=== PATIENT | female | born 1945 | race Caucasian/White ===

== ENCOUNTER 2022-09-10 09:21 | Outpatient (CLI) | payer MEDICARE, SELFPAY ==
--- NOTE | ~2022-09-10 | MM_ITS ---
MM stereotactic bx RT, MM post biopsy diagnostic RT, MM stereotactic specimen RT EXAMINATION: MM ster eotactic bx RT, MM post biopsy diagnostic RT, MM stereotactic specimen RT INDICATION: Abnormal calcifications in the right breast. Stereotactic core biopsy is requested evalu ate for malignancy.] TECHNIQUE AND FINDINGS: The risks and potential benefits of the procedure were discussed with the patient and written informe d consent was obtained. The patient was placed in the prone position clustered at the table with the right breast in craniocaudal compression, and the area of interest was localized and targeted utiliz ing digital imaging with stereotaxis. After sterile preparation of the skin, 1% lidocaine was utilized for local anesthesia at the skin pun cture site and 1% lidocaine with epinephrine was utilized for deeper local anesthesia/is about the bi opsy site. A 9G [employer] vacuum assisted biopsy needle was advanced to the level of the calcification o f interest from a superior approach utilizing stereotactic guidance and a total of 6 tissue core biop sies were obtained. A specimen radiograph demonstrates that the calcifications of interest are included within the tissue cores. A tissue marker clip was then placed at the biopsy site. The needle was removed and hemosta sis was achieved. The patient tolerated the procedure well and there is no evidence of significant i mmediate complication. The patient was given verbal as well as written postprocedural instructions p rior to discharge from the department. Tissue cores were submitted to surgical pathology for histolo gic analysis. A 2-view right unilateral digital mammogram was obtained post procedure and this demonstrates that th e tissue marker clip is in expected position.] IMPRESSION: 1. Successful stereotactic biopsy of calcifications in the upper outer quadrant of the right breast, followed by tissue marker clip placement. Please refer to pathology report for histologic analysis. Reviewed, dictated and finalized at location A. IMPRESSION: 1. Successful stereotactic biopsy of calcifications in the upper outer quadran t of the right breast, followed by tissue marker clip placement. Please refer to pathology report for histologic analysis. IMPRESSION: 1. Successful stereotactic biopsy of calcifications in the upper outer quadran t of the right breast, followed by tissue marker clip placement. Please refer to pathology report for histologic analysis.
== END 2022-09-10 09:22 | disposition home or self-care (01) ==
PROVIDERS: PCP Internal Medicine; Visit Provider Internal Medicine
DX: R92.8 Other abnormal and inconclusive findings on diagnostic imaging of breast (principal); D05.11 Intraductal carcinoma in situ of right breast
CPT/HCPCS: 19081; 77065; 88305; 88342; A4648

== ENCOUNTER 2022-10-23 12:55 | Outpatient (CLI) | payer MEDICARE, SELFPAY ==
--- NOTE | ~2022-10-23 | MM_ITS ---
EXAMINATION: MM_MAGSEEDRT_MG INDICATION: Right breast cancer TECHNIQUE: The procedure for a ultrasound -guided Magseed localization was discussed with the patient . Risks discussed included bleeding and infection. The patient verbalized understanding and agreed to proceed. The time out was performed to verify the patient's name, date of , and site of procedure. The s kin overlying the right breast was prepared in usual fashion. Utilizing mammographic guidance, the ne edle was advanced into the right breast. Confirmation of Magseed position was achieved with mediolate ral and craniocaudal mammogram. The patient tolerated procedure without immediate complication. FINDINGS: Mammographic images demonstrate deployment of the Magseed device at the site of the biopsy- proven right breast cancer. IMPRESSION: 1. Successful mammogram guided right breast Magseed localization. Reviewed, dictated and finalized at location A.
== END 2022-10-23 12:56 | disposition home or self-care (01) ==
PROVIDERS: PCP Internal Medicine; Visit Provider Physician Assistant Surgical
DX: D05.11 Intraductal carcinoma in situ of right breast (principal)
CPT/HCPCS: 19281; A4648

== ENCOUNTER 2022-10-31 09:16 | Outpatient (CLI) | payer MEDICARE, SELFPAY ==
--- NOTE | 2022-10-31 09:30 | ECG_ITS ---
Measurements Intervals [place] Rate: 67 P: 43 NM: 157 QRS: -47 QRSD: 98 T: 66 QT: 413 QTc: 437 Interpretive Statements SINUS RHYTHM LEFT ANTERIOR FASCICULAR BLOCK LEFT VENTRICULAR HYPERTROPHY AND ST-T CHANGE DELAYED PRECORDIAL R/S TRANSITION BASELINE ARTIFACT- I, II, III, AVR, AVL, AVF, V1-V6 ABNORMAL ECG NO PREVIOUS ECG AVAILABLE FOR COMPARISON Electronically Signed On 10-31-2022 9:58:27 CDT by Jose Manuel Roe D.O.
[2022-10-31 10:05] LABS: Anion Gap 11 mmol/L (8-16); Blood Urea Nitrogen 19 mg/dL (7-17); Calcium 9.5 mg/dL (8.4-10.2); Carbon Dioxide 28 mmol/L (22-30); Chloride 102 mmol/L (98-107); Estimated Glomerular Filt Rate 54; Glucose 116 mg/dL (65-110); Potassium 4.3 mmol/L (3.4-5.0); Sodium 141 mmol/L (137-145)
[2022-10-31 10:09] LABS: INR 0.9; Prothrombin Time 12.9 Seconds (11.1-14.7)
[2022-10-31 10:10] LABS: Partial Thromboplastin Time 27.7 SECONDS (22.3-36.8)
== END 2022-10-31 09:17 | disposition home or self-care (01) ==
LOC: ANHSURGERY 09:21
PROVIDERS: Anesthesiology; PCP Internal Medicine; Visit Provider Surgery
DX: I12.9 Hypertensive chronic kidney disease with stage 1 through stage 4 chronic kidney disease, or unspecified chronic kidney disease (principal); N18.2 Chronic kidney disease, stage 2 (mild); I44.4 Left anterior fascicular block
CPT/HCPCS: 36415; 80048; 85610; 85730; 93005

== ENCOUNTER 2022-11-06 01:26 | Day surgery (SDC) | payer MEDICARE, SELFPAY ==
[2022-10-24 13:41] VITALS: BMI 22.7
--- NOTE | 2022-10-24 14:06 | PC.NURSE ---
Report to the Outpatient Waiting Room, entrance under the green pavilion located off [facility], at time _6:30AM on date _11/06/22 . Planned Procedure Time: _8:30AM . Time changes happen often and if your time is changed the preop area will call you the afternoon before. - You and your visitor will be asked to self-screen and do not enter if you have any COVID symptoms. - A mask is optional within the hospital at this time. Patients may have clear liquids (water, carbonated beverages, clear teas, apple juice) until 3 hours prior to surgery with a maximum of 20 ounces. - No food from midnight until time of surgery Take the following medications with a SIP of water the morning of surgery: NONE DO NOT STOP ANY OF YOUR OTHER PRESCRIPTION MEDICATIONS PRIOR TO SURGERY ?EXCEPT THE FOLLOWING Medications to discontinue per physician ____HOLD ALL VITAMINS/SUPPLEMENTS 3 DAYS PRE-OP Date to take last dose 11/02/22 Please no make-up, nail thai, hairspray, perfume, deodorant, or body powder the day of surgery. No jewelry (including any body piercings) or valuables the day of surgery, leave them at home. Please take a shower or bath the night before, or the morning of, surgery with an antibacterial soap. Wear comfortable, loose fitting clothing. Children are encouraged to wear pajamas. - Jewelry must be removed prior to entering the operating room. Rings and piercings that are not removed may be cut off. - The hospital will not accept responsibility for valuables. - Please leave all valuables, including medications, at home the day of surgery. If you are going home after surgery, a licensed medical driver must drive you home. - NO public transportation without another adult if you receive anesthesia. - We recommend that an adult stay with you for 24 hours following discharge. - We also recommend that you do not drive, make important decision, drink alcoholic beverages, or take any drugs that were not prescribed by your health care provider for at least 24 hours after your discharge time. Follow any additional instructions given to you from your surgeon. If you or anyone in your household have experienced Covid symptoms in the past week, please notify your surgeon or the nurse liaison at the phone number below for possible testing. Telephone instructions given to __PATIENT and asked if any additional questions and then verbalized understanding. Patient advised to call surgeon office or pre surgery nurse liaison [phone] if any additional questions.
--- NOTE | 2022-11-05 10:17 | WPDANESEPPF ---
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 Patient Data Age: 76 Gender: F Height: 1.65 m Weight: 62 kg Allergies Allergy/AdvReac Type Severity Reaction Status Date / Time No Known Allergies Allergy Verified 11/06/22 06:05 Home Medications Medication Instructions Recorded Confirmed Type ascorbate calcium (vitamin C) 500 500 mg PO DAILY 10/08/22 10/24/22 History mg tablet calcium citrate 250 mg 2 tablet PO BID 10/08/22 10/24/22 History calcium-vitamin D3 5 mcg (200 unit) tablet lisinopril 5 mg tablet 5 mg PO QPM 10/08/22 10/24/22 History ivswyrmrzzhn-zexgbkva-yljyzf tablet 1 tablet PO DAILY 10/08/22 10/24/22 History turmeric root extract 500 mg tablet 500 mg PO DAILY 10/08/22 10/24/22 History vitamin B complex (B 1 tablet PO DAILY 10/08/22 10/24/22 History Complex-Vitamin B12 tablet) glucosamine sulf dipot 1 cap PO DAILY 10/24/22 10/24/22 History chlr,msm,chond 550 mg-C 30 mg-ashley 1 mg capsule (Glucosamine Chondroitin) tramadol 50 mg tablet 50 mg PO Q6H PRN pain #12 tabs 11/06/22 Rx Patient hx anesthesia problems: none Family hx anesthesia problems: none Results Review: All pre-operative results and documents have been reviewed as part of the pre-operative evaluation. ON LICENSE OF [facility] Past Medical History Medical History (Updated 11/05/22 @ 10:21 by Akira Andujar DO) Breast cancer CKD (chronic kidney disease) Hypertension Surgical History Surgical History (Updated 11/05/22 @ 10:19 by Akira Andujar DO) History of tubal ligation Family History Family History (Updated 10/08/22 @ 08:08 by Alexia Rosario CMA) Father Bladder cancer Mother Hypertension Sibling Ovarian cancer Hypertension Other Hypertension Social History Social History (Updated 10/31/22 @ 08:46 by Alexia Rosario CMA) Smoking status: Never smoker Alcohol intake: never Substance use: never Substance use type: does not use Current Housing: Decline to Answer Concerned About Future Housing: Decline to Answer Difficulty Paying Gas/Electric Bills: Decline to Answer Difficulty Paying for Meds: Decline to Answer Currently Unemployed: Decline to Answer Education: Decline to Answer Difficulty w/ Childcare or Family Care: Decline to Answer Living arrangements: with family Additional living arrangements comments: HUSB Spiritual care concerns: No Anes - Eval Final PreProcedure Day of Procedure 11/05/22 10:17 Patient weight: normal Heart: regular rate and rhythm Lungs: clear to auscultation and normal air movement Airway: Mallampati scale class II Neurological: alert and oriented Last oral intake: >/= 8 hours ASA classification: III Emergent: no Anesthetic plan: proceed Anesthesia type and monitoring: general LMA and standard monitoring Results Review: All pre-operative results and documents have been reviewed as part of the pre-operative evaluation. Informed Consent: The patient's anesthetic plan and its attendant risks and benefits were discussed with the patient/family/POA. Questions were solicited and answers provided to the satisfaction of the patient/family/POA.
[2022-11-06] VITALS (9 sets, daily range): BP systolic 149–189; BP diastolic 60–75; PULSE 64–79; RESP 16–18; TEMP 36.1–36.4; O2SAT 98–100
--- NOTE | ~2022-11-06 | MM_ITS ---
MM_FAXITRON_MG DATE: 11/06/2022 09:34 INDICATION: Right breast lumpectomy TECHNIQUE: Single noncompression mammographic images of surgical soft tissue specimen COMPARISON: 10/23/2022 right mag seed FINDINGS: Radiopaque mag seed and radiopaque biopsy marker are noted in the central aspect of the lucretia gical soft tissue specimen. IMPRESSION: Successful surgical excision of radiopaque mag seed marker Reviewed, dictated and finalized at [facility]. Reviewed, dictated and finalized at [facility].
[2022-11-06] MEDS: LACTATED RINGERS 1,000 ML 30 ML IV CONT (06:28)
[2022-11-06] MEDS: ACETAMINOPHEN 500 MG TABLET 1000 MG PO (06:47)
--- NOTE | 2022-11-06 07:36 | WPDHPUPDATE1 ---
History and Physical Update Update Date/Time: 11/06/22 07:36 History and Physical has been reviewed, including an updated exam of the patient. There are NO changes in the patient's condition. Risks, benefits, and alternatives have been discussed and questions answered. Patient agrees to proceed with procedure.
[2022-11-06] MEDS: ceFAZolin 2 GM/D5W 50 ML 2 GM/50 ML BAG IVPB (08:56)
--- NOTE | 2022-11-06 09:46 | P.OP_ITS ---
Procedure Note - Detailed Date of Procedure 11/06/22 Pre-op Diagnosis Right breast ductal carcinoma in situ Post-op Diagnosis Same Procedure Performed Right breast lumpectomy Surgeon Dacia Hawkins MD Creative Designer Laura Lin PA-C Anesthesia General Indications 76-year-old female with the history of right breast ductal carcinoma in Situ who presented for preoperative appointment.? Patient has been evaluated by Oncology and elected to proceed with lumpectomy for surgical management of her DCIS.? Risks of the surgery were discussed with the patient which included but not limited to risk of bleeding, infection, positive margins, recurrence, possible need for additional procedures in the future, asymmetry, scar, pain, wound healing problems as well as the risk of anesthesia.? All questions were answered patient agrees to proceed.? We will plan for a right breast lumpectomy with Mag seed localization next week. Description of Procedure Patient was identified in the pre-operative area and brought to the OR suite. She underwent tumor localization previously by IR with magseed placement prior to presenting for surgery day. She was laid supine in the operating table and sequential compression devices were applied. General anesthesia was induced without difficulties. The right chest and was prepped and draped in a sterile fashion. The sentimag probe was used to identify the area where the magseed was placed and an incision was made overlying this area, at a site of a previous old incision. Dissection was carried down through the subcutaneous tissue into the breast tissue. The tumor was identified with palpation using probe, and a rim of normal breast tissue was excised along with the tumor as our lumpectomy specimen. Once the specimen was completely excised, it was oriented using surgical pain according to manufuctrer instructions. The specimen was placed in the faxitron and images were sent to Radiology for radiographic confirmation of calcifications, biopsy marker and magseed within the specimen. Once the radiographic confirmation was received, the wound was irrigated with saline and hemostasis was assured. The deep dermal layer was approximated using interrupected 3-0 vicryl followed by 4-0 monocryl for the skin. Dermabond was applied followed by a surgical bra. Patient was awoken from anesthesia and taken to the recovery area in stable condition. All needles, instruments and sponge counts were correct as reported by the operating room staff. Patient tolerated the procedure well with no immediate complications. Laura Riley PA-C was required for positioning and retraction throughout the case. Estimated Blood Loss 10 Drains No Pathology Yes Complications No immediate complications Condition Stable Disposition PACU [facility] Billing Surgery - Charge Forward: Surgery Billing
== END 2022-11-06 12:30 | disposition home or self-care (01) ==
PROVIDERS: PCP Internal Medicine; Visit Provider Surgery
PROC: (CPT 19301; principal; 2022-11-06 08:30)
DX: D05.11 Intraductal carcinoma in situ of right breast (principal); Z17.0 Estrogen receptor positive status [ER+]; I12.9 Hypertensive chronic kidney disease with stage 1 through stage 4 chronic kidney disease, or unspecified chronic kidney disease; N18.9 Chronic kidney disease, unspecified
CPT/HCPCS: 19301; 76098; 88307; A9270; J0690; J1100; J2405; J2704; J3010; J7120; Q9968

== ENCOUNTER 2023-01-31 09:06 | Outpatient (CLI) | payer MEDICARE, SELFPAY ==
[2023-01-31 09:23] LABS: Basophils Percent Auto 0.5 % (0.2-1.2); Eosinophils Percent Auto 0.3 % (0-4.4); Hematocrit 41.5 % (37.0-47.0); Hemoglobin 13.3 g/dL (12.0-15.0); Immature Granulocyte Absolute 0.02 K/mm3 (0.00-0.031); Immature Granulocyte Percent A 0.3 % (0-0.5); Immature Platelet Fraction Pct 9.9 % (0.9-11.2); Lymphocytes Absolute Auto 1.93 K/mm3 (0.9-3.2); Lymphocytes Percent Auto 29.4 % (18.3-44.2); Mean Platelet Volume 11.5 fl (7.4-10.4); Monocytes Absolute Auto 0.6 K/mm3 (0.1-0.6); Monocytes Percent Auto 9.5 % (2.6-8.5); Neutrophils Absolute Auto 3.9 K/mm3 (1.3-6.7); Platelet Count Result 145 k/mm3 (150-375); Red Blood Count 4.15 M/mm3 (4.2-5.4); Red Cell Distribution Width 12.9 % (11.5-14.5); White Blood Count 6.6 K/mm3 (4.5-10.0)
[2023-01-31 09:24] LABS: Blood Urea Nitrogen 19 mg/dL (8-26); Carbon Dioxide 28 mmol/L (22-30); Chloride 102 mmol/L (98-109); Estimated Glomerular Filt Rate 48; Glucose 124 mg/dL (70-105); Ionized Calcium (POC) 1.21 mmol/L (1.11-1.31); Potassium 4.3 mmol/L (3.5-4.9); Sodium 141 mmol/L (138-146)
== END 2023-01-31 09:07 | disposition home or self-care (01) ==
LOC: ANHLAB 09:09
PROVIDERS: Visit Provider Internal Medicine Hematology & Oncology
DX: D05.11 Intraductal carcinoma in situ of right breast (principal)
CPT/HCPCS: 36415; 80047; 85025; 85055

== ENCOUNTER 2023-06-07 10:29 | Outpatient (CLI) | payer MEDICARE, SELFPAY ==
--- NOTE | ~2023-06-07 | MM_ITS ---
EXAMINATION: MM diagnostic lotus BI w keon HISTORY: Status post right lumpectomy for ductal carcinoma in situ. TECHNIQUE: Additional 3-D tomosynthesis images of the breasts were performed and synthetic 2-D images were generated. CAD analysis was submitted and interpreted. COMPARISON: Comparison to multiple prior studies sequentially, with oldest reviewed study dated 07/04. BREAST PARENCHYMAL COMPOSITION: Not dense: There are scattered areas of fibroglandular density. FINDINGS: The left breast is stable without evidence for malignancy. There are surgical changes in th e upper outer quadrant of the right breast consistent with previous left mastectomy. There is a solit kaykay calcification along the margin of the lumpectomy site, nonspecific. IMPRESSION: 1. Probable benign postsurgical changes of the right breast. 2. Recommend 6 month follow-up diagnostic right mammogram BI-RADS category 3, probably benign findings. Reviewed, dictated and finalized at location [facility].
== END 2023-06-07 10:30 | disposition home or self-care (01) ==
LOC: ANHIMG 10:31
PROVIDERS: PCP Internal Medicine; Visit Provider Physician Assistant Surgical
DX: D05.11 Intraductal carcinoma in situ of right breast (principal)
CPT/HCPCS: 77062; 77066; G0279

== ENCOUNTER 2023-06-18 07:33 | Outpatient (CLI) | payer MEDICARE, SELFPAY ==
--- NOTE | ~2023-06-18 | DEXA_ITS ---
Bone Density Report Name: MYA VERAS Age: 77 Sex: Female Ethnicity: White Date of : 1945 Indication: postmenopausal; screening for osteoporosis; height loss; cancer; Referring Provider: ERNESTO ALVAREZ Study: Bone densitometry was performed. Exam Date: June 18, 2023 Accession number: [id number] Bone Density: Region BMD T-score Z-score Classification AP Spine(L1-L4) 0.933 -1.0 1.6 Normal Femoral Neck (Left) 0.521 -3.0 -0.7 Osteoporosis Total Hip (Left) 0.786 -1.3 0.7 Osteopenia Femoral Neck (Right) 0.611 -2.1 0.1 Osteopenia Total Hip (Right) 0.736 -1.7 0.3 Osteopenia Total Hip Mean 0.761 -1.5 0.5 Osteopenia World Health Organization criteria for BMD impression classify patients as: Normal (T-score at or above -1.0), Osteopenia (T-score between -1.0 and -2.5), or Osteoporosis (T-score at or below -2.5). 10-year Fracture Risk: FRAX not reported because: Some T-score for Spine Total or Hip Total or Femoral Neck at or below -2.5 Clinical Information Provided by Patient: Has used the following medications: Vitamin D, Calcium Has the following medical conditions: Cancer Patient maximum height was 65 Menopause Age: 50 Onset of menses at age 10 Number of children 2 Impression: The patient has osteoporosis, based on the Left Femoral Neck T-score. Discussion: INCREASED RISK OF FRACTURE. BONE DENSITY IS UNDESIRABLY LOW AT ONE OR MORE SKELETAL SITES, CONSISTENT WITH POSTMENOPAUSAL OSTEOPOROSIS. This patient's lowest T-score meets the World Health Organization's (WHO) criteria for osteoporosis at one or more sites (T-score -2.5 or below). In untreated patients, the risk of osteoporotic fracture increases approximately two-fold for each 1.0 SD decrease in T-score. Low bone density is not the only risk factor for fracture; also consider factors such as patient's age, frailty or poor health, risk of falling, risk of injury, previous osteoporotic fracture, family history of osteoporosis, cigarette smoking, low body weight, etc. Not everyone with low bone mineral density has osteoporosis; osteomalacia and other metabolic bone disorders should also be considered. Patients who have osteoporosis should be evaluated for specific diseases and conditions (secondary causes) that may cause or contribute to bone loss. The [place] [employer] (AACE) and National Osteoporosis Foundation (NOF) recommend pharmacologic intervention for all postmenopausal women whose T-score is in this range. The patient should follow a healthful lifestyle (good nutrition with adequate calcium and vitamin D, and appropriate weight-bearing exercise). Follow-Up: Consider a repeat BMD and Vertebral Fracture Assessment (VFA) exam in 2 years or sooner if medically necessary, to reassess this pat
== END 2023-06-18 07:34 | disposition home or self-care (01) ==
LOC: ANHIMG 07:35
PROVIDERS: PCP Internal Medicine; Visit Provider Internal Medicine Hematology & Oncology
DX: M81.0 Age-related osteoporosis without current pathological fracture (principal); M85.852 Other specified disorders of bone density and structure, left thigh; M85.851 Other specified disorders of bone density and structure, right thigh
CPT/HCPCS: 77080

== ENCOUNTER 2023-06-28 08:14 | Outpatient (CLI) | payer MEDICARE, SELFPAY ==
[2023-06-28 08:45] LABS: Basophils Percent Auto 0.4 % (0.2-1.2); Eosinophils Percent Auto 0.4 % (0-4.4); Hematocrit 39.4 % (37.0-47.0); Hemoglobin 12.9 g/dL (12.0-15.0); Immature Granulocyte Absolute 0.01 K/mm3 (0.00-0.031); Immature Granulocyte Percent A 0.2 % (0-0.5); Immature Platelet Fraction Pct 8.3 % (0.9-11.2); Lymphocytes Absolute Auto 1.19 K/mm3 (0.9-3.2); Lymphocytes Percent Auto 26.1 % (18.3-44.2); Mean Corpuscular HGB Conc 32.7 g/dl (32-36); Mean Corpuscular Hemoglobin 32.3 pg (26-34); Mean Corpuscular Volume 98.7 fl (80-100); Mean Platelet Volume 11.3 fl (7.4-10.4); Monocytes Absolute Auto 0.5 K/mm3 (0.1-0.6); Monocytes Percent Auto 10.3 % (2.6-8.5); Neutrophils Absolute Auto 2.9 K/mm3 (1.3-6.7); Neutrophils Percent Auto 62.6 % (45.5-73.1); Platelet Count Result 125 k/mm3 (150-375); Red Blood Count 3.99 M/mm3 (4.2-5.4); Red Cell Distribution Width 12.7 % (11.5-14.5); White Blood Count 4.6 K/mm3 (4.5-10.0)
[2023-06-28 08:49] LABS: Blood Urea Nitrogen 19 mg/dL (8-26); Carbon Dioxide 26 mmol/L (22-30); Chloride 101 mmol/L (98-109); Estimated Glomerular Filt Rate 43; Glucose 116 mg/dL (70-105); Ionized Calcium (POC) 1.18 mmol/L (1.11-1.31); Sodium 141 mmol/L (138-146)
[2023-06-28 11:50] LABS: Alanine Aminotransferase 19 U/L (6-35); Albumin Level 4.6 g/dL (3.5-5.1); Alkaline Phosphatase 59 U/L (38-126); Anion Gap 6 mmol/L (4-12); Aspartate Amino Transferase 28 U/L (14-36); Bilirubin,Total 0.7 mg/dL (0.2-1.3); Blood Urea Nitrogen 19 mg/dL (7-17); Calcium 9.7 mg/dL (8.4-10.2); Carbon Dioxide 30 mmol/L (22-30); Chloride 104 mmol/L (98-107); Cholesterol 228 mg/dL (0-200); Estimated Glomerular Filt Rate 48; Glucose 113 mg/dL (65-110); HDL Direct 47 mg/dL; Sodium 140 mmol/L (137-145); Triglycerides 205 mg/dL (<150)
[2023-06-28 12:01] LABS: LDL Cholesterol Direct 127 mg/dL
[2023-06-28 12:05] LABS: Free T4 Free Thyroxine 1.35 ng/mL (0.78-2.19)
== END 2023-06-28 08:15 | disposition home or self-care (01) ==
LOC: ANHLAB 08:17
PROVIDERS: PCP Internal Medicine; Visit Provider Internal Medicine Hematology & Oncology
DX: E78.5 Hyperlipidemia, unspecified (principal); Z13.820 Encounter for screening for osteoporosis
CPT/HCPCS: 36415; 80047; 80053; 80061; 84439; 84443; 85025; 85055

== ENCOUNTER 2023-10-18 08:25 | Outpatient (CLI) | payer MEDICARE, SELFPAY ==
[2023-10-18 08:56] LABS: Basophils Percent Auto 0.6 % (0.2-1.2); Eosinophils Percent Auto 0.4 % (0-4.4); Hematocrit 39.4 % (37.0-47.0); Hemoglobin 12.6 g/dL (12.0-15.0); Immature Granulocyte Absolute 0.01 K/mm3 (0.00-0.031); Immature Granulocyte Percent A 0.2 % (0-0.5); Immature Platelet Fraction Pct 7.9 % (0.9-11.2); Lymphocytes Absolute Auto 1.24 K/mm3 (0.9-3.2); Lymphocytes Percent Auto 25.6 % (18.3-44.2); Mean Corpuscular Hemoglobin 32.3 pg (26-34); Mean Platelet Volume 11.8 fl (7.4-10.4); Monocytes Absolute Auto 0.4 K/mm3 (0.1-0.6); Monocytes Percent Auto 7.8 % (2.6-8.5); Neutrophils Absolute Auto 3.2 K/mm3 (1.3-6.7); Neutrophils Percent Auto 65.4 % (45.5-73.1); Platelet Count Result 121 k/mm3 (150-375); White Blood Count 4.9 K/mm3 (4.5-10.0)
[2023-10-18 08:57] LABS: Blood Urea Nitrogen 22 mg/dL (8-26); Carbon Dioxide 27 mmol/L (22-30); Chloride 103 mmol/L (98-109); Estimated Glomerular Filt Rate 40; Glucose 120 mg/dL (70-105); Ionized Calcium (POC) 1.18 mmol/L (1.11-1.31); Potassium 3.9 mmol/L (3.5-4.9); Sodium 141 mmol/L (138-146)
[2023-10-18 09:30] LABS: Creatinine Urine 36.2 mg/dL
[2023-10-18 09:31] LABS: Alanine Aminotransferase 14 U/L (6-35); Albumin Level 4.6 g/dL (3.5-5.1); Alkaline Phosphatase 37 U/L (38-126); Anion Gap 10 mmol/L (4-12); Aspartate Amino Transferase 29 U/L (14-36); Bilirubin,Total 0.7 mg/dL (0.2-1.3); Blood Urea Nitrogen 23 mg/dL (7-17); Calcium 9.3 mg/dL (8.4-10.2); Carbon Dioxide 29 mmol/L (22-30); Chloride 101 mmol/L (98-107); Estimated Glomerular Filt Rate 43; Glucose 119 mg/dL (65-110); Sodium 140 mmol/L (137-145)
[2023-10-18 09:39] LABS: Hemoglobin A1C 5.5 % (<5.7)
[2023-10-18 12:48] LABS: Cholesterol 182 mg/dL (0-200); HDL Direct 56 mg/dL; Triglycerides 148 mg/dL (<150)
[2023-10-18 12:59] LABS: LDL Cholesterol Direct 84 mg/dL
[2023-10-18 13:09] LABS: Free T4 Free Thyroxine 1.13 ng/mL (0.78-2.19)
[2023-10-18 15:37] LABS: MALB Creatinine Ratio > 16.6 mg/g (0-30); Microalbumin Urine Random > 6.0 mg/L (0-16.7)
== END 2023-10-18 08:26 | disposition home or self-care (01) ==
PROVIDERS: PCP Internal Medicine; Visit Provider Internal Medicine Hematology & Oncology
DX: E78.5 Hyperlipidemia, unspecified (principal); R73.03 Prediabetes; Z13.820 Encounter for screening for osteoporosis
CPT/HCPCS: 36415; 80047; 80053; 80061; 82043; 83036; 84439; 84443; 85025; 85055

== ENCOUNTER 2023-12-09 10:24 | Outpatient (CLI) | payer MEDICARE, SELFPAY ==
--- NOTE | ~2023-12-09 | MM_ITS ---
EXAMINATION: MM diagnostic lotus RT w keon HISTORY: Follow-up right breast distortion post biopsy. 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 TECHNIQUE: Additional 3-D tomosynthesis images of the right breast were performed and synthetic 2-D i mages were generated. CAD analysis was submitted and interpreted. COMPARISON: Comparison to multiple prior studies sequentially, with oldest reviewed study dated 09/10. BREAST PARENCHYMAL COMPOSITION: Not dense: There are scattered areas of fibroglandular density. FINDINGS: Stable postsurgical change with architectural distortion in the upper outer quadrant of the right breast, middle third. No new masses, calcifications or architectural distortion. IMPRESSION: 1. Stable right mammogram without evidence for malignancy. 2. Routine yearly screening mammogram and regular clinical breast examination are recommended. BI-RADS Category 2: Benign finding(s). Reviewed, dictated and finalized at location [facility]. IMPRESSION: 1. Stable right mammogram without evidence for malignancy. 2. Routine yearly screening mammogram and regular clinical breast examination a re recommended. BI-RADS Category 2: Benign finding(s).
== END 2023-12-09 10:25 | disposition home or self-care (01) ==
LOC: ANHIMG 10:25
PROVIDERS: PCP Internal Medicine; Visit Provider Physician Assistant Surgical
DX: D05.11 Intraductal carcinoma in situ of right breast (principal)
CPT/HCPCS: 77061; 77065; G0279

== ENCOUNTER 2024-06-10 09:18 | Outpatient (CLI) | payer MEDICARE, SELFPAY ==
--- NOTE | ~2024-06-10 | MM_ITS ---
EXAMINATION: MM screening [facility] BI w [facility] HISTORY: Screening TECHNIQUE: Craniocaudal and mediolateral oblique 3-D tomosynthesis images were obtained and synthetic 2-D images were generated. CAD analysis was submitted and interpreted. COMPARISON: Comparison to multiple prior studies sequentially, with oldest reviewed study dated 07/04. BREAST PARENCHYMAL COMPOSITION: Not dense: There are scattered areas of fibroglandular density. FINDINGS: There are postsurgical changes with distortion in the upper outer quadrant of the right edu ast, middle third. There are no suspicious masses, calcifications or architectural distortion in the right breast to suggest malignancy. The left breast is stable without evidence for malignancy. IMPRESSION: 1. No mammographic evidence of malignancy. 2. Recommend routine screening mammography in one year. BI-RADS Category 2: Benign finding(s). Reviewed, dictated and finalized at location B.
--- OUTSIDE RECORDS SUMMARY | 2024-06-10 10:01 | XMS_ITS | Data Portability ---
Author Organization [place] [facility], Main Office Address [address] [place] [address] Assessment Encounter Date Assessment Date Assessment LastModified by Organization Details LastModified Time 06/26/2022 06/26/2022 06/14/2022: TSH 7.100H, FT4 1.19 Gluc 108, Alb 4.6, TP WNL Chol 241, TG 212, LDL 152 MCV 101.2, GFR 54 Not available 06/26/2022 10:00:24 01/01/2023 01/01/2023 06/14/2022: TSH 7.100H, FT4 1.19 Gluc 108, Alb 4.6, TP WNL Chol 241, TG 212, LDL 152 MCV 101.2, GFR 54 10/31/2022: Dr Hawkins CMP: GFR 54, Gluc 116 Not available 12/31/2022 08:54:47 07/02/2023 07/02/2023 06/14/2022: TSH 7.100H, FT4 1.19 Gluc 108, Alb 4.6, TP WNL Chol 241, TG 212, LDL 152 MCV 101.2, GFR 54 10/31/2022: Dr Hawkins CMP: GFR 54, Gluc 116 06/28/2023: BUN 19, Cr 1.1, GFR 48 Chol 228, TG 205,LDL 127 PLT 125 Not available 07/02/2023 09:32:32 11/19/2023 11/19/2023 06/14/2022: TSH 7.100H, FT4 1.19 Gluc 108, Alb 4.6, TP WNL Chol 241, TG 212, LDL 152 MCV 101.2, GFR 54 10/31/2022: Dr Hawkins CMP: GFR 54, Gluc 116 06/28/2023: BUN 19, Cr 1.1, GFR 48 Chol 228, TG 205,LDL 127 PLT 125 10/18/2023: Dr Jordan TSH 6.760H, FT4 1.13 MCV 101.0, PLT 121 Gluc 119, GFR 43 Not available 11/19/2023 10:00:39 03/24/2024 03/24/2024 06/14/2022: TSH 7.100H, FT4 1.19 Gluc 108, Alb 4.6, TP WNL Chol 241, TG 212, LDL 152 MCV 101.2, GFR 54 10/31/2022: Dr Hawkins CMP: GFR 54, Gluc 116 06/28/2023: BUN 19, Cr 1.1, GFR 48 Chol 228, TG 205,LDL 127 PLT 125 10/18/2023: Dr Jordan TSH 6.760H, FT4 1.13 MCV 101.0, PLT 121 Gluc 119, GFR 43 03/20/2024: A1C 5.5 GFR 54 Chol 216, LDL 113 TSH 7.720H, FT4 1.16 A1C 5.8 PLT 141 Not available 03/24/2024 09:22:35 Plan of Treatment Reminders Order Date Submit Date Provider Last Modified By Organization Details Last Modified Time Details Appointments Any 15 2024 08:30A Adrien [email or web address] MD Not available Not available Not available Lab glycohemo globin, total, blood 2024 025 [email or web address] [facility] (Lab), [address] [place], [address], 03/24/2024 09:49:54 microalbu min, urine 2024 025 [email or web address] [facility] (Lab), [address] [place], [address], 03/24/2024 09:49:54 vitamin D, 25-hydrox y, total, serum 2024 025 [email or web address] [facility] (Lab), [address] [place], [address], 03/24/2024 09:49:53 lipid panel, serum [address] (Lab), [address] [place], [address], 03/24/2024 09:49:52 CBC w/ auto diff [address] (Lab), [address] [place], [address], 03/24/2024 09:49:53 T4, free, serum [address] (Lab), [address] [place], [address], 03/24/2024 09:49:53 CMP, serum or plasma [address] (Lab), [address] [place], [address], 03/24/2024 09:49:53 TSH, serum or plasma [address] (Lab), [address] [place], [address], 03/24/2024 09:49:53 glycohemo globin, total, blood [address] (Lab), [address] [place], [address], 05/20/2024 08:37:53 microalbu min, urine [address] (Lab), [address] [place], [address], 05/20/2024 08:37:53 vitamin D, 25-hydrox y, total, serum [address] (Lab), [address] [place], [address], 05/20/2024 08:37:52 lipid panel, serum [address] (Lab), [address] [place], [address], 05/20/2024 08:37:52 CBC w/ auto diff [address] (Lab), [address] [place], [address], 05/20/2024 08:37:52 T4, free, serum [address] (Lab), [address] [place], [address], 05/20/2024 08:37:52 CMP, serum or plasma [address] (Lab), [address] [place], [address], 05/20/2024 08:37:52 TSH, serum or plasma [address] (Lab), [address] [place], [address], 05/20/2024 08:37:52 glycohemo globin, total, blood [address] (Lab), [address] [place], [address], 12/31/2023 09:52:09 microalbu min, urine 2023 024 [email or web address] [facility] (Lab), [address] [place], [address], 10/18/2023 18:11:50 vitamin D, 25-hydrox y, total, serum [address] (Lab), [address] [place], [address], 12/31/2023 09:52:08 lipid panel, serum 2023 024 [facility] (Lab), [address] [place], [address], 10/18/2023 15:47:00 CBC w/ auto diff 2023 024 [facility] (Lab), [address] [place], [address], 10/18/2023 11:15:14 T4, free, serum [address] (Lab), [address] [place], [address], 12/31/2023 09:52:08 CMP, serum or plasma [address] (Lab), [address] [place], [address], 12/31/2023 09:52:08 TSH, serum or plasma [address] (Lab), [address] [place], [address], 12/31/2023 09:52:08 vitamin D, 25-hydrox y, total, serum [address] (Lab), [address] [place], [address], 07/01/2023 09:40:54 lipid panel, serum [address] (Lab), [address] [place], [address], 07/01/2023 09:40:54 CBC w/ auto diff [address] (Lab), [address] [place], [address], 07/01/2023 09:40:54 T4, free, serum [address] (Lab), [address] [place], [address], 07/01/2023 09:40:38 CMP, serum or plasma [address] (Lab), [address] [place], [address], 07/01/2023 09:40:38 TSH, serum or plasma [address] (Lab), [address] [place], [address], 07/01/2023 09:40:38 vitamin D, 25-hydrox y, total, serum [address] (Lab), [address] [place], [address], 02/12/2023 11:18:29 lipid panel, serum [address] (Lab), [address] [place], [address], 02/12/2023 11:18:28 CBC w/ auto diff [address] (Lab), [address] [place], [address], 02/12/2023 11:18:28 T4, free, serum [email or web address] (Lab), [address] [place], [address], 02/12/2023 11:18:28 CMP, serum or plasma [email or web address] (Lab), [address] [place], [address], 02/12/2023 11:18:29 TSH, serum or plasma [email or web address] (Lab), [address] [place], [address], 02/12/2023 11:18:29 Referral hematolog ist referral 2024 025 [email or web address] Charlie Jordan MD, [address], [place], [address], 04/03/2024 09:55:00 podiatris t referral - Please call patient to schedule an appointme nt. Thank you. 2024 025 [email or web address] Rick Becerra DPM, [address], [address], [place], [address], 05/13/2024 08:42:31 hematolog ist referral 2023 024 [email or web address] Charlie Jordan MD, [address], [place], [address], 11/19/2023 12:07:34 podiatris t referral - Please call patient to schedule. 2023 024 [email or web address] Rick Becerra DPM, [address], [address], [place], [address], 12/24/2023 11:24:39 podiatris t referral 2023 024 gale Becerra DPM, [address] [facility], [address], [place], [address], 01/27/2024 08:51:19 Procedures None recorded. Surgeries None recorded. Imaging MAMMO, screening , digital, bilateral 2022 023 [email or web address] [facility] ([facility]), [address] [place], [address], 08/30/2022 10:45:51 Medication Orders None recorded. Patient TargetsNo targets recorded. Patient Instructions Encounter Date Encounter Id Patient Instructions Last Modified By Organization Details Last Modified Time 11/19/2023 [id number] diabetic eye exam* [email or web address] Not available 05/18/2024 08:34:50 03/24/2024 [id number] diabetic eye exam* [email or web address] Not available 03/24/2024 09:49:54 Reason for Referral Experimental Mechanic Referral for Pred iabetes Referring Physician: Migel Michele Internal Medicine, Encounter Date: 07/02/2023 Experimental Mechanic Referral for Pred iabetes Please call patient to schedule. Referring Physician: Radha Yuan Medicine, Encounter Date: 11/19/2023 Referring Physician: Migel Michele Internal Medicine, Encounter Date: 11/19/2023 Experimental Mechanic Referral for Pred iabetes Please call patient to schedule an appointment. Thank you. Referring Physician: Migel Michele Internal Medicine, Encounter Date: 03/24/2024 Referring Physician: Migel Michele Internal Medicine, Encounter Date: 03/24/2024 Results Created Date Observation Date Name Description Value Unit Range Abnormal Flag Note LastModifiedBy Organization Detail LastModifiedTime 06/15/1906/14/2022 CBC/C OMPLE TE BLD COUNT W/DIF F white blood cells 5.3 x10'3 /uL 4.2-10 .8 Not Available [facility] (Lab) [address] [place], [address], 06/14/2022 11:29:10 06/15/19 23 06/14/2022 CBC/C OMPLE TE BLD COUNT W/DIF F red blood cells 4.09 x10'6 /uL 3.80-5 .20 Not Available [facility] (Lab) [address] [place], [address], 06/14/2022 11:29:10 06/15/19 23 06/14/2022 CBC/C OMPLE TE BLD COUNT W/DIF F hemoglobin 13.1 g/dL 12.0-1 5.6 Not Available [facility] (Lab) [address] [place], [address], 06/14/2022 11:29:10 06/15/19 23 06/14/2022 CBC/C OMPLE TE BLD COUNT W/DIF F hematocrit 41.4 % 35.7-4 5.7 Not Available [facility] (Lab) [address] [place], [address], 06/14/2022 11:29:10 06/15/19 23 06/14/2022 CBC/C OMPLE TE BLD COUNT W/DIF F mean red cell volume 101.2 fL 82.0-9 9.0 high Not Available [facility] (Lab) [address] [place], [address], 06/14/2022 11:29:10 06/15/19 23 06/14/2022 CBC/C OMPLE TE BLD COUNT W/DIF F mean red cell hemoglobin 32.0 pg 27.0-3 3.0 Not Available [facility] (Lab) [address] [place], [address], 06/14/2022 11:29:10 06/15/19 23 06/14/2022 CBC/C OMPLE TE BLD COUNT W/DIF F mean RBC HGB concentratio n 31.6 g/dL 31.0-3 6.0 Not Available [facility] (Lab) [address] [place], [address], 06/14/2022 11:29:10 06/15/19 23 06/14/2022 CBC/C OMPLE TE BLD COUNT W/DIF F red cell distribution width 13.0 % 11.8-1 5.5 Not Available [facility] (Lab) [address] [place], [address], 06/14/2022 11:29:10 06/15/19 23 06/14/2022 CBC/C OMPLE TE BLD COUNT W/DIF F platelets 153 x10'3 /uL 150-40 0 Not Available [facility] (Lab) [address] [place], [address], 06/14/2022 11:29:10 06/15/19 23 06/14/2022 CBC/C OMPLE TE BLD COUNT W/DIF F mean platelet volume 13.0 fL 9.0-12 .4 high Not Available [facility] (Lab) [address] [place], [address], 06/14/2022 11:29:10 06/15/19 23 06/14/2022 CBC/C OMPLE TE BLD COUNT W/DIF F neutrophils 49.9 % 39.0-7 2.0 Not Available [facility] (Lab) [address] [place], [address], 06/14/2022 11:29:10 06/15/19 23 06/14/2022 CBC/C OMPLE TE BLD COUNT W/DIF F lymphocytes 39.1 % 16.0-4 7.0 Not Available [facility] (Lab) [address] [place], [address], 06/14/2022 11:29:10 06/15/19 23 06/14/2022 CBC/C OMPLE TE BLD COUNT W/DIF F monocytes 8.9 % 5.0-12 .0 Not Available [facility] (Lab) [address] [place], [address], 06/14/2022 11:29:10 06/15/19 23 06/14/2022 CBC/C OMPLE TE BLD COUNT W/DIF F eosinophils 1.3 % 1.0-7. 0 Not Available [facility] (Lab) [address] [place], [address], 06/14/2022 11:29:10 06/15/19 23 06/14/2022 CBC/C OMPLE TE BLD COUNT W/DIF F basophils 0.4 % 0.0-2. 0 Not Available [facility] (Lab) [address] [place], [address], 06/14/2022 11:29:10 06/15/19 23 06/14/2022 CBC/C OMPLE TE BLD COUNT W/DIF F immature granulocytes 0.4 % 0.00-0 .50 Not Available [facility] (Lab) [address] [place], [address], 06/14/2022 11:29:10 06/15/19 23 06/14/2022 CBC/C OMPLE TE BLD COUNT W/DIF F neutrophils, absolute count 2.64 x10'3 /uL 1.5-8. 0 Not Available [facility] (Lab) [address] [place], [address], 06/14/2022 11:29:10 06/15/19 23 06/14/2022 CBC/C OMPLE TE BLD COUNT W/DIF F lymphocytes, absolute count 2.07 x10'3 /uL 1.07-3 .43 Not Available [facility] (Lab) [address] [place], [address], 06/14/2022 11:29:10 06/15/19 23 06/14/2022 CBC/C OMPLE TE BLD COUNT W/DIF F monocytes, absolute count 0.47 x10'3 /uL 0.29-0 .99 Not Available [facility] (Lab) [address] [place], [address], 06/14/2022 11:29:10 06/15/19 23 06/14/2022 CBC/C OMPLE TE BLD COUNT W/DIF F eosinophils, absolute count 0.07 x10'3 /uL 0.02-0 .53 Not Available [facility] (Lab) [address] [place], [address], 06/14/2022 11:29:10 06/15/19 23 06/14/2022 CBC/C OMPLE TE BLD COUNT W/DIF F basophils, absolute count 0.02 x10'3 /uL 0.01-0 .08 Not Available [facility] (Lab) [address] [place], [address], 06/14/2022 11:29:10 06/15/19 23 06/14/2022 CBC/C OMPLE TE BLD COUNT W/DIF F immature granulocytes ,absolute 0.02 x10'3 /uL 0.00-0 .05 Not Available [facility] (Lab) [address] [place], [address], 06/14/2022 11:29:10 06/15/19 23 06/14/2022 CBC/C OMPLE TE BLD COUNT W/DIF F nucleated red blood cells 0.0 % -0 Not Available [facility] (Lab) [address] [place], [address], 06/14/2022 11:29:10 06/15/19 23 06/14/2022 CBC/C OMPLE TE BLD COUNT W/DIF F NRBC# 0.00 x10'3 /uL Not Available [facility] (Lab) [address] [place], [address], 06/14/2022 11:29:10 04/20/06/14/2022 LIPID PANEL cholesterol 241 mg/dL 140-19 9 high NIH RONALDO NSUS RECOM MENDA TION FOR CARMEN STERO L: ADULT CHILD LOW RISK: <200 <170 BORDE RLINE : <200- 239 ----- HIGH RISK: >240 >200 Not Available [facility] (Lab) [address] [place], [address], 06/14/2022 12:05:04 06/15/19 23 06/14/2022 LIPID PANEL triglyceride s 212 mg/dL 0-150 high NIH RONALDO NSUS REPOR T RECOM MENDA TION FOR TRIGL YCERI SONIYA: ADULT CHILD LOW RISK: <150 ----- BODER LINE: 150-1 99 ----- HIGH RISK: >200 ----- Not Available [facility] (Lab) [address] [place], [address], 06/14/2022 12:05:04 06/15/19 23 06/14/2022 LIPID PANEL HDL cholesterol 47 mg/dL 40- Not Available [facility] (Lab) [address] [place], [address], 06/14/2022 12:05:04 06/15/19 23 06/14/2022 LIPID PANEL LDL cholesterol, calculated 152 mg/dL 0-130 high NIH RONALDO NSUS REPOR T RECOM MENDA TIONS FOR LDL: ADULT CHILD LOW RISK <130 <110 (OPTI MAL LDL) <100 ----- BORDE RLINE : 130-1 59 ----- HIGH RISK: >160 >130 A TRIGL YCERI DE RESUL T >400 INVAL IDATE S THE CALCU LATIO N FOR LDL FRACT IONAT ION - THE LDL RESUL T WILL NOT BE REPOR GILDARDO. Not Available [facility] (Lab) [address] [place], [address], 06/14/2022 12:05:04 06/15/19 23 06/14/2022 COMPR EHENS JALEN METAB OLIC PANEL sodium 139 mmol/ L 137-14 5 Not Available [facility] (Lab) [address] [place], [address], 06/14/2022 12:05:14 06/15/19 23 06/14/2022 COMPR EHENS JALEN METAB OLIC PANEL potassium 4.1 mmol/ L 3.5-5. 1 Not Available [facility] (Lab) [address] [place], [address], 06/14/2022 12:05:14 06/15/19 23 06/14/2022 COMPR EHENS JALEN METAB OLIC PANEL chloride 103 mmol/ L 98-107 Not Available [facility] (Lab) [address] [place], [address], 06/14/2022 12:05:14 06/15/19 23 06/14/2022 COMPR EHENS JALEN METAB OLIC PANEL carbon dioxide 29 mmol/ L 22-30 Not Available [facility] (Lab) [address] [place], [address], 06/14/2022 12:05:14 06/15/19 23 06/14/2022 COMPR EHENS JALEN METAB OLIC PANEL anion gap 11.1 mmol/ L 14-22 low Not Available [facility] (Lab) [address] [place], [address], 06/14/2022 12:05:14 06/15/19 23 06/14/2022 COMPR EHENS JALEN METAB OLIC PANEL glucose 108 mg/dL 70-99 high Not Available [facility] (Lab) [address] [place], [address], 06/14/2022 12:05:14 06/15/19 23 06/14/2022 COMPR EHENS JALEN METAB OLIC PANEL BUN 14 mg/dL 8-19 Not Available [facility] (Lab) [address] [place], [address], 06/14/2022 12:05:14 06/15/19 23 06/14/2022 COMPR EHENS JALEN METAB OLIC PANEL creatinine 1.00 mg/dL 0.66-1 .25 Not Available [facility] (Lab) [address] [place], [address], 06/14/2022 12:05:14 06/15/19 23 06/14/2022 COMPR EHENS JALEN METAB OLIC PANEL GFR 54 Refer ence Range : Gardner ge GFR Healt hy Adult : >60 mL/mi n/1.7 3 m2 Chron ic Kidne y Disea se: 15-60 mL/mi n/1.7 3 m2 Kidne y Failu re: <15/m L/min /1.73 m2 www.n iddk. nih.g ov The MDRD study equat ion has not been valid ated in child meme <18 years of age; pregn ant women ; the elder ly >85 years of age; or in some racia l or ethni c subgr oups, such as Hispa nics. Outsi de the valid ated be eters , estim ated GFR is less accur ate, requi ring clini cj judgm ent on a case- by-ca se basis . Clini cj inter preta tion for other races and ages must be made by the clini mahi. The MDRD study equat ion has not been valid ated for the evalu ation of serum creat inine relat ed to nutri kevon l statu s or medic ation usage . For perso ns <18 years of age, a pedia tric GFR calcu lator is avail able on the F websi te: https ://ww w.kid davonte.o rg/pr ofess ional s/kdo qi/gf r_cal culat or Not Available [facility] (Lab) [address] [place], [address], 06/14/2022 12:05:14 06/15/1906/14/2022 COMPR EHENS JALEN METAB OLIC PANEL alkaline phosphatase 53 U/L 38-126 Not Available [facility] (Lab) [address] [place], [address], 06/14/2022 12:05:14 06/15/19 23 06/14/2022 COMPR EHENS JALEN METAB OLIC PANEL alanine aminotransfe rase 27 U/L 0-35 Not Available [facility] (Lab) [address] [place], [address], 06/14/2022 12:05:14 06/15/19 23 06/14/2022 COMPR EHENS JALEN METAB OLIC PANEL aspartate aminotransfe rase 34 U/L 15-37 Not Available [facility] (Lab) [address] [place], [address], 06/14/2022 12:05:14 06/15/19 23 06/14/2022 COMPR EHENS JALEN METAB OLIC PANEL bilirubin, total 0.80 mg/dL 0.20-1 .30 Not Available [facility] (Lab) [address] [place], [address], 06/14/2022 12:05:14 06/15/19 23 06/14/2022 COMPR EHENS JALEN METAB OLIC PANEL calcium 9.5 mg/dL 8.4-10 .2 Not Available [facility] (Lab) [address] [place], [address], 06/14/2022 12:05:14 06/15/19 23 06/14/2022 COMPR EHENS JALEN METAB OLIC PANEL total protein 7.1 g/dL 6.3-8. 2 Not Available [facility] (Lab) [address] [place], [address], 06/14/2022 12:05:14 06/15/19 23 06/14/2022 COMPR EHENS JALEN METAB OLIC PANEL albumin 4.6 g/dL 3.0-4. 4 high Not Available [facility] (Lab) [address] [place], [address], 06/14/2022 12:05:14 06/15/19 06/14/2022 COMPR EHENS JALEN METAB OLIC PANEL globulin 2.5 g/dL 2.6-4. 2 low Not Available [facility] (Lab) [address] [place], [address], 06/14/2022 12:05:14 06/15/19 23 06/14/2022 COMPR EHENS JALEN METAB OLIC PANEL A/G ratio 1.8 ratio 1.0-2. 0 Not Available [facility] (Lab) [address] [place], [address], 06/14/2022 12:05:14 06/15/19 23 06/14/2022 TSH W/REF BOLA FT4 TSH with reflex free T4 7.100 uIU/m L 0.465- 4.680 high Not Available [facility] (Lab) [address] [place], [address], 06/14/2022 12:35:05 06/15/19 23 06/14/2022 T4 FREE free T4 1.19 NG/dL 0.78-2 .19 Not Available [facility] (Lab) [address] [place], [address], 06/14/2022 16:32:18 07/05/19 23 07/04/2022 scree loretta breas t christopher, bilat [facility] [address] [place] [address] [phone] Patien t Name: AMADA TRISTAN Access ion #: [id number] Sex: F : 1945 6 Locati on: RAD Attend ing Physic rai: JANIS LEE Orderi ng Physic rai: JANIS LEE Exam Date: 023 8:31 AM Exam Name: MG SCRN BREAST CHRISTOPHER BILAT Admitt ing Diagno sis(es ): MAMMOG ENIO REPORT - FINAL EXAM: MG WEEKS BREAST CHRISTOPHER BILAT HISTOR Y: SCREEN ING MAMMOG ENIO 76-yea r-old female with no curren t breast compla ints. The patien t has a histor y of bilate ral breast benign biopsi es. COMPAR JULES: Bilate ral mammog enio dated 2014 and 2008. TECHNI QUE: Bilate ral CC and MLO views of the breast s were perfor med. Digita l Mammog enio images were obtain ed. CAD (compu ter assist ed detect ion) was utiliz ed. 3D Digita l breast tomosy nthesi s was perfor med and used in the interp retati on of images . FINDIN GS: There are scatte red areas of fibrog landul ar densit y. Page 1 of 3 [facility] Virgilio mathew Name: AMADA TRISTAN Access ion #: [id number] Sex: F : 1945 6 Exam Date: 023 8:31 AM Exam Name: MG WEEKS BREAST CHRISTOPHER BILAT Admitt ing Diagno sis(es ): There is a new cluste r of calcif icatio ns in the right upper outer breast , most of which are puncta te. No masses , asymme tries, or hannah ectura l distor tion are seen. IMPRES KASHMIR: BIRADS 0: Assess ment incomp lete. Need additi onal imagin g evalua tion. Recomm end spot magnif icatio n views of the right upper outer breast . Additi onal mammog raphic and/or sonogr aphic imagin g may be magi tony. Accord ing to the [employer], yearly mammog flaca are recomm ended starti ng at age 40 and contin uing as long as the woman is in good health . Clinic al Breast Exam should be part of the period ic health exam-a bout every 3 years for women in their 20s and 30s and every year for women 40 and over. Breast self-e xam is an option for women in their 20s. Any breast change noted on the breast self-e xam she would be report ed prompt ly [facility]. A negati ve mammog enio report should not discou rage follow -up or biopsy of a clinic ally signif icant findin g and/or abnorm ality. Dense breast tissue may obscur e small neopla sms. This virgilio mathew has been entere d into a mammog enio remind er system with a target date for her next mammog jordyn. Create d and electr onical ly signed by: Can whalen MD Signed Date: 023 1:28 PM (CT) Dictat ed by: Can whalen MD DD: 1:28 PM (CT) Page 2 of 3 [facility] Virgilio mathew Name: AMADA TRISTAN Damon Access ion #: [id number] Sex: F : 1945 6 Exam Date: 8:31 AM Exam Name: MG SCRN BREAST CHRISTOPHER BILAT Admitt ing Diagno sis(es ): DT: 023 1:28 PM (CT) Page 3 of 3 [email or web address] [facility] (Imaging) [address] [place], [address], 07/05/2022 09:19:54 08/09/19 23 08/08/2022 MAMMO , diagn ostic , digit al, unila teral , w/ CAD [facility] [address] [place], [place] [id number] [phone] Virgilio mathew Name: AMADA TRISTAN Damon Access ion #: [id number] Sex: F : 1945 4 Locati on: RAD Attend ing Physic rai: JANIS LEE Orderi ng Physic rai: JANIS LEE Exam Date: 7:36 AM Exam Name: MG MAMMO DIGITA L UNILAT RT Admitt ing Diagno sis(es ): MAMMOG ENIO REPORT - FINAL EXAM: MG MAMMO DIGITA L UNILAT RT HISTOR Y: ABNORM AL MAMMOG JORDYN COMPAR JULES: 2022 TECHNI QUE: Right breast spot compre ssion views were perfor med. Digita l Mammog enio images were obtain ed. FINDIN GS: Magnif icatio n views of the supero latera l right breast calcif icatio ns remain indete rminat e. IMPRES KASHMIR: BIRADS 4: Assess ment comple te. Suspic ious abnorm ality. Recomm end Page 1 of 2 [facility] Patien t Name: AMADA TRISTAN Access ion #: [id number] Sex: F : 1945 4 Exam Date: 7:36 AM Exam Name: MG MAMMO DIGITA L UNILAT RT Admitt ing Diagno sis(es ): stereo tactic right breast biopsy . Create d and electr onical ly signed by: Kev crum MD Signed Date: 8:24 AM (CT) Dictat ed by: Kev crum MD DD: 8:24 AM (CT) DT: 8:24 AM (CT) Page 2 of [address] (Imaging) [address] [place], [address], 08/09/2022 11:39:51 08/09/19 23 08/08/2022 MAMMO , diagn ostic , digit al, unila teral No observ ation record ed. [address] [place], [address], 08/09/2022 11:39:52 09/11/19 23 09/10/2022 stere otact ic breas t biops y (PROC ) No observ ation record ed. [address], [address], 09/21/2022 11:57:08 09/19/19 23 09/10/2022 stere otact ic breas t biops y (PROC ) No observ ation record ed. [facility] [facility], [place], [address], 09/21/2022 11:57:09 10/24/19 23 10/23/2022 stere otact ic breas t biops y (PROC ) No observ ation record ed. [address] (Imaging) [address] [place] [address] [address] [facility], [place], [address], 11/30/2022 09:46:41 11/07/19 23 11/06/2022 stere otact ic breas t biops y (PROC ) No observ ation record ed. [address] (Imaging) [address] [place] [address], [phone], 11/30/2022 09:46:42 06/07/19 24 06/07/2023 MAMMO , scree loretta, digit al, bilat eral No observ ation record ed. [address] [address], [place], [address], 12/05/2023 16:00:06 06/19/19 24 06/18/2023 DEXA, axial skele ton No observ ation record ed. [address] [address], [place], [address], 12/05/2023 16:00:51 12/09/19 24 12/09/2023 imagi ng/di agnos tic resul t No observ ation record ed. [address], [address], 12/09/2023 11:58:57 Result Notes None recorded. Problems Name Problem SNOMED Code Status Onset Date Resolution Date Notes Provider Name and Address Organization Details Recorded Time Acute sinusitis 24293722 Active 2021 Not Available On license of [facility] 01:37:29 Anemia 432601355 Active 2021 Not Available [facility] 01:37:29 Microcalcific ations of the breast 92376252 Active Not Available [facility] 01:37:30 Herpes zoster 0418740 Active Not Available [facility] 01:37:30 Postcoital bleeding 47173597 Active Not Available [facility] 3 01:37:30 Hyperlipidemi a 59034119 Active 2021 Not Available [facility] 01:37:30 Essential hypertension 30044391 Active 2017 Not Available [facility] 3 01:37:30 Hyperglycemia 29594433 Active 2022 Thalia wolf, [facility] [employer] [facility] 3 15:37:26 Hypothyroidis m 21531719 Active 2022 Migel aaron MD [address], [place], [address] , [facility] [employer] [facility] 3 14:28:07 Thrombocytope holly disorder 526361908 Active 2022 Migel aaron MD [address], [place], [address] , [facility] [employer] [facility] 3 14:28:12 Hyperproteine abby 14175630 Active 2022 Migel aaron MD [address], [place], [address] , [facility] [employer] [facility] 3 14:28:18 Prediabetes 539054881 Active 2022 Migel aaron MD [address], [place], [address] , [facility] [employer] [facility] 3 14:28:23 Macrocytosis 384998827 Active 2022 Migel aaron MD [address], [place], [address] , [facility] [employer] [facility] 3 14:28:28 Chronic kidney disease 639872606 Active 2022 Migel aaron MD [address] [facility], [facility] [address], [place], [address] , [facility] [employer] [facility] 3 14:53:48 Mammography abnormal 860973200 Active 2022 Thalia wolf, [facility] 3 09:15:12 Infiltrating duct carcinoma of breast 896342884 Active 2022 Thalia wolf, [facility] [employer] [facility] 3 09:57:59 Malignant tumor of breast 187535927 Active 2022 Migel aaron MD [address] [facility], [facility] [address], [place], [address] , [facility] [employer] [facility] 3 09:54:12 Serum thyroid stimulating hormone level outside reference range 163775167 Active 2024 Migel aaron MD [address] [facility], [facility] [address], [place], [address] , [facility] [employer] [facility] 5 09:59:32 Problem Notes None recorded. Procedures Surgical History Date Name Laterality Status Provider Name and Address Organization Details Recorded Time 3 lumpectomy of right breast completed JOSE Mora [facility] [employer] [facility] 01/01/2023 09:47:58 3 [employer] Procedure completed Not Available On license of [facility] 2022 01:22:56 Cataract Surgery completed Not Available On license of [facility] 04/25/2022 01:22:56 Breast Biopsy completed Not Available [facility] 04/25/2022 01:22:56 Anesth tubal ligation completed Not Available On license of [facility] 04/25/2022 01:22:56 Imaging Results Imaging Date Name Status LastModified by Organization Details LastModified Time 07/04/2022 screening breast christopher, bilat completed [email or web address] [facility] (Imaging) [address] [facility] [place], [address], 07/05/2022 09:19:54 08/08/2022 MAMMO, diagnostic, digital, unilateral, w/ CAD completed [address] (Imaging) [address] [place], [address], 08/09/2022 11:39:51 08/08/2022 MAMMO, diagnostic, digital, unilateral completed [address] [place], [address], 08/09/2022 11:39:52 09/10/2022 stereotactic breast biopsy (PROC) completed [address], [address], 09/21/2022 11:57:08 09/10/2022 stereotactic breast biopsy (PROC) completed [address], [address], 09/21/2022 11:57:09 10/23/2022 stereotactic breast biopsy (PROC) completed [address] (Imaging) [address] [place] [address], [address], 11/30/2022 09:46:41 11/06/2022 stereotactic breast biopsy (PROC) completed [address] (Imaging) [address] [place] [address], [address], 11/30/2022 09:46:42 06/07/2023 MAMMO, screening, digital, bilateral completed [address], [address], 12/05/2023 16:00:06 06/18/2023 DEXA, axial skeleton completed [address], [address], 12/05/2023 16:00:51 12/09/2023 imaging/diagnost ic result active [facility] [address], [place], [address], 12/09/2023 11:58:57 Procedure Notes None recorded. Medical Equipment None Reported. Allergies No known drug allergies Medications Name Sig Start Date Stop Date Status Note LastModified by Organization Details LastModified Time anastrozo le 1 mg tablet TAKE 1 TABLET BY MOUTH EVERY DAY 07/01 completed Not Available Not Available Not Available alendrona te 70 mg tablet PLEASE SEE ATTACHED FOR DETAILED DIRECTIO NS active Not Available Not Available No t Available acyclovir 800 mg tablet active Not Available Not Available Not Available potassium chloride ER 20 mEq tablet,ex tended release(p art/cryst ) 05/[address] Jain 05/20/18 Not Available Not Available Not Available bumetanid e 0.5 mg tablet 08/05 completed Not Available Not Available Not Available bumetanid e 1 mg tablet 05/[address] Jain Not Available Not Available Not Available lisinopri l 5 mg tablet TAKE 1 TABLET BY MOUTH EVERY DAY active Not Available Not Available No t Available tamoxifen 20 mg tablet TAKE 1 TABLET BY MOUTH EVERY DAY active Not Available Not Available No t Available amoxicill in 875 mg-potass ium clavulana te 125 mg tablet Take 1 tablet every 12 hours by oral route for 7 days. active Not Available Not Available No t Available nitrofura ntoin monohydra te/macroc rystals 100 mg capsule Take 1 capsule twice a day by oral route for 7 days. 03/03 completed Not Available Not Available Not Available calcium with vit D TK 2T PO QD 2020 active Not Available Not Available Not Avai lable sodium chloride 05/[address] JAIN STOPPED Not Available Not Available Not Available Glucosami ne TK 1T PO QD 2020 active Not Available Not Available Not Avai lable multivita min 1T PO QD 2020 active Not Available Not Available Not Avai lable B12 TK 1T PO QD 2020 active Not Available Not Available Not Avai lable potassium chloride ER 20 mEq tablet,ex tended release 08/05 completed Not Available Not Available Not Available Vitals Date Recorded Body height Body mass index (BMI) Body weight Body temperature Heart rate Systolic blood pressure Diastolic blood pressure Provider Name and Address Organization Details Last Updated DateTime 3 165.1 cm 24 kg/m2 40396.3 g 97.7 [degF] 72 /min 122 mm[Hg] 60 mm[Hg] Kayla Dodge [employer]iel [employer] [facility] [employer] [facility] 3 09:45:45 Date Recorded Body height Body mass index (BMI) Body weight Body temperature Heart rate Systolic blood pressure Diastolic blood pressure Provider Name and Address Organization Details Last Updated DateTime 3 165.1 cm 22.6 kg/m2 55488.5 6 g 97.2 [degF] 84 /min 100 mm[Hg] 60 mm[Hg] Kayla Dodge [employer] [facility] [employer] [facility] 3 09:49:38 Date Recorded Body height Body mass index (BMI) Body weight Body temperature Heart rate Systolic blood pressure Diastolic blood pressure Provider Name and Address Organization Details Last Updated DateTime 4 165.1 cm 22.5 kg/m2 83834.9 7 g 97.5 [degF] 78 /min 122 mm[Hg] 76 mm[Hg] Kayla Dodge [facility] [employer] 4 09:30:46 Date Recorded Body height Body mass index (BMI) Body weight Body temperature Heart rate Respiratory rate Oxygen saturation Oxygen saturation in Arterial blood by Pulse oximetry Pain severity - 0-10 verbal numeric rating [Score] - Reported Systolic blood pressure Diastolic blood pressure Provider Name and Address Organization Details Last Updated DateTime 4 165.1 cm 22.5 kg/m2 51950.9 7 g 97.3 [degF] 54 /min 16 /min 97 % 97 % 0 132 mm[Hg] 76 mm[Hg] Jordan Scherer LPN [employer] [facility] [employer] [facility] 4 09:54:25 Date Recorded Body height Body mass index (BMI) Body weight Body temperature Heart rate Oxygen saturation Oxygen saturation in Arterial blood by Pulse oximetry Pain severity - 0-10 verbal numeric rating [Score] - Reported Systolic blood pressure Diastolic blood pressure Provider Name and Address Organization Details Last Updated DateTime 5 165.1 cm 23 kg/m2 61275.5 4 g 97.7 [degF] 70 /min 90 % 90 % 0 154 mm[Hg] 84 mm[Hg] Akua Payne MA [place] - [facility] 09:19:35 Social History Question Answer Notes LastModified by Organizat ion Details LastModified Time Tobacco Smoking Status Never Smoker Not Available [employer] 04/25/2022 01:19:53 Do You Have An Advance Directive? No [id number] Information not available 04/25/2022 What Is Your Level Of Alcohol Consumption? None [id number] 026 Information not available 04/25/2022 Are You Blind Or Do You Have Difficulty Seeing? No [id number] Information not available 04/25/2022 What Is Your Level Of Caffeine Consumption? None [id number] 026 Information not available 04/25/2022 How Much Tobacco Do You Chew? None [id number] Information not available 04/25/2022 In The 14 Days Before Symptom Onset, Have You Had Close Contact With A Laboratory-confirm ed COVID-19 While That Case Was Ill? No [id number] 026 Information not available 04/25/2022 In The 14 Days Before Symptom Onset, Have You Had Close Contact With A Person Who Is Under Investigation For COVID-19 While That Person Was Ill? No [id number] Information not available 04/25/2022 Are You Deaf Or Do You Have Serious Difficulty Hearing? No MIGRATION.[id number] 026 Information not available 04/25/2022 What Type Of Diet Are You Following? REGULAR [id number].[id number] 026 Information not available 04/25/2022 What Is Your Occupation? Retired MIGRATION.[id number] 026 Information not available 04/25/2022 Do You Have A Medical Power Of [place] Department Supervisor? No [id number] Information not available 04/25/2022 What Was The Date Of Your Most Recent Tobacco Screening? 03/24/2024 kyler Information not available 03/24/2024 How Much Tobacco Do You Smoke? No [id number] 026 Information not available 04/25/2022 Do You Use Any Illicit Or Recreational Drugs? No MIGRATION.[id number] 026 Information not available 04/25/2022 Has Tobacco Cessation Counseling Been Provided? No N/a [id number].[id number] 026 Information not available 04/25/2022 Have You Recently Traveled Abroad? No [id number].[id number] 026 Information not available 04/25/2022 Do You Have Any Dietary Restrictions? No MIGRATION.[id number] 026 Information not available 04/25/2022 Do You Or Have You Ever Used Any Other Forms Of Tobacco Or Nicotine? No [id number].[id number] 026 Information not available 04/25/2022 Sex: Female Functional Status Question Answer Note LastModified by Organizat ion Details LastModified Time Do you have difficulty walking or climbing stairs? No [id number] 026 Information not available 04/25/2022 Do you have transportation difficulties? No MIGRATION.[id number] 026 Information not available 04/25/2022 Are you able to walk? YESWOREST MIGRATION.[id number] 026 Information not available 04/25/2022 Do you have difficulty doing errands alone? No MIGRATION.[id number] 026 Information not available 04/25/2022 Are you able to care for yourself? Yes [id number].[id number] 026 Information not available 04/25/2022 Do you have difficulty dressing or bathing? No MIGRATION.[id number] 026 Information not available 04/25/2022 What is your exercise level? Moderate [id number].[id number] 026 Information not available 04/25/2022 Mental Status Question Answer Note LastModified by Organizat ion Details LastModified Time Do you have difficulty concentrating, remembering or making decisions? No [id number] 6 Information not available 04/25/2022 Family History Relationship Description Onset Age of this Age Resolved Age Notes LastModified by Organization Details LastModified Time Maternal Grandfather Diabetes mellitus [id number] Not available 04/25/2022 01:23:05 Mother Hypertensive disorder 100 [id number] Not available 04/25/2022 01:23:05 Sister Hypertensive disorder [id number] Not available 04/25/2022 01:23:05 Father Neoplasm of lower leg leg? [id number] Not available 04/25/2022 01:23:05 Medical History Condition Response NERVE DISEASE N BLINDNESS N RHEUMATIC FEVER N KIDNEY STONES N BLADDER PROBLEMS N MRSA N OTHER # 1 N POLIO N LUNG DISEASE/DISORDER N HISTORY OF DRUG ABUSE N COPD N RADIATION / CHEMOTHERAPY N Other # 2 N BLOOD DISEASES N EAR OR HEARING PROBLEMS N MUMPS N SHINGLES Y BOWEL PROBLEMS N DEPRESSION (INCLUDING POST ) N STROKE/TIA N ULCERS N BENIGN PROSTATIC HYPERPLASIA N MEASLES N HYPOTENSION N MYOCARDIAL INFARCTION N OBESITY N GERD/NAUSEA N ANEURYSM N URINARY/BLADDER/KIDNEY PROBLEMS N CORONARY ARTERY DISEASE (CAD) N ADDICTION CONCERNS N ENDOMETRIOSIS N Impotence N USE OF BLOOD THINNERS N SKIN PROBLEMS N GASTROINTESTINAL DISORDER N PERIPHERAL VASCULAR DISEASE N MUSCLE,JOINT OR BONE PROBLEMS N GASTROINTESTINAL BLEEDING N BLOOD CLOTS N ASTHMA N CATARACTS N ERECTILE DYSFUNCTION N VARICOSITIES N GI PROBLEMS N Low Testosterone N INFERTILITY N AIDS/HIV N CHEMOTHERAPY / RADIATION N LIVER DISEASE N MALE HYPOGONADISM N HYPERTENSION Y Deficiency N TOURETTE'S N ANXIETY DISORDER N BLOOD TRANSFUSION N ANEMIA/BLOOD DISORDER Y CHRONIC EAR INFECTIONS N BRONCHITIS N TUBERCULOSIS N GLAUCOMA N FOOT PROBLEM N DIVERTICULITIS N CHICKENPOX N SLEEP APNEA N INFECTIOUS DISEASE N HEART ARRHYTHMIA N PROSTATE N INSOMNIA N HIGH CHOLESTEROL / HYPERLIPIDEMIA Y HYPERTHYROIDISM N EYE PROBLEMS N EDEMA N CHRONIC PAIN SYNDROME N HYPOTHYROIDISM Y CAROTID BLOCKAGE N CONSTIPATION N BACK / NECK PROBLEMS N ATHEROSCLEROSIS N BREAST PROBLEMS N DIALYSIS N ECZEMA N OSTEOPOROSIS N ARTHRITIS N APPENDICITIS N DIABETES, TYPE N BAD TEETH N ENT N HEARTBURN / REFLUX N AUTISM SPECTRUM DISORDER (ASD) N HEPATITIS / LIVER DISEASE N GOUT N SLEEP DISORDER N ALZHEIMER'S DISEASE N Brain Problems N HERPES N DEMENTIA N HEADACHES/MIGRAINES N SEIZURES/EPILEPSY N VASCULAR DISEASE N PACEMAKER N Blood Disorder N DIZZINESS N HEART DISEASE/HEART PROBLEMS N KIDNEY DISEASE N MULTIPLE SCLEROSIS N CARDIAC ARRHYTHMIA N CANCER: SPECIFY N ATRIAL FIBRILLATION N Gall Stones N PULMONARY EMBOLISM N AUTOIMMUNE DISEASE N Gynecological History Statement/Question Response How many live births 2 Abnormal Pap N Date of Last Mammogram 01/11/2009 Date of Last Colonoscopy Most Recent Bone Density Date of LMP Date of Last Pap 03/23/2014 Current Control Method Menopause Obstetrics History GPAL:G 2 P 2 0 0 2 Type Value Multiple Births 0 Full Term 2 Induced 0 Spontaneous 0 Premature 0 Living 2 Ectopics 0 Total 2 Immunizations Vaccine Type Date Status Note Provider Adonis e and Address Organization Details Recorded Time COVID-19, mRNA, LNP-S, PF, 100 mcg/0.5mL dose or 50 mcg/0.25mL dose 05/26/2020 completed Not Available [facility] 3 01:54:52 COVID-19, mRNA, LNP-S, PF, 100 mcg/0.5mL dose or 50 mcg/0.25mL dose 04/25/2020 completed Not Available [employer] 3 01:54:52 Past Encounters Encounter ID Performer Location Encounter Start Date Encounter Closed Date Diagnosis/Indication Diagnosis SNOMED-CT Code Diagnosis ICD10 Code Diagnosis Note [id number] [facility] [address] 1 05/03/2020 00:00:00 05/03/2020 14:12:47 [id number] [facility] [address] [place] [address] 01/03/2021 00:00:00 01/03/2021 10:10:33 [id number] [facility] [address] [place] [address] 07/04/2021 00:00:00 07/04/2021 09:42:09 [id number] [facility] [address] [place] [address] 12/26/2021 00:00:00 12/26/2021 09:44:56 [id number] Migel aaron MD [facility] [address] [place] [address] 06/26/2022 09:33:23 06/26/2022 10:10:42 Screening - NAD 925996659 Z13.9 Colonoscop y: Get this arranged, declines, understand s the risks, declines cologuard also! 01/03/2021 Mammogram: Gets this thru Dr Levon sterling 06/26/2022 PAP: Sees Dr Isbell she will call with the apt, she has been encouraged to do thisDEXA: declines 06/26/2022 Get yearly flu shot,, declinesGe t Tdap, declinesGe t PCV #13 and then #23, declinesCa n do shingles vaccine also, declinesUT D on COVID 19 vaccine RTC in 6 months as per her wishesGet labsER if worseShe did verbalize their understand ing of the above Essential hypertension 69227538 I10 On lisinopril 5mg dailyShe did see Dr Jain Hyperlipidemia 34540235 E78.5 Still declines any meds, states that she is very active watches her diet and walks at least 30 minutes every day, she understand s the risks for elevated lipidsGet labs Hypothyroidism 54191064 E03.9 No on any medsGet labsDoes not want any more testing such as US thyroid Thrombocyt openic disorder 068864590 D69.6 Declines any further testing or referrals at this timePLT WNL 06/14/2022 Hyperproteinemia 5036597 9 E88.09 UPEP/SPEP: 09/21/[address] Jain 04/11/2021 , f/u in one yearUS kidney 02/15/2021 Prediabetes 040191339 R7 3.03 Declines any meds at this timeDiet and exercise and repeat the A1C Macrocytosis 651271130 D 75.89 B12/Folate is WNLTSH is elevated, not interested in further testing or referral to hematology Chronic ki dney disease 010856611 N18.[address] Jain told her she has CKD and it is 'age related' and she does not need to see him at this time Screening mammography 24 677835 Z12.31 Screening for osteoporosis 628844953 Z13.820 Declines a DEXA, states that she is on ca and vit d [id number] Migel aaron MD [facility] [address] [facility], [address] [place] [address] 01/01/2023 09:16:41 01/01/2023 10:11:00 Screening - NAD 651720249 Z13.9 Colonoscop y: Get this arranged, declines, understand s the risks, declines cologuard also! 01/03/2021 Mammogram: Gets this thru Dr Levon sterling 06/26/2022 Pathology: 11/06/2022 : Dr Hawkins: R breast: Ductal carcinoma in situ PAP: Sees Dr Isbell she will call with the apt, she has been encouraged to do thisDEXA: declines 06/26/2022 Get yearly flu shot, declinesGe t Tdap, declinesGe t PCV #13 and then #23, declinesCa n do shingles vaccine also, declinesUT D on COVID 19 vaccineCan do RSV vaccineHas declined 01/01/2023 all the vaccines RTC in 6 months as per her wishesGet Martín if worseShe did verbalize their understand ing of the above Essential hypertension 27037154 I10 On lisinopril 5mg dailyShe did see Dr Jain Hyperlipidemia 09447110 E78.5 Still declines any meds, states that she is very active watches her diet and walks at least 30 minutes every day, she understand s the risks for elevated lipidsGet labs Hypothyroidism 68426655 E03.9 No on any medsGet labsDoes not want any more testing such as US thyroid, discussed today 01/01/2023 , states that she does not want to do the tests and will agree to do labs only every 6 months and since she has had so many labs with the breast cancer, she will wait till 06/2023 to do any more labs Thrombocyt openic disorder 786560950 D69.6 Declines any further testing or referrals at this timePLT WNL 06/14/2022 Hyperproteinemia 3027142 9 E88.09 UPEP/SPEP: 09/21/[address] Jain 04/11/2021 , f/u in one year US kidney 02/15/2021 Prediabetes 729962986 R7 3.03 Declines any meds at this timeDiet and exercise and repeat the A1C Macrocytosis 278838909 D 75.89 B12/Folate is WNL Chronic ki dney disease 984287820 N18.[address] Jain told her she has CKD and it is 'age related' and she does not need to see him at this time Screening for osteoporosis 138778796 Z13.820 Get a DEXA, she states today 01/01/[address] Jordan is to order this, states that she is on ca and vit d Malignant tumor of breast 432124655 C50.911 S/p lumpectomy See path bx 11/06/2022 See breast surgeon and Dr Jordan [id number] Migel aaron MD [facility] [address] [facility], [facility] [address] [place] [address] 07/02/2023 09:14:26 07/02/2023 10:00:14 Screening - NAD 797397860 Z13.9 Colonoscop y: Get this arranged, declines, understand s the risks, declines cologuard also! 01/03/2021 Mammogram: Gets this thru Dr Levon tserling 06/26/2022 Pathology: 11/06/2022 : Dr Hawkins: R breast: Ductal carcinoma in situMammog jordyn: 06/07/2023 : Diagnostic mammogram in 6 monthsOn tamoxifen 20mg daily, given by Dr Jordan 06/28/2023 PAP: Sees Dr Isbell she will call with the apt, she has been encouraged to do thisDEXA: declines 06/26/2022 DEXA: 06/18/2023 ; OP, on fosamax, more ca and vit d Get yearly flu shot, declinesGe t Tdap, declinesGe t PCV #13 and then #23, declinesCa n do shingles vaccine also, declinesUT D on COVID 19 vaccineCan do RSV vaccineHas declined 01/01/2023 all the vaccines RTC in 6 months as per her wishesRuiz Resendiz if worseShe did verbalize their understand ing of the above Essential hypertension 78670229 I10 On lisinopril 5mg dailyShe did see Dr Jain Hyperlipidemia 97604972 E78.5 Still declines any meds, states that she is very active watches her diet and walks at least 30 minutes every day, she understand s the risks for elevated lipids 07/02/2023 Get labs Hypothyroidism 23306895 E03.9 No on any medsGet labsDeclin ed more testing such as US thyroid, 01/01/2023 , states that she does not want to do the tests and will agree to do labs only every 6 months Thrombocyt openic disorder 317249374 D69.[address] Jordan Hyperproteinemia 7538570 9 E88.09 UPEP/SPEP: 09/21/[address] Jain 04/11/2021 , f/u in one year US kidney 02/15/2021 Prediabetes 964066559 R7 3.03 Declines any meds at this timeDiet and exercise and repeat the A1C Macrocytosis 916060830 D 75.89 B12/Folate is WNL Chronic ki dney disease 283279480 N18.[address] Jain told her she has CKD and it is 'age related' and she does not need to see him at this time Screening for osteoporosis 233739223 Z13.820 Dr Jordan wanted prolia, she is on fosamax Malignant tumor of breast 879243029 C50.911 S/p lumpectomy See path bx 11/06/[address] Jordan [id number] Migel aaron MD [facility] [address] [facility], [facility] [address] [place] [address] 11/19/2023 09:44:44 11/19/2023 10:33:52 Screening - NAD 728336336 Z13.9 Colonoscop y: Get this arranged, declines, understand s the risks, declines cologuard also! 01/03/2021 Mammogram: Gets this thru Dr Levon sterling 06/26/2022 Pathology: 11/06/2022 : Dr Hawkins: R breast: Ductal carcinoma in situMammog jordyn: 06/07/2023 : Diagnostic mammogram in 6 months On tamoxifen 20mg daily, given by Dr Jordan 06/28/2023 11/19/2023 , states that she has an apt with Dr Hawkins PAP: Sees Dr Isbell she will call with the apt, she has been encouraged to do thisDEXA: declines 06/26/2022 DEXA: 06/18/2023 ; OP, on fosamax, more ca and vit d Get yearly flu shot, declinesGe t Tdap, declinesGe t PCV #13 and then #23, declinesCa n do shingles vaccine also, declinesUT D on COVID 19 vaccineCan do RSV vaccineHas declined 01/01/2023 all the vaccines RTC in 6 months as per her wishesGet Martín if worseShe did verbalize their understand ing of the above Essential hypertension 89262152 I10 On lisinopril 5mg dailyShe did see Dr Jain Hyperlipidemia 15122128 E78.5 Still declines any meds, states that she is very active watches her diet and walks at least 30 minutes every day, she understand s the risks for elevated lipids 07/02/2023 Get labs Hypothyroidism 46346179 E03.9 No on any medsGet labsDeclin ed more testing such as US thyroid, 01/01/2023 , states that she does not want to do the tests and will agree to do labs only every 6 months Thrombocyt openic disorder 237473822 D69.[address] Jordan Hyperproteinemia 1867857 9 E88.09 UPEP/SPEP: 09/21/[address] Jain 04/11/2021 , f/u in one year US kidney 02/15/2021 Prediabetes 233063982 R7 3.03 Declines any meds at this timeDiet and exercise and repeat the A1C Macrocytosis 595098157 D 75.89 B12/Folate is WNL Chronic ki dney disease 804825845 N18.[address] Jain told her she has CKD and it is 'age related' and she does not need to see him at this time discussed 11/19/2023 Screening for osteoporosis 671717218 Z13.820 Dr Jordan wanted prolia, she is on fosamax Malignant tumor of breast 233735120 C50.911 S/p lumpectomy See path bx 11/06/[address] Jordan [id number] Migel aaron MD [facility] [facility] [place] Internal Med [facility] [address] [address] 03/24/2024 09:11:10 03/24/2024 09:52:56 Screening - NAD [id number] Z13.9 Colonoscop y: Get this arranged, declines, understand s the risks, declines cologuard also! 01/03/2021 Mammogram: Gets this thru Dr Levon sterling 06/26/2022 Pathology: 11/06/2022 : Dr Hawkins: Talib breast: Ductal carcinoma in situMammog jordyn: 06/07/2023 : Diagnostic mammogram in 6 months On tamoxifen 20mg daily, given by Dr Jordan 06/28/2023 11/19/2023 , states that she has an apt with Dr Oneill mogram: 12/09/2023 : Laura Bassett PAMarkC: Neg PAP: Sees Dr Isbell she will call with the apt, she has been encouraged to do thisDEXA: declines 06/26/2022 DEXA: 06/18/2023 ; OP, on fosamax, more ca and vit d Get yearly flu shot, declinesGe t Tdap, declinesGe t PCV #13 and then #23, declinesCa n do shingles vaccine also, declinesUT D on COVID 19 vaccineCan do RSV vaccineHas declined 01/01/2023 all the vaccines RTC in 6 months as per her wishesGet Martín if worseShe did verbalize their understand ing of the above Essential hypertension 80136662 I10 On lisinopril 5mg dailyShe did see Dr Jain Hyperlipidemia 40503142 E78.5 Still declines any meds, states that she is very active watches her diet and walks at least 30 minutes every day, she understand s the risks for elevated lipids 03/24/2024 Get labs Hypothyroidism 18006371 E03.9 No on any medsGet labsDeclin ed more testing such as US thyroid, 03/24/2024 , states that she does not want to do the tests and will agree to do labs only every 6 months Thrombocyt openic disorder 308568371 D69.[address] Jordan Hyperproteinemia 7420298 9 E88.09 UPEP/SPEP: 09/21/[address] Jain 04/11/2021 , f/u in one year US kidney 02/15/2021 Prediabetes [id number] R7 3.03 Declines any meds at this timeDiet and exercise and repeat the R5WYqsaeoh ands the risks for elevated A1C Macrocytosis [id number] D 75.89 B12/Folate is WNL Chronic ki dney disease 446128422 N18.[address] Jain told her she has CKD and it is 'age related' and she does not need to see him at this time discussed 11/19/2023 , 03/24/2024 Screening for osteoporosis 281151648 Z13.820 Dr Jordan wanted prolia, she is on fosamax Malignant tumor of breast 502524958 C50.911 S/p lumpectomy See path bx 11/06/[address] Jordan Serum thyr oid stimulating hormone level outside reference range 420645451 R89.1 Does not want any meds or testing 03/24/2024 , wants to repeat the test only every 6 months Health Concerns Section Related Observation LastModified by Organization Detai ls LastModified Time None Recorded Concern Status LastModified by Organization Details LastModified Time None Recorded Advance Directives Directive N: Payers Encounter Date Sequence Insurance Name Policy Number Policy Eaton Covered Member ID Eaton Member ID Guarantor Name 06/26/2022 1 [place] Shelley Cole [id number] Shelley Zavalaborough 06/26/2022 2 [place] [id number] Shelley Cole [id number] Shelley Zavalaborough 01/01/2023 1 [place] Shelley Cole [id number] Shelley Zavalaborough 01/01/2023 2 [place] [id number] Shelley Cole [id number] Shelley Zavalaborough 07/02/2023 1 [place] Shelley Cole [id number] Shelley Zavalaborough 07/02/2023 2 [place] [id number] Shelley Cole [id number] Shelley Zavalaborough 11/19/2023 1 [place] Shelley Cole [id number] Shelley Zavalaborough 11/19/2023 2 [place] [id number] Shelley Cole [id number] Shelley Zavalaborough 03/24/2024 1 [place] Shelley Cole [id number] Shelley Zavalaborough 03/24/2024 2 [place] [id number] Shelley Cole [id number] Shelley Cole Notes Date Note Type Note Provider Name and Address Organization Details Recorded Time 06/26/2022 text/html Here to ilsa WestonP: Dr Shin with her husbandPast Hx:HTNReviewed social family and surgical historyShe feels that she is doing well at this timeShe did do the labs on 01/19/18, these [facility] did have some nausea and vomiting and was noted to have low NaShe states that she is doing very well now,In fact she is walking 2 miles everydayShe is to see Dr Jain also in nephrologyOV 08/05/18:Here with her husbandShe feels 'great' and did see Dr Jain who took her 'off all the medications except the lisinopril'She is due for her chol labsShe declined her MWV todayHer ROS is negativeOV 03/03/2019:Here for her routine aptFeels wellDid do the labsOV 09/01/2019:Here for her routine aptShe feels very wellShe did do the labsShe states that she would now like to come in only every 8 monthsOV 05/03/2020:Here for her routine aptShe feels wellShe did do the labsOV 01/03/2021:Here for her routine aptShe is doing wellShe did do the labs on 09/21/2020OV 07/04/2021:Here for her routine aptShe states that she is doing wellShe has not done her routine labs OV 12/26/2021:Here for her f/u apt, she feels well, she did do the labs on 12/12/2021 OV 06/26/2022:Here for her f/u apt, she is doing very well, she did do the labs, did not want to do the MWV today Migel Michele MD [address] [place] [address], [facility] [address], [place], [address], [facility] [employer] [facility] [place] 06/26/2022 10:13:04 01/01/2023 text/html Here to ilsa WestonP: Dr Shin with her husbandPast Hx:HTNReviewed social family and surgical historyShe feels that she is doing well at this timeShe did do the labs on 01/19/18, these [facility] did have some nausea and vomiting and was noted to have low NaShe states that she is doing very well now,In fact she is walking 2 miles everydayShe is to see Dr Jain also in nephrologyOV 08/05/18:Here with her husbandShe feels 'great' and did see Dr Jain who took her 'off all the medications except the lisinopril'She is due for her chol labsShe declined her MWV todayHer ROS is negativeOV 03/03/2019:Here for her routine aptFeels wellDid do the labsOV 09/01/2019:Here for her routine aptShe feels very wellShe did do the labsShe states that she would now like to come in only every 8 monthsOV 05/03/2020:Here for her routine aptShe feels wellShe did do the labsOV 01/03/2021:Here for her routine aptShe is doing wellShe did do the labs on 09/21/2020OV 07/04/2021:Here for her routine aptShe states that she is doing wellShe has not done her routine labs OV 12/26/2021:Here for her f/u apt, she feels well, she did do the labs on 12/12/2021 OV 06/26/2022:Here for her f/u apt, she is doing very well, she did do the labs, did not want to do the MWV today OV 01/01/2023: Here for her f/u apt, she feels well, no new labs, s/p R lumpectomy Migel Michele MD [address] [facility], [facility] [address], [place], [address], [place] [facility] [employer] [facility] [place] 01/01/2023 10:10:29 07/02/2023 text/html Here to ilsa carlosPCP: Dr Shin with her husbandPast Hx:HTNReviewed social family and surgical historyShe feels that she is doing well at this timeShe did do the labs on 01/19/18, these [facility] and [facility] did have some nausea and vomiting and was noted to have low NaShe states that she is doing very well now,In fact she is walking 2 miles everydayShe is to see Dr Jain also in nephrologyOV 08/05/18:Here with her husbandShe feels 'great' and did see Dr Jain who took her 'off all the medications except the lisinopril'She is due for her chol labsShe declined her MWV todayHer ROS is negativeOV 03/03/2019:Here for her routine aptFeels wellDid do the labsOV 09/01/2019:Here for her routine aptShe feels very wellShe did do the labsShe states that she would now like to come in only every 8 monthsOV 05/03/2020:Here for her routine aptShe feels wellShe did do the labsOV 01/03/2021:Here for her routine aptShe is doing wellShe did do the labs on 09/21/2020OV 07/04/2021:Here for her routine aptShe states that she is doing wellShe has not done her routine labs OV 12/26/2021:Here for her f/u apt, she feels well, she did do the labs on 12/12/2021 OV 06/26/2022:Here for her f/u apt, she is doing very well, she did do the labs, did not want to do the MWV today OV 01/01/2023: Here for her f/u apt, she feels well, no new labs, s/p R lumpectomy OV 07/02/2023: Here for her routine apt and MWV, she is doing well today Migel Michele MD [address] [facility], [address], [place], [address], [place] [employer] [facility] [place] 07/02/2023 17:54:17 11/19/2023 text/html Here to ilsa WestonP: Dr Shin with her husbandPast Hx:HTNReviewed social family and surgical historyShe feels that she is doing well at this timeShe did do the labs on 01/19/18, these [facility] did have some nausea and vomiting and was noted to have low NaShe states that she is doing very well now,In fact she is walking 2 miles everydayShe is to see Dr Jain also in nephrologyOV 08/05/18:Here with her husbandShe feels 'great' and did see Dr Jain who took her 'off all the medications except the lisinopril'She is due for her chol labsShe declined her MWV todayHer ROS is negativeOV 03/03/2019:Here for her routine aptFeels wellDid do the labsOV 09/01/2019:Here for her routine aptShe feels very wellShe did do the labsShe states that she would now like to come in only every 8 monthsOV 05/03/2020:Here for her routine aptShe feels wellShe did do the labsOV 01/03/2021:Here for her routine aptShe is doing wellShe did do the labs on 09/21/2020OV 07/04/2021:Here for her routine aptShe states that she is doing wellShe has not done her routine labs OV 12/26/2021:Here for her f/u apt, she feels well, she did do the labs on 12/12/2021 OV 06/26/2022:Here for her f/u apt, she is doing very well, she did do the labs, did not want to do the MWV today OV 01/01/2023: Here for her f/u apt, she feels well, no new labs, s/p R lumpectomy OV 07/02/2023: Here for her routine apt and MWV, she is doing well todayOV 11/19/2023: Here for her f/u apt, she feels well today Migel Michele MD [address] [facility], [address], [place], [address], [place] [facility] 11/21/2023 15:04:10 03/24/2024 text/html Here to ilsa WestonP: Dr Shin with her husbandPast Hx:HTNReviewed social family and surgical historyShe feels that she is doing well at this timeShe did do the labs on 01/19/18, [facility] did have some nausea and vomiting and was noted to have low NaShe states that she is doing very well now,In fact she is walking 2 miles everydayShe is to see Dr Jain also in nephrologyOV 08/05/18:Here with her husbandShe feels 'great' and did see Dr Jain who took her 'off all the medications except the lisinopril'She is due for her chol labsShe declined her MWV todayHer ROS is negativeOV 03/03/2019:Here for her routine aptFeels wellDid do the labsOV 09/01/2019:Here for her routine aptShe feels very wellShe did do the labsShe states that she would now like to come in only every 8 monthsOV 05/03/2020:Here for her routine aptShe feels wellShe did do the labsOV 01/03/2021:Here for her routine aptShe is doing wellShe did do the labs on 09/21/2020OV 07/04/2021:Here for her routine aptShe states that she is doing wellShe has not done her routine labs OV 12/26/2021:Here for her f/u apt, she feels well, she did do the labs on 12/12/2021 OV 06/26/2022:Here for her f/u apt, she is doing very well, she did do the labs, did not want to do the MWV today OV 01/01/2023: Here for her f/u apt, she feels well, no new labs, s/p R lumpectomy OV 07/02/2023: Here for her routine apt and MWV, she is doing well today OV 11/19/2023: Here for her f/u apt, she feels well today OV 03/24/2024: Here for her f/u, she does well today, she did do the labs Migel Michele MD [address] [facility], [facility] [address], [place], [address], [facility] 03/24/2024 10:00:54 OBGyn Episode No OBEpisode recorded.
--- OUTSIDE RECORDS SUMMARY | 2024-06-10 10:01 | XMS_ITS | Continuity of Care Document ---
Author Organization [facility] Address [address] [place] [address] [place] [address] Phone Care Team Providers Care Venetian Blind Assembler Name Role Phone Kolby Garcia Unavailable Unavailable [...] Diagnoses Date Provider Providers Copied on Encounter [facility], [address] [place] [address] [address], [place], [place], [id number], [place] tel:[phone] [facility] No Information 8201 0 Radha Jarrett. [facility]ayna [facility] [address], [place], [address], [place]. tel:[phone] Referring Provider: Shayna Gutierres [facility] [address], [place], [address]. tel:[phone] [facility], [address] [place] [address] [address], [place], [place], [id number], [place] tel:[phone] SEC [facility] No Information 2 2-201 0 Radha Jarrett. [address] [facility] , [address], [place], [facility], . tel:[phone] Referring Provider: Kolby Beebe, [address] [facility] [address], [place], [facility]. tel:[phone] Office/outpat ient Visit, [facility], [address] [place] [address] [address], [place], [place], [id number], [place] tel:[phone] [facility] [place] No Information 1-201 0 Radha Jarrett. [address] [place], [place] [address]ate Center , [address], [place], [facility], . tel:[phone] Office/outpat ient Visit, [facility], [address] [place] [address] [address], [place], [place], [id number], [place] tel:[phone] [facility] No Information Sep-3 0-200 9 Radha Jarrett. [address] [place], [place] [address], [place], [facility], [place]. tel:[phone] Office/outpat ient Visit, [facility], [address] [place] [address] [address], [place], [place], [id number], [place] tel:[phone] [facility] No Information 1 7-200 8 Radha Jarrett. [facility] [address], [place], [facility], [place]. tel:[phone] Office/outpat ient Visit, [facility], [address] [place] [address] [address], [place], [place], [address], [place] tel:[phone] [facility] No Information 2 1-200 8 Radha Jarrett. [address] [facility] , [address], [place], [facility], . tel:[phone] Office/outpat ient Visit, [facility], [address] [place] [address] [address], [place], [place], [id number], tel:[phone] [facility] No Information Apr-3 0-200 8 Radha Jarrett. [address] [place], [place] [address]ate Center , [address], [place], [facility], . tel:[phone] [facility], [address] [place] [address] [address], [place], [place], [id number], tel:[phone] [facility] [place] No Information Apr-1 4-200 8 Radha Jarrett. [address] [place], [place] [address], [place], [facility], . tel:[phone] Office/outpat ient Visit, [facility], [address] [place] [address] [address], [place], [place], [address], tel:[phone] [facility] No Information Aug-2 0-200 7 Radha Jarrett. [facility] [address], [place], [facility], [place]. tel:[phone] Referring Provider: Kolby Beebe [facility] [address], [place], [facility]. tel:[phone] [facility], [address] [place] [address] [address], [place], [place], [id number], [place] tel:[phone] [facility] No Information Apr-2 5-200 7 Radha Jarrett. [facility] [address], [place], [facility], [place]. tel:[phone] Referring Provider: Shayna Gutierres [facility] [address], [place], [facility]. tel:[phone] Family History Family Member Type Diagnosis Age At Onset No Information Payers Payer name Insurance type Covered alliance party ID Authoriza tion(s) Medicare [facility] [id number] [place] Commercial 09 [id number] Social History Type Description Quantity Date Captured [...]
--- OUTSIDE RECORDS SUMMARY | 2024-06-10 10:02 | XMS_ITS | Clinical Summary ---
Author Organization [facility] Address [address] [place] [address] Care Team Providers Care Court Reporter Name Role Phone Migel Michele MD Primary Care Provider Allergies No known active allergies Medications lisinopriL (PRINIVIL) 5 mg tablet Take 5 mg by mouth daily. Active multivitamin (DAILY-SHERI) tablet Take 1 Tablet by mouth daily. Active turmeric/turmer ic ext/pepr ext (turmeric-turme edison ext-pepper) 500-3 mg Capsule Take 1 Tablet by mouth daily. Active cyanocobalamin (VITAMIN B-12) 500 mcg tablet Take 500 mcg by mouth daily. Active glucosamine barbour 2KCl-chondroit 500-400 mg Tablet Take 1 Tablet by mouth daily. Active alendronate (FOSAMAX) 70 mg tablet TAKE 1 TABLET BY MOUTH EVERY 7 DAYS. TAKE ON EMPTY STOMACH BEFORE OTHER MEDS,WITH 8OZ OF WATER, SIT UPRIGHT X30 MIN 12 Tablet 1 03/16/2024 Active tamoxifen (NOLVADEX) 20 mg tablet TAKE 1 TABLET BY MOUTH EVERY DAY 90 Tablet 3 03/20/2024 Active Active Problems No known active problems Encounters Date Type Department Care Team Description 04/15/2024 External Device Data STL ABSTRACTION Provider, Abstract 03/30/2024 Orders Only [facility] - Miguel [address] [place] [address] Scanning, Provider 03/24/2024 External Device Data STL ABSTRACTION Provider, Abstract 03/20/2024 8:30 AM GYMNASTICS COACH Office Visit [facility] - Miguel [address] [place] [address] Charlie Jordan MD Ductal carcinoma in situ (DCIS) of right breast (Primary Dx) 03/20/2024 Orders Only [facility] [address] [place] [address] Charlie Jordan MD 03/20/2024 Refill [facility] [address] [place] [address] Charlie Jordan MD 03/18/2024 External Device Data STL ABSTRACTION Provider, Abstract 03/18/2024 External Device Data STL ABSTRACTION Provider, Abstract 03/14/2024 Refill [facility] [address] [place] [address] Charlie Jordan MD from Last 3 Months Family History Medical History Relation Name Comments No Known Problems Daughter 1 No Known Problems Daughter 2 Cancer Father bladder Ovarian Cancer Half-Sister No Known Problems Mother No Known Problems Sister Relation Name Status Comments Daughter 1 Alive Daughter 2 Alive Father Half-Sister Mother Sister Social History Tobacco Use Types Packs/Day Years Used Date Smoking Tobacco: Never Smokeless Tobacco: Never Alcohol Use Standard Drinks/Week Comments Never 0 (1 standard drink = 0.6 oz pur e alcohol) Comments Unknown Sex and Gender Information Value Date Recorded Sex Assigned at Not on file Legal Sex Female 8:36 AM GYMNASTICS COACH Gender Identity Not on file Sexual Orientation Not on file Last Filed Vital Signs Vital Sign Reading Time Taken Comments Blood Pressure 156/84 03/20/2024 9:07 AM GYMNASTICS COACH Pulse 69 03/20/2024 9:05 AM GYMNASTICS COACH Temperature 36.2 C (97.2 F) 03/20/2024 9:05 AM GYMNASTICS COACH Respiratory Rate 15 03/20/2024 9:05 AM GYMNASTICS COACH Oxygen Saturation 95% 03/20/2024 9:05 AM GYMNASTICS COACH Inhaled Oxygen Concentration - - Weight 64.9 kg (143 lb) 03/20/2024 9:05 AM GYMNASTICS COACH Height 165.1 cm (5' 5 ) 10/01/2022 1:42 PM CDT Body Mass Index 23.8 10/01/2022 1:42 PM CDT Plan of Treatment Upcoming Encounters Date Type Department Care Team (Late st Contact Info) Description 09/18/2024 9:15 AM CDT Office Visit [facility] - Miguel [address] [facility] [address] [place] [address] Charlie Jordan MD [address] [facility] [address] [place] [address] Health Maintenance Due Date Last Done Comments DTAP/TDAP/TD VACCINES (1 - Tdap) 12/24/1962 Traditional Medicare (ACO) A nnual Wellness Visit 12/24/1962 PNEUMOCOCCAL VACCINE 50+ YEA RS (1 of 1 - PCV) 12/24/1993 ZOSTER VACCINE (1 of 2) 12/24/1993 RSV VACCINE (60+ or ) (1 - 1-dose 75+ series) 12/24/2018 INFLUENZA VACCINE (#1) 2023 OSTEOPOROSIS SCREENING Completed 06/19/2023, 2023 Procedures Procedure Name Priority Date/Time Associated Diagnosis Comments BASIC METABOLIC PANEL Routine 03/20/2024 1:15 PM GYMNASTICS COACH HEMOGLOBIN A1C Routine 03/20/2024 12:58 PM GYMNASTICS COACH from Last 3 Months Results * BASIC METABOLIC PANEL (03/20/2024 1:15 PM GYMNASTICS COACH) Blood us Charlie Jordan MD CHEMISTRY ORDERABLES Final Resu lt * HEMOGLOBIN A1C (03/20/2024 12:58 PM GYMNASTICS COACH) Blood Provider Scanning CHEMISTRY ORDERABLES Final Res ult from Last 3 Months Insurance BCBS SUPP MEDICARE PART A AND B Care Teams Court Reporter Relationship Specialty Start Date End Date Migel Michele MD PCP - General Internal Medicine 03/04/19
--- OUTSIDE RECORDS SUMMARY | 2024-06-10 10:02 | XMS_ITS | CONTINUITY OF CARE DOCUMENT ---
Author Name matt gutierrez Address Unknown Organization [facility] Address [address] [facility] [address] [place] [address] Phone [phone] Care Team Providers Care Crime Scene Technician Name Role Phone Franko HUITRON, Servando Unavailable INSURANCE PROVIDERS Payer name Policy type / Coverage type Baldwin red democrat ID [facility] [id number] [place] Medicare [id number]
--- OUTSIDE RECORDS SUMMARY | 2024-06-10 10:02 | XMS_ITS | Clinical Summary ---
Author Organization [facility] Facility Address [address] [address] Care Team Providers Care Grinding Machine Operator Portable Name Role Phone Migel Michele MD Primary Care Provider [phone] Allergies No known active allergies Medications lisinopril 5 MG tablet 5 mg Active Multiple Vitamin (multivitamin) tablet Take 1 tablet by mouth 1 (one) time each day Active glucosamine-mickey droitin 500-400 MG tablet Take 1 tablet by mouth 1 (one) time each day Active cyancobalamine (VITAMIN B-12) 500 MCG tablet Take 500 mcg by mouth 1 (one) time each day Active Turmeric 500 MG capsule Take by mouth 1 (one) time each day Active Social History Tobacco Use Types Packs/Day Years Used Date Smoking Tobacco: Never Alcohol Use Standard Drinks/Week Comments No 0 (1 standard drink = 0.6 oz pur e alcohol) Comments Unknown Sex and Gender Information Value Date Recorded Sex Assigned at Not on file Legal Sex Female 2:50 PM EDT Gender Identity Not on file Sexual Orientation Not on file Last Filed Vital Signs Vital Sign Reading Time Taken Comments Blood Pressure 130/60 04/11/2021 2:55 PM [employer] Pulse 68 04/11/2021 2:55 PM [employer] Temperature 35.8 C (96.4 F) 04/11/2021 2:55 PM [employer] Respiratory Rate 18 04/11/2021 2:55 PM [employer] Oxygen Saturation 98% 04/11/2021 2:55 PM [employer] Inhaled Oxygen Concentration - - Weight 64.9 kg (143 lb) 04/11/2021 2:55 PM [employer] Height 165.1 cm (5' 5 ) 04/11/2021 2:55 PM [employer] Body Mass Index 23.8 04/11/2021 2:55 PM [employer] Plan of Treatment Health Maintenance Due Date Last Done Comments Pneumococcal Vaccine: 50+ Ye ars (1 of 1 - PCV) 12/24/1993 Influenza Vaccine (Season Ended) 2024 Hepatitis B Vaccine Aged Out No longe r eligible based on patient's age to complete this topic Insurance Medicare [facility] Care Teams Grinding Machine Operator Portable Relationship Specialty Start Date End Date Migel Michele MD [address], [address] [place] [address] PCP - General Internal Medicine 01/03/21
== END 2024-06-10 09:19 | disposition home or self-care (01) ==
LOC: ANHIMG 09:20
PROVIDERS: PCP Internal Medicine; Visit Provider Surgery
DX: Z12.31 Encounter for screening mammogram for malignant neoplasm of breast (principal); D05.11 Intraductal carcinoma in situ of right breast; Z98.890 Other specified postprocedural states
CPT/HCPCS: 77063; 77067

== ENCOUNTER 2024-09-18 08:06 | Outpatient (CLI) | payer MEDICARE, SELFPAY ==
--- OUTSIDE RECORDS SUMMARY | 2024-09-18 08:09 | XMS_ITS | Data Portability ---
Author Organization [place] [facility] [employer], Main Office Address [address] [place] [address] Assessment Encounter Date Assessment Date Assessment LastModified [...] Lab glycohemo globin, total, blood 2024 025 [email or web address] [facility] (Lab), [address] [place], [address], 03/24/2024 09:49:54 microalbu min, urine [email or web address] [place] [address] (Lab), [address] [place], [address], 03/24/2024 09:49:54 vitamin D, 25-hydrox y, total, serum [email or web address] (Lab), [address] [place], [address], 03/24/2024 09:49:53 lipid panel, serum [address] (Lab), [address] [place], [address], 03/24/2024 09:49:52 CBC w/ auto diff [address] (Lab), [address] [place], [address], 03/24/2024 09:49:53 T4, free, serum [address] (Lab), [address] [place], [address], 03/24/2024 09:49:53 CMP, serum or plasma [address] (Lab), [address] [place], [address], 03/24/2024 09:49:53 TSH, serum or plasma [address] (Lab), [address] [place], [address], 03/24/2024 09:49:53 glycohemo globin, total, blood [address] (Lab), [address] [place], [address], 05/20/2024 08:37:53 microalbu min, urine [address] (Lab), [address] [place], [address], 05/20/2024 08:37:53 vitamin D, 25-hydrox y, total, serum [address] (Lab), [address] [place], [address], 05/20/2024 08:37:52 lipid panel, serum [address] (Lab), [address] [place], [address], 05/20/2024 08:37:52 CBC w/ auto diff [address] (Lab), [address] [place], [address], 05/20/2024 08:37:52 T4, free, serum [address] (Lab), [address] [place], [address], 05/20/2024 08:37:52 CMP, serum or plasma [address] (Lab), [address] [place], [address], 05/20/2024 08:37:52 TSH, serum or plasma [address] (Lab), [address] [place], [address], 05/20/2024 08:37:52 glycohemo globin, total, blood [address] (Lab), [address] [place], [address], 12/31/2023 09:52:09 microalbu min, urine 2023 024 [email or web address] [facility] (Lab), [address] [place], [address], 10/18/2023 18:11:50 vitamin D, 25-hydrox y, total, serum [address] (Lab), [address] [place], [address], 12/31/2023 09:52:08 lipid panel, serum 2023 024 [facility] (Lab), [address] [place], [address], 10/18/2023 15:47:00 CBC w/ auto diff 2023 024 [facility] (Lab), [address] [place], [address], 10/18/2023 11:15:14 T4, free, serum [address] (Lab), [address] [place], [address], 12/31/2023 09:52:08 CMP, serum or plasma [address] (Lab), [address] [place], [address], 12/31/2023 09:52:08 TSH, serum or plasma [address] (Lab), [address] [place], [address], 12/31/2023 09:52:08 vitamin D, 25-hydrox y, total, serum [address] (Lab), [address] [place], [address], 07/01/2023 09:40:54 lipid panel, serum [address] (Lab), [address] [place], [address], 07/01/2023 09:40:54 CBC w/ auto diff [address] (Lab), [address] [place], [address], 07/01/2023 09:40:54 T4, free, serum [address] (Lab), [address] [place], [address], 07/01/2023 09:40:38 CMP, serum or plasma [address] (Lab), [address] [place], [address], 07/01/2023 09:40:38 TSH, serum or plasma [address] (Lab), [address] [place], [address], 07/01/2023 09:40:38 vitamin D, 25-hydrox y, total, serum [address] (Lab), [address] [place], [address], 02/12/2023 11:18:29 lipid panel, serum [address] (Lab), [address] [place], [address], 02/12/2023 11:18:28 CBC w/ auto diff [address] (Lab), [address] [place], [address], 02/12/2023 11:18:28 T4, free, serum [email or web address] (Lab), [address] [place], [address], 02/12/2023 11:18:28 CMP, serum or plasma [email or web address] (Lab), [address] [place], [address], 02/12/2023 11:18:29 TSH, serum or plasma [address] (Lab), [address] [place], [address], 02/12/2023 11:18:29 Referral hematolog ist referral 2024 025 [email or web address] Charlie Jordan MD, [address], [place], [address], 04/03/2024 09:55:00 podiatris t referral - Please call patient to schedule an appointme nt. Thank you. 2024 025 [email or web address] Rick Becerra DPM, [address] [facility], [facility] [address], [place], [address], 05/13/2024 08:42:31 hematolog ist referral 2023 024 [email or web address] Charlie Jordan MD, [address], [place], [address], 11/19/2023 12:07:34 podiatris t referral - Please call patient to schedule. 2023 024 gale Becerra DPM, [address] [facility], [facility] [address], [place], [address], 12/24/2023 11:24:39 podiatris t referral 2023 024 gale Becerra DPM, [address] [facility] [address], [place], [address], 01/27/2024 08:51:19 Procedures None recorded. Surgeries None recorded. Imaging MAMMO, screening , digital, bilateral 2022 023 [email or web address] [facility] ([facility]), [address] [place], [address], 08/30/2022 10:45:51 Medication Orders None recorded. Patient TargetsNo targets recorded. 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 Thank you. Referring Physician: Migel Michele Internal Medicine, Encounter Date: 03/24/2024 Referring Physician: Migel Michele Internal Medicine, Encounter Date: 03/24/2024 Results Created Date Observation Date Name Description Value Unit Range Abnormal Flag Note LastModifiedBy Organization Detail LastModifiedTime 06/15/19 23 06/14/2022 CBC/C OMPLE TE BLD COUNT W/DIF F white blood cells 5.3 x10'3 /uL 4.2-10 .8 Not Available [facility] (Lab) [address] [place], [address], 06/14/2022 11:29:10 06/15/19 23 06/14/2022 CBC/C OMPLE TE BLD COUNT W/DIF F red blood cells 4.09 x10'6 /uL 3.80-5 .20 Not Available [facility] (Lab) [address] [place], [address], 06/14/2022 11:29:10 06/15/19 23 06/14/2022 CBC/C OMPLE TE BLD COUNT W/DIF F hemoglobin 13.1 g/dL 12.0-1 5.6 Not Available [facility] (Lab) [address] [place], [address], 06/14/2022 11:29:10 06/15/19 23 06/14/2022 CBC/C OMPLE TE BLD COUNT W/DIF F hematocrit 41.4 % 35.7-4 5.7 Not Available [facility] (Lab) [address] [place], [address], 06/14/2022 11:29:10 06/15/19 23 06/14/2022 CBC/C OMPLE TE BLD COUNT W/DIF F mean red cell volume 101.2 fL 82.0-9 9.0 high Not Available [facility] (Lab) [address] [place], [address], 06/14/2022 11:29:10 06/15/19 23 06/14/2022 CBC/C OMPLE TE BLD COUNT W/DIF F mean red cell hemoglobin 32.0 pg 27.0-3 3.0 Not Available [facility] (Lab) [address] [place], [address], 06/14/2022 11:29:10 06/15/19 23 06/14/2022 CBC/C OMPLE TE BLD COUNT W/DIF F mean RBC HGB concentratio n 31.6 g/dL 31.0-3 6.0 Not Available [facility] (Lab) [address] [place], [address], 06/14/2022 11:29:10 06/15/19 23 06/14/2022 CBC/C OMPLE TE BLD COUNT W/DIF F red cell distribution width 13.0 % 11.8-1 5.5 Not Available [facility] (Lab) [address] [place], [address], 06/14/2022 11:29:10 06/15/19 23 06/14/2022 CBC/C OMPLE TE BLD COUNT W/DIF F platelets 153 x10'3 /uL 150-40 0 Not Available [facility] (Lab) [address] [place], [address], 06/14/2022 11:29:10 06/15/19 23 06/14/2022 CBC/C OMPLE TE BLD COUNT W/DIF F mean platelet volume 13.0 fL 9.0-12 .4 high Not Available [facility] (Lab) [address] [place], [address], 06/14/2022 11:29:10 06/15/19 23 06/14/2022 CBC/C OMPLE TE BLD COUNT W/DIF F neutrophils 49.9 % 39.0-7 2.0 Not Available [facility] (Lab) [address] [place], [address], 06/14/2022 11:29:10 06/15/19 23 06/14/2022 CBC/C OMPLE TE BLD COUNT W/DIF F lymphocytes 39.1 % 16.0-4 7.0 Not Available [facility] (Lab) [address] [place], [address], 06/14/2022 11:29:10 06/15/19 23 06/14/2022 CBC/C OMPLE TE BLD COUNT W/DIF F monocytes 8.9 % 5.0-12 .0 Not Available [facility] (Lab) [address] [place], [address], 06/14/2022 11:29:10 06/15/19 23 06/14/2022 CBC/C OMPLE TE BLD COUNT W/DIF F eosinophils 1.3 % 1.0-7. 0 Not Available [facility] (Lab) [address] [place], [address], 06/14/2022 11:29:10 06/15/19 23 06/14/2022 CBC/C OMPLE TE BLD COUNT W/DIF F basophils 0.4 % 0.0-2. 0 Not Available [facility] (Lab) [address] [place], [address], 06/14/2022 11:29:10 06/15/19 23 06/14/2022 CBC/C OMPLE TE BLD COUNT W/DIF F immature granulocytes 0.4 % 0.00-0 .50 Not Available [facility] (Lab) [address] [place], [address], 06/14/2022 11:29:10 06/15/19 23 06/14/2022 CBC/C OMPLE TE BLD COUNT W/DIF F neutrophils, absolute count 2.64 x10'3 /uL 1.5-8. 0 Not Available [facility] (Lab) [address] [place], [address], 06/14/2022 11:29:10 06/15/19 23 06/14/2022 CBC/C OMPLE TE BLD COUNT W/DIF F lymphocytes, absolute count 2.07 x10'3 /uL 1.07-3 .43 Not Available [facility] (Lab) [address] [place], [address], 06/14/2022 11:29:10 06/15/19 23 06/14/2022 CBC/C OMPLE TE BLD COUNT W/DIF F monocytes, absolute count 0.47 x10'3 /uL 0.29-0 .99 Not Available [facility] (Lab) [address] [place], [address], 06/14/2022 11:29:10 06/15/19 23 06/14/2022 CBC/C OMPLE TE BLD COUNT W/DIF F eosinophils, absolute count 0.07 x10'3 /uL 0.02-0 .53 Not Available [facility] (Lab) [address] [place], [address], 06/14/2022 11:29:10 06/15/19 23 06/14/2022 CBC/C OMPLE TE BLD COUNT W/DIF F basophils, absolute count 0.02 x10'3 /uL 0.01-0 .08 Not Available [facility] (Lab) [address] [place], [address], 06/14/2022 11:29:10 06/15/19 23 06/14/2022 CBC/C OMPLE TE BLD COUNT W/DIF F immature granulocytes ,absolute 0.02 x10'3 /uL 0.00-0 .05 Not Available [facility] (Lab) [address] [place], [address], 06/14/2022 11:29:10 06/15/19 23 06/14/2022 CBC/C OMPLE TE BLD COUNT W/DIF F nucleated red blood cells 0.0 % -0 Not Available [facility] (Lab) [address] [place], [address], 06/14/2022 11:29:10 06/15/19 23 06/14/2022 CBC/C OMPLE TE BLD COUNT W/DIF F NRBC# 0.00 x10'3 /uL Not Available [facility] (Lab) [address] [place], [address], 06/14/2022 11:29:10 06/15/19 23 06/14/2022 LIPID PANEL cholesterol 241 mg/dL 140-19 9 high NIH RNOALDO NSUS RECOM MENDA TION FOR CARMEN STERO L: ADULT CHILD LOW RISK: <200 <170 BORDE RLINE : <200- 239 ----- HIGH RISK: >240 >200 Not Available [facility] (Lab) [address] [place], [address], 06/14/2022 12:05:04 06/15/19 23 06/14/2022 LIPID PANEL triglyceride s 212 mg/dL 0-150 high NIH RONALDO NSUS REPOR T RECOM MENDA TION FOR TRIGL YCERI SONIYA: ADULT CHILD LOW RISK: <150 ----- BODER LINE: 150-1 99 ----- HIGH RISK: >200 ----- Not Available [facility] (Lab) [address] [place], [address], 06/14/2022 12:05:04 06/15/19 23 06/14/2022 LIPID PANEL HDL cholesterol 47 mg/dL 40- Not Available [facility] (Lab) [address] [place], [address], 06/14/2022 12:05:04 06/15/19 23 06/14/2022 LIPID PANEL [...] WILL NOT BE REPOR GILDARDO. Not Available [facility] (Lab) [address] [place], [address], 06/14/2022 12:05:04 06/15/19 23 06/14/2022 COMPR EHENS JALEN METAB OLIC PANEL sodium 139 mmol/ L 137-14 5 Not Available [facility] (Lab) [address] [place], [address], 06/14/2022 12:05:14 06/15/19 23 06/14/2022 COMPR EHENS JALEN METAB OLIC PANEL potassium 4.1 mmol/ L 3.5-5. 1 Not Available [facility] (Lab) [address] [facility] [place], [address], 06/14/2022 12:05:14 06/15/19 23 06/14/2022 COMPR EHENS JALEN METAB OLIC PANEL chloride 103 mmol/ L 98-107 Not Available [facility] (Lab) [address] [place], [address], 06/14/2022 12:05:14 06/15/19 23 06/14/2022 COMPR EHENS JALEN METAB OLIC PANEL carbon dioxide 29 mmol/ L 22-30 Not Available [facility] (Lab) [address] [place], [address], 06/14/2022 12:05:14 06/15/19 23 06/14/2022 COMPR EHENS JALEN METAB OLIC PANEL anion gap 11.1 mmol/ L 14-22 low Not Available [facility] (Lab) [address] [place], [address], 06/14/2022 12:05:14 06/15/19 23 06/14/2022 COMPR EHENS JALEN METAB OLIC PANEL glucose 108 mg/dL 70-99 high Not Available [facility] (Lab) [address] [place], [address], 06/14/2022 12:05:14 06/15/19 23 06/14/2022 COMPR EHENS JALEN METAB OLIC PANEL BUN 14 mg/dL 8-19 Not Available [facility] (Lab) [address] [place], [address], 06/14/2022 12:05:14 06/15/1906/14/2022 COMPR EHENS JALEN METAB OLIC PANEL creatinine 1.00 mg/dL 0.66-1 .25 Not Available [facility] (Lab) [address] [place], [address], 06/14/2022 12:05:14 06/15/19 23 06/14/2022 COMPR EHENS JALEN METAB OLIC PANEL GFR 54 Refer ence Range : [place] ge GFR Healt hy Adult : >60 [...] or ethni c subgr oups, such as Hisnm nics. Outsi de the valid ated be [...] s/kdo qi/gf r_cal culat or Not Available [facility] (Lab) [address] [place], [address], 06/14/2022 12:05:14 06/15/19 23 06/14/2022 COMPR EHENS JALEN METAB OLIC PANEL alkaline phosphatase 53 U/L 38-126 Not Available [facility] (Lab) [address] [place], [address], 06/14/2022 12:05:14 06/15/19 23 06/14/2022 COMPR EHENS JALEN METAB OLIC PANEL alanine aminotransfe rase 27 U/L 0-35 Not Available [facility] (Lab) [address] [place], [address], 06/14/2022 12:05:14 06/15/19 23 06/14/2022 COMPR EHENS JALEN METAB OLIC PANEL aspartate aminotransfe rase 34 U/L 15-37 Not Available [facility] (Lab) [address] [place], [address], 06/14/2022 12:05:14 06/15/19 23 06/14/2022 COMPR EHENS JALEN METAB OLIC PANEL bilirubin, total 0.80 mg/dL 0.20-1 .30 Not Available [facility] (Lab) [address] [place], [address], 06/14/2022 12:05:14 06/15/19 23 06/14/2022 COMPR EHENS JALEN METAB OLIC PANEL calcium 9.5 mg/dL 8.4-10 .2 Not Available [facility] (Lab) [address] [place], [address], 06/14/2022 12:05:14 06/15/19 23 06/14/2022 COMPR EHENS JALEN METAB OLIC PANEL total protein 7.1 g/dL 6.3-8. 2 Not Available [facility] (Lab) [address] [place], [address], 06/14/2022 12:05:14 06/15/19 23 06/14/2022 COMPR EHENS JALEN METAB OLIC PANEL albumin 4.6 g/dL 3.0-4. 4 high Not Available [facility] (Lab) [address] [place], [address], 06/14/2022 12:05:14 06/15/19 23 06/14/2022 COMPR EHENS JALEN METAB OLIC PANEL globulin 2.5 g/dL 2.6-4. 2 low Not Available [facility] (Lab) [address] [place], [address], 06/14/2022 12:05:14 06/15/19 23 06/14/2022 COMPR EHENS JALEN METAB OLIC PANEL A/G ratio 1.8 ratio 1.0-2. 0 Not Available [facility] (Lab) [address] [place], [address], 06/14/2022 12:05:14 06/15/19 23 06/14/2022 TSH W/REF BOLA FT4 TSH with reflex free T4 7.100 uIU/m L 0.465- 4.680 high Not Available [facility] (Lab) [address] [place], [address], 06/14/2022 12:35:05 06/15/19 23 06/14/2022 T4 FREE free T4 1.19 NG/dL 0.78-2 .19 Not Available [facility] (Lab) [address] [place], [address], 06/14/2022 16:32:18 07/05/19 23 07/04/2022 scree loretta breas t christopher, bilat [facility] [address] [place] [address] Patien t Name: AMADA TRISTAN Access ion #: [id number] Sex: F : 1945 6 Locati [...] ar densit y. Page 1 of 3 [facility] Virgilio mathew Name: AMADA TRISTAN Access ion #: [id number] Sex: F : 1945 6 Exam [...] [facility] ed [facility] A negati ve mammog enio report [...] 1:28 PM (CT) Page 2 of 3 [facility] Virgilio mathew Name: AMADA TRISTAN Access ion #: [id number] Sex: F : 1945 6 Exam Date: 8:31 AM Exam Name: MG SCRN BREAST CHRISTOPHER BILAT Admitt ing Diagno sis(es ): DT: 023 1:28 PM (CT) Page 3 of 3 [email or web address] [facility] (Imaging) [address] [place], [address], 07/05/2022 09:19:54 08/09/19 23 08/08/2022 MAMMO , diagn ostic , digit al, unila teral , w/ CAD [facility] [address] [address] Virgilio mathew Name: AMADA TRISTAN Access ion #: [id number] Sex: F : 1945 4 Locati [...] ality. Recomm end Page 1 of 2 [facility] Patien t Name: AMADA TRISTAN Access ion #: [id number] Sex: F : 1945 4 Exam Date: 7:36 AM Exam Name: MG MAMMO DIGITA L UNILAT RT Admitt ing Diagno sis(es ): stereo tactic right breast biopsy . Create d and electr onical ly signed by: Kev crum MD Signed Date: 8:24 AM (CT) Dictat ed by: Kev crum MD DD: 8:24 AM (CT) DT: 8:24 AM (CT) Page 2 of [address] (Imaging) [address] [place], [address], 08/09/2022 11:39:51 08/09/19 23 08/08/2022 MAMMO , diagn ostic , digit al, unila teral No observ ation record ed. [address] [place], [address], 08/09/2022 11:39:52 09/11/19 23 09/10/2022 stere otact ic breas t biops y (PROC ) No observ ation record ed. [address], [place], [address], 09/21/2022 11:57:08 09/19/19 23 09/10/2022 stere otact ic breas t biops y (PROC ) No observ ation record ed. [address] [address], [place], [address], 09/21/2022 11:57:09 10/24/19 23 10/23/2022 stere otact ic breas t biops y (PROC ) No observ ation record ed. [address] (Imaging) [address] [place] [address], [place], [address], 11/30/2022 09:46:41 11/07/19 23 11/06/2022 stere otact ic breas t biops y (PROC ) No observ ation record ed. [address] (Imaging) [address] [place] [address], [address], 11/30/2022 09:46:42 06/07/19 24 06/07/2023 MAMMO , scree loretta, digit al, bilat eral No observ ation record ed. [address] [address], [place], [address], 12/05/2023 16:00:06 06/19/19 24 06/18/2023 DEXA, axial skele ton No observ ation record ed. [address] [address], [place], [address], 12/05/2023 16:00:51 12/09/19 24 12/09/2023 imagi ng/di agnos tic resul t No observ ation record ed. [address], [address], 12/09/2023 11:58:57 06/11/1906/10/2024 imagi ng/di agnos tic resul t No observ ation record ed. [address], [address], 06/10/2024 11:42:11 Result Notes Documentation Provider Name and Address Organization Details Recorded Time Mammo, Diagnostic, Digital, Unilateral, W/ Cad : [facility] [address] [facility] [place] [address] Patient Name: MYA VERAS Sex: F : 1945 Location: [facility] Attending Physician: MIGEL MICHELE Ordering Physician: MIGEL MICHELE Exam Date: 08/08/2022 7:36 AM Exam Name: MG MAMMO DIGITAL UNILAT RT Admitting Diagnosis(es): MAMMOGRAPHY REPORT - FINAL EXAM: MG MAMMO DIGITAL UNILAT RT HISTORY: ABNORMAL MAMMOGRAM COMPARISON: 07/04/2022 TECHNIQUE: Right breast spot compression views were performed. Digital Mammography images were obtained. FINDINGS: Magnification views of the superolateral right breast calcifications remain indeterminate. IMPRESSION: BIRADS 4: Assessment complete. Suspicious abnormality. Recommend Page 1 of 2 [facility] Patient Name: MYA VERAS Sex: F : 1945 Exam Date: 08/08/2022 7:36 AM Exam Name: MAMMO DIGITAL UNILAT RT Admitting Diagnosis(es): stereotactic right breast biopsy. Created and electronically signed by: Kev Hampton MD Signed Date: 08/08/2022 8:24 AM (CT) Dictated by: Kev Hampton MD (CT) (CT) Page 2 of 2 RADHA Asencio Nuno [place] [employer] [facility] 08/09/2022 11:39:51 Problems Name Problem SNOMED Code Status Onset Date Resolution Date Notes Provider Name and Address Organization Details Recorded Time Microcalcific ations of the breast 46017192 Active Not Available [facility] 3 01:37:30 Herpes zoster 0438458 Active Not Available [facility] 3 01:37:30 Postcoital bleeding 54930625 Active Not Available [facility] 3 01:37:30 Essential hypertension 35708924 Active 2017 Not Available [facility] 3 01:37:30 Acute sinusitis 47133721 Active 2021 Not Available [facility] 3 01:37:29 Anemia 734962520 Active 2021 Not Available [facility] 3 01:37:29 Hyperlipidemi a 75707842 Active 2021 Not Available [facility] 3 01:37:30 Hyperglycemia 25915751 Active 2022 Thalia Pena [facility] [place] [facility] [facility] 3 15:37:26 Hypothyroidis m 74708309 Active 2022 Migel aaron MD [address], [place], [address] , [place] [facility] 3 14:28:07 Thrombocytope holly disorder 008367253 Active 2022 Migel aaron MD [address], [address], [place], [address] , [place] [facility] 3 14:28:12 Hyperproteine abby 55219745 Active 2022 Migel aaron MD [address], [address], [place], [address] , [place] [facility] 3 14:28:18 Prediabetes 762541879 Active 2022 Migel aaron MD [address], [place], [address] , [place] [facility] 3 14:28:23 Macrocytosis 417174360 Active 2022 Migel aaron MD [address], [place], [address] , [place] [facility] 3 14:28:28 Chronic kidney disease 966475070 Active 2022 Migel aaron MD [address], [place], [address] , [facility] 3 14:53:48 Mammography abnormal 102412593 Active 2022 Thalia wolf, [facility] 3 09:15:12 Infiltrating duct carcinoma of breast 821292581 Active 2022 Thalia wolf, [facility] 3 09:57:59 Malignant tumor of breast 454506252 Active 2022 Migel aaron MD [address], [address], [place], [address] , [facility] 3 09:54:12 Serum thyroid stimulating hormone level outside reference range [id number] Active 2024 Migel aaron MD [address], [address], [place], [address] , [facility] 5 09:59:32 Problem Notes None recorded. Procedures Surgical History Date Name Laterality Status Provider Name and Address Organization Details Recorded Time 3 lumpectomy of right breast completed JOSE Mora [facility] 01/01/2023 09:47:58 3 [employer] Procedure completed Not Available [facility] 2022 01:22:56 Cataract Surgery completed Not Available [facility] 04/25/2022 01:22:56 Breast Biopsy completed Not Available [facility] 04/25/2022 01:22:56 Anesth tubal ligation completed Not Available [facility] 04/25/2022 01:22:56 Imaging Results None recorded. Procedure Notes None recorded. Medical Equipment None [...] TAKE 1 TABLET BY MOUTH EVERY DAY 2024 active Not Available Not Available Not Avai lable tamoxifen 20 mg tablet TAKE 1 TABLET [...] verbal numeric rating [Score] - Reported Systolic And Diastolic Provider Name and Address Organization Details Last Updated DateTime 5 165.1 cm 23 kg/m2 65567.5 4 g 97.7 [degF] 70 /min 90 % 90 % 0 154/84 mm[Hg] Akua Payne MA [place] - [facility] [employer] 5 09:19:35 Date Recorded Body height Body mass index (BMI) Body weight Body temperature Heart rate Systolic And Diastolic Provider Name and Address Organization Details Last Updated DateTime 3 165.1 cm 24 kg/m2 29997.3 g 97.7 [degF] 72 /min 122/60 mm[Hg] Kayla Dodge [facility] 3 09:45:45 Date Recorded Body height Body mass index (BMI) Body weight Body temperature Heart rate Systolic And Diastolic Provider Name and Address Organization Details Last Updated DateTime 4 165.1 cm 22.5 kg/m2 45616.9 7 g 97.5 [degF] 78 /min 122/76 mm[Hg] Kayla Dodge [facility] 4 09:30:46 Date Recorded Body height Body mass index (BMI) Body weight Body temperature Heart rate Respiratory rate Oxygen saturation Oxygen saturation in Arterial blood by Pulse oximetry Pain severity - 0-10 verbal numeric rating [Score] - Reported Systolic And Diastolic Provider Name and Address Organization Details Last Updated DateTime 4 165.1 cm 22.5 kg/m2 51709.9 7 g 97.3 [degF] 54 /min 16 /min 97 % 97 % 0 132/76 mm[Hg] Jordan Scherer LPN [facility] 4 09:54:25 Date Recorded Body height Body mass index (BMI) Body weight Body temperature Heart rate Systolic And Diastolic Provider Name and Address Organization Details Last Updated DateTime 3 165.1 cm 22.6 kg/m2 75311.5 6 g 97.2 [degF] 84 /min 100/60 mm[Hg] Kayla Dodge [facility] 3 09:49:38 Social History Question Answer Notes LastModified by Organizat ion Details LastModified Time Tobacco Smoking Status Never Smoker Not Available [employer] 04/25/2022 01:19:53 Do You Have An Advance Directive? No [id number] Information not available 04/25/2022 Are You Blind Or Do You Have Difficulty Seeing? No MIGRATION.[id number] 026 Information not available 04/25/2022 What Is Your Level Of Caffeine Consumption? None [id number].[id number] 026 Information not available 04/25/2022 How Much Tobacco Do You Chew? None [id number].[id number] 026 Information not available 04/25/2022 In The 14 Days Before Symptom Onset, Have You Had Close Contact With A Laboratory-confirm ed COVID-19 While That Case Was Ill? No [id number].[id number] 026 Information not available 04/25/2022 In The 14 Days Before Symptom Onset, Have You Had Close Contact With A Person Who Is Under Investigation For COVID-19 While That Person Was Ill? No [id number].[id number] 026 Information not available 04/25/2022 Are You Deaf Or Do You Have Serious Difficulty Hearing? No MIGRATION.[id number] 026 Information not available 04/25/2022 What Type Of Diet Are You Following? REGULAR MIGRATION.[id number] 026 Information not available 04/25/2022 Do You Have A Medical Power Of Payroll Technician? No MIGRATION.[id number] 026 Information not available 04/25/2022 What Was The Date Of Your Most Recent Tobacco Screening? 03/24/2024 [email or web address] Information not available 03/24/2024 How Much Tobacco Do You Smoke? No MIGRATION.[id number] 026 Information not available 04/25/2022 Has Tobacco Cessation Counseling Been Provided? No N/a MIGRATION.[id number] 026 Information not available 04/25/2022 Have You Recently Traveled Abroad? No MIGRATION.[id number] 026 Information not available 04/25/2022 Do You Have Difficulty Walking Or Climbing Stairs? No MIGRATION.[id number] 026 Information not available 04/25/2022 Do You Have Any Dietary Restrictions? No MIGRATION.[id number] 026 Information not available 04/25/2022 Sex: Female Functional Status Question Answer Note LastModified by Organizat ion Details LastModified Time Do you use any illicit or recreational drugs? No MIGRATION.[id number] 026 Information not available 04/25/2022 Do you or have you ever used any other forms of tobacco or nicotine? No MIGRATION.[id number] 026 Information not available 04/25/2022 What is your level of alcohol consumption? None MIGRATION.[id number] 026 Information not available 04/25/2022 Do you have transportation difficulties? No MIGRATION.[id number] 026 Information not available 04/25/2022 Are you able to walk? YESWOREST MIGRATION.[id number] 026 Information not available 04/25/2022 Do you have difficulty doing errands alone? No MIGRATION.4200699 026 Information not available 04/25/2022 Are you able to care for yourself independently? Yes MIGRATION.[id number] 026 Information not available 04/25/2022 What is your occupation? retired MIGRATION.9759721 026 Information not available 04/25/2022 Do you have difficulty dressing, bathing, grooming, or toileting? No MIGRATION.[id number] 026 Information not available 04/25/2022 What is your exercise level? Moderate MIGRATION.[id number] 026 Information not available 04/25/2022 Mental Status Question Answer Note LastModified by Organizat ion Details LastModified Time Do you feel stressed (tense, restless, nervous, or anxious, or unable to sleep at night)? declined to answer MIGRATION.7835501 026 Information not available 04/25/2022 Do you have difficulty concentrating, remembering or making decisions? No MIGRATION.4470832 026 Information not available 04/25/2022 Family History Relationship Description Onset Age of this Age Resolved Age Notes LastModified by Organization Details LastModified Time Maternal Grandfather Diabetes mellitus [id number] Not available 04/25/2022 01:23:05 Mother Hypertensive disorder 100 [id number] Not available 04/25/2022 01:23:05 Sister Hypertensive disorder MIGRATION.[id number] Not available 04/25/2022 01:23:05 Father Neoplasm of lower leg leg? MIGRATION.[id number] Not available 04/25/2022 01:23:05 Medical History Condition Response NERVE DISEASE N BLINDNESS N RHEUMATIC FEVER N KIDNEY STONES N BLADDER PROBLEMS N MRSA N OTHER # 1 N POLIO N LUNG DISEASE/DISORDER N HISTORY OF DRUG ABUSE N RADIATION / CHEMOTHERAPY N COPD N Other # 2 N BLOOD DISEASES N EAR OR HEARING PROBLEMS N MUMPS N SHINGLES Y DEPRESSION (INCLUDING POST ) N BOWEL PROBLEMS N STROKE/TIA N ULCERS N BENIGN PROSTATIC HYPERPLASIA N MEASLES N HYPOTENSION N MYOCARDIAL INFARCTION N OBESITY N GERD/NAUSEA N ANEURYSM N URINARY/BLADDER/KIDNEY PROBLEMS N CORONARY ARTERY DISEASE (CAD) N ADDICTION CONCERNS N Impotence N ENDOMETRIOSIS N USE OF BLOOD THINNERS N SKIN [...] GLAUCOMA N FOOT PROBLEM N DIVERTICULITIS N SLEEP APNEA N CHICKENPOX N INFECTIOUS DISEASE N PROSTATE N HEART ARRHYTHMIA N INSOMNIA N HIGH CHOLESTEROL / HYPERLIPIDEMIA Y HYPERTHYROIDISM N EYE PROBLEMS N EDEMA N CHRONIC PAIN SYNDROME N HYPOTHYROIDISM Y CONSTIPATION N CAROTID BLOCKAGE N BACK / NECK PROBLEMS N ATHEROSCLEROSIS N BREAST PROBLEMS N DIALYSIS N ECZEMA N OSTEOPOROSIS N ARTHRITIS N APPENDICITIS N DIABETES, TYPE N BAD TEETH N ENT N HEARTBURN / REFLUX N AUTISM SPECTRUM DISORDER (ASD) N HEPATITIS / LIVER DISEASE N GOUT N SLEEP DISORDER N ALZHEIMER'S DISEASE N Brain Problems N HERPES N DEMENTIA N SEIZURES/EPILEPSY N HEADACHES/MIGRAINES N VASCULAR DISEASE N PACEMAKER N Blood Disorder N DIZZINESS N KIDNEY DISEASE N HEART DISEASE/HEART PROBLEMS N MULTIPLE SCLEROSIS N CARDIAC ARRHYTHMIA N CANCER: SPECIFY N Gall Stones N ATRIAL FIBRILLATION N PULMONARY EMBOLISM N AUTOIMMUNE DISEASE N [...] Immunizations Vaccine Type Date Status Note Provider Nam e and Address Organization Details Recorded Time COVID-19, mRNA, LNP-S, PF, 100 mcg/0.5mL dose or 50 mcg/0.25mL dose 05/26/2020 completed Not Available [facility] 3 01:54:52 COVID-19, mRNA, LNP-S, PF, 100 mcg/0.5mL dose or 50 mcg/0.25mL dose 04/25/2020 completed Not Available [facility] 3 01:54:52 Past Encounters Encounter ID Performer Location Encounter Start Date Encounter Closed Date Diagnosis/Indication Diagnosis SNOMED-CT Code Diagnosis ICD10 Code Diagnosis Note [id number] Migel aaron MD [facility] [address] [facility], [address] [place] [address] 05/03/2020 00:00:00 05/03/2020 14:12:47 [id number] Migel aaron MD [facility] Internal Med [address] [address] 01/03/2021 00:00:00 01/03/2021 10:10:33 [id number] Migel aaron MD [facility] Internal Med [address] [address] 07/04/2021 00:00:00 07/04/2021 09:42:09 [id number] Migel aaron MD [facility] Internal Med [address] [address] 12/26/2021 00:00:00 12/26/2021 09:44:56 [id number] Migel aaron MD [facility] Internal Med [address] [address] 06/26/2022 09:33:23 06/26/2022 10:10:42 Screening - NAD 321949562 Z13.9 Colonoscop y: Get this arranged, declines, [...] understand ing of the above Essential hypertension 40427041 I10 On lisinopril 5mg dailyShe did see Dr Jain Hyperlipidemia 79931655 E78.5 Still declines any meds, states that she is very active watches her diet and walks at least 30 minutes every day, she understand s the risks for elevated lipidsGet labs Hypothyroidism 07822845 E03.9 No on any medsGet labsDoes not want any more testing such as thyroid Thrombocyt openic disorder 585947562 D69.6 Declines any further testing or referrals at this timePLT WNL 06/14/2022 Hyperproteinemia 7136570 9 E88.09 UPEP/SPEP: 09/21/[address] Jain 04/11/2021 , f/u in one yearUS kidney 02/15/2021 Prediabetes 229516223 R7 3.03 Declines any meds at this timeDiet and exercise and repeat the A1C Macrocytosis 672405604 D 75.89 B12/Folate is WNLTSH is elevated, not interested in further testing or referral to hematology Chronic ki dney disease 106919656 N18.[address] Jain told her she has CKD and it is 'age related' and she does not need to see him at this time Screening mammography 24 919842 Z12.31 Screening for osteoporosis 826471399 Z13.820 Declines a DEXA, states that she is on ca and vit d [id number] Migel aaron MD [facility] Internal [facility] [address] [facility], [address] [address] 01/01/2023 09:16:41 01/01/2023 10:11:00 Screening - NAD 181031303 Z13.9 Colonoscop y: Get this arranged, declines, [...] understand ing of the above Essential hypertension 84079003 I10 On lisinopril 5mg dailyShe did see Dr Jain Hyperlipidemia 22409874 E78.5 Still declines any meds, states that she is very active watches her diet and walks at least 30 minutes every day, she understand s the risks for elevated lipidsGet labs Hypothyroidism 65653132 E03.9 No on any medsGet labsDoes not [...] do any more labs Thrombocyt openic disorder 015634546 D69.6 Declines any further testing or referrals at this timePLT WNL 06/14/2022 Hyperproteinemia 7186497 9 E88.09 UPEP/SPEP: 09/21/[address] Jain 04/11/2021 , f/u in one year US kidney 02/15/2021 Prediabetes 346698477 R7 3.03 Declines any meds at this timeDiet and exercise and repeat the A1C Macrocytosis 974740750 D 75.89 B12/Folate is WNL Chronic ki dney disease 357985972 N18.[address] Jain told her she has CKD and it is 'age related' and she does not need to see him at this time Screening for osteoporosis 817179813 Z13.820 Get a DEXA, she states today 01/01/[address] Jordan is to order this, states that she is on ca and vit d Malignant tumor of breast 664926888 C50.911 S/p lumpectomy See path bx 11/06/2022 See breast surgeon and Dr Jordan [id number] Migel aaron MD [facility] Internal Med [facility] [address] [facility] [address] [place] [address] 07/02/2023 09:14:26 07/02/2023 10:00:14 Screening - NAD 987812980 Z13.9 Colonoscop y: Get this arranged, declines, [...] understand ing of the above Essential hypertension 69260490 I10 On lisinopril 5mg dailyShe did see Dr Jain Hyperlipidemia 25444775 E78.5 Still declines any meds, states that she is very active watches her diet and walks at least 30 minutes every day, she understand s the risks for elevated lipids 07/02/2023 Get labs Hypothyroidism 19864375 E03.9 No on any medsGet labsDeclin ed more testing such as US thyroid, 01/01/2023 , states that she does not want to do the tests and will agree to do labs only every 6 months Thrombocyt openic disorder 044432370 D69.[address] Jordan Hyperproteinemia 8039921 9 E88.09 UPEP/SPEP: 09/21/[address] Jain 04/11/2021 , f/u in one year US kidney 02/15/2021 Prediabetes 279701343 R7 3.03 Declines any meds at this timeDiet and exercise and repeat the A1C Macrocytosis 050865045 D 75.89 B12/Folate is WNL Chronic ki dney disease 885225859 N18.[address] Jain told her she has CKD and it is 'age related' and she does not need to see him at this time Screening for osteoporosis 378609449 Z13.820 Dr Jordan wanted prolia, she is on fosamax Malignant tumor of breast 989216621 C50.911 S/p lumpectomy See path bx 11/06/[address] Jordan [id number] Migel aaron MD [facility] Internal Med [facility] [address] [facility], [address] [place] [address] 11/19/2023 09:44:44 11/19/2023 10:33:52 Screening - NAD 715238604 Z13.9 Colonoscop y: Get this arranged, declines, [...] understand ing of the above Essential hypertension 73263355 I10 On lisinopril 5mg dailyShe did see Dr Jain Hyperlipidemia 24982200 E78.5 Still declines any meds, states that she is very active watches her diet and walks at least 30 minutes every day, she understand s the risks for elevated lipids 07/02/2023 Get labs Hypothyroidism 29522427 E03.9 No on any medsGet labsDeclin ed more testing such as US thyroid, 01/01/2023 , states that she does not want to do the tests and will agree to do labs only every 6 months Thrombocyt openic disorder 684036827 D69.[address] Jordan Hyperproteinemia 9894213 9 E88.09 UPEP/SPEP: 09/21/[address] Jain 04/11/2021 , f/u in one year US kidney 02/15/2021 Prediabetes 697318238 R7 3.03 Declines any meds at this timeDiet and exercise and repeat the A1C Macrocytosis 733370615 D 75.89 B12/Folate is WNL Chronic ki dney disease 243323538 N18.[address] Jain told her she has CKD and it is 'age related' and she does not need to see him at this time discussed 11/19/2023 Screening for osteoporosis 015666471 Z13.820 Dr Jordan wanted prolia, she is on fosamax Malignant tumor of breast 666550277 C50.911 S/p lumpectomy See path bx 11/06/[address] Jordan [id number] Migel aaron MD [facility] Internal Med [facility] [address] [facility], [facility] [address] [place] [address] 03/24/2024 09:11:10 03/24/2024 09:52:56 Screening - NAD 680144935 Z13.9 Colonoscop y: Get this arranged, declines, [...] Dr Oneill mogram: 12/09/2023 : Laura Bassett PA-C: Neg PAP: Sees Dr Isbell she will [...] understand ing of the above Essential hypertension 67447683 I10 On lisinopril 5mg dailyShe did see Dr Jain Hyperlipidemia 92589071 E78.5 Still declines any meds, states that she is very active watches her diet and walks at least 30 minutes every day, she understand s the risks for elevated lipids 03/24/2024 Get labs Hypothyroidism 44700140 E03.9 No on any medsGet labsDeclin ed more testing such as US thyroid, 03/24/2024 , states that she does not want to do the tests and will agree to do labs only every 6 months Thrombocyt openic disorder 696388350 D69.[address] Jordan Hyperproteinemia 0621233 9 E88.09 UPEP/SPEP: 09/21/[address] Jain 04/11/2021 , f/u in one year US kidney 02/15/2021 Prediabetes 312109204 R7 3.03 Declines any meds at this timeDiet and exercise and repeat the G5AXxvikjt ands the risks for elevated A1C Macrocytosis 854292274 D 75.89 B12/Folate is WNL Chronic ki dney disease 496830854 N18.[address] Jain told her she has CKD and it is 'age related' and she does not need to see him at this time discussed 11/19/2023 , 03/24/2024 Screening for osteoporosis 691066170 Z13.820 Dr Jordan wanted prolia, she is on fosamax Malignant tumor of breast 544364785 C50.911 S/p lumpectomy See path bx 11/06/[address] Jordan Serum thyr oid stimulating hormone level outside reference range 940890303 R89.1 Does not want any meds or testing 03/24/2024 , wants to repeat the test only every 6 months Health Concerns Section Related Observation LastModified by Organization Detai ls LastModified Time None Recorded Concern Status LastModified by Organization Details LastModified Time None Recorded Advance Directives Directive N: Payers Insurance Date Sequence Insurance Name Policy Number Policy Eaton Covered Member ID Eaton Member ID Guarantor Name 03/24/2024 1 [place] Mya Veras [id number] Mya Veras 03/24/2024 2 [place]) [id number] Mya Veras [id number] Mya Veras Notes Date Note Type Note Provider Name and Address Organization Details Recorded Time 06/26/2022 text/html Here to establish carePCP: Dr Shin with her husbandPast Hx:HTNReviewed social [...] do the MWV today Migel Michele MD [address], [address], [place], [address], [facility] [employer] [facility] 06/26/2022 10:13:04 01/01/2023 text/html Here to establish carePCP: Dr Shin with her husbandPast Hx:HTNReviewed social [...] s/p R lumpectomy Migel Michele MD [address], [address], [place], [address], [facility] [employer] 01/01/2023 10:10:29 07/02/2023 text/html Here to establish carePCP: Dr Shin with her husbandPast Hx:HTNReviewed social [...] doing well today Migel Michele MD [address], [address], [place], [address], [employer] 07/02/2023 17:54:17 11/19/2023 text/html Here to establish carePCP: Dr Shin with her husbandPast Hx:HTNReviewed social [...] she feels well today Migel Michele MD [address] [place] [address], [address], [place], [address], [place] [facility] 11/21/2023 15:04:10 03/24/2024 text/html Here to establish carePCP: Dr Shin with her husbandPast Hx:HTNReviewed social family and surgical historyShkoby feels that she is doing well at [...] monthsOV 05/03/2020:Here for her routine aptShe feels Alba did do the labsOV 01/03/2021:Here for her [...] do the labs Migel Michele MD [address], [facility] [address], [place], [address], [facility] 03/24/2024 10:00:54 OBGyn Episode No OBEpisode recorded.
--- OUTSIDE RECORDS SUMMARY | 2024-09-18 08:10 | XMS_ITS | Clinical Summary ---
Author Organization [facility] Julian lopez Danya Address [address] [place] [address] Care Team Providers Care Sound Effects Manager Name Role Phone Migel Michele MD Primary Care Provider Allergies No known active allergies Medications lisinopriL (PRINIVIL) 5 mg tablet Take 5 mg by mouth daily. Active multivitamin (DAILY-SHERI) tablet Take 1 Tablet by mouth daily. Active turmeric/turme edison ext/pepr ext (turmeric-turm terrance ext-pepper) 500-3 mg Capsule Take 1 Tablet by mouth daily. Active cyanocobalamin (VITAMIN B-12) 500 mcg tablet Take 500 mcg by mouth daily. Active glucosamine barbour 2KCl-chondroit 500-400 mg Tablet Take 1 Tablet by mouth daily. Active tamoxifen (NOLVADEX) 20 mg tablet TAKE 1 TABLET BY MOUTH EVERY DAY 90 Tablet 3 5 Active alendronate (FOSAMAX) 70 mg tablet TAKE 1 TABLET BY MOUTH EVERY 7 DAYS. TAKE ON EMPTY STOMACH BEFORE OTHER MEDS,WITH 8OZ OF WATER, SIT UPRIGHT X30 MIN 12 Tablet 1 5 Active alendronate (FOSAMAX) 70 mg tablet TAKE 1 TABLET BY MOUTH EVERY 7 DAYS. TAKE ON EMPTY STOMACH BEFORE OTHER MEDS,WITH 8OZ OF WATER, SIT UPRIGHT X30 MIN 12 Tablet 1 5 09/16/19 25 Discontinued Active Problems No known active problems Encounters Date Type Department Care Team Description 09/15/2024 Refill [facility] - Miguel [address] [place] [address] Charlie Jordan MD 09/09/2024 External Device Data STL ABSTRACTION Provider, Abstract 09/09/2024 External Device Data STL ABSTRACTION Provider, Abstract 09/08/2024 External Device Data ST[place] ABSTRACTION Provider, Abstract 08/12/2024 External Device Data ST[place] ABSTRACTION Provider, Abstract 08/11/2024 External Device Data STL ABSTRACTION Provider, Abstract 07/21/2024 External Device Data STL ABSTRACTION Provider, Abstract 07/15/2024 External Device Data STL ABSTRACTION Provider, Abstract 07/14/2024 External Device Data STL ABSTRACTION Provider, Abstract 06/22/2024 Abstract [facility] [address] [place] [address] Charlie Jordan MD from Last 3 Months [...] on file Legal 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 Gender Identity Not on file Sexual Orientation Not on file Last Filed Vital Signs Vital Sign Reading Time Taken Comments Blood Pressure 156/84 03/20/2024 9:07 AM ICER MACHINE OPERATOR Pulse 69 03/20/2024 9:05 AM ICER MACHINE OPERATOR Temperature 36.2 C (97.2 F) 03/20/2024 9:05 AM ICER MACHINE OPERATOR Respiratory Rate 15 03/20/2024 9:05 AM ICER MACHINE OPERATOR Oxygen Saturation 95% 03/20/2024 9:05 AM ICER MACHINE OPERATOR Inhaled Oxygen Concentration - - Weight 64.9 kg (143 lb) 03/20/2024 9:05 AM ICER MACHINE OPERATOR Height 165.1 cm (5' 5) 10/01/2022 1:42 PM CDT Body Mass Index 23.8 10/01/2022 1:42 PM CDT Plan of Treatment Upcoming Encounters Date Type Department Care Team (Late st Contact Info) Description 09/18/2024 9:15 AM CDT Office Visit [facility] [address] [place] [address] Charlie Jordan MD [address] [facility] [address] [place] [address] Health Maintenance Due Date Last Done Comments DTAP/TDAP/TD VACCINES (1 - Tdap) 12/24/1964 Traditional Medicare (ACO) A nnual Wellness Visit 12/24/1962 PNEUMOCOCCAL VACCINE 50+ YEA RS (1 of 1 - PCV) 12/24/1993 ZOSTER VACCINE (1 of 2) 12/24/1993 RSV VACCINE (60+ or ) (1 - 1-dose 75+ series) 12/24/2018 INFLUENZA VACCINE (#1) 2024 OSTEOPOROSIS SCREENING 06/18/2028 06/19/2023, 2023 Insurance BCBS SUPP MEDICARE PART A AND B Care Teams Sound Effects Manager Relationship Specialty Start Date End Date Migel Michele MD PCP - General Internal Medicine 03/04/19
--- OUTSIDE RECORDS SUMMARY | 2024-09-18 08:10 | XMS_ITS | Clinical Summary ---
Author Organization [facility] Facility Address [address] [address] Care Team Providers Care Safety Lead Name Role Phone Migel Michele MD Primary Care Provider [phone] Allergies No known active allergies Medications lisinopril [...] Comments Blood Pressure 130/60 04/11/2021 2:55 PM YARN WEIGHER Pulse 68 04/11/2021 2:55 PM YARN WEIGHER Temperature 35.8 C (96.4 F) 04/11/2021 2:55 PM YARN WEIGHER Respiratory Rate 18 04/11/2021 2:55 PM YARN WEIGHER Oxygen Saturation 98% 04/11/2021 2:55 PM YARN WEIGHER Inhaled Oxygen Concentration - - Weight 64.9 kg (143 lb) 04/11/2021 2:55 PM YARN WEIGHER Height 165.1 cm (5' 5) 04/11/2021 2:55 PM YARN WEIGHER Body Mass Index 23.8 04/11/2021 2:55 PM YARN WEIGHER Plan of Treatment Health Maintenance Due Date Last Done Comments Pneumococcal Vaccine: 50+ Ye ars (1 of 1 - PCV) 12/24/1993 Influenza Vaccine (#1) 2024 Hepatitis B Vaccine Aged Out No longe r eligible based on patient's age to complete this topic Insurance Medicare [facility] Care Teams Safety Lead Relationship Specialty Start Date End Date Migel Michele MD [address] [facility], [address] [place] [address] PCP - General Internal Medicine 01/03/21
[2024-09-18 08:43] LABS: Hematocrit 38.7 % (37.0-47.0); Hemoglobin 12.4 g/dL (12.0-15.0); Immature Granulocyte Percent A 0.4 % (0-0.5); Lymphocytes Absolute Auto 1.40 K/mm3 (0.9-3.2); Mean Corpuscular HGB Conc 32.0 g/dl (32-36); Mean Corpuscular Hemoglobin 32.3 pg (26-34); Mean Corpuscular Volume 100.8 fl (80-100); Nucleated Red Blood Cells Absolute Auto 0.000 K/mm3 (0.0-0.012); Nucleated Red Blood Cells Perc 0.0 % (0.0-0.2); Platelet Count Result 116 k/mm3 (150-375); Red Blood Count 3.84 M/mm3 (4.2-5.4); White Blood Count 5.4 K/mm3 (4.5-10.0)
[2024-09-18 08:45] LABS: Blood Urea Nitrogen 14 mg/dL (8-26); Carbon Dioxide 25 mmol/L (22-30); Chloride 105 mmol/L (98-109); Estimated Glomerular Filt Rate 43; Glucose 111 mg/dL (70-105); Ionized Calcium (POC) 1.14 mmol/L (1.11-1.31); Potassium 4.2 mmol/L (3.5-4.9); Sodium 140 mmol/L (138-146)
[2024-09-18 10:40] LABS: Alanine Aminotransferase 14 U/L (6-35); Albumin Level 4.5 g/dL (3.5-5.1); Alkaline Phosphatase 39 U/L (38-126); Anion Gap 7 mmol/L (4-12); Aspartate Amino Transferase 33 U/L (14-36); Bilirubin,Total 0.6 mg/dL (0.2-1.3); Blood Urea Nitrogen 14 mg/dL (7-17); Calcium 9.6 mg/dL (8.4-10.2); Carbon Dioxide 26 mmol/L (22-30); Chloride 106 mmol/L (98-107); Cholesterol 183 mg/dL (0-200); Estimated Glomerular Filt Rate 49; Glucose 113 mg/dL (65-110); HDL Direct 52 mg/dL; Potassium 4.2 mmol/L (3.4-5.0); Sodium 139 mmol/L (137-145); Total Protein 7.3 g/dL (6.3-8.2); Triglycerides 170 mg/dL (<150)
[2024-09-18 10:41] LABS: Hemoglobin A1C 5.8 % (<5.7)
[2024-09-18 10:54] LABS: Free T4 Free Thyroxine 1.23 ng/dL (0.78-2.19)
[2024-09-18 11:08] LABS: Thyroid Stimulating Hormone Reflex 7.430 uIU/mL (0.465-4.68)
[2024-09-18 11:46] LABS: Free T4 Free Thyroxine Reflex 1.23 ng/dL (0.78-2.19)
[2024-09-18 16:32] LABS: Total Triiodothyronine (T3) 0.90 NG/ML (0.82-1.58)
[2024-09-18 17:19] LABS: MALB Creatinine Ratio < 15.6 mg/g (0-30)
== END 2024-09-18 08:07 | disposition home or self-care (01) ==
PROVIDERS: PCP Internal Medicine; Visit Provider Internal Medicine Hematology & Oncology
DX: D05.11 Intraductal carcinoma in situ of right breast (principal); E78.5 Hyperlipidemia, unspecified; R73.03 Prediabetes; Z13.820 Encounter for screening for osteoporosis
CPT/HCPCS: 36415; 80047; 80053; 80061; 82043; 83036; 84439; 84443; 84480; 85025

== ENCOUNTER 2025-01-06 08:02 | Inpatient (IN) | payer MEDICARE, SELFPAY ==
--- OUTSIDE RECORDS SUMMARY | 2010-01-01 18:00 | XMS_ITS | Continuity of Care Document ---
Author Organization [facility] Address [address] [place] [address] [place] [address] Phone Care Team Providers Care Material Scheduler Name Role Phone Kolby Garcia Unavailable Unavailable Procedures Procedure Date Optic Nerve Topography-Professional Optic Nerve Topography-Professional Optic Nerve Topography Nov- Optic Nerve Topography Nov- Office/outpatient Visit, Est Office/outpatient Visit, Est Office/outpatient Visit, Est Office/outpatient Visit, Est Office/outpatient Visit, Est Eye Exam Established Pt Office/outpatient Visit, Est Corneal Pachymetry Fundus Photography W/ Report Visual Field Examination(s) Advance Directives Directive Yes / No Effective Date File Name No Information Encounters Encounter Description Practice Location Reason(s) For Visit Diagnoses Date Provider Providers Copied on Encounter [facility], [address] [place] [address] [address], [place], [place], [id number], [place] tel:[phone] [facility] No Information 8201 0 Radha Jarrett. [facility] [address], [place], [address], [place]. tel:[phone] Referring Provider: Sh[facility]na [facility]ierres [facility] [address], [place], [address]. tel:[phone] [facility], [address] [place] [address] [address], [place], [place], [id number], [place] tel:[phone] [facility] No Information 2 2-201 0 Radha Jarrett. [address] [facility] , [address], [place], [place], [facility], . tel:[phone] Referring Provider: Kolby Beebe, [address] [facility] [address], [place], [facility]. tel:[phone] Office/outpat ient Visit, [facility], [address] [place] [address] [address], [place], [place], [id number], [place] tel:[phone] [facility] [place] No Information 1-201 0 Radha Jarrett. [address] [place], [place] [address]ate Center , [address], [place], [place], [facility], . tel:[phone] Office/outpat ient Visit, [facility], [address] [place] [address] [address], [place], [place], [id number], [place] tel:[phone] [facility] No Information Sep-3 0-200 9 Radha Jarrett. [address] [place], [place] [address], [place], [facility], [place]. tel:[phone] Office/outpat ient Visit, [facility], [address] [place] [address] [address], [place], [place], [address], [place] tel:[phone] [facility] No Information 1 7-200 8 Radha Jarrett. [facility] [address], [place], [facility], [place]. tel:[phone] Office/outpat ient Visit, [facility], [address] [place] [address] [address], [place], [place], [id number], [place] tel:[phone] [facility] No Information 2 1-200 8 Radha Jarrett. [address] [facility] , [address], [place], [facility], . tel:[phone] Office/outpat ient Visit, [facility], [address] [place] [address] [address], [place], [place], [id number], tel:[phone] [facility] No Information Apr-3 0-200 8 Radha Jarrett. [address] [place], [place] [address]ate Center , [address], [place], [facility], . tel:[phone] [facility], [address] [place] [address] [address], [place], [place], [id number], tel:[phone] [facility] [place] No Information Apr-1 4-200 8 Radha Jarrett. [address] [place], [place] [address], [place], [facility], . tel:[phone] Office/outpat ient Visit, [facility], [address] [place] [address] [address], [place], [place], [id number], tel:[phone] [facility] No Information Aug-2 0-200 7 Radha Jarrett. [facility] [address], [place], [facility], [place]. tel:[phone] Referring Provider: Kolby Beebe [facility] [address], [place], [facility]. tel:[phone] [facility], [address] [place] [address] [address], [place], [place], [address], [place] tel:[phone] [facility] No Information Apr-2 5-200 7 Radha Jarrett. [facility] [address], [place], [facility], [place]. tel:[phone] Referring Provider: Shayna Gutierres [facility] [address], [place], [facility]. tel:[phone] Family History Family Member Type Diagnosis Age At Onset No Information Payers Payer name Insurance type Covered green party ID Authoriza tion(s) Medicare [facility] [id number] BCBS [place] Commercial 09 [id number] Social History Type Description Quantity Date Captured Comments Sex Female Smoking Status No Information Chief Complaint And Reason For Visit No Information Reason For Referral Reason For Referral No Information History Of Present Illness Encounter Date Complaint History Of Prese nt Illness No Information Functional Status Date Functional Assessmen t No Information Instructions Date Instruction Additional Infor mation No Information Assessments Type Assessment Date No Information Patient Care Teams Name Effective Dates (start - stop) Status Members No Information
--- OUTSIDE RECORDS SUMMARY | 2010-01-01 18:00 | XMS_ITS | Continuity of Care Document ---
Author Organization [facility] Address [address] [place] [address] [place] [address] Phone Care Team Providers Care Security Orderly Name Role Phone Kolby Garcia Unavailable Unavailable [...] Diagnoses Date Provider Providers Copied on Encounter [facility], [address] [place] [address] [address], [place], [place], [address], [place] tel:[phone] [facility] No Information 8201 0 Radha Jarrett. [facility] [address], [place], [address], [place]. tel:[phone] Referring Provider: Shayna [facility]ierres [facility] [address], [place], [address]. tel:[phone] [facility], [address] [place] [address] [address], [place], [place], [address], [place] tel:[phone] [facility] No Information 2 2-201 0 Radha Jarrett. [address] [facility] , [address], [place], [place], [facility], . tel:[phone] Referring Provider: Kolby Beebe, [address] [facility] [address], [place], [facility]. tel:[phone] Office/outpat ient Visit, [facility], [address] [place] [address] [address], [place], [place], [address], [place] tel:[phone] [facility] [place] No Information 1-201 0 Radha Jarrett. [address] [place], [place] [address]ate Center , [address], [place], [place], [facility], . tel:[phone] Office/outpat ient Visit, [facility], [address] [place] [address] [address], [place], [place], [address], [place] tel:[phone] [facility] No Information Sep-3 0-200 9 Radha Jarrett. [address] [place], [place] [address], [place], [place], [facility], [place]. tel:[phone] Office/outpat ient Visit, [facility], [address] [place] [address] [address], [place], [place], [address], [place] tel:[phone] [facility] No Information 1 7-200 8 Radha Jarrett. [facility], [place], [facility], [place]. tel:[phone] Office/outpat ient Visit, [facility], [address] [place] [address] [address], [place], [place], [address], [place] tel:[phone] [facility] No Information 2 1-200 8 Radha Jarrett. [address] [facility] , [address], [place], [facility], . tel:[phone] Office/outpat ient Visit, [facility], [address] [place] [address] [address], [place], [place], [id number], tel:[phone] [facility] No Information Apr-3 0-200 8 Radha Jarrett. [address] [place], [place] [address]ate Center , [address], [place], [place], [facility], . tel:[phone] [facility], [address] [place] [address] [address], [place], [place], [address], tel:[phone] [facility] [place] No Information Apr-1 4-200 8 Radha Jarrett. [address] [place], [place] [address], [place], [facility], . tel:[phone] Office/outpat ient Visit, [facility], [address] [place] [address] [address], [place], [place], [address], tel:[phone] [facility] No Information Aug-2 0-200 7 Radha Jarrett. [facility] [address], [place], [facility], [place]. tel:[phone] Referring Provider: Kolby Beebe [facility] [address], [place], [facility]. tel:[phone] [facility], [address] [place] [address] [address], [place], [place], [address], [place] tel:[phone] [facility] No Information Apr-2 5-200 7 Radha Jarrett. [facility] [address], [place], [facility], [place]. tel:[phone] Referring Provider: Shayna Gutierres [facility] [address], [place], [facility]. tel:[phone] Family History Family Member Type Diagnosis Age At Onset No Information Payers Payer name Insurance type Covered alliance party ID Authoriza tion(s) Medicare [facility] [id number] [place] 09 [id number] Social History Type Description Quantity Date Captured [...]
[2025-01-06] VITALS (17 sets, daily range): BP systolic 112–137; BP diastolic 52–98; PULSE 81–101; RESP 15–28; TEMP 36.4–37.1; O2SAT 92–97; BMI 22.6
--- NOTE | ~2025-01-06 | US_ITS ---
RIGHT LOWER EXTREMITY VENOUS DUPLEX Clinical History: swelling COMPARISON: None TECHNIQUE: Grayscale, color, duplex/spectral Doppler sonography right leg FINDINGS/IMPRESSION: 1. DVT common femoral vein through calf veins. Reviewed, dictated and finalized at location R. H REPAIR PERSON
--- NOTE | ~2025-01-06 | NM_ITS ---
EXAM/PROCEDURE: NM lung vent and perfusion HISTORY: DVT, tachypnea COMPARISON: Chest x-ray same date TECHNIQUE: VQ scan performed. RADIOTRACER: 19.8 mCi xenon aerosolized for ventilatory portion of exam. 5.2 mCi technetium 99m MAA used for perfusion portion of exam. FINDINGS: Heterogeneous perfusion noted in both lung barron with small subsegmental size areas of apparent mismatch in both lung barron but no large or clearly segmental size areas of mismatched ventilation/perfusion. IMPRESSION: Intermediate probability scan for presence of pulmonary emboli. Reviewed, dictated and finalized at location A. ANALYST
--- NOTE | ~2025-01-06 | CT_ITS ---
EXAMINATION: CTA chest PE protocol DATE: 01/07/2025 10:42 INDICATION: Rule out PE TECHNIQUE: Computed tomography angiography (CTA) of the chest was performed with 100 mL Omnipaque-350 intravenous contrast timed to evaluate the pulmonary arteries. Coronal maximum intensity projection 3D-reconstructions were created by the technologist. The dose-length product was 161.44 mGy-cm. COMPARISON: None. FINDINGS: Occlusive embolus is present in the right lower lobe pulmonary arteries with small amount of nonocclusive embolus in the lower most portion of the interlobar artery as seen on image 123 of series 3. The remainder of the pulmonary arteries appear patent. Minimal bibasilar fibrotic and atelectatic changes. The lungs otherwise are clear. Heart size is borderline enlarged. No thoracic aortic aneurysm or dissection. No bulky lymphadenopathy or masses. Central and large airways are patent. Diffuse degenerative changes in the bones which otherwise appear intact. No acute process seen in the visualized portions of the upper abdomen. IMPRESSION: Positive pulmonary embolus in the right lower lobe as well as the lower most portion of the right interlobar artery. Reviewed, dictated and finalized at location A. PER AUTOMATIC IMPRESSION: Positive pulmonary embolus in the right lower lobe as well as the l ower most portion of the right interlobar artery.
--- NOTE | ~2025-01-06 | US_ITS ---
EXAMINATION: US venous doppler [facility] DATE: 01/06/2025 14:52 INDICATION: Left lower limb swelling TECHNIQUE: Grayscale ultrasound images without and with compression and Doppler ultrasound images of the left lower extremity veins were obtained. COMPARISON: None. FINDINGS: The visualized portions of left common femoral vein, profunda (deep) femoral vein, femoral vein, popliteal vein, peroneal veins, posterior tibial veins, gastrocnemius vein and greater saphenous vein outflow are patent. IMPRESSION: 1. No deep venous thrombosis in the left lower limb. Reviewed, dictated and finalized at location A. FEEDER
--- NOTE | ~2025-01-06 | XR_ITS ---
Examination: XR chest 2V Clinical History: WEAKNESS Comparison: None Technique: PA and Lateral Findings: Cardiomediastinal silhouette normal size and configuration. Lungs clear. No acute bony abnormality. IMPRESSION: 1. No acute cardiopulmonary findings. Reviewed, dictated and finalized at location R. ICE WORKER
--- NOTE | ~2025-01-06 | CT_ITS ---
EXAMINATION: CT abdomen pelvis w con DATE: 01/08/2025 15:48 INDICATION: Lactic acidosis TECHNIQUE: Computed tomography (CT) of the abdomen and pelvis was performed with 100 mL Omnipaque-350 intravenous contrast. Automated exposure control and iterative reconstruction technique were employed. The dose-length product was 359.18 mGy-cm. COMPARISON: None FINDINGS: Postoperative changes with multiple surgical clips in the right breast. Mild bilateral dependent and basilar atelectasis. Heart size is normal. No pericardial or pleural effusion. Pulmonary arterial filling defect in the right lower lobar pulmonary artery extending into both the anterobasilar and lateral basilar segmental pulmonary arteries consistent with pulmonary embolism.. Hepatic and splenic calcific lesions consistent with old granulomatous disease. Gallbladder, pancreas, bilateral adrenal glands and left kidney are normal. 1.2 cm soft tissue density lesion in the mid right kidney which could represent complex proteinaceous/hemorrhagic cyst or enhancing renal cell carcinoma. Additional more subtle small wedge-shaped region at the mid right kidney which is of lower attenuation/enhancement in the surrounding kidney for which the differential would also include pyelonephritis in the appropriate clinical setting.. There is stranding along the periphery of an ill-defined 6.7 x 4.1 x 4.0 cm retroperitoneal mass situated between the aorta and inferior vena cava. Extends inferiorly and laterally along the left and right anterior pararenal spaces. Within the retroperitoneal stranding are several additional mildly enlarged retroperitoneal lymph nodes including and infrarenal 1.5 x 1.4 cm left para- aortic lymph node. 2.2 cm enhancing uterine fibroid. There is some residual excreted contrast in the bladder likely related to the earlier contrast-enhanced CT of the chest from one day prior. The retroperitoneal stranding extends caudally into the pelvis along side the bilateral adnexa with additional low density fluid/stranding in the presacral space. Minimal free fluid in the cul-de-sac. There is additional venous filling defects in the right common femoral vein, the right external and common iliac veins and in the left common and internal iliac veins. 25 degree lumbar dextroscoliosis with moderate to severe spondylosis. IMPRESSION: 1. There is both pelvic and right lower limb venous thrombosis with redemonstration of pulmonary emboli in the right lower lobar pulmonary arteries. Dr. Peguero discussed these findings with Dr. Anne Lozano at 4:20 PM. 2. 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 3. Couple subtle soft tissue density right renal lesions which differential would include proteinaceous/hemorrhagic cyst, renal cell carcinoma or pyelonephritis. 4. Fibroid uterus. Reviewed, dictated and finalized at location A. ING AND TRIM INSTALLER IMPRESSION: 1. There is both pelvic and right lower limb venous thrombosis with redemonstra tion of pulmonary emboli in the right lower lobar pulmonary arteries. Dr. Franks ert discussed these findings with Dr. Anne Lozano at 4:20 PM. 2. 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 3. Couple subtle soft tissue density right renal lesions which differential wou ld include proteinaceous/hemorrhagic cyst, renal cell carcinoma or pyelonephrit is. 4. Fibroid uterus.
--- OUTSIDE RECORDS SUMMARY | 2025-01-06 08:08 | XMS_ITS | Clinical Summary ---
Author Organization [facility] Julian lopez Danielajeffreygregor Address [address] [place] [address] Care Team Providers Care Food Sanitarian Name Role Phone Migel Michele MD Primary [...] EVERY DAY 90 Tablet 3 03/20/2024 Active alendronate (FOSAMAX) 70 mg tablet TAKE 1 TABLET BY MOUTH EVERY 7 DAYS. TAKE ON EMPTY STOMACH BEFORE OTHER MEDS,WITH 8OZ OF WATER, SIT UPRIGHT X30 MIN 12 Tablet 1 09/15/2024 Active Active Problems No known active problems Encounters Date Type Department Care Team Description 12/23/2024 External Device Data [facility] ABSTRACTION Provider, Abstract 12/23/2024 External Device Data [facility]CTION Provider, Abstract 12/15/2024 External Device Data [facility] Provider, Abstract 10/27/2024 External Device Data [facility] Provider, Abstract 10/14/2024 External Device Data [facility]STRACTION Provider, Abstract from Last 3 Months Family History Medical [...] Date Smoking Tobacco: Never Smokeless Tobacco: Never Tobacco Cessation:Counseling Given: Not Answered Alcohol Use Standard Drinks/Week Comments Never 0 (1 standard drink = 0.6 oz pur e alcohol) Comments Unknown Sex and Gender Information Value Date Recorded Sex Assigned at Not on file Legal Sex Female 8:36 AM MEDIA ANALYST Gender Identity Not on file Sexual Orientation Not on file Last Filed Vital Signs Vital Sign Reading Time Taken Comments Blood Pressure 140/74 09/18/2024 9:06 AM CDT Pulse 69 09/18/2024 9:04 AM CDT Temperature 37.1 C (98.8 F) 09/18/2024 9:04 AM CDT Respiratory Rate 16 09/18/2024 9:04 AM CDT Oxygen Saturation 92% 09/18/2024 9:04 AM CDT Inhaled Oxygen Concentration - - Weight 66.4 kg (146 lb 6.4 oz) 09/18/2024 9:04 A M CDT Height 165.1 cm (5' 5) 10/01/2022 1:42 PM CDT Body Mass Index 24.36 10/01/2022 1:42 PM CDT Plan of Treatment Upcoming Encounters Date Type Department Care Team (Late st Contact Info) Description 03/26/2025 9:15 AM MEDIA ANALYST Office Visit [facility] Oncology [facility] Hematology - [place] [address] [place] [address] [facility] [address] [place] [address] [place] [address] [place] [address] [address] [place] [address] Health Maintenance Due Date Last Done Comments DTAP/TDAP/TD VACCINES (1 - Tdap) 12/24/1962 PNEUMOCOCCAL VACCINE 50+ YEA RS (1 of 1 - PCV) 12/24/1993 ZOSTER VACCINE (1 of 2) 12/24/1993 RSV VACCINE (60+ or ) (1 - 1-dose 75+ series) 12/24/2018 INFLUENZA VACCINE (#1) 2024 OSTEOPOROSIS SCREENING 06/18/2028 06/19/2023, [address] [place] [place] [address] SUPP MEDICARE PART A AND B Care Teams Food Sanitarian Relationship Specialty Start Date End Date Migel Michele MD PCP - General Internal Medicine 03/04/19
--- NOTE | 2025-01-06 08:12 | ECG_ITS ---
Test Date: 2025-01-06 08:16:52 Measurements Intervals [place] Rate: 94 P: 19 WV: 156 QRS: -52 QRSD: 90 T: 83 QT: 335 QTc: 419 Interpretive Statements SINUS RHYTHM PATTERN CONSISTENT WITH PULMONARY DISEASE LEFT ANTERIOR FASCICULAR BLOCK [QRS AXIS <= -45, QR IN I, RS IN II] MODERATE VOLTAGE CRITERIA FOR LVH, CONSIDER NORMAL VARIANT [MEETS CRITERIA IN ONE OF: R(aVL), S(V1), R(V5), R(V5/V6)+S(V1)] NONSPECIFIC T-WAVE ABNORMALITY No previous ECG available for comparison Electronically Signed On 01-06-2025 13:19:16 [employer]ICAL PLANT OPER[employer] by Cirilo Garnett M.D.
[2025-01-06 08:40] LABS: Hematocrit 35.4 % (37.0-47.0); Hemoglobin 11.1 g/dL (12.0-15.0); Immature Granulocyte Percent A 13.0 % (0-0.5); Lymphocytes Absolute Auto 2.08 K/mm3 (0.9-3.2); Mean Corpuscular HGB Conc 31.4 g/dl (32-36); Mean Corpuscular Hemoglobin 31.4 pg (26-34); Mean Corpuscular Volume 100.0 fl (80-100); Nucleated Red Blood Cells Absolute Auto 0.090 K/mm3 (0.0-0.012); Nucleated Red Blood Cells Perc 0.8 % (0.0-0.2); Platelet Count Result 208 k/mm3 (150-375); Red Blood Count 3.54 M/mm3 (4.2-5.4); White Blood Count 10.8 K/mm3 (4.5-10.0)
[2025-01-06 08:51] LABS: INR 1.0; Prothrombin Time 13.2 Seconds (11.1-14.7)
[2025-01-06 08:52] LABS: Partial Thromboplastin Time 30.0 Seconds (22.3-36.8)
--- OUTSIDE RECORDS SUMMARY | 2025-01-06 08:55 | XMS_ITS | Clinical Summary ---
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 Gender Identity Not on file Sexual Orientation [...] st Contact Info) Description 03/26/2025 9:15 AM NURSES ASSISTANT Office Visit [facility] Oncology and Hematology - [place] [address] [place] [address] [facility] [address] [place] [address] [place] [address] [place] [address] [address] [place] [address] Health Maintenance Due Date Last Done Comments DTAP/TDAP/TD VACCINES (1 - Tdap) 12/24/1962 PNEUMOCOCCAL VACCINE 50+ YEA RS (1 of 1 - PCV) 12/24/1993 ZOSTER VACCINE (1 of 2) 12/24/1993 RSV VACCINE (60+ or ) (1 - 1-dose 75+ series) 12/24/2018 INFLUENZA VACCINE (#1) 2024 OSTEOPOROSIS SCREENING 06/18/2028 06/19/2023, [address] [place] [address] SUPP MEDICARE PART A AND B Care Teams Rink Rat Relationship Specialty Start Date End Date Migel Michele MD PCP - General Internal Medicine 03/04/19
--- OUTSIDE RECORDS SUMMARY | 2025-01-06 08:55 | XMS_ITS | Data Portability ---
Author Organization [place] - [facility] [place], Main Office Address [address] [place] [address] Assessment Encounter Date Assessment Date Assessment LastModified by Organization Details LastModified Time 01/01/2023 01/01/2023 06/14/2022: TSH 7.100H, FT4 1.19 [...] 5.8 PLT 141 Not available 03/24/2024 09:22:35 09/22/2024 09/22/2024 06/14/2022: TSH 7.100H, FT4 1.19 Gluc 108, [...] 7.720H, FT4 1.16 A1C 5.8 PLT 141 09/18/2024: A1C 5.8 PLT 116 TSH 7.430H, FT4 1.23 Gluc 113, GFR 49 TG 170 Not available 09/22/2024 09:38:46 Plan of Treatment Reminders Order Date Submit Date Provider Last Modified By Organization Details Last Modified Time Details Appointments Medicare Wellness 15 2025 08:30A Adrien mcdaniel MD Not available Not available Not available Lab glycohemo globin, total, blood 2024 025 [facility] (Lab), [address] [place], [address], 09/22/2024 13:09:32 microalbu min, urine 2024 025 [facility] (Lab), [address] [place], [address], 09/22/2024 13:09:32 vitamin D, 25-hydrox y, total, serum 2024 025 [facility] (Lab), [address] [place], [address], 09/22/2024 13:09:32 lipid panel, serum 2024 025 [facility] (Lab), [address] [place], [address], 09/22/2024 13:09:32 CBC w/ auto diff 2024 025 [facility] (Lab), [address] [place], [address], 09/22/2024 13:09:33 T4, free, serum 2024 025 [facility] (Lab), [address] [place], [address], 09/22/2024 13:09:32 CMP, serum or plasma 2024 025 [facility] (Lab), [address] [place], [address], 09/22/2024 13:09:32 TSH, serum or plasma 2024 025 [facility] (Lab), [address] [place], [address], 09/22/2024 13:09:33 glycohemo globin, total, blood [address] (Lab), [address] [place], [address], 09/21/2024 14:18:25 microalbu min, urine [address] (Lab), [address] [place], [address], 09/21/2024 14:18:25 vitamin D, 25-hydrox y, total, serum [address] (Lab), [address] [place], [address], 09/21/2024 14:18:25 lipid panel, serum [address] (Lab), [address] [place], [address], 09/21/2024 14:18:24 CBC w/ auto diff [address] (Lab), [address] [place], [address], 09/21/2024 14:18:24 T4, free, serum [address] (Lab), [address] [place], [address], 09/21/2024 14:18:25 CMP, serum or plasma [address] (Lab), [address] [place], [address], 09/21/2024 14:18:25 TSH, serum or plasma [address] (Lab), [address] [place], [address], 09/21/2024 14:18:25 glycohemo globin, total, blood [address] (Lab), [address] [place], [address], 05/20/2024 08:37:53 microalbu min, urine [address] (Lab), [address] [place], [address], 05/20/2024 08:37:53 vitamin D, 25-hydrox y, total, serum [address] (Lab), [address] [place], [address], 05/20/2024 08:37:52 lipid panel, serum [address] (Lab), [address] [place], [address], 05/20/2024 08:37:52 CBC w/ auto diff [address] (Lab), [address] [place], [address], 05/20/2024 08:37:52 T4, free, serum [address] (Lab), [address] [place], [address], 05/20/2024 08:37:52 CMP, serum or plasma [address] (Lab), [address] [place], [address], 05/20/2024 08:37:52 TSH, serum or plasma [address] (Lab), [address] [place], [address], 05/20/2024 08:37:52 glycohemo globin, total, blood [address] (Lab), [address] [place], [address], 12/31/2023 09:52:09 microalbu min, urine 2023 024 [facility] (Lab), [address] [place], [address], 10/18/2023 18:11:50 vitamin D, 25-hydrox y, total, serum [address] (Lab), [address] [place], [address], 12/31/2023 09:52:08 lipid panel, serum 2023 024 [facility] (Lab), [address] [place], [address], 10/18/2023 15:47:00 CBC w/ auto diff 2023 024 [facility] (Lab), [address] [place], [address], 10/18/2023 11:15:14 T4, free, serum [address] (Lab), [address] [place], [address], 12/31/2023 09:52:08 CMP, serum or plasma [address] (Lab), [address] [place], [address], 12/31/2023 09:52:08 TSH, serum or plasma [address] (Lab), [address] [place], [address], 12/31/2023 09:52:08 vitamin D, 25-hydrox y, total, serum [address] (Lab), [address] [place], [address], 07/01/2023 09:40:54 lipid panel, serum [address] (Lab), [address] [place], [address], 07/01/2023 09:40:54 CBC w/ auto diff [address] (Lab), [address] [place], [address], 07/01/2023 09:40:54 T4, free, serum [address] (Lab), [address] [place], [address], 07/01/2023 09:40:38 CMP, serum or plasma [address] (Lab), [address] [place], [address], 07/01/2023 09:40:38 TSH, serum or plasma [address] (Lab), [address] [place], [address], 07/01/2023 09:40:38 Referral hematolog ist referral - Please call patient to schedule an appointme nt. Thank you. 2024 025 [email or web address] Charlie Jordan MD, [address], [place], [address], 12/28/2024 04:17:19 podiatris t referral - Please call patient to schedule an appointme nt. Thank you. 2024 025 [email or web address] Rick Becerra DPM, [address], [address], [place], [address], 12/21/2024 12:48:44 hematolog ist referral 2024 025 [email or web address] Charlie Jordan MD, [address], [place], [address], 04/03/2024 09:55:00 podiatris t referral - Please call patient to schedule an appointme nt. Thank you. 2024 025 [email or web address] Becerra DPM, [address], [address], [place], [address], 11/09/2024 10:08:58 hematolog ist referral 2023 024 [email or web address] Charlie Jordan MD, [address], [place], [address], 11/19/2023 12:07:34 podiatris t referral - Please call patient to schedule. 2023 024 [email or web address] Becerra DPM, [address], [address], [place], [address], 12/24/2023 11:24:39 podiatris t referral 2023 024 gale Becerra DPM, [address], [address], [place], [address], 01/27/2024 08:51:19 Procedures None recorded. Surgeries None recorded. Imaging None recorded. Medication Orders None recorded. Patient TargetsNo targets recorded. Patient Instructions Encounter Date Encounter Id Patient Instructions Last Modified By Organization Details Last Modified Time 11/19/2023 [id number] diabetic eye exam* [email or web address] Not available 05/18/2024 08:34:50 03/24/2024 [id number] diabetic eye exam* [email or web address] Not available 09/21/2024 08:38:40 Reason for Referral Receiving Specialist Referral for Pred iabetes Referring Physician: [facility]el [facility], Encounter Date: 07/02/2023 Receiving Specialist Referral for Pred iabetes Please call patient to schedule. Referring Physician: Migel Michele [facility], Encounter Date: 11/19/2023 Referring Physician: Migel Michele [facility], Encounter Date: 11/19/2023 Receiving Specialist Referral for Pred iabetes Please call patient to schedule an appointment. Thank you. Referring Physician: Migel Michele [facility], Encounter Date: 03/24/2024 Referring Physician: Migel Michele [facility], Encounter Date: 03/24/2024 Receiving Specialist Referral for Pred iabetes Please call patient to schedule an appointment. Thank you. Referring Physician: Migel Michele [facility], Encounter Date: 09/22/2024 Please call patient to sched ule an appointment. Thank you. Referring Physician: Migel Michele [facility], Encounter Date: 09/22/2024 Results Created Date Observation Date Name Description Value Unit Range Abnormal Flag Note LastModifiedBy Organization Detail LastModifiedTime 06/07/1906/07/2023 MAMMO baudilio, christin al, bilat erachristi No observ ation record ed. [email or web address] [place] [address] [address] [facility] [address], [place], [address], 12/05/2023 16:00:06 06/19/19 24 06/18/2023 DEXA, axial skele ton No observ ation record ed. [address] [facility] [address], [place], [address], 12/05/2023 16:00:51 12/09/19 24 12/09/2023 imagi ng/di agnos tic resul t No observ ation record ed. [facility] [address] [facility] [address], [place], [address], 12/09/2023 11:58:57 06/11/19 25 06/10/2024 imagi ng/di agnos tic resul t No observ ation record ed. [place] [id number] [facility] [address], [place], [address], 06/10/2024 11:42:11 Result Notes None recorded. Problems Name Problem SNOMED Code Status Onset Date Resolution Date Notes Provider Name and Address Organization Details Recorded Time Microcalcific ations of the breast 50444792 Active Not Available [facility] 3 01:37:30 Herpes zoster 6349204 Active Not Available [facility] 3 01:37:30 Postcoital bleeding 98958657 Active Not Available [facility] 3 01:37:30 Essential hypertension 95896666 Active 2017 Not Available [facility] 3 01:37:30 Acute sinusitis 49785351 Active 2021 Not Available [facility] 3 01:37:29 Anemia 868166371 Active 2021 Not Available [facility] 3 01:37:29 Hyperlipidemi a 78429829 Active 2021 Not Available [facility] 3 01:37:30 Hyperglycemia 36236661 Active 2022 Thalia wolf, [employer] 3 15:37:26 Hypothyroidis m 32679809 Active 2022 Migel aaron MD [address] [place] [address], [place], [address] , [employer] 3 14:28:07 Thrombocytope holly disorder 872369925 Active 2022 Migel aaron MD [address], [place], [address] , [facility] 3 14:28:12 Hyperproteine abby 44614668 Active 2022 Migel aaron MD [address], [address], [place], [address] , [facility] 3 14:28:18 Prediabetes 222462140 Active 2022 Migel aaron MD [address], [place], [address] , [facility] 3 14:28:23 Macrocytosis 297357422 Active 2022 Migel aaron MD [address], [place], [address] , [facility] 3 14:28:28 Chronic kidney disease 699973317 Active 2022 Migel aaron MD [address], [place], [address] , [facility] 3 14:53:48 Mammography abnormal 030902124 Active 2022 Thalia wolf [facility] 3 09:15:12 Infiltrating duct carcinoma of breast 952017045 Active 2022 Thalia wolf, [facility] 3 09:57:59 Malignant neoplasm of breast 968006423 Active 2022 Migel aaron MD [address], [place], [address] , [facility] 3 09:54:12 Serum thyroid stimulating hormone level outside reference range 930631853 Active 2024 Migel aaron MD [address] [facility], [facility] [address], [place], [address] , [employer] 5 09:59:32 Pain of ear 245490843 Active 2024 JOSE Mora, [employer] 5 16:55:03 Problem Notes None recorded. Procedures Surgical History Date Name Laterality Status Provider Name and Address Organization Details Recorded Time 3 lumpectomy of right breast completed JOSE Mora [employer] 01/01/2023 09:47:58 3 [employer] DIRECT[employer] Procedure completed Not Available [facility] 2022 01:22:56 Cataract Surgery completed Not Available [facility] 04/25/2022 01:22:56 Breast Biopsy completed Not Available [facility] 04/25/2022 01:22:56 Anesth tubal ligation completed Not Available [facility] 04/25/2022 01:22:56 Imaging Results None recorded. Procedure [...] art/cryst ) 05/[address] Soares 05/20/18 Not Available Not Available Not Available bumetanid e 0.5 mg tablet 08/05 completed Not Available Not Available Not Available bumetanid e 1 mg tablet 05/[address] Soares Not Available Not Available Not Available lisinopri l 5 mg tablet TAKE 1 TABLET BY MOUTH EVERY DAY active Not Available Not Available No t Available tamoxifen 20 mg tablet TAKE 1 TABLET BY MOUTH EVERY DAY active Not Available Not Available No t Available amoxicill in 875 mg-potass ium clavulana te 125 mg tablet Take 1 tablet twice a day by oral route with meal(s) for 7 days. 01/055 completed Not Available Not Available Not Available nitrofura ntoin monohydra te/macroc rystals 100 mg capsule Take 1 capsule twice a day by oral route for 7 days. 03/03 completed Not Available Not Available Not Available calcium with vit D TK 2T PO QD 2020 active Not Available Not Available Not Avai lable sodium chloride 05/[address] SUSY BARAJAS Not Available Not Available Not Available Glucosami [...] Updated DateTime 5 165.1 cm 23 kg/m2 59863.5 4 g 97.7 [degF] 70 /min 90 % 90 % 0 154/84 mm[Hg] Akua aPyne MA [employer] 5 09:19:35 Date Recorded Body height Body mass index (BMI) Body weight Body temperature Heart rate Systolic And Diastolic Provider Name and Address Organization Details Last Updated DateTime 4 165.1 cm 22.5 kg/m2 05534.9 7 g 97.5 [degF] 78 /min 122/76 mm[Hg] JOSE Mora [employer] 4 09:30:46 Date Recorded Body height Body mass index (BMI) Body weight Body temperature Heart rate Oxygen saturation Oxygen saturation in Arterial blood by Pulse oximetry Pain severity - 0-10 verbal numeric rating [Score] - Reported Systolic And Diastolic Provider Name and Address Organization Details Last Updated DateTime 5 165.1 cm 24.6 kg/m2 50326.6 7 g 97.7 [degF] 65 /min 98 % 98 % 0 140/76 mm[Hg] Akua Payne MA [employer] [facility] 5 09:31:24 Date Recorded Body height Body mass index (BMI) Body weight Body temperature Heart rate Respiratory rate Oxygen saturation Oxygen saturation in Arterial blood by Pulse oximetry Pain severity - 0-10 verbal numeric rating [Score] - Reported Systolic And Diastolic Provider Name and Address Organization Details Last Updated DateTime 4 165.1 cm 22.5 kg/m2 56755.9 7 g 97.3 [degF] 54 /min 16 /min 97 % 97 % 0 132/76 mm[Hg] Jordan Scherer LPN [place] [employer] [facility] 4 09:54:25 Date Recorded Body height Body mass index (BMI) Body weight Body temperature Heart rate Systolic And Diastolic Provider Name and Address Organization Details Last Updated DateTime 3 165.1 cm 22.6 kg/m2 48077.5 6 g 97.2 [degF] 84 /min 100/60 mm[Hg] JOSE Mora [place] [employer] [facility] 3 09:49:38 Social History Question Answer Notes LastModified by Organizat ion Details LastModified Time Tobacco Smoking Status Never Smoker Not Available [facility] 04/25/2022 01:19:53 Do You Have An Advance Directive? No [id number] Information not available 04/25/2022 Are You Blind Or Do You Have Difficulty Seeing? No MIGRATION.[id number] 026 Information not available 04/25/2022 What Is Your Level Of Caffeine Consumption? None MIGRATION.6106104 026 Information not available 04/25/2022 How Much Tobacco Do You Chew? None MIGRATION.[id number] 026 Information not available 04/25/2022 In The 14 Days Before Symptom Onset, Have You Had Close Contact With A Laboratory-confirm ed COVID-19 While That Case Was Ill? No MIGRATION.[id number] 026 Information not available 04/25/2022 In The 14 Days Before Symptom Onset, Have You Had Close Contact With A Person Who Is Under Investigation For COVID-19 While That Person Was Ill? No MIGRATION.[id number] 026 Information not available 04/25/2022 Are You Deaf Or Do You Have Serious Difficulty Hearing? No MIGRATION.[id number] 026 Information not available 04/25/2022 What Type Of Diet Are You Following? REGULAR MIGRATION.1271608 026 Information not available 04/25/2022 Do You Have A Medical Power Of Machine Lacer? No MIGRATION.0774555 026 Information not available 04/25/2022 What Was The Date Of Your Most Recent Tobacco Screening? 03/24/2024 [email or web address] Information not available 03/24/2024 How Much Tobacco Do You Smoke? No MIGRATION.[id number] 026 Information not available 04/25/2022 Has Tobacco Cessation Counseling Been Provided? No N/a MIGRATION.3069795 026 Information not available 04/25/2022 Have You Recently Traveled Abroad? No MIGRATION.4295294 026 Information not available 04/25/2022 Do You Have Difficulty Walking Or Climbing Stairs? No MIGRATION.8587169 026 Information not available 04/25/2022 Do You Have Any Dietary Restrictions? No MIGRATION.2914068 026 Information not available 04/25/2022 Sex: Female Functional Status Question Answer Note LastModified by [employer] ion Details LastModified Time Do you use any illicit or recreational drugs? No MIGRATION.8259855 026 Information not available 04/25/2022 Do you or have you ever used any other forms of tobacco or nicotine? No MIGRATION.[id number] 026 Information not available 04/25/2022 What is your level of alcohol consumption? None MIGRATION.5145383 026 Information not available 04/25/2022 Do you have transportation difficulties? No MIGRATION.2500006 026 Information not available 04/25/2022 Are you able to walk independently without assistance or assistive devices? YESWOREST MIGRATION.2523138 026 Information not available 04/25/2022 Do you have difficulty doing errands alone? No MIGRATION.0397614 026 Information not available 04/25/2022 Are you able to care for yourself independently? Yes MIGRATION.7488650 026 Information not available 04/25/2022 What is your occupation? retired MIGRATION.1119885 026 Information not available 04/25/2022 Do you have difficulty dressing, bathing, grooming, or toileting? No MIGRATION.3885495 026 Information not available 04/25/2022 What is your exercise level? Moderate MIGRATION.1510329 026 Information not available 04/25/2022 Mental Status Question Answer Note LastModified by Organizat ion Details LastModified Time Do you feel stressed (tense, restless, nervous, or anxious, or unable to sleep at night)? declined to answer MIGRATION.9573870 026 Information not available 04/25/2022 Do you have difficulty concentrating, remembering or making decisions? No MIGRATION.7380522 026 Information not available 04/25/2022 Family History Relationship Description Onset Age of this Age Resolved Age Notes LastModified by Organization Details LastModified Time Maternal Grandfather Diabetes mellitus MIGRATION.687 [id number] Not available 04/25/2022 01:23:05 Mother Hypertensive disorder 100 MIGRATION.361 [id number] Not available 04/25/2022 01:23:05 Sister Hypertensive disorder MIGRATION.802 [id number] Not available 04/25/2022 01:23:05 Father Neoplasm of lower leg leg? MIGRATION.635 [id number] Not available 04/25/2022 01:23:05 Medical History Condition [...] 100 mcg/0.5mL dose or 50 mcg/0.25mL dose 05/10/2020 completed Not Available [facility] 5 09:14:05 COVID-19, mRNA, LNP-S, PF, 100 mcg/0.5mL dose or 50 mcg/0.25mL dose 05/26/2020 completed Not Available [facility] 3 01:54:52 COVID-19, mRNA, LNP-S, PF, 100 mcg/0.5mL dose or 50 mcg/0.25mL dose 04/25/2020 completed Not Available [facility] 3 01:54:52 Past Encounters Encounter ID Performer Location Encounter Start Date Encounter Closed Date Diagnosis/Indication Diagnosis SNOMED-CT Code Diagnosis ICD10 Code Diagnosis IMO Codes Diagnosis Note [id number] Migel aaron MD [facility] [address] [place] , [facility] [address] [place] [address] 05/03/2020 00:00:00 05/03/2020 14:12:47 [id number] MD NAHED Kwan[facility] [address] [place] , [facility] [address] [place] [address] 01/03/2021 00:00:00 01/03/2021 10:10:[id number] [facility] [facility] [address] [facility] [address] [address] 07/04/2021 00:00:00 07/04/2021 09:42:[id number] [facility] [place] [facility] [address] [facility] [address] [address] 12/26/2021 00:00:00 12/26/2021 09:44:[id number] [facility] [place] [facility] [address] [facility] [address] [address] 06/26/2022 09:33:23 06/26/2022 10:10:42 Screening - NAD 393498748 Z13.9 Colonoscop y: Get this arranged, declines, [...] in 6 months as per her wishesGet josemanuelER if worseShe did verbalize their understand ing of the above Essential hypertension 10410568 I10 On lisinopril 5mg dailyShe did see Dr Soares Hyperlipidemia 85384055 E78.5 Still declines any meds, states that she is very active watches her diet and walks at least 30 minutes every day, she understand s the risks for elevated lipidsGet labs Hypothyroidism 65477229 E03.9 No on any medsGet labsDoes not want any more testing such as US thyroid Thrombocyt openic disorder 069078545 D69.6 Declines any further testing or referrals at this timePLT WNL 06/14/2022 Hyperproteinemia 7181920 9 E88.09 UPEP/SPEP: 09/21/[address] Soares 04/11/2021 , f/u in one yearUS kidney 02/15/2021 Prediabetes 320986407 R7 3.03 Declines any meds at this timeDiet and exercise and repeat the A1C Macrocytosis 587786582 D 75.89 B12/Folate is WNLTSH is elevated, not interested in further testing or referral to hematology Chronic ki dney disease 147541710 N18.[address] Soares told her she has CKD and it is 'age related' and she does not need to see him at this time Screening mammography 24 492245 Z12.31 Screening for osteoporosis 193976202 Z13.820 Declines a DEXA, states that she is on ca and vit d [id number] Migel aaron MD [facility] Internal Med [facility] [address] [facility], [facility] [address] [place] [address] 01/01/2023 09:16:41 01/01/2023 10:11:00 Screening - NAD 225843409 Z13.9 Colonoscop y: Get this arranged, declines, understand s the risks, declines cologuard also! 01/03/2021 Mammogram: Gets this thru Dr Lveon sterlnig 06/26/2022 Pathology: 11/06/2022 : Dr Hawkins: R [...] in 6 months as per her wishesGet josemanuelER if worseShe did verbalize their understand ing of the above Essential hypertension 28588439 I10 On lisinopril 5mg dailyShe did see Dr Soares Hyperlipidemia 00687903 E78.5 Still declines any meds, states that she is very active watches her diet and walks at least 30 minutes every day, she understand s the risks for elevated lipidsGet labs Hypothyroidism 99890312 E03.9 No on any medsGet labsDoes not [...] do any more labs Thrombocyt openic disorder 220592408 D69.6 Declines any further testing or referrals at this timePLT WNL 06/14/2022 Hyperproteinemia 9361830 9 E88.09 UPEP/SPEP: 09/21/[address] Soares 04/11/2021 , f/u in one year US kidney 02/15/2021 Prediabetes 997462377 R7 3.03 Declines any meds at this timeDiet and exercise and repeat the A1C Macrocytosis 117270722 D 75.89 B12/Folate is WNL Chronic ki dney disease 891500805 N18.[address] Soares told her she has CKD and it is 'age related' and she does not need to see him at this time Screening for osteoporosis 123703851 Z13.820 Get a DEXA, she states today 01/01/[address] Jordan is to order this, states that she is on ca and vit d Malignant neoplasm of breast 437439729 C50.911 S/p lumpectomy See path bx 11/06/2022 See breast surgeon and Dr Jordan [id number] Migel aaron MD [facility] Internal [facility] [address] [facility], [facility] [address] [place] [address] 07/02/2023 09:14:26 07/02/2023 10:00:14 Screening - NAD 042969811 Z13.9 Colonoscop y: Get this arranged, declines, understand s the risks, declines cologuard also! 01/03/2021 Mammogram: Gets this thru Dr Levon sterling 06/26/2022 Pathology: 11/06/2022 : Dr Hawkins: R breast: Ductal carcinoma in situMammog praveena: 06/07/2023 : Diagnostic mammogram in 6 monthsOn [...] understand ing of the above Essential hypertension [id number] I10 On lisinopril 5mg dailyShe did see Dr Soares Hyperlipidemia 16072451 E78.5 Still declines any meds, states that she is very active watches her diet and walks at least 30 minutes every day, she understand s the risks for elevated lipids 07/02/2023 Get labs Hypothyroidism 10462132 E03.9 No on any medsGet labsDeclin ed more testing such as US thyroid, 01/01/2023 , states that she does not want to do the tests and will agree to do labs only every 6 months Thrombocyt openic disorder 825104395 D69.[address] Jordan Hyperproteinemia 0233368 9 E88.09 UPEP/SPEP: 09/21/[address] Soares 04/11/2021 , f/u in one year US kidney 02/15/2021 Prediabetes 889779902 R7 3.03 Declines any meds at this timeDiet and exercise and repeat the A1C Macrocytosis 937350492 D 75.89 B12/Folate is WNL Chronic ki dney disease 695342495 N18.[address] Soares told her she has CKD and it is 'age related' and she does not need to see him at this time Screening for osteoporosis 749896202 Z13.820 Dr Jordan wanted prolia, she is on fosamax Malignant neoplasm of breast 269725722 C50.911 S/p lumpectomy See path bx 11/06/[address] Jordan [id number] Migel aaron MD [facility] [address] [facility] [place] [address] 11/19/2023 09:44:44 11/19/2023 10:33:52 Screening - NAD 806687404 Z13.9 Colonoscop y: Get this arranged, declines, understand s the risks, declines cologuard also! 01/03/2021 Mammogram: Gets this thru Dr Levon sterling 06/26/2022 Pathology: 11/06/2022 : Dr Hawkins: R breast: Ductal carcinoma in situMammog praveena: 06/07/2023 : Diagnostic mammogram in 6 months [...] understand ing of the above Essential hypertension 50120323 I10 On lisinopril 5mg dailyShe did see Dr Soares Hyperlipidemia 39825716 E78.5 Still declines any meds, states that she is very active watches her diet and walks at least 30 minutes every day, she understand s the risks for elevated lipids 07/02/2023 Get labs Hypothyroidism 98111000 E03.9 No on any medsGet labsDeclin ed more testing such as US thyroid, 01/01/2023 , states that she does not want to do the tests and will agree to do labs only every 6 months Thrombocyt openic disorder 677456366 D69.[address] Jordan Hyperproteinemia 8025658 9 E88.09 UPEP/SPEP: 09/21/[address] Soares 04/11/2021 , f/u in one year US kidney 02/15/2021 Prediabetes 401048249 R7 3.03 Declines any meds at this timeDiet and exercise and repeat the A1C Macrocytosis 313691057 D 75.89 B12/Folate is WNL Chronic ki dney disease 708867057 N18.[address] Soares told her she has CKD and it is 'age related' and she does not need to see him at this time discussed 11/19/2023 Screening for osteoporosis 050187099 Z13.820 Dr Jordan wanted prolia, she is on fosamax Malignant neoplasm of breast 532098730 C50.911 S/p lumpectomy See path bx 11/06/[address] Jordan [id number] Migel aaron MD [facility] [address] [facility] [address] [place] [address] 03/24/2024 09:11:10 03/24/2024 09:52:56 Screening - NAD 898115293 Z13.9 Colonoscop y: Get this arranged, declines, understand s the risks, declines cologuard also! 01/03/2021 Mammogram: Gets this thru Dr Levon sterling 06/26/2022 Pathology: 11/06/2022 : Dr Hawkins: Talib breast: Ductal carcinoma in situMammog praveena: 06/07/2023 : Diagnostic mammogram in 6 months [...] understand ing of the above Essential hypertension 12864003 I10 On lisinopril 5mg dailyShe did see Dr Soares Hyperlipidemia 36379047 E78.5 Still declines any meds, states that she is very active watches her diet and walks at least 30 minutes every day, she understand s the risks for elevated lipids 03/24/2024 Get labs Hypothyroidism 94333618 E03.9 No on any medsGet labsDeclin ed more testing such as US thyroid, 03/24/2024 , states that she does not want to do the tests and will agree to do labs only every 6 months Thrombocyt openic disorder 624662749 D69.[address] Jordan Hyperproteinemia 8293752 9 E88.09 UPEP/SPEP: 09/21/[address] Soares 04/11/2021 , f/u in one year US kidney 02/15/2021 Prediabetes 492465942 R7 3.03 Declines any meds at this timeDiet and exercise and repeat the [id number] ands the risks for elevated A1C Macrocytosis 734560041 D 75.89 B12/Folate is WNL Chronic ki dney disease 829275830 N18.[address] Soares told her she has CKD and it is 'age related' and she does not need to see him at this time discussed 11/19/2023 , 03/24/2024 Screening for osteoporosis 059348436 Z13.820 Dr Jordan wanted prolia, she is on fosamax Malignant neoplasm of breast 176741380 C50.911 S/p lumpectomy See path bx 11/06/[address] Jordan Serum thyr oid stimulating hormone level outside reference range 562556651 R89.1 Does not want any meds or testing 03/24/2024 , wants to repeat the test only every 6 months [id number] Migel aaron MD [facility] [address] [facility] [address] [place] [address] 09/22/2024 09:11:40 09/22/2024 10:00:01 Screening - NAD 740019985 Z13.9 Colonoscop y: Get this arranged, declines, understand s the risks, declines cologuard also! 01/03/2021 Mammogram: Gets this thru Dr Levon sterling 06/26/2022 Pathology: 11/06/2022 : Dr Hawkins: R breast: Ductal carcinoma in situMammog praveena: 06/07/2023 : Diagnostic mammogram in 6 months [...] understand ing of the above Essential hypertension 61662634 I10 On lisinopril 5mg dailyShe did see Dr Soares Hyperlipidemia 43678187 E78.5 Still declines any meds, states that she is very active watches her diet and walks at least 30 minutes every day, she understand s the risks for elevated lipids 03/24/2024 , 09/22/2024 Get labs Hypothyroidism 21888737 E03.9 No on any medsGet labsDeclin ed more testing such as US thyroid, 03/24/2024 , states that she does not want to do the tests and will agree to do labs only every 6 months Thrombocyt openic disorder 459616467 D69.[address] Jordan Hyperproteinemia 8548214 9 E88.09 UPEP/SPEP: 09/21/[address] Soares 04/11/2021 , f/u in one year US kidney 02/15/2021 Prediabetes 041634931 R7 3.03 Declines any meds at this timeDiet and exercise and repeat the [id number] ands the risks for elevated A1C Macrocytosis 693818349 D 75.89 B12/Folate is WNL Chronic ki dney disease 156909608 N18.[address] Soares told her she has CKD and it is 'age related' and she does not need to see him at this time discussed 11/19/2023 , 03/24/2024 Screening for osteoporosis 025556100 Z13.820 Dr Jordan wanted prolia, she is on fosamax Malignant neoplasm of breast 826544422 C50.911 S/p lumpectomy See path bx 11/06/[address] Jordan Health Concerns Section Related Observation LastModified by Organization Detai ls LastModified Time None Recorded Concern Status LastModified by Organization Details LastModified Time None Recorded Advance Directives Directive N: Payers Insurance Date Sequence Insurance Name Policy Number Policy Eaton Covered Member ID Eaton Member ID Guarantor Name 09/19/2024 1 [place] Shelleyesther Wayough [id number] Shelley Cole 09/28/2024 2 [place]LE[place]) [id number] Shelleyesther Wayough [id number] Shelley Damon Douglas Notes Date Note Type Note Provider Name and Address Organization Details Recorded Time 01/01/2023 text/html Here to establish carePCP: Dr [...] 2 miles everydayShe is to see Dr Soares also in nephrologyOV 08/05/18:Here with her husbandShe feels 'great' and did see Dr Soares who took her 'off all the medications [...] s/p R lumpectomy Migel Michele MD [address] [facility], [address], [place], [address], [place] [facility] [employer] 01/01/2023 10:10:29 07/02/2023 text/html Here to establish [...] 2 miles everydayShe is to see Dr Soares also in nephrologyOV 08/05/18:Here with her husbandShe feels 'great' and did see Dr Soares who took her 'off all the medications [...] is doing well today Migel Michele MD [address] [place] [address], [facility] [address], [place], [address], [place] [facility] [employer] 07/02/2023 17:54:17 11/19/2023 text/html Here to establish [...] 2 miles everydayShe is to see Dr Soares also in nephrologyOV 08/05/18:Here with her husbandShe feels 'great' and did see Dr Soares who took her 'off all the medications [...] feels well today Migel Michele MD [address] [facility], [address], [place], [address], [facility] [employer] 11/21/2023 15:04:10 03/24/2024 text/html Here to establish [...] 2 miles everydayShe is to see Dr Soares also in nephrologyOV 08/05/18:Here with her husbandShe feels 'great' and did see Dr Soares who took her 'off all the medications [...] did do the labs Migel Michele MD [address] [place] [address], [facility] [address], [place], [address], [facility] [employer] 03/24/2024 10:00:54 09/22/2024 text/html Here to establish carePCP: Dr Shin [...] 2 miles everydayShe is to see Dr Soares also in nephrologyOV 08/05/18:Here with her husbandShe feels 'great' and did see Dr Soares who took her 'off all the medications [...] well today, she did do the labs OV 09/22/2024: Here for her f/u apt, she did the labs for Dr Jordan, states that she is doing very well, states that she has stayed indoors and not ventured out of home d/t the [facility] Migel Michele MD [address] [place] [address], [facility] [address], [place], [address], [place] [facility] 09/22/2024 09:59:01 OBGyn Episode No OBEpisode recorded.
--- OUTSIDE RECORDS SUMMARY | 2025-01-06 08:55 | XMS_ITS | Clinical Summary ---
Author Organization [facility] Facility Address [address] [address] Care Team Providers Care Tool Maintenance Worker Name Role Phone Migel Michele MD Primary Care Provider [phone] Allergies No known active allergies Medications lisinopril [...] Comments Blood Pressure 130/60 04/11/2021 2:55 PM [employer] Pulse 68 04/11/2021 2:55 PM [employer] Temperature 35.8 C (96.4 F) 04/11/2021 2:55 PM [employer] Respiratory Rate 18 04/11/2021 2:55 PM [employer] Oxygen Saturation 98% 04/11/2021 2:55 PM [employer] Inhaled Oxygen Concentration - - Weight 64.9 kg (143 lb) 04/11/2021 2:55 PM [employer] Height 165.1 cm (5' 5) 04/11/2021 2:55 PM [employer] Body Mass Index 23.8 04/11/2021 2:55 PM [employer] Plan of Treatment Health Maintenance Due Date Last Done Comments Pneumococcal Vaccine: 50+ Ye ars (1 of 1 - PCV) 12/24/1993 Influenza Vaccine (#1) 2024 Hepatitis B Vaccine Aged Out No longe r eligible based on patient's age to complete this topic Insurance Medicare [facility] Care Teams Tool Maintenance Worker Relationship Specialty Start Date End Date Migel Michele MD [address] [facility], [address] [place] [address] PCP - General Internal Medicine 01/03/21
[2025-01-06 08:57] LABS: Alanine Aminotransferase 30 U/L (6-35); Albumin Level 3.7 g/dL (3.5-5.1); Alkaline Phosphatase 103 U/L (38-126); Anion Gap 16 mmol/L (4-12); Aspartate Amino Transferase 72 U/L (14-36); Bilirubin,Total 0.6 mg/dL (0.2-1.3); Blood Urea Nitrogen 24 mg/dL (7-17); Calcium 10.0 mg/dL (8.4-10.2); Carbon Dioxide 22 mmol/L (22-30); Chloride 98 mmol/L (98-107); Estimated CRCL calculation 27 ml/min; Estimated Glomerular Filt Rate 45; Glucose 134 mg/dL (65-110); Potassium 4.4 mmol/L (3.4-5.0); Sodium 136 mmol/L (137-145); Total Protein 6.3 g/dL (6.3-8.2)
[2025-01-06 09:07] LABS: NT Pro B Type Natriuretic Pept 1000 pg/mL (19.9-100); Troponin I 0.072 ng/mL (0.000-0.034)
[2025-01-06 09:17] LABS: Influenza A QL RT-PCR Negative (Negative); Influenza B QL RT-PCR Negative (Negative); RSV RNA, RT-PCR Negative (Negative); SARS-CoV-2 RNA PCR Negative (Negative)
--- NOTE | 2025-01-06 10:33 | ED.EXTPRO ---
HPI - Extremity Problem General Chief complaint: Extremity Problem,Nontraumatic Stated complaint: BLE edema Time Seen by Provider: 01/06/25 08:11 History of Present Illness HPI Narrative: Pt presents with swelling to feet for some time right more than left. Pt says she was unable to put shoe on this morning so came to ER. Pt denies pain. Pt has no CP or SOB. Pt has hx of anemia and hyponatremia. Pt also complains of some tingling to her lower lip today. Related Data Home Medications ?Medication ?Instructions ?Recorded ?Confirmed ?Last Taken ?Type ascorbate calcium (vitamin C) 500 500 mg PO DAILY 10/08/22 01/06/25 01/05/25 History mg tablet calcium 250 mg (as 2 tablet PO BID 10/08/22 01/06/25 01/05/25 History citrate)-vitamin D3 5 mcg (200 unit) tablet lisinopril 5 mg tablet 5 mg PO QPM 10/08/22 01/06/25 01/05/25 History zpkdffevyhoz-agonwwii-xzfpkq tablet 1 tablet PO DAILY 10/08/22 01/06/25 01/05/25 History vitamin B complex (B 1 tablet PO DAILY 10/08/22 01/06/25 01/05/25 History Complex-Vitamin B12 tablet) glucosamine sulf dipot 1 cap PO DAILY 10/24/22 01/06/25 01/05/25 History chlr,msm,chond 550 mg-C 30 mg-ashley 1 mg capsule (Glucosamine Chondroitin) alendronate 70 mg tablet 70 mg PO WEEKLY 12/16/23 01/06/25 12/25/24 History tamoxifen 20 mg tablet 20 mg PO DAILY 12/16/23 01/06/25 01/05/25 History Allergies Allergy/AdvReac Type Severity Reaction Status Date / Time lisinopril Allergy Severe angioedema Verified 01/06/25 13:38 Review of Systems Review of Systems: All systems reviewed & are unremarkable except as noted in HPI and below PMFSH Past Medical History Medical History Hyponatremia Anemia 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), 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 CKD (chronic kidney disease) Hypertension Surgical History Surgical History Status post right breast lumpectomy History of cataract extraction with lens replacement History of tubal ligation Family History Family History Father Bladder cancer Mother Hypertension Sibling Ovarian cancer Hypertension Other Hypertension Social History Social History Smoking status: Never smoker Alcohol intake: never Substance use: never Substance use type: does not use Lack of Transportation: No Lack of Food: Never True Current Housing: I Have Housing Concerned About Future Housing: No Difficulty Paying Gas/Electric Bills: No Difficulty Paying for Meds: No Currently Unemployed: No Education: Don't Know Difficulty w/ Childcare or Family Care: No Living arrangements: with family Additional living arrangements comments: [place] Gender identity (if verbalized by the patient): Female Sexual Orientation (if Verbalized by the Patient): Straight or Heterosexual Spiritual care concerns: No Exam Const: General: healthy appearing and no acute distress Nutritional Appearance: well nourished Orientation/consciousness: patient oriented x3 Limitations: no limitations HENMT: Other: mild angioedema to lower lip but no angioedema to mouth Neck: Neck: normal visual inspection, no lymphadenopathy and no meningeal signs Resp: Effort & Inspection: normal respiratory effort Auscultation: clear to auscultation bilaterally Cardio: Rate: regular rate Rhythm: regular rhythm GI: GI Palp: Yes Soft to palpation and No Tenderness to palpation present (GI) Auscultation: normal bowel sounds Back/Spine/Pelvis: Back: no CVA tenderness Skin: General skin exam: normal color Rashes: no rashes Wounds: no wounds Neuro: General: patient oriented x3, moves all extremities, no meningeal signs and no focal motor deficits Cranial nerves: Yes Nystagmus not present Speech: normal speech Extrem: Other: right leg and foot swollen but not tender Psych: Mental Status: mental status grossly normal Affect: normal affect Attitude: cooperative Course Vital Signs Vital signs: Vital Signs Temperature 98.6 F 01/06/25 08:12 Pulse Rate 101 H 01/06/25 08:12 Respiratory Rate 16 01/06/25 08:12 Blood Pressure 123/98 H 01/06/25 08:12 Pulse Oximetry 97 01/06/25 08:12 Oxygen Delivery Room Air 01/06/25 08:12 Temperature 97.6 F 01/06/25 16:12 Pulse Rate 84 01/06/25 16:12 Respiratory Rate 16 01/06/25 16:12 Blood Pressure 131/54 L 01/06/25 16:12 Pulse Oximetry 94 01/06/25 16:12 Oxygen Delivery Room Air 01/06/25 16:00 MDM - Extremity (Nontraumatic) MDM Narrative Medical decision making narrative: Pt has dvt and elevated lactate but not sure of source. Discussed with Dr Jackson said to start on eliquis and repeat lactate before any antibiotics, agrees to admit. Differential Diagnosis Differential diagnosis: Likely cellulitis, superficial thrombophlebitis, deep venous thrombosis of upper extremity, lower extremity edema, deep vein thrombosis of lower extremity and other (angioedema) Lab Data 01/06/25 08:28 01/06/25 08:28 Labs: Lab Results 01/06/25 Range/Units 08:28 WBC 10.8 H (4.5-10.0) K/mm3 RBC 3.54 L (4.2-5.4) M/mm3 Hgb 11.1 L (12.0-15.0) g/dL Hct 35.4 L (37.0-47.0) % MCV 100.0 (80-100) fl MCH 31.4 (26-34) pg MCHC 31.4 L (32-36) g/dl RDW 14.0 (11.5-14.5) % Plt Count 208 D (150-375) k/mm3 MPV 10.6 H (7.4-10.4) fl Immature Gran % (Auto) 13.0 H (0-0.5) % Neut % (Auto) 58.6 (45.5-73.1) % Lymph % (Auto) 19.3 (18.3-44.2) % Hall % (Auto) 8.2 (2.6-8.5) % Eos % (Auto) 0.3 (0-4.4) % Baso % (Auto) 0.6 (0.2-1.2) % Lymph # (Auto) 2.08 (0.9-3.2) K/mm3 Hall # (Auto) 0.9 H (0.1-0.6) K/mm3 Eos # (Auto) 0.0 (0-0.3) K/mm3 Baso # (Auto) 0.1 (0.0-0.1) K/mm3 Abs Immat Gran (auto) 1.40 H (0.00-0.031) K/mm3 Absolute Neuts (auto) 6.3 (1.3-6.7) K/mm3 Absolute Nucleated RBC 0.090 H (0.0-0.012) K/mm3 Nucleated RBC % 0.8 H (0.0-0.2) % PT 13.2 (11.1-14.7) Seconds INR 1.0 APTT 30.0 (22.3-36.8) Seconds Sodium 136 L (137-145) mmol/L Potassium 4.4 (3.4-5.0) mmol/L Chloride 98 (98-107) mmol/L Carbon Dioxide 22 (22-30) mmol/L Anion Gap 16 H (4-12) mmol/L BUN 24 H D (7-17) mg/dL Creatinine 1.15 H (0.7-1.0) mg/dL Estim Creat Clear Calc 27 ml/min Estimated GFR 45 L (59 - ) Glucose 134 H (65-110) mg/dL Lactic Acid 8.2 H* (0.7-2.0) mmol/L Calcium 10.0 (8.4-10.2) mg/dL Total Bilirubin 0.6 (0.2-1.3) mg/dL AST 72 H (14-36) U/L ALT 30 (6-35) U/L Alkaline Phosphatase 103 (38-126) U/L Troponin I 0.072 H* (0.000-0.034) ng/mL NT-Pro-B Natriuret Pep 1000 H (19.9-100) pg/mL Total Protein 6.3 (6.3-8.2) g/dL Albumin 3.7 (3.5-5.1) g/dL Influenza A (RT-PCR) Negative (Negative) Influenza B (RT-PCR) Negative (Negative) RSV (RT-PCR) Negative (Negative) SARS-CoV-2 RNA (RT-PCR) Negative (Negative) Discharge Plan Discharge Clinical Impression: Elevated lactic acid level DVT (deep venous thrombosis) Qualifiers: DVT location: lower extremity Affected thrombotic vein of extremity: femoral Chronicity: acute Laterality: right Qualified Code(s): I82.411 - Acute embolism and thrombosis of right femoral vein Patient Disposition: Still a Patient Condition: Stable
[2025-01-06] MEDS: APIXABAN 5 MG TABLET 10 MG PO ×2 (11:06→20:12)
[2025-01-06 11:29] LABS: Add Urine Microscopic? NO; Appearance Urine Clear (Clear); Glucose Urine UA Negative (Negative); Leukocyte Esterase Ur Negative LEU/UL (Negative); Nitrate Urine Negative (Negative); Specific Grav Ur 1.012 (1.001-1.035)
--- NOTE | 2025-01-06 12:10 | WPCEDHO ---
ED Hand Off Checklist All vitals saved:Y IV Site documented:Y All med administrations documented:Y Triage Note Triage Note PT FROM HOME, C/O BILATERAL LEG 01/06/25 08:12 SWELLING AND WEAKNESS. DURATION OF TWO WEEKS. PT NOTES THAT SHE HAS HISTORY OF HYPONATREMIA Allergies No Known Allergies Allergy (Verified 12/14/24 09:29) Family History (Last Reviewed 12/11/22 @ 14:33 by John Velasquez MD) Father Bladder cancer Mother Hypertension Sibling Ovarian cancer Hypertension Other Hypertension Active Medications including assessments/comments Apixaban (Apixaban 5 Mg Tablet) 10 mg PO Q12HR MIGUEL Last Admin: 01/06/25 11:06 Dose: 10 mg Documented By: TLB Interventions/Assessments IV / Saline Lock, Insert Start: 01/06/25 08:12 Freq: STAT Status: Active Protocol: Document 01/06/25 08:30 CFG (Rec: 01/06/25 08:44 CFG [id number]) IV Assessment Peripheral Access Left Antecubital IV Catheter Access Initiated IV Insertion Date 01/06/25 IV Insertion Time 08:30 Catheter Gauge 20 IV Insertion 1 Attempts Ultrasound Used for No Placement IV Site Assessment WNL IV Care and WNL Maintenance Last Vital Signs Temperature 98.0 F 01/06/25 12:07 Pulse Rate 87 01/06/25 12:07 Respiratory Rate 28 H 01/06/25 12:07 Pulse Oximetry 94 01/06/25 12:07 Blood Pressure 126/62 01/06/25 12:07 Blood Pressure Mean 83 01/06/25 12:07 Oxygen Delivery Room Air 01/06/25 08:12 Weight 62.3 kg 01/06/25 08:12 Last Result - Abnormals Only WBC 10.8 K/mm3 (4.5-10.0) H 01/06/25 08:28 RBC 3.54 M/mm3 (4.2-5.4) L 01/06/25 08:28 Hgb 11.1 g/dL (12.0-15.0) L 01/06/25 08:28 Hct 35.4 % (37.0-47.0) L 01/06/25 08:28 MCHC 31.4 g/dl (32-36) L 01/06/25 08:28 MPV 10.6 fl (7.4-10.4) H 01/06/25 08:28 Immature Gran % (Auto) 13.0 % (0-0.5) H 01/06/25 08:28 Cowley # (Auto) 0.9 K/mm3 (0.1-0.6) H 01/06/25 08:28 Abs Immat Gran (auto) 1.40 K/mm3 (0.00-0.031) H 01/06/25 08:28 Absolute Nucleated RBC 0.090 K/mm3 (0.0-0.012) H 01/06/25 08:28 Nucleated RBC % 0.8 % (0.0-0.2) H 01/06/25 08:28 Sodium 136 mmol/L (137-145) L 01/06/25 08:28 Anion Gap 16 mmol/L (4-12) H 01/06/25 08:28 BUN 24 mg/dL (7-17) H D 01/06/25 08:28 Creatinine 1.15 mg/dL (0.7-1.0) H 01/06/25 08:28 Estimated GFR 45 (59-) L 01/06/25 08:28 Glucose 134 mg/dL (65-110) H 01/06/25 08:28 Lactic Acid 5.1 mmol/L (0.7-2.0) H* 01/06/25 11:23 AST 72 U/L (14-36) H 01/06/25 08:28 Troponin I 0.072 ng/mL (0.000-0.034) H* 01/06/25 08:28 NT-Pro-B Natriuret Pep 1000 pg/mL (19.9-100) H 01/06/25 08:28 Urine Ketones 1+ mg/dL (Negative) H 01/06/25 11:14 Most Recent Suicide Severity Rating Suicide Severity Rating NO RISK INDICATED 01/06/25 08:12
[2025-01-06 12:31] LABS: Troponin I 0.074 ng/mL (0.000-0.034)
--- NOTE | 2025-01-06 12:45 | PM.IMHP ---
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 The patient presents here from home on 01/06 for further evaluation of bilateral lower extremity swelling and generalized weakness. CT of right lower extremity swelling approximately 3 days ago. Initially also had left ankle/foot swelling but she reports this has somewhat decreased/resolved. Precipitated by generalized weakness and fatigue for the past 2 weeks. She denies associated chest pain, shortness a breath, exertional shortness of breath, hemoptysis, nausea, vomiting diarrhea, fever, chills, body aches, or cough. She denies any recent surgeries, history of blood clots, recent long car/plan travel. She reports she has had a poor appetite/the generalized fatigue/weakness for the past 2 weeks and her family reports she has been more sedentary. Additionally, the patient reports she has had lower lip swelling bilaterally for the past 3 days, reports some associated numbness without any other focal neurological deficits. She is currently on lisinopril. She denies tongue swelling, throat swelling, or respiratory symptoms. Initial VS at presentation: 98.6? F, HR 101 RR 16, 123/98, and 97% on RA. ED workup showed: WBC 10.8, hemoglobin 11.1, INR 1.0, sodium 136, creatinine 1.15, glucose 134, initial lactic 8.2 (repeat 5.1), initial troponin 0.072, BNP 1000. CXR showed no acute cardiopulmonary findings. Venous Doppler of the RLE showed a DVT of the common femoral vein through calf veins. 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 CKD (chronic kidney disease) Hypertension Surgical History Surgical History Status post right breast lumpectomy History of cataract extraction with lens replacement History of tubal ligation Family History Family History Father Bladder cancer Mother Hypertension Sibling Ovarian cancer Hypertension Other Hypertension Social History Social History Alcohol intake: never Substance use: never Substance use type: does not use Current Housing: Decline to Answer Concerned About Future Housing: Decline to Answer Difficulty Paying Gas/Electric Bills: Decline to Answer Difficulty Paying for Meds: Decline to Answer Currently Unemployed: Decline to Answer Education: Decline to Answer Difficulty w/ Childcare or Family Care: Decline to Answer Living arrangements: with family Additional living arrangements comments: HUSB Gender identity (if verbalized by the patient): Female Sexual Orientation (if Verbalized by the Patient): Straight or Heterosexual Spiritual care concerns: No Meds Home Medications and Allergies Home Medications ?Medication ?Instructions ?Recorded ?Confirmed ?Type ascorbate calcium (vitamin C) 500 500 mg PO DAILY 10/08/22 01/06/25 History mg tablet calcium 250 mg (as 2 tablet PO BID 10/08/22 01/06/25 History citrate)-vitamin D3 5 mcg (200 unit) tablet lisinopril 5 mg tablet 5 mg PO QPM 10/08/22 01/06/25 History gcxqzxtmngzz-gctdcfwd-wvuuaz tablet 1 tablet PO DAILY 10/08/22 01/06/25 History vitamin B complex (B 1 tablet PO DAILY 10/08/22 01/06/25 History Complex-Vitamin B12 tablet) glucosamine sulf dipot 1 cap PO DAILY 10/24/22 01/06/25 History chlr,msm,chond 550 mg-C 30 mg-ashley 1 mg capsule (Glucosamine Chondroitin) alendronate 70 mg tablet 70 mg PO WEEKLY 12/16/23 01/06/25 History tamoxifen 20 mg tablet 20 mg PO DAILY 12/16/23 01/06/25 History Allergies Allergy/AdvReac Type Severity Reaction Status Date / Time lisinopril Allergy Severe angioedema Verified 01/06/25 13:38 Vital Signs Vital Signs - 24 hr 01/06/25 08:12 01/06/25 08:15 01/06/25 08:31 Temperature 98.6 F Pulse Rate 101 H 93 90 Respiratory Rate 16 22 H 22 H Blood Pressure 123/98 H 123/58 L 119/61 Pulse Oximetry 97 96 92 Oxygen Delivery Room Air 01/06/25 08:46 01/06/25 09:01 01/06/25 09:31 Temperature Pulse Rate 91 89 86 Respiratory Rate 24 H 22 H 20 Blood Pressure 122/64 122/61 125/61 Pulse Oximetry 94 94 96 Oxygen Delivery 01/06/25 10:31 01/06/25 10:46 01/06/25 11:01 Temperature Pulse Rate 83 90 81 Respiratory Rate 25 H 22 H 24 H Blood Pressure 119/63 137/70 114/63 Pulse Oximetry 93 96 94 Oxygen Delivery 01/06/25 12:07 Temperature 98.0 F Pulse Rate 87 Respiratory Rate 28 H Blood Pressure 126/62 Pulse Oximetry 94 Oxygen Delivery Exam Const: General: comfortable and no acute distress Other: , female, elderly nontoxic appearance HENMT: Face/Nose/Sinus: Normal nares present Mouth: Yes moist mucous membranes Other: Bilateral lower lip swelling. No associated tongue swelling or throat swelling. No uvular deviation. Eyes: General: appearance normal, both eyes and all related structures Sclera: sclerae normal Pupils: Equal, round and reactive pupils present EOM: EOMs intact bilaterally Resp: Effort & Inspection: normal respiratory effort Auscultation: clear to auscultation bilaterally Cardio: Rate: regular rate Rhythm: regular rhythm Other: S1-S2 present without murmur, rub, ectopy GI: Other: Abdomen soft, nondistended, nontender. Normoactive bowel sounds in all quadrants. Skin: General skin exam: normal color and no rashes or lesions noted Wounds: no wounds Neuro: Speech: normal speech Motor exam (neuro): 5/5 motor strength present throughout Sensory Exam: normal sensation Other: A&O x4 Extrem: Other: +1 pitting edema to the right lower extremity. Trace edema to the left ankle and left foot. DP pulses 2+ bilaterally. Lower extremities warm and dry. Psych: Mental Status: mental status grossly normal Affect: normal affect Other: Good insight and judgment, pleasant H&P: Results Labs Labs: Short CBC 01/06/25 Range/Units 08:28 WBC 10.8 H (4.5-10.0) K/mm3 Hgb 11.1 L (12.0-15.0) g/dL Hct 35.4 L (37.0-47.0) % Plt Count 208 D (150-375) k/mm3 BMP 01/06/25 08:28 Sodium 136 L Potassium 4.4 Chloride 98 Carbon Dioxide 22 BUN 24 H D Creatinine 1.15 H Glucose 134 H Calcium 10.0 Cardiac Enzymes 01/06/25 01/06/25 Range/Units 08:28 11:54 Troponin I 0.072 H* 0.074 H* (0.000-0.034) ng/mL Liver Function 01/06/25 Range/Units 08:28 Total Bilirubin 0.6 (0.2-1.3) mg/dL AST 72 H (14-36) U/L ALT 30 (6-35) U/L Alkaline Phosphatase 103 (38-126) U/L Albumin 3.7 (3.5-5.1) g/dL Urine 01/06/25 Range/Units 11:14 Urine Color Yellow (Yellow) Urine Appearance Clear (Clear) Urine pH 5.5 (5.0-9.0) Ur Specific [place] 1.012 (1.001-1.035) Urine Protein Negative (Negative) mg/dL Urine Glucose (UA) Negative (Negative) mg/dL Assessment and Plan Assessment and plan (1) DVT (deep venous thrombosis): Qualifiers: Chronicity: acute DVT location: lower extremity Affected thrombotic vein of extremity: femoral Laterality: right Qualified Code(s): I82.411 - Acute embolism and thrombosis of right femoral vein Code(s): I82.409 - Acute embolism and thrombosis of unspecified deep veins of unspecified lower extremity Status: Acute Assessment and Plan: Here with 3 days of swelling to BLE, R worse than L. US of the RLE showed a DVT of the common femoral vein through calf veins. Started on Eliquis 10 mg b.i.d. in the ED on 01/06. Patient's lactic and troponin are elevated, will check V/Q scan to rule out PE and ultrasound of the left lower extremity given there is some mild swelling to her left foot and ankle on exam. Troponin thus far flat, denies chest pain, hemoptysis, or shortness of breath. Does have mild tachycardia and mild tachypnea. No respiratory distress on exam. DVT likely related to tamoxifen use and new change in activity level, has been more sedentary for the past 2 weeks. Denies any recent surgery, long travel, or active malignancy. No previous history of DVT. (2) Angioedema: Qualifiers: Encounter type: initial encounter Qualified Code(s): T78.3XXA - Angioneurotic edema, initial encounter Code(s): T78.3XXA - Angioneurotic edema, initial encounter Status: Acute Assessment and Plan: Patient is on lisinopril 5 mg daily for years. Recently developed bilateral lower lip swelling x3 days. She denies any associated shortness of breath, tongue swelling, or throat swelling. No respiratory distress on exam. Lisinopril discontinued and listed as allergy. Will give famotidine and Benadryl now. Benadryl p.r.n. and place. Monitor airway. (3) Elevated lactic acid level: Code(s): R79.89 - Other specified abnormal findings of blood chemistry Status: Acute Assessment and Plan: Initial lactic 8.2, repeat 5.1. No other complaints beyond lower extremity swelling, lower lip swelling, and generalized weakness. CXR showed no acute cardiopulmonary pathology. Very mild leukocytosis, WBC 10.8. Reviewed vital signs from the ED, initial heart rate mildly elevated at 101 and patient has been intermittently to give next since arrival (20-28). Checking V/Q scan to rule out PE. DVT could be etiology for patient's elevated lactic, will rule out other sites. Start gentle IV fluids. Low suspicion for infection. Will additionally check procalcitonin with repeat lactic this evening. Monitor WBC. (4) CKD (chronic kidney disease): Qualifiers: Chronic kidney disease stage: stage 3 (moderate) Chronic kidney disease stage 3 subtype: stage 3a (GFR 45-59) Qualified Code(s): N18.31 - Chronic kidney disease, stage 3a Code(s): N18.9 - Chronic kidney disease, unspecified Status: Chronic Assessment and Plan: Patient has history of mild CKD stage III. Creatinine 1.15, BUN 24, GFR 45 upon admission. At baseline. - monitor renal function - monitor electrolytes, correct as needed (5) Hypertension: Qualifiers: Hypertension type: primary hypertension Qualified Code(s): I10 - Essential (primary) hypertension Code(s): I10 - Essential (primary) hypertension Status: Chronic Assessment and Plan: - chronic, currently 126/62. Stable. - lisinopril discontinued due to concern for angioedema, reporting lower lip swelling x3 days. Obtaining V/Q scan and will additional lower extremity venous study. May need echo if patient has PE. Will await further workup for starting alternative blood pressure medication. Will monitor blood pressure off of lisinopril while inpatient. Plan Diet: Heart healthy GI Prophylaxis: N/a DVT Prophylaxis: Eliquis IV fluids: LR 100 mL/hour x1 L Lines/Tubes: Peripheral IV Code Status: Full code Quality VTE Prophylaxis VTE prophylaxis: pharmacologic ordered Hospitalist MIPS Advance Care Plan I have confirmed that the patient's Advanced Care Plan is present, code status is documented, or surrogate decision maker is listed in patient medical record.: Yes Medication Reconciliation I have utilized all available resources to obtain, update and review the patients current medications (includes all prescriptions, OTC, herbals, cannabis, and nutritional supplements).: Yes
--- NOTE | 2025-01-06 12:58 | ADMGEN ---
This patient, Shelley Cole, was admitted to IMU Room 203-01. Patient/family oriented to hospital policies and general routines including ID bracelet, bed and alarms, visiting hours, pain management, procedures, bathroom and other care routines, personal items, smoking policy, room service/diet, and visiting hours. Information on how to activate the Rapid Response Team has been discussed. Patient/Family are encouraged to report perceived risks to care and to ask questions if they do not understand what they are told or what they should do.
[2025-01-06] MEDS: FAMOTIDINE 20 MG TABLET PO (14:58)
[2025-01-06] MEDS: LACTATED RINGERS 1,000 ML 100 ML IV CONT (14:58)
[2025-01-06] MEDS: TAMOXIFEN CITRATE (*CHEMO) 10 MG TABLET 20 MG PO (14:59)
[2025-01-06 15:31] LABS: Troponin I 0.065 ng/mL (0.000-0.034)
[2025-01-06] MEDS: CALCIUM CITRATE 315 MG/VITAMIN D 6.25 MCG (250 UNITS) TAB 2 TABLET PO (17:38)
[2025-01-06 17:39] LABS: Procalcitonin 0.3 ng/mL
[2025-01-07] VITALS (16 sets, daily range): BP systolic 108–139; BP diastolic 48–62; PULSE 73–99; RESP 14–18; TEMP 36.6–37.1; O2SAT 93–96
--- NOTE | 2025-01-07 | ECHO_ITS ---
Patient Info Name: Shelley Cole Age: 79 years : 1945 Gender: Female Ht: 65 in Wt: 136 lbs BSA: 1.69 m2 BP: 127 / 60 mmHg Exam Date: 01/07/2025 12:52 PM Patient Status: O Admit Date: 01/06/2025 Exam Type: CA echo doppler color flow Staff Referring Physician: Evonne Brower Attending Provider: Denilson Jackson Summary 1. There is normal biventricular size and systolic function. 2. There are no significant valvular abnormalities. 3. There is mild pulmonary hypertension. Left Ventricle The left ventricle is normal in size and systolic function. The left ventricular ejection fraction is visually estimated to be 60-65%. Right Ventricle The right ventricle is normal in size and systolic function. Left Atria The left atrium is normal size. Right Atria The right atrium is normal size. Atrial Septum The atrial septum is visually intact. Aortic Valve The aortic valve is trileaflet and sclerotic. There is no aortic stenosis. There is no aortic regurgitation. Pulmonic Valve The pulmonic valve is not well visualized. Mitral Valve The mitral valve is normal. There is no mitral regurgitation. Tricuspid Valve The tricuspid valve is normal. There is mild tricuspid regurgitation. Pulmonary Arteries There is mild pulmonary hypertension. Pericardium/Pleural Pericardium is normal in appearance with no evidence for significant pericardial effusion. Inferior Vena Cava Inferior vena cava is not well visualized. Aorta The aortic root at the level of the sinus of Valsalva measures 3.0 cm in diameter. Left Ventricular Outflow Tract Name Value Normal LVOT 2D LVOT Diameter 2.1 cm LVOT Doppler LVOT Peak Velocity 140 cm/s LVOT Peak Gradient 8 mmHg LVOT Mean Gradient 3 mmHg LVOT VTI 26 cm LVOT VTI/AV VTI Ratio 1.0 LVOT Stroke Volume 92 ml LVOT CO 7.5 l/min LVOT CI 4.4 l/min/m2 Pulmonic Valve Name Value Normal PV Doppler PV Peak Velocity 117 cm/s PV Peak Gradient 6 mmHg PV Mean Gradient 3 mmHg Mitral Valve Name Value Normal MV Doppler MV Peak Gradient 7 mmHg MV Mean Gradient 3 mmHg MV Area (Cont Eq VTI) 3.8 cm2 MV Diastolic Function MV E Peak Velocity 66 cm/s MV A Peak Velocity 121 cm/s MV E/A 0.5 MV Decel Time (PW) 265 ms MV Annular TDI MV E/e' (Septal) 7.4 MV E/e' (Lateral) 8.0 MV E/e' (Average) 7.7 Tricuspid Valve Name Value Normal TV Regurgitation Doppler TR Peak Velocity 312 cm/s TR Peak Gradient 39 mmHg Estimated PAP/RSVP RA Pressure 10 mmHg <=5 PA Systolic Pressure 49 mmHg <36 RV Systolic Pressure 49 mmHg <36 TV Annular TDI TV Lateral Lindy s' Velocity 16.9 cm/s >=9.5 Aortic Valve Name Value Normal AV Doppler AV Peak Velocity 175 cm/s AV Peak Gradient 12 mmHg AV Mean Gradient 6 mmHg AV VTI 27 cm AV Area (Cont Eq VTI) 3.4 cm2 >=3.0 AV Area (Cont Eq Yovani) 2.8 cm2 AV DI (Yovani) 0.80 AV Regurgitation 2D LVOT Area 3.5 cm2 Ventricles Name Value Normal LV Dimensions 2D/MM IVS Diastolic Thickness (2D) 1.0 cm 0.6-1.0 LVID Diastole (2D) 4.2 cm 3.8-5.2 LVIW Diastolic Thickness (2D) 1.1 cm 0.6-0.9 LVID Systole (2D) 3.0 cm 2.2-3.5 LVOT Diameter 2.1 cm LV Mass (2D Cubed) 148.55 g 67.00-162.00 LV Mass Index (2D Cubed) 88 g/m2 43-95 Relative Wall Thickness (2D) 0.52 <=0.42 LV Fractional Shortening/Ejection Fraction 2D/MM LV Fractional Shortening (2D) 29 % 27-45 LV EF (2D Teichholz) 57 % LV Diastolic Volume (4C MOD) 50 ml LV EF (4C MOD) 69 % LV Diastolic Volume (2C MOD) 39 ml LV EF (2C MOD) 63 % LV Diastolic Volume (BP MOD) 44 ml 46-106 LV Diastolic Volume Index (BP MOD) 26 ml/m2 29-61 LV Systolic Volume (BP MOD) 15 ml 14-42 LV Systolic Volume Index (BP MOD) 9 ml/m2 8-24 LV EF (BP MOD) 66 % 54-74 LV Diastolic Length (4C) 6.6 cm LV Systolic Length (4C) 4.9 cm LV Stroke Volume (4C MOD) 35 ml Atria Name Value Normal LA Dimensions LA Volume (4C A-L) 26 ml LA Volume (BP A-L) 33 ml RA Dimensions RA Systolic Major [place] Length (4C) 5.2 cm 2.2-2.8 RA Area (4C) 14.9 cm2 <=18.0 Report Signatures
[2025-01-07 03:53] LABS: Hematocrit 27.5 % (37.0-47.0); Hemoglobin 8.6 g/dL (12.0-15.0); Immature Granulocyte Percent A 9.9 % (0-0.5); Lymphocytes Absolute Auto 1.48 K/mm3 (0.9-3.2); Mean Corpuscular HGB Conc 31.3 g/dl (32-36); Mean Corpuscular Hemoglobin 31.4 pg (26-34); Mean Corpuscular Volume 100.4 fl (80-100); Nucleated Red Blood Cells Absolute Auto 0.080 K/mm3 (0.0-0.012); Nucleated Red Blood Cells Perc 1.2 % (0.0-0.2); Platelet Count Result 154 k/mm3 (150-375); Red Blood Count 2.74 M/mm3 (4.2-5.4); White Blood Count 6.6 K/mm3 (4.5-10.0)
[2025-01-07 04:06] LABS: Anion Gap 7 mmol/L (4-12); Blood Urea Nitrogen 20 mg/dL (7-17); Calcium 9.4 mg/dL (8.4-10.2); Carbon Dioxide 25 mmol/L (22-30); Chloride 103 mmol/L (98-107); Estimated CRCL calculation 37 ml/min; Estimated Glomerular Filt Rate 56; Glucose 78 mg/dL (65-110); Potassium 4.1 mmol/L (3.4-5.0); Sodium 135 mmol/L (137-145)
[2025-01-07] MEDS: LACTATED RINGERS 1,000 ML 100 ML IV CONT ×2 (05:42→15:04)
--- NOTE | 2025-01-07 07:59 | P.PNIM_ITS ---
Progress Note: A&P Assessment and Plan (1) Pulmonary emboli: Code(s): I26.99 - Other pulmonary embolism without acute cor pulmonale Status: Acute Assessment and Plan: - CTA chest with +pulmonary emboli in the RLL and lower most portion of the right interlobar artery - continue Eliquis - given elevated trop, BNP and LA, consulted cardio - echo pending - patient follows with oncology given history of breast cancer on Tamoxifen - oncology consulted (2) DVT (deep venous thrombosis): Qualifiers: Affected thrombotic vein of extremity: femoral Chronicity: acute DVT location: lower extremity Laterality: right Qualified Code(s): I82.411 - Acute embolism and thrombosis of right femoral vein Code(s): I82.409 - Acute embolism and thrombosis of unspecified deep veins of unspecified lower extremity Status: Acute Assessment and Plan: Here with 3 days of swelling to BLE, R worse than L. US of the RLE showed a DVT of the common femoral vein through calf veins. DVT likely related to tamoxifen use and new change in activity level, has been more sedentary for the past 2 weeks. Denies any recent surgery, long travel, or active malignancy. No previous history of DVT. Started on Eliquis 10 mg b.i.d. in the ED on 01/06. - Continue Eliquis 10 mg BID (3) Angioedema: Qualifiers: Encounter type: initial encounter Qualified Code(s): T78.3XXA - Angioneurotic edema, initial encounter Code(s): T78.3XXA - Angioneurotic edema, initial encounter Status: Acute Assessment and Plan: -Patient has been on lisinopril 5 mg daily for years. Recently developed bilateral lower lip swelling x3 days. She denies any associated shortness of breath, tongue swelling, or throat swelling. No respiratory distress on exam. - received famotidine and Benadryl with improvement, continued today - Lisinopril discontinued and listed as allergy. (4) Elevated lactic acid level: Code(s): R79.89 - Other specified abnormal findings of blood chemistry Status: Acute Assessment and Plan: - Very mild leukocytosis, WBC 10.8. Reviewed vital signs from the ED, initial heart rate mildly elevated at 101 and patient has been intermittently to give next since arrival (20-28). Start gentle IV fluids. Low suspicion for infection. -Initial lactic 8.2, repeat 5.9. Continue to trend -No other complaints beyond lower extremity swelling, lower lip swelling, and generalized weakness. - CXR showed no acute cardiopulmonary pathology. - UA negative for infection - blood cultures ordered 01/07 - Lactic acidosis likely due to PE (5) CKD (chronic kidney disease): Qualifiers: Chronic kidney disease stage: stage 3 (moderate) Chronic kidney disease stage 3 subtype: stage 3a (GFR 45-59) Qualified Code(s): N18.31 - Chronic kidney disease, stage 3a Code(s): N18.9 - Chronic kidney disease, unspecified Status: Chronic Assessment and Plan: Patient has history of mild CKD stage III. Creatinine 1.15, BUN 24, GFR 45 upon admission. At baseline. - monitor renal function - monitor electrolytes, correct as needed (6) Hypertension: Qualifiers: Hypertension type: primary hypertension Qualified Code(s): I10 - Essential (primary) hypertension Code(s): I10 - Essential (primary) hypertension Status: Chronic Assessment and Plan: - chronic, currently 126/62. Stable. - lisinopril discontinued due to concern for angioedema, reporting lower lip swelling x3 days. - Will monitor blood pressure off of lisinopril while inpatient. (7) Elevated troponin: Code(s): R79.89 - Other specified abnormal findings of blood chemistry Status: Acute Assessment and Plan: - trop I 0.072, 0.074, 0.065 - EKG with NSR, no acute ST changes - CTA chest with PE as above - no plans for further ischemic work-up per cardiology Subjective Date/time seen: 01/07/25 07:59 Interval history: Patient seen and examined at bedside. States lip swelling improved. Also feels RLE swelling has improved. Denies chest pain, SOB, nausea, vomiting, fevers, chills. Discussed plan of care with patient and family at bedside. Review of Systems Review of Systems: All systems reviewed & are unremarkable except as noted in HPI and below Exam Narrative: General: NAD Eyes: EOMI ENT: neck supple, mild edema of lower lip. No tongue swelling. Maintaining secretions Cardiovascular: Regular rate and rhythm Respiratory: Clear to auscultation, respirations even and unlabored on RA Gastrointestinal: Soft, non tender Genitourinary: no suprapubic tenderness Musculoskeletal: 1-2+ pitting edema RLE Skin: warm, dry Neuro: Alert. Psych: Mood appropriate Objective Data Vital Signs Vital Signs: Vital Signs - 24 hr 01/06/25 08:12 01/06/25 08:15 01/06/25 08:31 Temperature 98.6 F Pulse Rate 101 H 93 90 Respiratory Rate 16 22 H 22 H Blood Pressure 123/98 H 123/58 L 119/61 Pulse Oximetry 97 96 92 Oxygen Delivery Room Air 01/06/25 08:46 01/06/25 09:01 01/06/25 09:31 Temperature Pulse Rate 91 89 86 Respiratory Rate 24 H 22 H 20 Blood Pressure 122/64 122/61 125/61 Pulse Oximetry 94 94 96 Oxygen Delivery 01/06/25 10:31 01/06/25 10:46 01/06/25 11:01 Temperature Pulse Rate 83 90 81 Respiratory Rate 25 H 22 H 24 H Blood Pressure 119/63 137/70 114/63 Pulse Oximetry 93 96 94 Oxygen Delivery 01/06/25 12:07 01/06/25 13:09 01/06/25 14:00 Temperature 98.0 F 97.6 F Pulse Rate 87 91 Respiratory Rate 28 H 18 Blood Pressure 126/62 119/81 Pulse Oximetry 94 95 Oxygen Delivery Room Air 01/06/25 16:00 01/06/25 16:00 01/06/25 16:12 Temperature 97.6 F Pulse Rate 85 84 Respiratory Rate 16 Blood Pressure 131/54 L Pulse Oximetry 94 Oxygen Delivery Room Air 01/06/25 19:40 01/06/25 20:00 01/06/25 20:00 Temperature Pulse Rate 88 86 Respiratory Rate 15 Blood Pressure 115/65 Pulse Oximetry 95 Oxygen Delivery Room Air 01/06/25 22:00 01/06/25 23:36 01/07/25 00:00 Temperature 98.8 F Pulse Rate 87 85 Respiratory Rate 16 Blood Pressure 112/52 L Pulse Oximetry 94 Oxygen Delivery Room Air 01/07/25 00:00 01/07/25 02:00 01/07/25 04:00 Temperature 98.6 F Pulse Rate 78 73 77 Respiratory Rate 16 Blood Pressure 108/48 L Pulse Oximetry 93 Oxygen Delivery 01/07/25 04:00 01/07/25 04:00 01/07/25 06:00 Temperature Pulse Rate 77 81 Respiratory Rate Blood Pressure Pulse Oximetry Oxygen Delivery Room Air 01/07/25 07:49 Temperature 97.9 F Pulse Rate 84 Respiratory Rate 18 Blood Pressure 127/60 Pulse Oximetry 94 Oxygen Delivery Intake/Output Intake/Output: Intake & Output 01/04/25 01/05/25 01/06/25 01/07/25 23:59 23:59 23:59 23:59 Intake Total 730 1000 Output Total 500 850 Balance 230 150 Meds/Results Medications: Active Medications Generic Name Dose Route Start Last Admin Trade Name Freq PRN Reason Stop Dose Admin Acetaminophen 650 mg 01/06/25 12:59 Acetaminophen 325 Mg Tablet PO Q4H PRN Mild Pain (1-3) or Fever Hydrocodone Bitart/Acetaminophen 1 tab 01/06/25 12:59 Hydrocodone/Acetaminophen (*Crx) 5-325 Mg Tablet PO Q4H PRN Moderate Pain (4-6) Alendronate Sodium 70 mg 01/15/25 09:00 Alendronate Sodium 70 Mg Tablet PO WEEKLY MIGUEL Apixaban 10 mg 01/06/25 10:55 01/06/25 20:12 Apixaban 5 Mg Tablet PO 10 mg Q12HR MIGUEL Administration Ascorbic Acid 500 mg 01/07/25 09:00 Ascorbic Acid 500 Mg Tablet PO DAILY MIGUEL Bisacodyl 5 mg 01/06/25 12:59 Bisacodyl 5 Mg Tablet Ec PO DAILY PRN Constipation Calcium Citrate 2 tablet 01/06/25 17:00 01/06/25 17:38 Calcium Citrate 315 Mg/Vitamin D 6.25 Mcg (250 Units) Tab PO 2 tablet BID MIGUEL Administration Diphenhydramine HCl 25 mg 01/06/25 13:46 Diphenhydramine Hcl Inj 50 Mg/Ml Vial IV PUSH Q4H PRN Allergic Reaction, Angioedema Lactated Ringer's 1,000 mls @ 100 mls/hr 01/07/25 04:55 01/07/25 05:42 Lr - Lactated Ringers Iv IV CONT 100 mls/hr .Q10H MIGUEL Administration Multivitamins/Minerals 1 tablet 01/07/25 09:00 Opti-Gen Tab PO DAILY MIGUEL Naloxone HCl 0.1 mg 01/06/25 12:59 Naloxone Hcl 0.4 Mg/Ml Vial IV PUSH Q2M PRN Opiate Reversal Non-Formulary Medication 1 each 01/07/25 09:00 Nonformulary Nutritional Supplement XX 01/08/25 08:59 DAILY [facility] Ondansetron HCl 4 mg 01/06/25 12:59 Ondansetron Inj 4 Mg/2 Ml Vial IV PUSH Q6H PRN Nausea And Vomiting Tamoxifen Citrate 20 mg 01/07/25 15:00 Tamoxifen Citrate (*Chemo) 10 Mg Tablet PO Q24H [facility] Vitamin B Complex 1 cap 01/07/25 09:00 Vitamin B Complex Capsule PO DAILY [facility] Radiology Results: ITS Impressions Chest X-Ray 01/06/25 09:31 IMPRESSION: 1. No acute cardiopulmonary findings. Pulmonary Perfusion Imaging 01/06/25 14:34 IMPRESSION: Intermediate probability scan for presence of pulmonary emboli. Venous Doppler Study 01/06/25 15:03 IMPRESSION: 1. No deep venous thrombosis in the left lower limb. Labs Labs: Laboratory Results - last 24 hr 01/06/25 01/06/25 01/06/25 08:28 11:14 11:23 WBC 10.8 H RBC 3.54 L Hgb 11.1 L Hct 35.4 L MCV 100.0 MCH 31.4 MCHC 31.4 L RDW 14.0 Plt Count 208 D MPV 10.6 H Immature Gran % (Auto) 13.0 H Neut % (Auto) 58.6 Lymph % (Auto) 19.3 [place] % (Auto) 8.2 Eos % (Auto) 0.3 Baso % (Auto) 0.6 Lymph # (Auto) 2.08 [place] # (Auto) 0.9 H Eos # (Auto) 0.0 Baso # (Auto) 0.1 Abs Immat Gran (auto) 1.40 H Absolute Neuts (auto) 6.3 Absolute Nucleated RBC 0.090 H Nucleated RBC % 0.8 H PT 13.2 INR 1.0 APTT 30.0 Sodium 136 L Potassium 4.4 Chloride 98 Carbon Dioxide 22 Anion Gap 16 H BUN 24 H D Creatinine 1.15 H Estim Creat Clear Calc 27 Estimated GFR 45 L Glucose 134 H Lactic Acid 8.2 H* 5.1 H* Calcium 10.0 Total Bilirubin 0.6 AST 72 H ALT 30 Alkaline Phosphatase 103 Troponin I 0.072 H* NT-Pro-B Natriuret Pep 1000 H Total Protein 6.3 Albumin 3.7 Procalcitonin Urine Color Yellow Urine Appearance Clear Urine pH 5.5 Ur Specific [place] 1.012 Urine Protein Negative Urine Glucose (UA) Negative Urine Ketones 1+ H Ur Blood (Man) Negative Urine Nitrate Negative Urine Bilirubin Negative Urine Urobilinogen 0.2 Leukocyte Esterase Rfl Negative Influenza A (RT-PCR) Negative Influenza B (RT-PCR) Negative RSV (RT-PCR) Negative SARS-CoV-2 RNA (RT-PCR) Negative 01/06/25 01/06/25 01/06/25 11:54 14:59 16:59 WBC RBC Hgb Hct MCV MCH MCHC RDW Plt Count MPV Immature Gran % (Auto) Neut % (Auto) Lymph % (Auto) [place] % (Auto) Eos % (Auto) Baso % (Auto) Lymph # (Auto) [place] # (Auto) Eos # (Auto) Baso # (Auto) Abs Immat Gran (auto) Absolute Neuts (auto) Absolute Nucleated RBC Nucleated RBC % PT INR APTT Sodium Potassium Chloride Carbon Dioxide Anion Gap BUN Creatinine Estim Creat Clear Calc Estimated GFR Glucose Lactic Acid 5.8 H* Calcium Total Bilirubin AST ALT Alkaline Phosphatase Troponin I 0.074 H* 0.065 H* NT-Pro-B Natriuret Pep Total Protein Albumin Procalcitonin 0.3 Urine Color Urine Appearance Urine pH Ur Specific [place] Urine Protein Urine Glucose (UA) Urine Ketones Ur Blood (Man) Urine Nitrate Urine Bilirubin Urine Urobilinogen Leukocyte Esterase Rfl Influenza A (RT-PCR) Influenza B (RT-PCR) RSV (RT-PCR) SARS-CoV-2 RNA (RT-PCR) 01/07/25 01/07/25 03:43 07:29 WBC 6.6 RBC 2.74 L Hgb 8.6 L Hct 27.5 L MCV 100.4 H MCH 31.4 MCHC 31.3 L RDW 14.3 Plt Count 154 MPV 9.9 Immature Gran % (Auto) 9.9 H Neut % (Auto) 57.7 Lymph % (Auto) 22.6 [place] % (Auto) 8.7 H Eos % (Auto) 0.3 Baso % (Auto) 0.8 Lymph # (Auto) 1.48 [place] # (Auto) 0.6 Eos # (Auto) 0.0 Baso # (Auto) 0.1 Abs Immat Gran (auto) 0.65 H Absolute Neuts (auto) 3.8 Absolute Nucleated RBC 0.080 H Nucleated RBC % 1.2 H PT INR APTT Sodium 135 L Potassium 4.1 Chloride 103 Carbon Dioxide 25 Anion Gap 7 BUN 20 H Creatinine 0.95 Estim Creat Clear Calc 37 Estimated GFR 56 L Glucose 78 Lactic Acid 7.1 H* 5.9 H* Calcium 9.4 Total Bilirubin AST ALT Alkaline Phosphatase Troponin I NT-Pro-B Natriuret Pep Total Protein Albumin Procalcitonin Urine Color Urine Appearance Urine pH Ur Specific [place] Urine Protein Urine Glucose (UA) Urine Ketones Ur Blood (Man) Urine Nitrate Urine Bilirubin Urine Urobilinogen Leukocyte Esterase Rfl Influenza A (RT-PCR) Influenza B (RT-PCR) RSV (RT-PCR) SARS-CoV-2 RNA (RT-PCR) Quality VTE Prophylaxis VTE prophylaxis: pharmacologic ordered
[2025-01-07] MEDS: OPTI-GEN TAB 1 TABLET PO (08:29)
[2025-01-07] MEDS: CALCIUM CITRATE 315 MG/VITAMIN D 6.25 MCG (250 UNITS) TAB 2 TABLET PO ×2 (08:29→16:02)
[2025-01-07] MEDS: VITAMIN B COMPLEX CAPSULE 1 CAP PO (08:29)
[2025-01-07] MEDS: APIXABAN 5 MG TABLET 10 MG PO ×2 (08:29→21:29)
[2025-01-07] MEDS: ASCORBIC ACID 500 MG TABLET PO (08:29)
[2025-01-07 08:30] LABS: NT Pro B Type Natriuretic Pept 1300 pg/mL (19.9-100)
[2025-01-07 09:52] LABS: Hematocrit 28.2 % (37.0-47.0); Hemoglobin 8.7 g/dL (12.0-15.0)
--- NOTE | 2025-01-07 10:39 | PCPTNOTE ---
attempted PT eval, pt away from room getting imaging done, will follow
[2025-01-07] MEDS: FAMOTIDINE 20 MG TABLET PO ×2 (10:43→21:29)
[2025-01-07] MEDS: diphenhydrAMINE HCl CAP 25 MG CAPSULE PO (10:43)
--- NOTE | 2025-01-07 12:19 | PM.CNCAR ---
Assessment and Plan Assessment and plan (1) Elevated troponin: Code(s): R79.89 - Other specified abnormal findings of blood chemistry Status: Acute Assessment and Plan: Troponin levels are 0.072, 0.074, 0.065. This trend is not consistent with acute coronary syndrome. Furthermore, she is not experiencing any anginal symptoms. EKG does not show any ischemic ST-T wave changes. Elevated troponin levels are related to pulmonary emboli and lactic acidosis. (2) Pulmonary emboli: Code(s): I26.99 - Other pulmonary embolism without acute cor pulmonale Status: Acute Assessment and Plan: Continue heparin. Can be switched to DOAC. Will check an echocardiogram to evaluate for any right heart strain. If echocardiogram unremarkable, Cardiology will sign off. (3) Hypertension: Qualifiers: Hypertension type: primary hypertension Qualified Code(s): I10 - Essential (primary) hypertension Code(s): I10 - Essential (primary) hypertension Status: Chronic Assessment and Plan: At goal. (4) DVT (deep venous thrombosis): Qualifiers: Affected thrombotic vein of extremity: femoral Chronicity: acute DVT location: lower extremity Laterality: right Qualified Code(s): I82.411 - Acute embolism and thrombosis of right femoral vein Code(s): I82.409 - Acute embolism and thrombosis of unspecified deep veins of unspecified lower extremity Status: Acute Assessment and Plan: Continue heparin. History of Present Illness History of Present Illness Consult date/time: 01/07/25 12:19 Requesting physician: Leila Flynn PA Consult reason: Other (elevated troponin) Reason For Visit: DVT Narrative: Shelley Cole is an 79 year old female with history of breast cancer (status post lung lobectomy of the right breast, on tamoxifen), hypertension, chronic kidney disease. This is a patient who presents to the hospital with a chief complaint of bilateral leg swelling. She has been found to have right femoral DVT as well as pulmonary emboli. Cardiology is consulted because of elevated troponin levels and elevated BNP. Patient denies any chest pain currently or prior to admission. She denies shortness of breath, palpitations, syncope. As mentioned above she did have bilateral leg swelling which has resolved. No active complaints at the time of my visit Review of Systems Constitutional: Constitutional: Denies chills, Denies fever(s), Denies headache(s) and Denies malaise Eyes: Eyes: Denies change in vision ENT: Reports Normal hearing present, Denies dizziness, Denies headache(s) and Denies hearing loss Cardiovascular: Cardiovascular: Denies chest pain, Denies chest pain at rest, Denies chest pain with activity, Denies syncope, Denies leg edema, Denies palpitations, Denies dyspnea and Denies dyspnea on exertion Respiratory: Respiratory: Denies cough, Denies dyspnea, Denies dyspnea on exertion and Denies wheezing Gastrointestinal: Gastrointestinal: Denies abdominal pain, Denies constipation and Denies diarrhea Genitourinary: Genitourinary: Denies hematuria and Denies dysuria Musculoskeletal: Musculoskeletal: Denies myalgias, Denies arthralgias and Denies muscle cramps Integumentary/Breasts: Skin/Breast: Denies wounds Neurologic: Reports Normal hearing present, Denies confusion, Denies dizziness, Denies syncope and Denies headache(s) Psychiatric: Psychiatric: Denies anxiety, Denies confusion and Denies depression Endocrine: Endocrine: Denies cold intolerance, Denies flushing, Denies heat intolerance and Denies palpitations Hematologic/Lymphatic: Hematologic/Lymphatic: Denies easy bleeding and Denies easy bruising Allergic/Immunologic: Allergic/Immunologic: Denies wheezing PMFSH Past Medical History Medical History Hyponatremia Anemia 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), 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 CKD (chronic kidney disease) Hypertension Surgical History Surgical History Status post right breast lumpectomy History of cataract extraction with lens replacement History of tubal ligation Family History Family History Father Bladder cancer Mother Hypertension Sibling Ovarian cancer Hypertension Other Hypertension Social History Social History Smoking status: Never smoker Alcohol intake: never Substance use: never Substance use type: does not use Lack of Transportation: No Lack of Food: Never True Current Housing: I Have Housing Concerned About Future Housing: No Difficulty Paying Gas/Electric Bills: No Difficulty Paying for Meds: No Currently Unemployed: No Education: Don't Know Difficulty w/ Childcare or Family Care: No Living arrangements: with family Additional living arrangements comments: [facility] Gender identity (if verbalized by the patient): Female Sexual Orientation (if Verbalized by the Patient): Straight or Heterosexual Spiritual care concerns: No Meds Home Medications and Allergies Home Medications ?Medication ?Instructions ?Recorded ?Confirmed ?Type ascorbate calcium (vitamin C) 500 500 mg PO DAILY 10/08/22 01/06/25 History mg tablet calcium 250 mg (as 2 tablet PO BID 10/08/22 01/06/25 History citrate)-vitamin D3 5 mcg (200 unit) tablet lisinopril 5 mg tablet 5 mg PO QPM 10/08/22 01/06/25 History ifzsxznoatsd-iitslslw-dnlecr tablet 1 tablet PO DAILY 10/08/22 01/06/25 History vitamin B complex (B 1 tablet PO DAILY 10/08/22 01/06/25 History Complex-Vitamin B12 tablet) glucosamine sulf dipot 1 cap PO DAILY 10/24/22 01/06/25 History chlr,msm,chond 550 mg-C 30 mg-ashley 1 mg capsule (Glucosamine Chondroitin) alendronate 70 mg tablet 70 mg PO WEEKLY 12/16/23 01/06/25 History tamoxifen 20 mg tablet 20 mg PO DAILY 12/16/23 01/06/25 History Allergies Allergy/AdvReac Type Severity Reaction Status Date / Time lisinopril Allergy Severe angioedema Verified 01/06/25 13:38 Vital Signs Vital Signs - 24 hr 01/06/25 13:09 01/06/25 14:00 01/06/25 16:00 Temperature 36.4 C Pulse Rate 91 Respiratory Rate 18 Blood Pressure 119/81 Pulse Oximetry 95 Oxygen Delivery Room Air Room Air 01/06/25 16:00 01/06/25 16:12 01/06/25 19:40 Temperature 36.4 C Pulse Rate 85 84 88 Respiratory Rate 16 15 Blood Pressure 131/54 L 115/65 Pulse Oximetry 94 95 Oxygen Delivery 01/06/25 20:00 01/06/25 20:00 01/06/25 22:00 Temperature Pulse Rate 86 87 Respiratory Rate Blood Pressure Pulse Oximetry Oxygen Delivery Room Air 01/06/25 23:36 01/07/25 00:00 01/07/25 00:00 Temperature 37.1 C Pulse Rate 85 78 Respiratory Rate 16 Blood Pressure 112/52 L Pulse Oximetry 94 Oxygen Delivery Room Air 01/07/25 02:00 01/07/25 04:00 01/07/25 04:00 Temperature 37.0 C Pulse Rate 73 77 Respiratory Rate 16 Blood Pressure 108/48 L Pulse Oximetry 93 Oxygen Delivery Room Air 01/07/25 04:00 01/07/25 06:00 01/07/25 07:49 Temperature 36.6 C Pulse Rate 77 81 84 Respiratory Rate 18 Blood Pressure 127/60 Pulse Oximetry 94 Oxygen Delivery 01/07/25 08:00 01/07/25 10:00 01/07/25 11:08 Temperature Pulse Rate 85 85 Respiratory Rate Blood Pressure Pulse Oximetry Oxygen Delivery Room Air 01/07/25 11:43 Temperature 36.8 C Pulse Rate 95 Respiratory Rate 18 Blood Pressure 129/55 L Pulse Oximetry 96 Oxygen Delivery Exam Const: General: comfortable, no acute distress, alert and awake Orientation/consciousness: patient oriented x3 HENMT: Head: normal to inspection Eyes: General: appearance normal, both eyes and all related structures Pupils: Equal, round and reactive pupils present Neck: Neck: normal visual inspection, supple and no JVD Carotids: normal carotid upstroke Resp: Effort & Inspection: normal respiratory effort Auscultation: clear to auscultation bilaterally Cardio: Rate: regular rate Rhythm: regular rhythm Heart sounds: S1 normal heart sound present, S2 normal heart sound present and no murmurs GI: Auscultation: normal bowel sounds Skin: General skin exam: normal color Neuro: General: patient oriented x3 Cranial nerves: Yes Equal, round and reactive pupils present Extrem: General: normal to inspection Psych: Appearance: grossly normal Mental Status: mental status grossly normal Results Labs and Meds 01/07/25 08:56 01/07/25 03:43 Lab results: Cardiac Enzymes 01/06/25 01/06/25 Range/Units 11:54 14:59 Troponin I 0.074 H* 0.065 H* (0.000-0.034) ng/mL CBC 01/07/25 01/07/25 Range/Units 03:43 08:56 WBC 6.6 (4.5-10.0) K/mm3 RBC 2.74 L (4.2-5.4) M/mm3 Hgb 8.6 L 8.7 L (12.0-15.0) g/dL Hct 27.5 L 28.2 L (37.0-47.0) % Plt Count 154 (150-375) k/mm3 Lymph # (Auto) 1.48 (0.9-3.2) K/mm3 [place] # (Auto) 0.6 (0.1-0.6) K/mm3 Eos # (Auto) 0.0 (0-0.3) K/mm3 Baso # (Auto) 0.1 (0.0-0.1) K/mm3 Comprehensive Metabolic Panel 01/07/25 Range/Units 03:43 Sodium 135 L (137-145) mmol/L Potassium 4.1 (3.4-5.0) mmol/L Chloride 103 (98-107) mmol/L Carbon Dioxide 25 (22-30) mmol/L BUN 20 H (7-17) mg/dL Creatinine 0.95 (0.7-1.0) mg/dL Glucose 78 (65-110) mg/dL Calcium 9.4 (8.4-10.2) mg/dL Intake and Output 01/06/25 01/07/25 01/07/25 23:59 07:59 15:59 Intake Total 490 1000 120 Output Total 500 850 600 Balance -10 150 -480 Intake: IV 1000 Lactated Ringers 1,000 ml @ 100 1000 mls/hr IV CONT .Q10H [facility] Rx#: [id number] Oral 490 120 Output: Urine 500 850 600 Patient Weight 01/07/25 23:59 Weight 61.7 kg
[2025-01-07] MEDS: TAMOXIFEN CITRATE (*CHEMO) 10 MG TABLET 20 MG PO (15:04)
--- NOTE | 2025-01-07 16:36 | WPDONCCN ---
Assessment and Plan Assessment and plan (1) Pulmonary emboli: Code(s): I26.99 - Other pulmonary embolism without acute cor pulmonale Status: Acute (2) DVT (deep venous thrombosis): Qualifiers: Affected thrombotic vein of extremity: femoral Chronicity: acute DVT location: lower extremity Laterality: right Qualified Code(s): I82.411 - Acute embolism and thrombosis of right femoral vein Code(s): I82.409 - Acute embolism and thrombosis of unspecified deep veins of unspecified lower extremity Status: Acute (3) DCIS (ductal carcinoma in situ) of breast: Code(s): D05.10 - Intraductal carcinoma in situ of unspecified breast Status: Acute Plan DVT/PE secondary to Tamoxifen and more sedentary lifestyle - Continue Eliquis 5 mg bid for 3-6 months or entire time she is on Tamoxifen. DCIS of breast - D/C Tamoxifen - Recommend Anastrazole but patient does not wish to start this drug due to her osteoporosis. She wishes to wait and speak with Dr. Jordan about it. - Therefore, recommend she remain off Tamoxifen and not begin Anastrazole until she can f/u with Dr. Jordan the week of 11/17/24. Tamoxifen may be okay as long as she is also on full dose anticoagulation but it is not ideal. Thank you. HPI Data of Consult Date/Time: 01/07/25 16:36 Requesting Physician: Sunil Jackson DO Primary Care Provider: Migel Michele, Consult Narrative Narrative: Shelley Cole is a 79 year old female with history of DCIS, s/p lumpectomy in 10/2022 and who is under the care of Dr. Jordan and currently taking Tamoxifen. She has a history of osteoporosis for which she takes Fosamax. She is admitted to the hospital with 3 days of swelling of the RLE>LLE. Venous doppler RLE (01/06/25): DVT common femoral vein through calf veins. CTA chest (01/07/25): Positive pulmonary embolus in the right lower lobe as well as the lower most portion of the right interlobar artery. Patient reports being more sedentary for the past 3 months. She reports having repeated episodes of ear infections as well as UTIs causing hernot to feel well. She was begun on Eliquis 10 mg bid on 01/06/25. Hematology/Oncology consulted for further evaluation and treatment recommendations. Review of Systems Constitutional: Comments: Feeling fairly well. 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 CKD (chronic kidney disease) Hypertension Surgical History Surgical History Status post right breast lumpectomy History of cataract extraction with lens replacement History of tubal ligation Family History Family History Father Bladder cancer Mother Hypertension Sibling Ovarian cancer Hypertension Other Hypertension Social History Social History Smoking status: Never smoker Alcohol intake: never Substance use: never Substance use type: does not use Lack of Transportation: No Lack of Food: Never True Current Housing: I Have Housing Concerned About Future Housing: No Difficulty Paying Gas/Electric Bills: No Difficulty Paying for Meds: No Currently Unemployed: No Education: Don't Know Difficulty w/ Childcare or Family Care: No Living arrangements: with family Additional living arrangements comments: HUSB Gender identity (if verbalized by the patient): Female Sexual Orientation (if Verbalized by the Patient): Straight or Heterosexual Spiritual care concerns: No Meds Home Medications and Allergies Home Medications ?Medication ?Instructions ?Recorded ?Confirmed ?Type ascorbate calcium (vitamin C) 500 500 mg PO DAILY 10/08/22 01/06/25 History mg tablet calcium 250 mg (as 2 tablet PO BID 10/08/22 01/06/25 History citrate)-vitamin D3 5 mcg (200 unit) tablet lisinopril 5 mg tablet 5 mg PO QPM 10/08/22 01/06/25 History gmcxnayzrepo-jlpqnozc-kgcqxv tablet 1 tablet PO DAILY 10/08/22 01/06/25 History vitamin B complex (B 1 tablet PO DAILY 10/08/22 01/06/25 History Complex-Vitamin B12 tablet) glucosamine sulf dipot 1 cap PO DAILY 10/24/22 01/06/25 History chlr,msm,chond 550 mg-C 30 mg-ashley 1 mg capsule (Glucosamine Chondroitin) alendronate 70 mg tablet 70 mg PO WEEKLY 12/16/23 01/06/25 History tamoxifen 20 mg tablet 20 mg PO DAILY 12/16/23 01/06/25 History Allergies Allergy/AdvReac Type Severity Reaction Status Date / Time lisinopril Allergy Severe angioedema Verified 01/06/25 13:38 Vital Signs Vital Signs - 24 hr 01/06/25 19:40 01/06/25 20:00 01/06/25 20:00 Temperature Pulse Rate 88 86 Respiratory Rate 15 Blood Pressure 115/65 Pulse Oximetry 95 Oxygen Delivery Room Air 01/06/25 22:00 01/06/25 23:36 01/07/25 00:00 Temperature 37.1 C Pulse Rate 87 85 Respiratory Rate 16 Blood Pressure 112/52 L Pulse Oximetry 94 Oxygen Delivery Room Air 01/07/25 00:00 01/07/25 02:00 01/07/25 04:00 Temperature 37.0 C Pulse Rate 78 73 77 Respiratory Rate 16 Blood Pressure 108/48 L Pulse Oximetry 93 Oxygen Delivery 01/07/25 04:00 01/07/25 04:00 01/07/25 06:00 Temperature Pulse Rate 77 81 Respiratory Rate Blood Pressure Pulse Oximetry Oxygen Delivery Room Air 01/07/25 07:49 01/07/25 08:00 01/07/25 10:00 Temperature 36.6 C Pulse Rate 84 85 85 Respiratory Rate 18 Blood Pressure 127/60 Pulse Oximetry 94 Oxygen Delivery 01/07/25 11:08 01/07/25 11:43 01/07/25 12:00 Temperature 36.8 C Pulse Rate 95 88 Respiratory Rate 18 Blood Pressure 129/55 L Pulse Oximetry 96 Oxygen Delivery Room Air 01/07/25 14:00 01/07/25 16:00 01/07/25 16:27 Temperature 37.1 C Pulse Rate 90 96 99 Respiratory Rate 18 Blood Pressure 139/62 Pulse Oximetry 95 Oxygen Delivery Exam Const: Other: Somewhat frail appearing female eating dinner. Eyes: Other: Anicteric sclerae Resp: Other: Bilateral air entry. No wheezing Cardio: Other: RRR Neuro: Other: Alert and oriented. Grossly nonfocal Extrem: Other: Bilateral LE edema Psych: Other: Normal affect Results Labs 01/07/25 08:56 01/07/25 03:43 Labs: Short CBC 01/07/25 01/07/25 Range/Units 03:43 08:56 WBC 6.6 (4.5-10.0) K/mm3 Hgb 8.6 L 8.7 L (12.0-15.0) g/dL Hct 27.5 L 28.2 L (37.0-47.0) % Plt Count 154 (150-375) k/mm3 [facility] 01/07/25 03:43 Sodium 135 L Potassium 4.1 Chloride 103 Carbon Dioxide 25 BUN 20 H Creatinine 0.95 Glucose 78 Calcium 9.4
[2025-01-07 21:22] LABS: Alveolar/Arterial O2 Gradient 52.9 mmHg; Carboxyhemoglobin 0.1 % THb (0-2.0); Fractional Inspired Oxygen 21 %; HCO3 ABG 18.0 mEq/l (22.0-26.0); Methemoglobin ABG 0.3 %THb (0-1.5); Oxygen Content ABG 12.4 %vol (16.0-22.0); Oxygen Saturation ABG 94.1 % (95.0-100.0); PCO2 ABG 26.4 mmHg (35.0-45.0); PO2 ABG 65.2 mmHg (80.0-100.0); PO2 FiO2 Ratio Arterial Blood 3.10 %; Reduced Hemoglobin 7.3 %THb (0-5.0)
[2025-01-07 21:31] LABS: Modified Allen's Test Pass; Site Drawn RIGHT RADIAL
--- NOTE | 2025-01-07 21:53 | PM.EVENT ---
Event Note Event Note Event Note: Lactic continuing to up trend. Will exchange p.o. Eliquis for heparin gtt. ABG reviewed, mild alkalosis. Chemistry panel pending.
[2025-01-07 22:13] LABS: Alanine Aminotransferase 26 U/L (6-35); Albumin Level 2.6 g/dL (3.5-5.1); Alkaline Phosphatase 77 U/L (38-126); Anion Gap 14 mmol/L (4-12); Aspartate Amino Transferase 62 U/L (14-36); Bilirubin,Total 0.3 mg/dL (0.2-1.3); Blood Urea Nitrogen 20 mg/dL (7-17); Calcium 9.1 mg/dL (8.4-10.2); Carbon Dioxide 19 mmol/L (22-30); Chloride 100 mmol/L (98-107); Estimated CRCL calculation 33 ml/min; Estimated Glomerular Filt Rate 49; Glucose 100 mg/dL (65-110); Potassium 4.1 mmol/L (3.4-5.0); Sodium 133 mmol/L (137-145); Total Protein 4.6 g/dL (6.3-8.2)
[2025-01-07 23:00] LABS: Hematocrit 27.5 % (37.0-47.0); Hemoglobin 8.4 g/dL (12.0-15.0); Immature Granulocyte Percent A 10.4 % (0-0.5); Lymphocytes Absolute Auto 2.06 K/mm3 (0.9-3.2); Mean Corpuscular HGB Conc 30.5 g/dl (32-36); Mean Corpuscular Hemoglobin 30.7 pg (26-34); Mean Corpuscular Volume 100.4 fl (80-100); Nucleated Red Blood Cells Absolute Auto 0.130 K/mm3 (0.0-0.012); Nucleated Red Blood Cells Perc 1.5 % (0.0-0.2); Platelet Count Result 160 k/mm3 (150-375); Red Blood Count 2.74 M/mm3 (4.2-5.4); White Blood Count 8.6 K/mm3 (4.5-10.0)
[2025-01-07 23:11] LABS: INR 1.8; Prothrombin Time 20.6 Seconds (11.1-14.7)
[2025-01-07 23:12] LABS: Partial Thromboplastin Time 44.5 Seconds (22.3-36.8)
[2025-01-07] MEDS: HEPARIN SOD/D5W 100 UNITS/ML 25,000 UNITS/250 ML BAG 11 UNITS IV CONT (23:47)
[2025-01-08] VITALS (16 sets, daily range): BP systolic 118–126; BP diastolic 49–64; PULSE 69–96; RESP 16–36; TEMP 36.3–37.1; O2SAT 92–95
--- NOTE | 2025-01-08 03:14 | PC.NURSE ---
Pain in right leg returned and patient requesting pain medication. Dr Aleman called and order received to resume hydrocodone.
[2025-01-08] MEDS: HYDROcodone/acetaminophen (*CRX) 5-325 MG TABLET 1 TAB PO (03:21)
[2025-01-08 04:15] LABS: Hematocrit 27.7 % (37.0-47.0); Hemoglobin 8.5 g/dL (12.0-15.0); Mean Corpuscular HGB Conc 30.7 g/dl (32-36); Mean Corpuscular Hemoglobin 30.8 pg (26-34); Mean Corpuscular Volume 100.4 fl (80-100); Platelet Count Result 167 k/mm3 (150-375); Red Blood Count 2.76 M/mm3 (4.2-5.4); White Blood Count 7.4 K/mm3 (4.5-10.0)
[2025-01-08 04:30] LABS: Anion Gap 12 mmol/L (4-12); Blood Urea Nitrogen 18 mg/dL (7-17); Calcium 9.4 mg/dL (8.4-10.2); Carbon Dioxide 23 mmol/L (22-30); Chloride 100 mmol/L (98-107); Estimated CRCL calculation 35 ml/min; Estimated Glomerular Filt Rate 53; Glucose 87 mg/dL (65-110); Potassium 3.8 mmol/L (3.4-5.0); Sodium 135 mmol/L (137-145)
[2025-01-08 04:43] LABS: Band Neutrophils Percent 5 % (0-6); Basophils Absolute Manual 0.22 K/mm3 (0.0-0.1); Basophils Percent Manual 3 % (0-1); Eosinophils Absolute Manual 0.07 K/mm3 (0.02-0.50); Eosinophils Percent Manual 1 % (0-4); Lymphocytes Absolute Manual 0.88 K/mm3 (1.1-4.5); Lymphocytes Percent Manual 12.0 % (18-44); Metamyelocytes Percent 2 %; Monocytes Absolute Manual 0.14 K/mm3 (0.1-0.90); Monocytes Percent Manual 2 % (3-9); Neutrophils Absolute Manual 5.92 K/mm3 (1.3-6.7); Neutrophils Percent Manual 75 % (46-73); Total Cells Counted 100
[2025-01-08 04:44] LABS: Schistocytes None Seen; Smudge Cells PRESENT
[2025-01-08 07:25] LABS: Partial Thromboplastin Time > 200.0 Seconds (22.3-36.8)
[2025-01-08] MEDS: OPTI-GEN TAB 1 TABLET PO (08:29)
[2025-01-08] MEDS: VITAMIN B COMPLEX CAPSULE 1 CAP PO (08:30)
[2025-01-08] MEDS: CALCIUM CITRATE 315 MG/VITAMIN D 6.25 MCG (250 UNITS) TAB 2 TABLET PO ×2 (08:30→16:43)
[2025-01-08] MEDS: ASCORBIC ACID 500 MG TABLET PO (08:30)
[2025-01-08] MEDS: FAMOTIDINE 20 MG TABLET PO ×2 (08:30→20:40)
--- NOTE | 2025-01-08 08:59 | PM.PNCARD ---
Progress Note: A&P Assessment and Plan (1) Elevated troponin: Code(s): R79.89 - Other specified abnormal findings of blood chemistry Status: Acute Assessment and Plan: Troponin levels are 0.072, 0.074, 0.065. This trend is not consistent with acute coronary syndrome. Furthermore, she is not experiencing any anginal symptoms. EKG does not show any ischemic ST-T wave changes. Elevated troponin levels are related to pulmonary emboli and lactic acidosis. (2) Pulmonary emboli: Code(s): I26.99 - Other pulmonary embolism without acute cor pulmonale Status: Acute Assessment and Plan: Continue heparin. Can be switched to DOAC. Echocardiogram showed normal biventricular size and function. No valvular abnormalities. (3) Hypertension: Qualifiers: Hypertension type: primary hypertension Qualified Code(s): I10 - Essential (primary) hypertension Code(s): I10 - Essential (primary) hypertension Status: Chronic Assessment and Plan: At goal. (4) DVT (deep venous thrombosis): Qualifiers: Affected thrombotic vein of extremity: femoral Chronicity: acute DVT location: lower extremity Laterality: right Qualified Code(s): I82.411 - Acute embolism and thrombosis of right femoral vein Code(s): I82.409 - Acute embolism and thrombosis of unspecified deep veins of unspecified lower extremity Status: Acute Assessment and Plan: Continue heparin. Plan Cardiology will sign off. Please call with any questions. Subjective Date/time seen: 01/08/25 08:59 Interval history: Cardiology follow up for elevated troponin Date of service 01/08/2025: Feeling better today. Denies shortness of breath, chest pain. Her appetite is improving. Does not have any active complaints at the time of my visit. Review of Systems Constitutional: Constitutional: Denies chills, Denies fever(s), Denies headache(s) and Denies malaise Eyes: Eyes: Denies change in vision ENT: Reports Normal hearing present, Denies dizziness, Denies headache(s) and Denies hearing loss Cardiovascular: Cardiovascular: Denies chest pain, Denies chest pain at rest, Denies chest pain with activity, Denies syncope, Denies leg edema, Denies palpitations, Denies dyspnea and Denies dyspnea on exertion Respiratory: Respiratory: Denies cough, Denies dyspnea, Denies dyspnea on exertion and Denies wheezing Gastrointestinal: Gastrointestinal: Denies abdominal pain, Denies constipation and Denies diarrhea Genitourinary: Genitourinary: Denies hematuria and Denies dysuria Musculoskeletal: Musculoskeletal: Denies myalgias, Denies arthralgias and Denies muscle cramps Integumentary/Breasts: Skin/Breast: Denies wounds Neurologic: Reports Normal hearing present, Denies confusion, Denies dizziness, Denies syncope and Denies headache(s) Psychiatric: Psychiatric: Denies anxiety, Denies confusion and Denies depression Endocrine: Endocrine: Denies cold intolerance, Denies flushing, Denies heat intolerance and Denies palpitations Hematologic/Lymphatic: Hematologic/Lymphatic: Denies easy bleeding and Denies easy bruising Allergic/Immunologic: Allergic/Immunologic: Denies wheezing Exam Const: General: comfortable, no acute distress, alert and awake; No confusion Orientation/consciousness: patient oriented x3 and No confusion HENMT: Head: normal to inspection Eyes: General: appearance normal, both eyes and all related structures Pupils: Equal, round and reactive pupils present Neck: Neck: normal visual inspection, supple and no JVD Carotids: normal carotid upstroke Resp: Effort & Inspection: normal respiratory effort Auscultation: clear to auscultation bilaterally Cardio: Rate: regular rate Rhythm: regular rhythm Heart sounds: S1 normal heart sound present, S2 normal heart sound present and no murmurs GI: Auscultation: normal bowel sounds Skin: General skin exam: normal color Neuro: General: patient oriented x3 and No confusion Cranial nerves: Yes Equal, round and reactive pupils present and Yes Normal hearing present Extrem: General: normal to inspection Psych: Appearance: grossly normal Mental Status: mental status grossly normal Objective Data Vital Signs Vital Signs: Vital Signs - 24 hr 01/07/25 10:00 01/07/25 11:08 01/07/25 11:43 Temperature 36.8 C Pulse Rate 85 95 Respiratory Rate 18 Blood Pressure 129/55 L Pulse Oximetry 96 Oxygen Delivery Room Air 01/07/25 12:00 01/07/25 14:00 01/07/25 16:00 Temperature Pulse Rate 88 90 96 Respiratory Rate Blood Pressure Pulse Oximetry Oxygen Delivery 01/07/25 16:27 01/07/25 18:00 01/07/25 20:00 Temperature 37.1 C 36.9 C Pulse Rate 99 92 87 Respiratory Rate 18 14 Blood Pressure 139/62 114/51 L Pulse Oximetry 95 94 Oxygen Delivery 01/07/25 20:00 01/07/25 21:00 01/07/25 22:00 Temperature Pulse Rate 84 85 Respiratory Rate Blood Pressure Pulse Oximetry Oxygen Delivery Room Air 01/07/25 23:59 01/08/25 00:00 01/08/25 00:00 Temperature 36.6 C Pulse Rate 86 83 Respiratory Rate 16 Blood Pressure 122/54 L Pulse Oximetry 93 Oxygen Delivery Room Air 01/08/25 02:00 01/08/25 04:00 01/08/25 04:00 Temperature Pulse Rate 77 81 Respiratory Rate Blood Pressure Pulse Oximetry Oxygen Delivery Room Air 01/08/25 04:00 01/08/25 06:00 01/08/25 08:00 Temperature 36.6 C 36.7 C Pulse Rate 81 69 80 Respiratory Rate 16 20 Blood Pressure 124/49 L 124/60 Pulse Oximetry 92 93 Oxygen Delivery 01/08/25 08:00 Temperature Pulse Rate 84 Respiratory Rate Blood Pressure Pulse Oximetry Oxygen Delivery Intake/Output Intake/Output: Intake & Output 01/05/25 01/06/25 01/07/25 01/08/25 23:59 23:59 23:59 23:59 Intake Total 730 3430.0 571 Output Total 500 1950 600 Balance 230 1480.0 -29 Meds/Results Medications: Active Medications Generic Name Dose Route Start Last Admin Trade Name Freq PRN Reason Stop Dose Admin Acetaminophen 650 mg 01/06/25 12:59 Acetaminophen 325 Mg Tablet PO On Hold: 01/07/25 19:33 Q4H PRN Mild Pain (1-3) or Fever Hydrocodone Bitart/Acetaminophen 1 tab 01/06/25 12:59 01/08/25 03:21 Hydrocodone/Acetaminophen (*Crx) 5-325 Mg Tablet PO 1 tab Q4H PRN Administration Moderate Pain (4-6) Alendronate Sodium 70 mg 01/15/25 09:00 Alendronate Sodium 70 Mg Tablet PO WEEKLY MIGUEL Ascorbic Acid 500 mg 01/07/25 09:00 01/08/25 08:30 Ascorbic Acid 500 Mg Tablet PO 500 mg DAILY MIGUEL Administration Bisacodyl 5 mg 01/06/25 12:59 Bisacodyl 5 Mg Tablet Ec PO DAILY PRN Constipation Calcium Citrate 2 tablet 01/06/25 17:00 01/08/25 08:30 Calcium Citrate 315 Mg/Vitamin D 6.25 Mcg (250 Units) Tab PO 2 tablet BID MIGUEL Administration Diphenhydramine HCl 25 mg 01/06/25 13:46 Diphenhydramine Hcl Inj 50 Mg/Ml Vial IV PUSH On Hold: 01/07/25 19:33 Q4H PRN Allergic Reaction, Angioedema Diphenhydramine HCl 25 mg 01/07/25 09:40 01/07/25 10:43 Diphenhydramine Hcl Cap 25 Mg Capsule PO 25 mg On Hold: 01/07/25 19:33 Q12HR MIGUEL Administration Famotidine 20 mg 01/07/25 09:45 01/08/25 08:30 Famotidine 20 Mg Tablet PO 20 mg Q12HR MIGUEL Administration Heparin Sodium (Porcine) 5,000 units 01/07/25 21:51 Heparin Sodium 5,000 Units/Ml Vial IV PUSH PRN PRN aPTT less than 55 seconds Heparin Sodium (Porcine) 2,500 units 01/07/25 21:51 Heparin Sodium 5,000 Units/Ml Vial IV PUSH PRN PRN aPTT 55 - 70 seconds Heparin Sodium/Dextrose 25,000 units in 250 mls @ 9 mls/hr 01/07/25 21:55 01/08/25 08:30 Heparin Sodium/D5w 100 Units/Ml IV CONT 900 units/hr .Q24H MIGUEL 9 mls/hr Protocol Titration 900 UNITS/HR Multivitamins/Minerals 1 tablet 01/07/25 09:00 01/08/25 08:29 Opti-Gen Tab PO 1 tablet DAILY MIGUEL Administration Naloxone HCl 0.1 mg 01/06/25 12:59 Naloxone Hcl 0.4 Mg/Ml Vial IV PUSH Q2M PRN Opiate Reversal Ondansetron HCl 4 mg 01/06/25 12:59 Ondansetron Inj 4 Mg/2 Ml Vial IV PUSH Q6H PRN Nausea And Vomiting Perflutren Lipid Microsphere 0 ml 01/07/25 08:12 Perflutren Lipid Microspheres 1.5 Ml Vial Diluted To 10 Ml Total Volume IV PUSH 01/10/25 08:12 ONCE PRN adequate visualization Protocol Vitamin B Complex 1 cap 01/07/25 09:00 01/08/25 08:30 Vitamin B Complex Capsule PO 1 cap DAILY MIGUEL Administration Radiology Results: ITS Impressions Chest X-Ray 01/06/25 09:31 IMPRESSION: 1. No acute cardiopulmonary findings. Pulmonary Perfusion Imaging 01/06/25 14:34 IMPRESSION: Intermediate probability scan for presence of pulmonary emboli. Venous Doppler Study 01/06/25 15:03 IMPRESSION: 1. No deep venous thrombosis in the left lower limb. Chest CTA 01/07/25 10:45 IMPRESSION: Positive pulmonary embolus in the right lower lobe as well as the lower most portion of the right interlobar artery. Labs Labs: Laboratory Results - last 24 hr 01/07/25 01/07/25 01/07/25 08:56 13:56 20:58 WBC RBC Hgb 8.7 L Hct 28.2 L MCV MCH MCHC RDW Plt Count MPV Immature Gran % (Auto) Neut % (Auto) Lymph % (Auto) Catron % (Auto) Eos % (Auto) Baso % (Auto) Lymph # (Auto) Catron # (Auto) Eos # (Auto) Baso # (Auto) Abs Immat Gran (auto) Absolute Neuts (auto) Absolute Nucleated RBC Total Counted Neutrophils % (Manual) Band Neutrophils % Lymphocytes % (Manual) Monocytes % (Manual) Eosinophils % (Manual) Basophils % (Manual) Metamyelocytes % Nucleated RBC % Abs Neuts (Manual) Abs Lymphs (Manual) Abs Monocytes (Manual) Absolute Eos (Manual) Abs Basophils (Manual) Smudge Cells Platelet Estimate Schistocytes PT INR APTT Puncture Site ABG pH ABG pCO2 ABG pO2 ABG PO2/FiO2 Ratio ABG HCO3 ABG O2 Saturation ABG O2 Content ABG Base Excess A-a Gradient Oxyhemoglobin Carboxyhemoglobin Methemoglobin Reduced Hemoglobin Total Hemoglobin O2 Delivery Device O2 Liters/Min FiO2 Sodium 133 L Potassium 4.1 Chloride 100 Carbon Dioxide 19 L Anion Gap 14 H BUN 20 H Creatinine 1.08 H Estim Creat Clear Calc 33 Estimated GFR 49 L Glucose 100 Lactic Acid 10.4 H* Calcium 9.1 Total Bilirubin 0.3 AST 62 H ALT 26 Alkaline Phosphatase 77 Total Protein 4.6 L Albumin 2.6 L 01/07/25 01/07/25 01/07/25 20:59 21:12 22:54 WBC 8.6 RBC 2.74 L Hgb 8.4 L Hct 27.5 L MCV 100.4 H MCH 30.7 MCHC 30.5 L RDW 14.4 Plt Count 160 MPV 10.2 Immature Gran % (Auto) 10.4 H Neut % (Auto) 55.8 Lymph % (Auto) 24.0 Catron % (Auto) 8.5 Eos % (Auto) 0.5 Baso % (Auto) 0.8 Lymph # (Auto) 2.06 Catron # (Auto) 0.7 H Eos # (Auto) 0.0 Baso # (Auto) 0.1 Abs Immat Gran (auto) 0.89 H Absolute Neuts (auto) 4.8 Absolute Nucleated RBC 0.130 H Total Counted Neutrophils % (Manual) Band Neutrophils % Lymphocytes % (Manual) Monocytes % (Manual) Eosinophils % (Manual) Basophils % (Manual) Metamyelocytes % Nucleated RBC % 1.5 H Abs Neuts (Manual) Abs Lymphs (Manual) Abs Monocytes (Manual) Absolute Eos (Manual) Abs Basophils (Manual) Smudge Cells Platelet Estimate Schistocytes PT 20.6 H D INR 1.8 APTT 44.5 H Puncture Site Right radial ABG pH 7.452 H ABG pCO2 26.4 L ABG pO2 65.2 L ABG PO2/FiO2 Ratio 3.10 ABG HCO3 18.0 L ABG O2 Saturation 94.1 L ABG O2 Content 12.4 L ABG Base Excess -4.9 A-a Gradient 52.9 Oxyhemoglobin 92.3 Carboxyhemoglobin 0.1 Methemoglobin 0.3 Reduced Hemoglobin 7.3 H Total Hemoglobin 9.5 L O2 Delivery Device Room air O2 Liters/Min Not Reportable FiO2 21 Sodium Potassium Chloride Carbon Dioxide Anion Gap BUN Creatinine Estim Creat Clear Calc Estimated GFR Glucose Lactic Acid 11.6 H* Calcium Total Bilirubin AST ALT Alkaline Phosphatase Total Protein Albumin 01/08/25 01/08/25 03:53 06:44 WBC 7.4 RBC 2.76 L Hgb 8.5 L Hct 27.7 L MCV 100.4 H MCH 30.8 MCHC 30.7 L RDW 14.5 Plt Count 167 MPV 10.8 H Immature Gran % (Auto) Not Reportable Neut % (Auto) Not Reportable Lymph % (Auto) Not Reportable Catron % (Auto) Not Reportable Eos % (Auto) Not Reportable Baso % (Auto) Not Reportable Lymph # (Auto) Not Reportable Catron # (Auto) Not Reportable Eos # (Auto) Not Reportable Baso # (Auto) Not Reportable Abs Immat Gran (auto) Not Reportable Absolute Neuts (auto) Not Reportable Absolute Nucleated RBC Not Reportable Total Counted 100 Neutrophils % (Manual) 75 H Band Neutrophils % 5 Lymphocytes % (Manual) 12.0 L Monocytes % (Manual) 2 L Eosinophils % (Manual) 1 Basophils % (Manual) 3 H Metamyelocytes % 2 Nucleated RBC % Not Reportable Abs Neuts (Manual) 5.92 Abs Lymphs (Manual) 0.88 L Abs Monocytes (Manual) 0.14 Absolute Eos (Manual) 0.07 Abs Basophils (Manual) 0.22 H Smudge Cells Present Platelet Estimate Adequate Schistocytes None seen PT INR APTT > 200.0 H* Puncture Site ABG pH ABG pCO2 ABG pO2 ABG PO2/FiO2 Ratio ABG HCO3 ABG O2 Saturation ABG O2 Content ABG Base Excess A-a Gradient Oxyhemoglobin Carboxyhemoglobin Methemoglobin Reduced Hemoglobin Total Hemoglobin O2 Delivery Device O2 Liters/Min FiO2 Sodium 135 L Potassium 3.8 Chloride 100 Carbon Dioxide 23 Anion Gap 12 BUN 18 H Creatinine 1.01 H Estim Creat Clear Calc 35 Estimated GFR 53 L Glucose 87 Lactic Acid 8.6 H* Calcium 9.4 Total Bilirubin AST ALT Alkaline Phosphatase Total Protein Albumin Quality VTE Prophylaxis VTE prophylaxis: pharmacologic ordered
--- NOTE | 2025-01-08 09:35 | P.PNIM_ITS ---
Progress Note: A&P Assessment and Plan (1) Pulmonary emboli: Code(s): I26.99 - Other pulmonary embolism without acute cor pulmonale Status: Acute Assessment and Plan: - CTA chest with +pulmonary emboli in the RLL and lower most portion of the right interlobar artery - continue Eliquis dose has been switched to heparin drip - given elevated trop, BNP and LA, consulted cardio - echo reviewed - patient follows with oncology given history of breast cancer on Tamoxifen - oncology consulted (2) DVT (deep venous thrombosis): Qualifiers: Affected thrombotic vein of extremity: femoral Chronicity: acute DVT location: lower extremity Laterality: right Qualified Code(s): I82.411 - Acute embolism and thrombosis of right femoral vein Code(s): I82.409 - Acute embolism and thrombosis of unspecified deep veins of unspecified lower extremity Status: Acute Assessment and Plan: Here with 3 days of swelling to BLE, R worse than L. US of the RLE showed a DVT of the common femoral vein through calf veins. DVT likely related to tamoxifen use and new change in activity level, has been more sedentary for the past 2 weeks. Denies any recent surgery, long travel, or active malignancy. No previous history of DVT. Started on Eliquis 10 mg b.i.d. in the ED on 01/06. - Continue Eliquis 10 mg BID (3) Angioedema: Qualifiers: Encounter type: initial encounter Qualified Code(s): T78.3XXA - Angioneurotic edema, initial encounter Code(s): T78.3XXA - Angioneurotic edema, initial encounter Status: Acute Assessment and Plan: -Patient has been on lisinopril 5 mg daily for years. Recently developed bila teral lower lip swelling x3 days. She denies any associated shortness of breath, tongue swelling, or throat swelling. No respiratory distress on exam. - received famotidine and Benadryl with improvement - Lisinopril discontinued and listed as allergy. (4) Elevated lactic acid level: Code(s): R79.89 - Other specified abnormal findings of blood chemistry Status: Acute Assessment and Plan: - Very mild leukocytosis, WBC 10.8. Reviewed vital signs from the ED, initial heart rate mildly elevated at 101 and patient has been intermittently to give next since arrival (20-). Start gentle IV fluids. Low suspicion for infection. -Initial lactic 8.2, repeat 5.9. Continue to trend and remains elevated -No other complaints beyond lower extremity swelling, lower lip swelling, and generalized weakness. - CXR showed no acute cardiopulmonary pathology. - UA negative for infection - blood cultures ordered 01/07 - Lactic acidosis likely due to PE Will get CT abdomen pelvis with contrast to further evaluate. (5) CKD (chronic kidney disease): Qualifiers: Chronic kidney disease stage: stage 3 (moderate) Chronic kidney disease stage 3 subtype: stage 3a (GFR 45-59) Qualified Code(s): N18.31 - Chronic kidney disease, stage 3a Code(s): N18.9 - Chronic kidney disease, unspecified Status: Chronic Assessment and Plan: Patient has history of mild CKD stage III. Creatinine 1.15, BUN 24, GFR 45 upon admission. At baseline. - monitor renal function - monitor electrolytes, correct as needed (6) Hypertension: Qualifiers: Hypertension type: primary hypertension Qualified Code(s): I10 - Essential (primary) hypertension Code(s): I10 - Essential (primary) hypertension Status: Chronic Assessment and Plan: - Stable. - lisinopril discontinued due to concern for angioedema, reporting lower lip swelling x3 days. - Will monitor blood pressure off of lisinopril while inpatient. (7) Elevated troponin: Code(s): R79.89 - Other specified abnormal findings of blood chemistry Status: Acute Assessment and Plan: - trop I 0.072, 0.074, 0.065 - EKG with NSR, no acute ST changes - CTA chest with PE as above - no plans for further ischemic work-up per cardiology Plan anemia: hb down to 8 from 11 since admission. no signs of bleeding. will continue to [facility] . Will do further workup Subjective Date/time seen: 01/08/25 09:35 Interval history: Complained of having pain in right leg yesterday which has now resolved. Denies any abdominal pain nausea vomiting no chest pain on our shortness of breath. Review of Systems Review of Systems: All systems reviewed & are unremarkable except as noted in HPI and below Exam Narrative: General: NAD Eyes: EOMI ENT: neck supple, mild edema of lower lip. No tongue swelling. Maintaining secretions Cardiovascular: Regular rate and rhythm Respiratory: Clear to auscultation, respirations even and unlabored on RA Gastrointestinal: Soft, non tender Genitourinary: no suprapubic tenderness Musculoskeletal: 1-2+ pitting edema RLE Skin: warm, dry Neuro: Alert. Psych: Mood appropriate Objective Data Vital Signs Vital Signs: Vital Signs - 24 hr 01/07/25 10:00 01/07/25 11:08 01/07/25 11:43 Temperature 98.2 F Pulse Rate 85 95 Respiratory Rate 18 Blood Pressure 129/55 L Pulse Oximetry 96 Oxygen Delivery Room Air 01/07/25 12:00 01/07/25 14:00 01/07/25 16:00 Temperature Pulse Rate 88 90 96 Respiratory Rate Blood Pressure Pulse Oximetry Oxygen Delivery 01/07/25 16:27 01/07/25 18:00 01/07/25 20:00 Temperature 98.7 F 98.4 F Pulse Rate 99 92 87 Respiratory Rate 18 14 Blood Pressure 139/62 114/51 L Pulse Oximetry 95 94 Oxygen Delivery 01/07/25 20:00 01/07/25 21:00 01/07/25 22:00 Temperature Pulse Rate 84 85 Respiratory Rate Blood Pressure Pulse Oximetry Oxygen Delivery Room Air 01/07/25 23:59 01/08/25 00:00 01/08/25 00:00 Temperature 97.9 F Pulse Rate 86 83 Respiratory Rate 16 Blood Pressure 122/54 L Pulse Oximetry 93 Oxygen Delivery Room Air 01/08/25 02:00 01/08/25 04:00 01/08/25 04:00 Temperature Pulse Rate 77 81 Respiratory Rate Blood Pressure Pulse Oximetry Oxygen Delivery Room Air 01/08/25 04:00 01/08/25 06:00 01/08/25 08:00 Temperature 97.9 F 98.1 F Pulse Rate 81 69 80 Respiratory Rate 16 20 Blood Pressure 124/49 L 124/60 Pulse Oximetry 92 93 Oxygen Delivery 01/08/25 08:00 Temperature Pulse Rate 84 Respiratory Rate Blood Pressure Pulse Oximetry Oxygen Delivery Intake/Output Intake/Output: Intake & Output 01/05/25 01/06/25 01/07/25 01/08/25 23:59 23:59 23:59 23:59 Intake Total 730 3430.0 571 Output Total 500 1950 600 Balance 230 1480.0 -29 Meds/Results Medications: Active Medications Generic Name Dose Route Start Last Admin Trade Name Freq PRN Reason Stop Dose Admin Acetaminophen 650 mg 01/06/25 12:59 Acetaminophen 325 Mg Tablet PO On Hold: 01/07/25 19:33 Q4H PRN Mild Pain (1-3) or Fever Hydrocodone Bitart/Acetaminophen 1 tab 01/06/25 12:59 01/08/25 03:21 Hydrocodone/Acetaminophen (*Crx) 5-325 Mg Tablet PO 1 tab Q4H PRN Administration Moderate Pain (4-6) Alendronate Sodium 70 mg 01/15/25 09:00 Alendronate Sodium 70 Mg Tablet PO WEEKLY MIGUEL Ascorbic Acid 500 mg 01/07/25 09:00 01/08/25 08:30 Ascorbic Acid 500 Mg Tablet PO 500 mg DAILY MIGUEL Administration Bisacodyl 5 mg 01/06/25 12:59 Bisacodyl 5 Mg Tablet Ec PO DAILY PRN Constipation Calcium Citrate 2 tablet 01/06/25 17:00 01/08/25 08:30 Calcium Citrate 315 Mg/Vitamin D 6.25 Mcg (250 Units) Tab PO 2 tablet BID MIGUEL Administration Diphenhydramine HCl 25 mg 01/06/25 13:46 Diphenhydramine Hcl Inj 50 Mg/Ml Vial IV PUSH On Hold: 01/07/25 19:33 Q4H PRN Allergic Reaction, Angioedema Diphenhydramine HCl 25 mg 01/07/25 09:40 01/07/25 10:43 Diphenhydramine Hcl Cap 25 Mg Capsule PO 25 mg On Hold: 01/07/25 19:33 Q12HR MIGUEL Administration Famotidine 20 mg 01/07/25 09:45 01/08/25 08:30 Famotidine 20 Mg Tablet PO 20 mg Q12HR MIGUEL Administration Heparin Sodium (Porcine) 5,000 units 01/07/25 21:51 Heparin Sodium 5,000 Units/Ml Vial IV PUSH PRN PRN aPTT less than 55 seconds Heparin Sodium (Porcine) 2,500 units 01/07/25 21:51 Heparin Sodium 5,000 Units/Ml Vial IV PUSH PRN PRN aPTT 55 - 70 seconds Heparin Sodium/Dextrose 25,000 units in 250 mls @ 9 mls/hr 01/07/25 21:55 01/08/25 08:30 Heparin Sodium/D5w 100 Units/Ml IV CONT 900 units/hr .Q24H MIGUEL 9 mls/hr Protocol Titration 900 UNITS/HR Multivitamins/Minerals 1 tablet 01/07/25 09:00 01/08/25 08:29 Opti-Gen Tab PO 1 tablet DAILY MIGUEL Administration Naloxone HCl 0.1 mg 01/06/25 12:59 Naloxone Hcl 0.4 Mg/Ml Vial IV PUSH Q2M PRN Opiate Reversal Ondansetron HCl 4 mg 01/06/25 12:59 Ondansetron Inj 4 Mg/2 Ml Vial IV PUSH Q6H PRN Nausea And Vomiting Perflutren Lipid Microsphere 0 ml 01/07/25 08:12 Perflutren Lipid Microspheres 1.5 Ml Vial Diluted To 10 Ml Total Volume IV PUSH 01/10/25 08:12 ONCE PRN adequate visualization Protocol Vitamin B Complex 1 cap 01/07/25 09:00 01/08/25 08:30 Vitamin B Complex Capsule PO 1 cap DAILY MIGUEL Administration Radiology Results: ITS Impressions Chest X-Ray 01/06/25 09:31 IMPRESSION: 1. No acute cardiopulmonary findings. Pulmonary Perfusion Imaging 01/06/25 14:34 IMPRESSION: Intermediate probability scan for presence of pulmonary emboli. Venous Doppler Study 01/06/25 15:03 IMPRESSION: 1. No deep venous thrombosis in the left lower limb. Chest CTA 01/07/25 10:45 IMPRESSION: Positive pulmonary embolus in the right lower lobe as well as the lower most portion of the right interlobar artery. Labs Labs: Laboratory Results - last 24 hr 01/07/25 01/07/25 01/07/25 08:56 13:56 20:58 WBC RBC Hgb 8.7 L Hct 28.2 L MCV MCH MCHC RDW Plt Count MPV Immature Gran % (Auto) Neut % (Auto) Lymph % (Auto) Mcleod % (Auto) Eos % (Auto) Baso % (Auto) Lymph # (Auto) Mcleod # (Auto) Eos # (Auto) Baso # (Auto) Abs Immat Gran (auto) Absolute Neuts (auto) Absolute Nucleated RBC Total Counted Neutrophils % (Manual) Band Neutrophils % Lymphocytes % (Manual) Monocytes % (Manual) Eosinophils % (Manual) Basophils % (Manual) Metamyelocytes % Nucleated RBC % Abs Neuts (Manual) Abs Lymphs (Manual) Abs Monocytes (Manual) Absolute Eos (Manual) Abs Basophils (Manual) Smudge Cells Platelet Estimate Schistocytes PT INR APTT Puncture Site ABG pH ABG pCO2 ABG pO2 ABG PO2/FiO2 Ratio ABG HCO3 ABG O2 Saturation ABG O2 Content ABG Base Excess A-a Gradient Oxyhemoglobin Carboxyhemoglobin Methemoglobin Reduced Hemoglobin Total Hemoglobin O2 Delivery Device O2 Liters/Min FiO2 Sodium 133 L Potassium 4.1 Chloride 100 Carbon Dioxide 19 L Anion Gap 14 H BUN 20 H Creatinine 1.08 H Estim Creat Clear Calc 33 Estimated GFR 49 L Glucose 100 Lactic Acid 10.4 H* Calcium 9.1 Total Bilirubin 0.3 AST 62 H ALT 26 Alkaline Phosphatase 77 Total Protein 4.6 L Albumin 2.6 L 01/07/25 01/07/25 01/07/25 20:59 21:12 22:54 WBC 8.6 RBC 2.74 L Hgb 8.4 L Hct 27.5 L MCV 100.4 H MCH 30.7 MCHC 30.5 L RDW 14.4 Plt Count 160 MPV 10.2 Immature Gran % (Auto) 10.4 H Neut % (Auto) 55.8 Lymph % (Auto) 24.0 Mcleod % (Auto) 8.5 Eos % (Auto) 0.5 Baso % (Auto) 0.8 Lymph # (Auto) 2.06 Mcleod # (Auto) 0.7 H Eos # (Auto) 0.0 Baso # (Auto) 0.1 Abs Immat Gran (auto) 0.89 H Absolute Neuts (auto) 4.8 Absolute Nucleated RBC 0.130 H Total Counted Neutrophils % (Manual) Band Neutrophils % Lymphocytes % (Manual) Monocytes % (Manual) Eosinophils % (Manual) Basophils % (Manual) Metamyelocytes % Nucleated RBC % 1.5 H Abs Neuts (Manual) Abs Lymphs (Manual) Abs Monocytes (Manual) Absolute Eos (Manual) Abs Basophils (Manual) Smudge Cells Platelet Estimate Schistocytes PT 20.6 H D INR 1.8 APTT 44.5 H Puncture Site Right radial ABG pH 7.452 H ABG pCO2 26.4 L ABG pO2 65.2 L ABG PO2/FiO2 Ratio 3.10 ABG HCO3 18.0 L ABG O2 Saturation 94.1 L ABG O2 Content 12.4 L ABG Base Excess -4.9 A-a Gradient 52.9 Oxyhemoglobin 92.3 Carboxyhemoglobin 0.1 Methemoglobin 0.3 Reduced Hemoglobin 7.3 H Total Hemoglobin 9.5 L O2 Delivery Device Room air O2 Liters/Min Not Reportable FiO2 21 Sodium Potassium Chloride Carbon Dioxide Anion Gap BUN Creatinine Estim Creat Clear Calc Estimated GFR Glucose Lactic Acid 11.6 H* Calcium Total Bilirubin AST ALT Alkaline Phosphatase Total Protein Albumin 01/08/25 01/08/25 03:53 06:44 WBC 7.4 RBC 2.76 L Hgb 8.5 L Hct 27.7 L MCV 100.4 H MCH 30.8 MCHC 30.7 L RDW 14.5 Plt Count 167 MPV 10.8 H Immature Gran % (Auto) Not Reportable Neut % (Auto) Not Reportable Lymph % (Auto) Not Reportable Mcleod % (Auto) Not Reportable Eos % (Auto) Not Reportable Baso % (Auto) Not Reportable Lymph # (Auto) Not Reportable Mcleod # (Auto) Not Reportable Eos # (Auto) Not Reportable Baso # (Auto) Not Reportable Abs Immat Gran (auto) Not Reportable Absolute Neuts (auto) Not Reportable Absolute Nucleated RBC Not Reportable Total Counted 100 Neutrophils % (Manual) 75 H Band Neutrophils % 5 Lymphocytes % (Manual) 12.0 L Monocytes % (Manual) 2 L Eosinophils % (Manual) 1 Basophils % (Manual) 3 H Metamyelocytes % 2 Nucleated RBC % Not Reportable Abs Neuts (Manual) 5.92 Abs Lymphs (Manual) 0.88 L Abs Monocytes (Manual) 0.14 Absolute Eos (Manual) 0.07 Abs Basophils (Manual) 0.22 H Smudge Cells Present Platelet Estimate Adequate Schistocytes None seen PT INR APTT > 200.0 H* Puncture Site ABG pH ABG pCO2 ABG pO2 ABG PO2/FiO2 Ratio ABG HCO3 ABG O2 Saturation ABG O2 Content ABG Base Excess A-a Gradient Oxyhemoglobin Carboxyhemoglobin Methemoglobin Reduced Hemoglobin Total Hemoglobin O2 Delivery Device O2 Liters/Min FiO2 Sodium 135 L Potassium 3.8 Chloride 100 Carbon Dioxide 23 Anion Gap 12 BUN 18 H Creatinine 1.01 H Estim Creat Clear Calc 35 Estimated GFR 53 L Glucose 87 Lactic Acid 8.6 H* Calcium 9.4 Total Bilirubin AST ALT Alkaline Phosphatase Total Protein Albumin
[2025-01-08 11:39] LABS: Immature Reticulocyte Fraction 36.5 % (3.0-15.9); Reticulocyte Hemoglobin Conten 34.0 pg (28.2-36.6); Reticulocytes Absolute 0.08 10^6/uL (0.02-0.10)
[2025-01-08 11:47] LABS: Iron 70 ug/dL (37-170)
[2025-01-08 11:57] LABS: Percent Iron Saturation 34 % (20-50)
[2025-01-08 13:19] LABS: Vitamin B12 897.0 pg/mL (239-931)
[2025-01-08 14:51] LABS: Ferritin > 2000.00 ng/mL (11.1-264)
[2025-01-08 15:35] LABS: Partial Thromboplastin Time > 200.0 Seconds (22.3-36.8)
--- NOTE | 2025-01-08 23:48 | PC.NURSE ---
Patient has ambulate with assist activity order. Spoke with Dr Aleman about bilateral DVT and PE. Activity order changed to bedrest.
[2025-01-08 23:55] LABS: Partial Thromboplastin Time 199.8 Seconds (22.3-36.8)
[2025-01-09] VITALS (14 sets, daily range): BP systolic 124–127; BP diastolic 51–59; PULSE 80–94; RESP 18–24; TEMP 36.4–37.4; O2SAT 92–95
[2025-01-09 07:08] LABS: Hematocrit 27.4 % (37.0-47.0); Hemoglobin 8.6 g/dL (12.0-15.0); Immature Granulocyte Percent A 9.9 % (0-0.5); Lymphocytes Absolute Auto 1.62 K/mm3 (0.9-3.2); Mean Corpuscular HGB Conc 31.4 g/dl (32-36); Mean Corpuscular Hemoglobin 30.9 pg (26-34); Mean Corpuscular Volume 98.6 fl (80-100); Nucleated Red Blood Cells Absolute Auto 0.090 K/mm3 (0.0-0.012); Nucleated Red Blood Cells Perc 1.4 % (0.0-0.2); Platelet Count Result 164 k/mm3 (150-375); Red Blood Count 2.78 M/mm3 (4.2-5.4); White Blood Count 6.6 K/mm3 (4.5-10.0)
[2025-01-09 07:20] LABS: Partial Thromboplastin Time 95.2 Seconds (22.3-36.8)
[2025-01-09 07:21] LABS: Anion Gap 5 mmol/L (4-12); Blood Urea Nitrogen 19 mg/dL (7-17); Calcium 9.4 mg/dL (8.4-10.2); Carbon Dioxide 29 mmol/L (22-30); Chloride 99 mmol/L (98-107); Estimated CRCL calculation 38 ml/min; Estimated Glomerular Filt Rate 59; Glucose 80 mg/dL (65-110); Potassium 4.0 mmol/L (3.4-5.0); Sodium 133 mmol/L (137-145)
[2025-01-09 07:29] LABS: Anisocytosis 1+; Polychromasia Occasional; Schistocytes None Seen
[2025-01-09] MEDS: ASCORBIC ACID 500 MG TABLET PO (09:09)
[2025-01-09] MEDS: OPTI-GEN TAB 1 TABLET PO (09:09)
[2025-01-09] MEDS: FAMOTIDINE 20 MG TABLET PO ×2 (09:09→21:00)
[2025-01-09] MEDS: VITAMIN B COMPLEX CAPSULE 1 CAP PO (09:09)
[2025-01-09] MEDS: CALCIUM CITRATE 315 MG/VITAMIN D 6.25 MCG (250 UNITS) TAB 2 TABLET PO ×2 (09:10→18:23)
[2025-01-09] MEDS: HEPARIN SOD/D5W 100 UNITS/ML 25,000 UNITS/250 ML BAG IV CONT (09:12)
[2025-01-09 13:48] LABS: Partial Thromboplastin Time 71.4 Seconds (22.3-36.8)
--- NOTE | 2025-01-09 14:05 | P.PNIM_ITS ---
Progress Note: A&P Assessment and Plan (1) Pulmonary emboli: Code(s): I26.99 - Other pulmonary embolism without acute cor pulmonale Status: Acute Assessment and Plan: - CTA chest with +pulmonary emboli in the RLL and lower most portion of the right interlobar artery - continue Eliquis dose has been switched to heparin drip - given elevated trop, BNP and LA, consulted cardio - echo reviewed - patient follows with oncology given history of breast cancer on Tamoxifen - oncology consulted We will continue on heparin drip in case we plan to do biopsy coming Saturday (2) DVT (deep venous thrombosis): Qualifiers: Affected thrombotic vein of extremity: femoral Chronicity: acute DVT location: lower extremity Laterality: right Qualified Code(s): I82.411 - Acute embolism and thrombosis of right femoral vein Code(s): I82.409 - Acute embolism and thrombosis of unspecified deep veins of unspecified lower extremity Status: Acute Assessment and Plan: Here with 3 days of swelling to BLE, R worse than L. US of the RLE showed a DVT of the common femoral vein through calf veins. DVT likely related to tamoxifen use and new change in activity level, has been more sedentary for the past 2 weeks. Denies any recent surgery, long travel, or active malignancy. No previo us history of DVT. Started on Eliquis 10 mg b.i.d. in the ED on 01/06. - Continue Eliquis 10 mg BID which has been switched to IV heparin (3) Angioedema: Qualifiers: Encounter type: initial encounter Qualified Code(s): T78.3XXA - Angioneurotic edema, initial encounter Code(s): T78.3XXA - Angioneurotic edema, initial encounter Status: Acute Assessment and Plan: -Patient has been on lisinopril 5 mg daily for years. Recently developed bilateral lower lip swelling x3 days. She denies any associated shortness of breath, tongue swelling, or throat swelling. No respiratory distress on exam. - received famotidine and Benadryl with improvement - Lisinopril discontinued and listed as allergy. (4) Elevated lactic acid level: Code(s): R79.89 - Other specified abnormal findings of blood chemistry Status: Acute Assessment and Plan: - Very mild leukocytosis, WBC 10.8. Reviewed vital signs from the ED, initial heart rate mildly elevated at 101 and patient has been intermittently to give next since arrival (-). Start gentle IV fluids. Low suspicion for infection. -Initial lactic 8.2, repeat 5.9. Continue to trend and remains elevated -No other complaints beyond lower extremity swelling, lower lip swelling, and generalized weakness. - CXR showed no acute cardiopulmonary pathology. - UA negative for infection - blood cultures ordered 01/07 - Lactic acidosis likely due to PE CT abdomen pelvis with contrast was performed which showed 1. There is both pelvic and right lower limb venous thrombosis with redemonstration of pulmonary emboli in the right lower lobar pulmonary arteries. Dr. Peguero discussed these findings with Dr. Anne Lozano at 4:20 PM. 2. 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 3. Couple subtle soft tissue density right renal lesions which differential would include proteinaceous/hemorrhagic cyst, renal cell carcinoma or pyelonep hritis. 4. Fibroid uterus. Likely lactic acidosis related to malignancy induced (5) CKD (chronic kidney disease): Qualifiers: Chronic kidney disease stage: stage 3 (moderate) Chronic kidney disease stage 3 subtype: stage 3a (GFR 45-59) Qualified Code(s): N18.31 - Chronic kidney disease, stage 3a Code(s): N18.9 - Chronic kidney disease, unspecified Status: Chronic Assessment and Plan: Patient has history of mild CKD stage III. Creatinine 1.15, BUN 24, GFR 45 upon admission. At baseline. - monitor renal function - monitor electrolytes, correct as needed (6) Hypertension: Qualifiers: Hypertension type: primary hypertension Qualified Code(s): I10 - Essential (primary) hypertension Code(s): I10 - Essential (primary) hypertension Status: Chronic Assessment and Plan: - Stable. - lisinopril discontinued due to concern for angioedema, reporting lower lip swelling x3 days. - Will monitor blood pressure off of lisinopril while inpatient. (7) Elevated troponin: Code(s): R79.89 - Other specified abnormal findings of blood chemistry Status: Acute Assessment and Plan: - trop I 0.072, 0.074, 0.065 - EKG with NSR, no acute ST changes - CTA chest with PE as above - no plans for further ischemic work-up per cardiology (8) Retroperitoneal lymphadenopathy: Code(s): R59.0 - Localized enlarged lymph nodes Status: Acute Assessment and Plan: CT abdomen pelvis 01/08/2025 1. There is both pelvic and right lower limb venous thrombosis with redemonstration of pulmonary emboli in the right lower lobar pulmonary arteries. Dr. Peguero discussed these findings with Dr. Anne Lozano at 4:20 PM. 2. 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 3. Couple subtle soft tissue density right renal lesions which differential would include proteinaceous/hemorrhagic cyst, renal cell carcinoma or pyelonephritis. 4. Fibroid uterus. Biopsy discussed with the patient and the family. Also discussed with the Oncology Lymphoma leukemia panel sent Will await this result before biopsy Will discuss with IR for biopsy potentially on Saturday LDL is also elevated Plan anemia: hb down to 8 from 11 since admission. no signs of bleeding. will continue to montior . LDH elevated Subjective Date/time seen: 01/09/25 14:05 Interval history: No overnight events. Denies any new complaints. Discussed findings of CT with the patient in the family. Also discussed with Oncology Review of Systems Review of Systems: All systems reviewed & are unremarkable except as noted in HPI and below Exam Narrative: General: NAD Eyes: EOMI ENT: neck supple, mild edema of lower lip. No tongue swelling. Maintaining secretions Cardiovascular: Regular rate and rhythm Respiratory: Clear to auscultation, respirations even and unlabored on RA Gastrointestinal: Soft, non tender Genitourinary: no suprapubic tenderness Musculoskeletal: 1-2+ pitting edema RLE Skin: warm, dry Neuro: Alert. Psych: Mood appropriate Objective Data Vital Signs Vital Signs: Vital Signs - 24 hr 01/08/25 15:17 01/08/25 16:00 01/08/25 18:00 Temperature 98.7 F Pulse Rate 92 89 94 Respiratory Rate 18 Blood Pressure 124/61 Pulse Oximetry 92 Oxygen Delivery 01/08/25 20:00 01/08/25 20:00 01/08/25 20:30 Temperature 97.4 F L Pulse Rate 78 77 Respiratory Rate 24 H Blood Pressure 126/57 L Pulse Oximetry 95 Oxygen Delivery Room Air 01/08/25 20:46 01/08/25 22:00 01/08/25 23:48 Temperature 97.4 F L Pulse Rate 79 86 Respiratory Rate 36 H Blood Pressure 118/57 L Pulse Oximetry 95 93 Oxygen Delivery Room Air 01/09/25 00:00 01/09/25 00:00 01/09/25 02:00 Temperature Pulse Rate 85 82 Respiratory Rate Blood Pressure Pulse Oximetry Oxygen Delivery Room Air 01/09/25 04:00 01/09/25 04:00 01/09/25 04:45 Temperature 97.6 F Pulse Rate 80 86 Respiratory Rate 24 H Blood Pressure 124/58 L Pulse Oximetry 93 Oxygen Delivery Room Air 01/09/25 06:00 01/09/25 08:00 01/09/25 08:00 Temperature 99.2 F Pulse Rate 87 94 Respiratory Rate 18 Blood Pressure 124/54 L Pulse Oximetry 95 Oxygen Delivery Room Air 01/09/25 08:00 01/09/25 10:00 01/09/25 11:27 Temperature 98.2 F Pulse Rate 92 90 87 Respiratory Rate 20 Blood Pressure 127/59 L Pulse Oximetry 92 Oxygen Delivery 01/09/25 12:00 01/09/25 12:00 Temperature Pulse Rate 91 Respiratory Rate Blood Pressure Pulse Oximetry Oxygen Delivery Room Air Intake/Output Intake/Output: Intake & Output 01/06/25 01/07/25 01/08/25 01/09/25 23:59 23:59 23:59 23:59 Intake Total 730 3430.0 1013.3 732.2 Output Total 500 1950 1540 930 Balance 230 1480.0 -526.7 -197.8 Meds/Results Medications: Active Medications Generic Name Dose Route Start Last Admin Trade Name Freq PRN Reason Stop Dose Admin Acetaminophen 650 mg 01/06/25 12:59 Acetaminophen 325 Mg Tablet PO On Hold: 01/07/25 19:33 Q4H PRN Mild Pain (1-3) or Fever Hydrocodone Bitart/Acetaminophen 1 tab 01/06/25 12:59 01/08/25 03:21 Hydrocodone/Acetaminophen (*Crx) 5-325 Mg Tablet PO 1 tab Q4H PRN Administration Moderate Pain (4-6) Alendronate Sodium 70 mg 01/15/25 09:00 Alendronate Sodium 70 Mg Tablet PO WEEKLY [facility]1983 Ascorbic Acid 500 mg 01/07/25 09:00 01/09/25 09:09 Ascorbic Acid 500 Mg Tablet PO 500 mg DAILY MIGUEL Administration Bisacodyl 5 mg 01/06/25 12:59 Bisacodyl 5 Mg Tablet Ec PO DAILY PRN Constipation Calcium Citrate 2 tablet 01/06/25 17:00 01/09/25 09:10 Calcium Citrate 315 Mg/Vitamin D 6.25 Mcg (250 Units) Tab PO 2 tablet BID MIGUEL Administration Diphenhydramine HCl 25 mg 01/06/25 13:46 Diphenhydramine Hcl Inj 50 Mg/Ml Vial IV PUSH On Hold: 01/07/25 19:33 Q4H PRN Allergic Reaction, Angioedema Diphenhydramine HCl 25 mg 01/07/25 09:40 01/07/25 10:43 Diphenhydramine Hcl Cap 25 Mg Capsule PO 25 mg On Hold: 01/07/25 19:33 Q12HR MIGUEL Administration Famotidine 20 mg 01/07/25 09:45 01/09/25 09:09 Famotidine 20 Mg Tablet PO 20 mg Q12HR MIGUEL Administration Heparin Sodium (Porcine) 5,000 units 01/07/25 21:51 Heparin Sodium 5,000 Units/Ml Vial IV PUSH PRN PRN aPTT less than 55 seconds Heparin Sodium (Porcine) 2,500 units 01/07/25 21:51 Heparin Sodium 5,000 Units/Ml Vial IV PUSH PRN PRN aPTT 55 - 70 seconds Heparin Sodium/Dextrose 25,000 units in 250 mls @ 5 mls/hr 01/07/25 21:55 01/09/25 13:51 Heparin Sodium/D5w 100 Units/Ml IV CONT 500 units/hr .Q24H MIGUEL 5 mls/hr Protocol Titration 500 UNITS/HR Multivitamins/Minerals 1 tablet 01/07/25 09:00 01/09/25 09:09 Opti-Gen Tab PO 1 tablet DAILY MIGUEL Administration Naloxone HCl 0.1 mg 01/06/25 12:59 Naloxone Hcl 0.4 Mg/Ml Vial IV PUSH Q2M PRN Opiate Reversal Ondansetron HCl 4 mg 01/06/25 12:59 Ondansetron Inj 4 Mg/2 Ml Vial IV PUSH Q6H PRN Nausea And Vomiting Perflutren Lipid Microsphere 0 ml 01/07/25 08:12 Perflutren Lipid Microspheres 1.5 Ml Vial Diluted To 10 Ml Total Volume IV PUSH 01/10/25 08:12 ONCE PRN adequate visualization Protocol Vitamin B Complex 1 cap 01/07/25 09:00 01/09/25 09:09 Vitamin B Complex Capsule PO 1 cap DAILY MIGUEL Administration Radiology Results: ITS Impressions Chest X-Ray 01/06/25 09:31 IMPRESSION: 1. No acute cardiopulmonary findings. Pulmonary Perfusion Imaging 01/06/25 14:34 IMPRESSION: Intermediate probability scan for presence of pulmonary emboli. Venous Doppler Study 01/06/25 15:03 IMPRESSION: 1. No deep venous thrombosis in the left lower limb. Chest CTA 01/07/25 10:45 IMPRESSION: Positive pulmonary embolus in the right lower lobe as well as the lower most portion of the right interlobar artery. Abdomen/Pelvis CT 01/08/25 15:49 IMPRESSION: 1. There is both pelvic and right lower limb venous thrombosis with redemonstration of pulmonary emboli in the right lower lobar pulmonary arteries. Dr. Peguero discussed these findings with Dr. Anne Lozano at 4:20 PM. 2. 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 3. Couple subtle soft tissue density right renal lesions which differential would include proteinaceous/hemorrhagic cyst, renal cell carcinoma or pyelonephritis. 4. Fibroid uterus. Labs Labs: Laboratory Results - last 24 hr 01/08/25 01/08/25 01/08/25 06:44 14:38 22:35 WBC RBC Hgb Hct MCV MCH MCHC RDW Plt Count MPV Immature Gran % (Auto) Neut % (Auto) Lymph % (Auto) [place] % (Auto) Eos % (Auto) Baso % (Auto) Lymph # (Auto) [place] # (Auto) Eos # (Auto) Baso # (Auto) Abs Immat Gran (auto) Absolute Neuts (auto) Absolute Nucleated RBC Band Neutrophils % Nucleated RBC % Platelet Estimate Clumped Platelets Polychromasia Anisocytosis Schistocytes APTT > 200.0 H* 199.8 H* Sodium Potassium Chloride Carbon Dioxide Anion Gap BUN Creatinine Estim Creat Clear Calc Estimated GFR Glucose Lactic Acid 10.9 H* Calcium Ferritin > 2000.00 H Lactate Dehydrogenase 1588 H 01/09/25 01/09/25 07:02 13:10 WBC 6.6 RBC 2.78 L Hgb 8.6 L Hct 27.4 L MCV 98.6 MCH 30.9 MCHC 31.4 L RDW 14.5 Plt Count 164 MPV 10.3 Immature Gran % (Auto) 9.9 H Neut % (Auto) 53.4 Lymph % (Auto) 24.6 [place] % (Auto) 10.6 H Eos % (Auto) 0.6 Baso % (Auto) 0.9 Lymph # (Auto) 1.62 [place] # (Auto) 0.7 H Eos # (Auto) 0.0 Baso # (Auto) 0.1 Abs Immat Gran (auto) 0.65 H Absolute Neuts (auto) 3.5 Absolute Nucleated RBC 0.090 H Band Neutrophils % Not Reportable Nucleated RBC % 1.4 H Platelet Estimate Adequate Clumped Platelets Present Polychromasia Occasional Anisocytosis 1+ Schistocytes None seen APTT 95.2 H 71.4 H Sodium 133 L Potassium 4.0 Chloride 99 Carbon Dioxide 29 Anion Gap 5 BUN 19 H Creatinine 0.91 Estim Creat Clear Calc 38 Estimated GFR 59 Glucose 80 Lactic Acid Calcium 9.4 Ferritin Lactate Dehydrogenase
--- NOTE | 2025-01-09 15:22 | P.PNONC_ITS ---
Subjective Date/time seen: 01/09/25 15:22 Interval history: Shelley Cole is a 79 year old female with history of DCIS, s/p lumpectomy in 10/2022 and who is under the care of Dr. Jordan and currently taking Tamoxifen. She has a history of osteoporosis for which she takes Fosamax. She is admitted to the hospital with 3 days of swelling of the RLE>LLE. Venous doppler RLE (01/06/25): DVT common femoral vein through calf veins. CTA chest (01/07/25): Positive pulmonary embolus in the right lower lobe as well as the lower most portion of the right interlobar artery. Patient reports being more sedentary for the past 3 months. She reports having repeated episodes of ear infections as well as UTIs causing hernot to feel well. She was begun on Eliquis 10 mg bid on 01/06/25. My recommendation to the patient was to stop Tamoxifen and start Anastrazole. She was not interested in that recommendation and wanted to wait to talk to Dr. Jordan in person when he gets back the week of 01/18/25. I was called by the Hospitalist today, 01/09/25, informing me of the CT abd/pelvis results. CT abd/pelvis (01/08/25): 1. There is both pelvic and right lower limb venous thrombosis with redemonstration of pulmonary emboli in the right lower lobar pulmonary arteries. Dr. Peguero discussed these findings with Dr. Anne Lozano at 4:20 PM. There is additional venous filling defects in the right common femoral vein, the right external and common iliac veins and in the left common and internal iliac veins. 2. 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 3. Couple subtle soft tissue density right renal lesions which differential would include proteinaceous/hemorrhagic cyst, renal cell carcinoma or pyelonephritis. 4. Fibroid uterus. IMPRESSION/PLAN: 1. DCIS of breast - D/C Tamoxifen. Again recommend Anastrazole. Will await Dr. Jordan's opinion prior to ordering per her request. 2. 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 Less likely, given patient's extensive thrombosis, are Castleman disease and retr operitoneal fibrosis. Recommend: Draw LDH, beta-2 microglobulin, flow cytometry for L/L panel, biopsy. 3. Extensive thrombus in the right common femoral vein, the right external and common iliac veins and in the left common and internal iliac veins. Recommend: temporary IVC filter placement. Bed rest for now. Extensive discussion held with patient and family. They understand the above and are in agreement. All questions werew answered to their satisfaction. Exam Const: Other: Well appearing female in no distress Resp: Other: No wheezing Neuro: Other: Alert and oriented. Grossly nonfocal Objective Data Vital Signs Vital Signs: Vital Signs - 24 hr 01/08/25 16:00 01/08/25 18:00 01/08/25 20:00 Temperature 36.3 C L Pulse Rate 89 94 78 Respiratory Rate 24 H Blood Pressure 126/57 L Pulse Oximetry 95 Oxygen Delivery 01/08/25 20:00 01/08/25 20:30 01/08/25 20:46 Temperature Pulse Rate 77 Respiratory Rate Blood Pressure Pulse Oximetry 95 Oxygen Delivery Room Air Room Air 01/08/25 22:00 01/08/25 23:48 01/09/25 00:00 Temperature 36.3 C L Pulse Rate 79 86 Respiratory Rate 36 H Blood Pressure 118/57 L Pulse Oximetry 93 Oxygen Delivery Room Air 01/09/25 00:00 01/09/25 02:00 01/09/25 04:00 Temperature Pulse Rate 85 82 80 Respiratory Rate Blood Pressure Pulse Oximetry Oxygen Delivery 01/09/25 04:00 01/09/25 04:45 01/09/25 06:00 Temperature 36.4 C Pulse Rate 86 87 Respiratory Rate 24 H Blood Pressure 124/58 L Pulse Oximetry 93 Oxygen Delivery Room Air 01/09/25 08:00 01/09/25 08:00 01/09/25 08:00 Temperature 37.3 C Pulse Rate 94 92 Respiratory Rate 18 Blood Pressure 124/54 L Pulse Oximetry 95 Oxygen Delivery Room Air 01/09/25 10:00 01/09/25 11:27 01/09/25 12:00 Temperature 36.8 C Pulse Rate 90 87 Respiratory Rate 20 Blood Pressure 127/59 L Pulse Oximetry 92 Oxygen Delivery Room Air 01/09/25 12:00 Temperature Pulse Rate 91 Respiratory Rate Blood Pressure Pulse Oximetry Oxygen Delivery Intake/Output Intake/Output: Intake & Output 01/06/25 01/07/25 01/08/25 01/09/25 23:59 23:59 23:59 23:59 Intake Total 730 3430.0 1013.3 732.2 Output Total 500 1950 1540 930 Balance 230 1480.0 -526.7 -197.8 Meds/Results Medications: Active Medications Generic Name Dose Route Start Last Admin Trade Name Freq PRN Reason Stop Dose Admin Acetaminophen 650 mg 01/06/25 12:59 Acetaminophen 325 Mg Tablet PO On Hold: 01/07/25 19:33 Q4H PRN Mild Pain (1-3) or Fever Hydrocodone Bitart/Acetaminophen 1 tab 01/06/25 12:59 01/08/25 03:21 Hydrocodone/Acetaminophen (*Crx) 5-325 Mg Tablet PO 1 tab Q4H PRN Administration Moderate Pain (4-6) Alendronate Sodium 70 mg 01/15/25 09:00 Alendronate Sodium 70 Mg Tablet PO WEEKLY MIGUEL Ascorbic Acid 500 mg 01/07/25 09:00 01/09/25 09:09 Ascorbic Acid 500 Mg Tablet PO 500 mg DAILY MIGUEL Administration Bisacodyl 5 mg 01/06/25 12:59 Bisacodyl 5 Mg Tablet Ec PO DAILY PRN Constipation Calcium Citrate 2 tablet 01/06/25 17:00 01/09/25 09:10 Calcium Citrate 315 Mg/Vitamin D 6.25 Mcg (250 Units) Tab PO 2 tablet BID MIGUEL Administration Diphenhydramine HCl 25 mg 01/06/25 13:46 Diphenhydramine Hcl Inj 50 Mg/Ml Vial IV PUSH On Hold: 01/07/25 19:33 Q4H PRN Allergic Reaction, Angioedema Diphenhydramine HCl 25 mg 01/07/25 09:40 01/07/25 10:43 Diphenhydramine Hcl Cap 25 Mg Capsule PO 25 mg On Hold: 01/07/25 19:33 Q12HR MIGUEL Administration Famotidine 20 mg 01/07/25 09:45 01/09/25 09:09 Famotidine 20 Mg Tablet PO 20 mg Q12HR MIGUEL Administration Heparin Sodium (Porcine) 5,000 units 01/07/25 21:51 Heparin Sodium 5,000 Units/Ml Vial IV PUSH PRN PRN aPTT less than 55 seconds Heparin Sodium (Porcine) 2,500 units 01/07/25 21:51 Heparin Sodium 5,000 Units/Ml Vial IV PUSH PRN PRN aPTT 55 - 70 seconds Heparin Sodium/Dextrose 25,000 units in 250 mls @ 5 mls/hr 01/07/25 21:55 01/09/25 13:51 Heparin Sodium/D5w 100 Units/Ml IV CONT 500 units/hr .Q24H MIGUEL 5 mls/hr Protocol Titration 500 UNITS/HR Multivitamins/Minerals 1 tablet 01/07/25 09:00 01/09/25 09:09 Opti-Gen Tab PO 1 tablet DAILY MIGUEL Administration Naloxone HCl 0.1 mg 01/06/25 12:59 Naloxone Hcl 0.4 Mg/Ml Vial IV PUSH Q2M PRN Opiate Reversal Ondansetron HCl 4 mg 01/06/25 12:59 Ondansetron Inj 4 Mg/2 Ml Vial IV PUSH Q6H PRN Nausea And Vomiting Perflutren Lipid Microsphere 0 ml 01/07/25 08:12 Perflutren Lipid Microspheres 1.5 Ml Vial Diluted To 10 Ml Total Volume IV PUSH 01/10/25 08:12 ONCE PRN adequate visualization Protocol Vitamin B Complex 1 cap 01/07/25 09:00 01/09/25 09:09 Vitamin B Complex Capsule PO 1 cap DAILY MIGUEL Administration Radiology Results: ITS Impressions Chest X-Ray 01/06/25 09:31 IMPRESSION: 1. No acute cardiopulmonary findings. Pulmonary Perfusion Imaging 01/06/25 14:34 IMPRESSION: Intermediate probability scan for presence of pulmonary emboli. Venous Doppler Study 01/06/25 15:03 IMPRESSION: 1. No deep venous thrombosis in the left lower limb. Chest CTA 01/07/25 10:45 IMPRESSION: Positive pulmonary embolus in the right lower lobe as well as the lower most portion of the right interlobar artery. Abdomen/Pelvis CT 01/08/25 15:49 IMPRESSION: 1. There is both pelvic and right lower limb venous thrombosis with redemonstration of pulmonary emboli in the right lower lobar pulmonary arteries. Dr. Peguero discussed these findings with Dr. Anne Lozano at 4:20 PM. 2. 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 3. Couple subtle soft tissue density right renal lesions which differential would include proteinaceous/hemorrhagic cyst, renal cell carcinoma or pyelonephritis. 4. Fibroid uterus. Labs Labs: Laboratory Results - last 24 hr 01/08/25 01/08/25 01/09/25 14:38 22:35 07:02 WBC 6.6 RBC 2.78 L Hgb 8.6 L Hct 27.4 L MCV 98.6 MCH 30.9 MCHC 31.4 L RDW 14.5 Plt Count 164 MPV 10.3 Immature Gran % (Auto) 9.9 H Neut % (Auto) 53.4 Lymph % (Auto) 24.6 [place] % (Auto) 10.6 H Eos % (Auto) 0.6 Baso % (Auto) 0.9 Lymph # (Auto) 1.62 [place] # (Auto) 0.7 H Eos # (Auto) 0.0 Baso # (Auto) 0.1 Abs Immat Gran (auto) 0.65 H Absolute Neuts (auto) 3.5 Absolute Nucleated RBC 0.090 H Band Neutrophils % Not Reportable Nucleated RBC % 1.4 H Platelet Estimate Adequate Clumped Platelets Present Polychromasia Occasional Anisocytosis 1+ Schistocytes None seen APTT > 200.0 H* 199.8 H* 95.2 H Sodium 133 L Potassium 4.0 Chloride 99 Carbon Dioxide 29 Anion Gap 5 BUN 19 H Creatinine 0.91 Estim Creat Clear Calc 38 Estimated GFR 59 Glucose 80 Calcium 9.4 01/09/25 13:10 WBC RBC Hgb Hct MCV MCH MCHC RDW Plt Count MPV Immature Gran % (Auto) Neut % (Auto) Lymph % (Auto) [place] % (Auto) Eos % (Auto) Baso % (Auto) Lymph # (Auto) [place] # (Auto) Eos # (Auto) Baso # (Auto) Abs Immat Gran (auto) Absolute Neuts (auto) Absolute Nucleated RBC Band Neutrophils % Nucleated RBC % Platelet Estimate Clumped Platelets Polychromasia Anisocytosis Schistocytes APTT 71.4 H Sodium Potassium Chloride Carbon Dioxide Anion Gap BUN Creatinine Estim Creat Clear Calc Estimated GFR Glucose Calcium
[2025-01-10] VITALS (16 sets, daily range): BP systolic 118–130; BP diastolic 50–63; PULSE 75–91; RESP 22–28; TEMP 36.3–37.2; O2SAT 92–96
[2025-01-10 04:46] LABS: Hematocrit 27.0 % (37.0-47.0); Hemoglobin 8.3 g/dL (12.0-15.0); Immature Granulocyte Percent A 11.7 % (0-0.5); Lymphocytes Absolute Auto 1.55 K/mm3 (0.9-3.2); Mean Corpuscular HGB Conc 30.7 g/dl (32-36); Mean Corpuscular Hemoglobin 30.7 pg (26-34); Mean Corpuscular Volume 100.0 fl (80-100); Nucleated Red Blood Cells Absolute Auto 0.080 K/mm3 (0.0-0.012); Nucleated Red Blood Cells Perc 1.3 % (0.0-0.2); Platelet Count Result 163 k/mm3 (150-375); Red Blood Count 2.70 M/mm3 (4.2-5.4); White Blood Count 6.1 K/mm3 (4.5-10.0)
[2025-01-10 04:56] LABS: Partial Thromboplastin Time 64.0 Seconds (22.3-36.8)
[2025-01-10 05:04] LABS: Alanine Aminotransferase 23 U/L (6-35); Albumin Level 2.6 g/dL (3.5-5.1); Alkaline Phosphatase 85 U/L (38-126); Anion Gap 9 mmol/L (4-12); Aspartate Amino Transferase 72 U/L (14-36); Bilirubin,Total 0.4 mg/dL (0.2-1.3); Blood Urea Nitrogen 19 mg/dL (7-17); Calcium 9.1 mg/dL (8.4-10.2); Carbon Dioxide 25 mmol/L (22-30); Chloride 101 mmol/L (98-107); Estimated CRCL calculation 37 ml/min; Estimated Glomerular Filt Rate 56; Glucose 82 mg/dL (65-110); Magnesium 2.0 mg/dL (1.6-2.3); Potassium 3.8 mmol/L (3.4-5.0); Sodium 135 mmol/L (137-145); Total Protein 4.8 g/dL (6.3-8.2)
--- NOTE | 2025-01-10 05:04 | PC.NURSE ---
Spoke with Dr Aleman: due to PTT being 199 until rate was dropped to 500 units/hr, with current PTT of 64 the bolus is not needed and drip can be increased by 100 units/hour.
[2025-01-10 05:32] LABS: Anisocytosis 1+; Hypochromasia 1+; Microcytosis 1+ (NORMAL); Polychromasia Occasional; Smudge Cells PRESENT
[2025-01-10 05:33] LABS: Schistocytes None Seen
[2025-01-10] MEDS: OPTI-GEN TAB 1 TABLET PO (08:42)
[2025-01-10] MEDS: VITAMIN B COMPLEX CAPSULE 1 CAP PO (08:42)
[2025-01-10] MEDS: CALCIUM CITRATE 315 MG/VITAMIN D 6.25 MCG (250 UNITS) TAB 2 TABLET PO (08:42)
[2025-01-10] MEDS: ASCORBIC ACID 500 MG TABLET PO (08:42)
[2025-01-10] MEDS: FAMOTIDINE 20 MG TABLET PO ×2 (08:43→19:57)
[2025-01-10 11:29] LABS: Partial Thromboplastin Time 73.5 Seconds (22.3-36.8)
--- NOTE | 2025-01-10 12:22 | P.PNONC_ITS ---
Progress Note: A&P Assessment and Plan (1) Pulmonary emboli: Code(s): I26.99 - Other pulmonary embolism without acute cor pulmonale Status: Acute Assessment and Plan: - Likely secondary to Tamoxifen as well as the retroperitoneal mass that is likely malignant (2) DVT (deep venous thrombosis): Qualifiers: Affected thrombotic vein of extremity: femoral Chronicity: acute DVT location: lower extremity Laterality: right Qualified Code(s): I82.411 - Acute embolism and thrombosis of right femoral vein Code(s): I82.409 - Acute embolism and thrombosis of unspecified deep veins of unspecified lower extremity Status: Acute Assessment and Plan: Eliquis was started but then switched to iv heparin in preparation for the IVC filter placement as well as bx. DVT quite extensive including the right common femoral vein, right external and common iliac veins and left common and internal iliac veins. Recommend temporary IVC filter placement. (3) Angioedema: Qualifiers: Encounter type: initial encounter Qualified Code(s): T78.3XXA - Angioneurotic edema, initial encounter Code(s): T78.3XXA - Angioneurotic edema, initial encounter Status: Acute Assessment and Plan: (4) Elevated lactic acid level: Code(s): R79.89 - Other specified abnormal findings of blood chemistry Status: Acute Assessment and Plan: Likely related to malignancy (5) CKD (chronic kidney disease): Qualifiers: Chronic kidney disease stage: stage 3 (moderate) Chronic kidney disease stage 3 subtype: stage 3a (GFR 45-59) Qualified Code(s): N18.31 - Chronic kidney disease, stage 3a Code(s): N18.9 - Chronic kidney disease, unspecified Status: Chronic Assessment and Plan: Patient has history of mild CKD stage III. (6) Hypertension: Qualifiers: Hypertension type: primary hypertension Qualified Code(s): I10 - Essential (primary) hypertension Code(s): I10 - Essential (primary) hypertension Status: Chronic Assessment and Plan: - (7) Elevated troponin: Code(s): R79.89 - Other specified abnormal findings of blood chemistry Status: Acute Assessment and Plan: - trop I 0.072, 0.074, 0.065 - EKG with NSR, no acute ST changes - CTA chest with PE as above - no plans for further ischemic work-up per cardiology (8) Retroperitoneal lymphadenopathy: Code(s): R59.0 - Localized enlarged lymph nodes Status: Acute Assessment and Plan: CT abdomen pelvis 01/08/2025 1. There is both pelvic and right lower limb venous thrombosis with redemonstration of pulmonary emboli in the right lower lobar pulmonary arteries. Dr. Peguero discussed these findings with Dr. Anne Lozano at 4:20 PM. 2. 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 3. Couple subtle soft tissue density right renal lesions which differential would include proteinaceous/hemorrhagic cyst, renal cell carcinoma or pyelonephritis. 4. Fibroid uterus. Biopsy discussed with the patient and the family. Also discussed with the Oncology Lymphoma leukemia panel sent Biopsy necessary if feasible. Flow cytometry from blood may not be concordant with bx results. Plan Discussed with hospitalist yesterday - recommend IVC filter placement as well as bx of retroperitoneal mass. Subjective Date/time seen: 01/10/25 12:22 Interval history: Shelley Cole is a 79 year old female with history of DCIS, s/p lumpectomy in 10/2022 and who is under the care of Dr. Jordan and currently taking Tamoxifen. She has a history of osteoporosis for which she takes Fosamax. She is admitted to the hospital with 3 days of swelling of the RLE>LLE. Venous doppler RLE (01/06/25): DVT common femoral vein through calf veins. CTA chest (01/07/25): Positive pulmonary embolus in the right lower lobe as well as the lower most portion of the right interlobar artery. Patient reports being more sedentary for the past 3 months. She reports having repeated episodes of ear infections as well as UTIs causing hernot to feel well. She was begun on Eliquis 10 mg bid on 01/06/25. My recommendation to the patient was to stop Tamoxifen and start Anastrazole. She was not interested in that recommendation and wanted to wait to talk to Dr. Jordan in person when he gets back the week of 01/18/25. I was called by the Hospitalist today, 01/09/25, informing me of the CT abd/pelvis results. CT abd/pelvis (01/08/25): 1. There is both pelvic and right lower limb venous thrombosis with redemonstration of pulmonary emboli in the right lower lobar pulmonary arteries. Dr. Peguero discussed these findings with Dr. Anne Lozano at 4:20 PM. There is additional venous filling defects in the right common femoral vein, the right external and common iliac veins and in the left common and internal iliac veins. 2. 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 3. Couple subtle soft tissue density right renal lesions which differential would include proteinaceous/hemorrhagic cyst, renal cell carcinoma or pyelonephritis. 4. Fibroid uterus. 01/10/25- Patient doing fairly well. Still processing what we discussed yesterday. Sister and granddaughter present today. The patient is doing fairly well. She is having no SOB or CP. Her legs remain swollen, unchanged. She continues to have some swelling of her lower lip that she says is not new. We again discussed the plan as outlined yesterday. They understand. All questions were answered to the patient and family's satisfaction. Labs: (01/10/25): WBC 6.1, Hgb 8.3, Hct 27.0, Plt 163, BUN 19, crea 0.95, GFR 56. I had spoken with the hospitalist yesterday. He tells me that the surgeon puts in the IVC filters; he is not sure who will bx the mass. He will discuss with the appropriate MD tomorrow. IMPRESSION/PLAN: 1. DCIS of breast - D/C Tamoxifen. Again recommend Anastrazole. Will await Dr. Jordan's opinion prior to ordering per her request. 2. 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 Less likely, given patient's extensive thrombosis, are Castleman disease and retroperitoneal fibrosis. Recommend: Draw LDH, beta-2 microglobulin, flow cytometry for L/L panel, biopsy. 3. Extensive thrombus in the right common femoral vein, the right external and common iliac veins and in the left common and internal iliac veins. Recommend: temporary IVC filter placement. Bed rest for now. Review of Systems Review of Systems As above. Exam Const: Other: Well appearing female Eyes: Other: Pale conjunctivae Resp: Other: Bilateral air entry with no wheezing Cardio: Other: RRR Skin: Other: No rashes Neuro: Other: Alert and oriented. Grossly nonfocal. Extrem: Other: Bilateral swelling, unchanged. Objective Data Vital Signs Vital Signs: Vital Signs - 24 hr 01/09/25 14:00 01/09/25 15:47 01/09/25 16:00 Temperature Pulse Rate 88 89 Respiratory Rate Blood Pressure Pulse Oximetry Oxygen Delivery Room Air 01/09/25 16:00 01/09/25 18:00 01/09/25 20:00 Temperature 37.4 C 36.9 C Pulse Rate 91 89 90 Respiratory Rate 20 24 H Blood Pressure 125/56 L 126/51 L Pulse Oximetry 93 93 Oxygen Delivery 01/09/25 20:00 01/09/25 21:00 01/09/25 21:33 Temperature Pulse Rate 94 Respiratory Rate Blood Pressure Pulse Oximetry 93 Oxygen Delivery Room Air Room Air 01/09/25 22:00 01/10/25 00:00 01/10/25 00:00 Temperature 36.3 C L Pulse Rate 83 76 Respiratory Rate 28 H Blood Pressure 119/56 L Pulse Oximetry 92 Oxygen Delivery Room Air 01/10/25 00:00 01/10/25 02:00 01/10/25 03:59 Temperature 36.4 C Pulse Rate 81 75 82 Respiratory Rate 27 H Blood Pressure 120/58 L Pulse Oximetry 96 Oxygen Delivery 01/10/25 04:00 01/10/25 04:00 01/10/25 06:17 Temperature Pulse Rate 85 85 Respiratory Rate Blood Pressure Pulse Oximetry Oxygen Delivery Room Air 01/10/25 08:00 01/10/25 08:00 01/10/25 10:00 Temperature 37.2 C Pulse Rate 91 90 90 Respiratory Rate 24 H Blood Pressure 118/56 L Pulse Oximetry 94 Oxygen Delivery 01/10/25 11:55 Temperature 37.1 C Pulse Rate 89 Respiratory Rate 24 H Blood Pressure 130/63 Pulse Oximetry 94 Oxygen Delivery Intake/Output Intake/Output: Intake & Output 01/07/25 01/08/25 01/09/25 01/10/25 23:59 23:59 23:59 23:59 Intake Total 3430.0 1013.3 1001.3 626.5 Output Total 5803 1540 1405 990 Balance 1480.0 -526.7 -403.7 -363.5 Meds/Results Medications: Active Medications Generic Name Dose Route Start Last Admin Trade Name Oscarq PRN Reason Stop Dose Admin Acetaminophen 650 mg 01/06/25 12:59 Acetaminophen 325 Mg Tablet PO On Hold: 01/07/25 19:33 Q4H PRN Mild Pain (1-3) or Fever Hydrocodone Bitart/Acetaminophen 1 tab 01/06/25 12:59 01/08/25 03:21 Hydrocodone/Acetaminophen (*Crx) 5-325 Mg Tablet PO 1 tab Q4H PRN Administration Moderate Pain (4-6) Alendronate Sodium 70 mg 01/15/25 09:00 Alendronate Sodium 70 Mg Tablet PO WEEKLY MIGUEL Ascorbic Acid 500 mg 01/07/25 09:00 01/10/25 08:42 Ascorbic Acid 500 Mg Tablet PO 500 mg DAILY MGIUEL Administration Bisacodyl 5 mg 01/06/25 12:59 Bisacodyl 5 Mg Tablet Ec PO DAILY PRN Constipation Calcium Citrate 2 tablet 01/06/25 17:00 01/10/25 08:42 Calcium Citrate 315 Mg/Vitamin D 6.25 Mcg (250 Units) Tab PO 2 tablet BID MIGUEL Administration Diphenhydramine HCl 25 mg 01/06/25 13:46 Diphenhydramine Hcl Inj 50 Mg/Ml Vial IV PUSH On Hold: 01/07/25 19:33 Q4H PRN Allergic Reaction, Angioedema Diphenhydramine HCl 25 mg 01/07/25 09:40 01/07/25 10:43 Diphenhydramine Hcl Cap 25 Mg Capsule PO 25 mg On Hold: 01/07/25 19:33 Q12HR MIGUEL Administration Famotidine 20 mg 01/07/25 09:45 01/10/25 08:43 Famotidine 20 Mg Tablet PO 20 mg Q12HR MIGUEL Administration Heparin Sodium (Porcine) 5,000 units 01/07/25 21:51 Heparin Sodium 5,000 Units/Ml Vial IV PUSH PRN PRN aPTT less than 55 seconds Heparin Sodium (Porcine) 2,500 units 01/07/25 21:51 Heparin Sodium 5,000 Units/Ml Vial IV PUSH PRN PRN aPTT 55 - 70 seconds Heparin Sodium/Dextrose 25,000 units in 250 mls @ 6 mls/hr 01/07/25 21:55 01/10/25 11:40 Heparin Sodium/D5w 100 Units/Ml IV CONT 600 units/hr .Q24H MIGUEL 6 mls/hr Protocol Titration 600 UNITS/HR Multivitamins/Minerals 1 tablet 01/07/25 09:00 01/10/25 08:42 Opti-Gen Tab PO 1 tablet DAILY MIGUEL Administration Naloxone HCl 0.1 mg 01/06/25 12:59 Naloxone Hcl 0.4 Mg/Ml Vial IV PUSH Q2M PRN Opiate Reversal Ondansetron HCl 4 mg 01/06/25 12:59 Ondansetron Inj 4 Mg/2 Ml Vial IV PUSH Q6H PRN Nausea And Vomiting Vitamin B Complex 1 cap 01/07/25 09:00 01/10/25 08:42 Vitamin B Complex Capsule PO 1 cap DAILY MIGUEL Administration Radiology Results: ITS Impressions Chest X-Ray 01/06/25 09:31 IMPRESSION: 1. No acute cardiopulmonary findings. Pulmonary Perfusion Imaging 01/06/25 14:34 IMPRESSION: Intermediate probability scan for presence of pulmonary emboli. Venous Doppler Study 01/06/25 15:03 IMPRESSION: 1. No deep venous thrombosis in the left lower limb. Chest CTA 01/07/25 10:45 IMPRESSION: Positive pulmonary embolus in the right lower lobe as well as the lower most portion of the right interlobar artery. Abdomen/Pelvis CT 01/08/25 15:49 IMPRESSION: 1. There is both pelvic and right lower limb venous thrombosis with redemonstration of pulmonary emboli in the right lower lobar pulmonary arteries. Dr. Peguero discussed these findings with Dr. Anne Lozano at 4:20 PM. 2. 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 3. Couple subtle soft tissue density right renal lesions which differential would include proteinaceous/hemorrhagic cyst, renal cell carcinoma or pyelone phritis. 4. Fibroid uterus. Labs Labs: Laboratory Results - last 24 hr 01/09/25 01/10/25 01/10/25 13:10 04:09 11:06 WBC 6.1 RBC 2.70 L Hgb 8.3 L Hct 27.0 L MCV 100.0 MCH 30.7 MCHC 30.7 L RDW 14.6 H Plt Count 163 MPV 10.5 H Immature Gran % (Auto) 11.7 H Neut % (Auto) 50.6 Lymph % (Auto) 25.6 Gage % (Auto) 10.4 H Eos % (Auto) 0.5 Baso % (Auto) 1.2 Lymph # (Auto) 1.55 Gage # (Auto) 0.6 Eos # (Auto) 0.0 Baso # (Auto) 0.1 Abs Immat Gran (auto) 0.71 H Absolute Neuts (auto) 3.1 Absolute Nucleated RBC 0.080 H Band Neutrophils % Not Reportable Nucleated RBC % 1.3 H Atypical Lymphocytes Present Smudge Cells Present Platelet Estimate Adequate Polychromasia Occasional Hypochromasia 1+ Anisocytosis 1+ Microcytosis 1+ Schistocytes None seen APTT 71.4 H 64.0 H 73.5 H Sodium 135 L Potassium 3.8 Chloride 101 Carbon Dioxide 25 Anion Gap 9 BUN 19 H Creatinine 0.95 Estim Creat Clear Calc 37 Estimated GFR 56 L Glucose 82 Calcium 9.1 Magnesium 2.0 Total Bilirubin 0.4 AST 72 H ALT 23 Alkaline Phosphatase 85 Total Protein 4.8 L Albumin 2.6 L
--- NOTE | 2025-01-10 13:44 | P.PNIM_ITS ---
Progress Note: A&P Assessment and Plan (1) Pulmonary emboli: Code(s): I26.99 - Other pulmonary embolism without acute cor pulmonale Status: Acute Assessment and Plan: - CTA chest with +pulmonary emboli in the RLL and lower most portion of the right interlobar artery - continue Eliquis dose has been switched to heparin drip - given elevated trop, BNP and LA, consulted cardio - echo reviewed - patient follows with oncology given history of breast cancer on Tamoxifen - oncology consulted We will continue on heparin drip as we will plan to get biopsy scheduled. (2) DVT (deep venous thrombosis): Qualifiers: Affected thrombotic vein of extremity: femoral Chronicity: acute DVT location: lower extremity Laterality: right Qualified Code(s): I82.411 - Acute embolism and thrombosis of right femoral vein Code(s): I82.409 - Acute embolism and thrombosis of unspecified deep veins of unspecified lower extremity Status: Acute Assessment and Plan: Here with 3 days of swelling to BLE, R worse than L. US of the RLE showed a DVT of the common femoral vein through calf veins. DVT likely related to tamoxifen use and new change in activity level, has been more sedentary for the past 2 weeks. Denies any recent surgery, long travel, or active malignancy. No previous history of DVT. Started on Eliquis 10 mg b.i.d. in the ED on 01/06. - Continue Eliquis 10 mg BID which has been switched to IV heparin (3) Angioedema: Qualifiers: Encounter type: initial encounter Qualified Code(s): T78.3XXA - Angioneurotic edema, initial encounter Code(s): T78.3XXA - Angioneurotic edema, initial encounter Status: Acute Assessment and Plan: -Patient has been on lisinopril 5 mg daily for years. Recently developed bilateral lower lip swelling x3 days. She denies any associated shortness of breath, tongue swelling, or throat swelling. No respiratory distress on exam. - received famotidine and Benadryl with improvement - Lisinopril discontinued and listed as allergy. (4) Elevated lactic acid level: Code(s): R79.89 - Other specified abnormal findings of blood chemistry Status: Acute Assessment and Plan: - Very mild leukocytosis, WBC 10.8. Reviewed vital signs from the ED, initial heart rate mildly elevated at 101 and patient has been intermittently to give next since arrival (-). Start gentle IV fluids. Low suspicion for infection. -Initial lactic 8.2, repeat 5.9. Continue to trend and remains elevated -No other complaints beyond lower extremity swelling, lower lip swelling, and generalized weakness. - CXR showed no acute cardiopulmonary pathology. - UA negative for infection - blood cultures ordered 01/07 - Lactic acidosis likely due to PE CT abdomen pelvis with contrast was performed which showed 1. There is both pelvic and right lower limb venous thrombosis with redemonstration of pulmonary emboli in the right lower lobar pulmonary arteries. Dr. Peguero discussed these findings with Dr. Anne Lozano at 4:20 PM. 2. 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 3. Couple subtle soft tissue density right renal lesions which differential would include proteinaceous/hemorrhagic cyst, renal cell carcinoma or pyelonephr itis. 4. Fibroid uterus. Likely lactic acidosis related to malignancy induced (5) CKD (chronic kidney disease): Qualifiers: Chronic kidney disease stage: stage 3 (moderate) Chronic kidney disease stage 3 subtype: stage 3a (GFR 45-59) Qualified Code(s): N18.31 - Chronic kidney disease, stage 3a Code(s): N18.9 - Chronic kidney disease, unspecified Status: Chronic Assessment and Plan: Patient has history of mild CKD stage III. Creatinine 1.15, BUN 24, GFR 45 upon admission. At baseline. - monitor renal function - monitor electrolytes, correct as needed (6) Hypertension: Qualifiers: Hypertension type: primary hypertension Qualified Code(s): I10 - Essential (primary) hypertension Code(s): I10 - Essential (primary) hypertension Status: Chronic Assessment and Plan: - Stable. - lisinopril discontinued due to concern for angioedema, reporting lower lip swelling x3 days. - Will monitor blood pressure off of lisinopril while inpatient. (7) Elevated troponin: Code(s): R79.89 - Other specified abnormal findings of blood chemistry Status: Acute Assessment and Plan: - trop I 0.072, 0.074, 0.065 - EKG with NSR, no acute ST changes - CTA chest with PE as above - no plans for further ischemic work-up per cardiology (8) Retroperitoneal lymphadenopathy: Code(s): R59.0 - Localized enlarged lymph nodes Status: Acute Assessment and Plan: CT abdomen pelvis 01/08/2025 1. There is both pelvic and right lower limb venous thrombosis with redemonstration of pulmonary emboli in the right lower lobar pulmonary arteries. Dr. Peguero discussed these findings with Dr. Anne Lozano at 4:20 PM. 2. 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 3. Couple subtle soft tissue density right renal lesions which differential would include proteinaceous/hemorrhagic cyst, renal cell carcinoma or pyelonephritis. 4. Fibroid uterus. Biopsy discussed with the patient and the family. Also discussed with the Oncology Lymphoma leukemia panel sent Will await this result before biopsy Will discuss with IR for biopsy LDH is also elevated Oncology recommends IVC filter placement which will likely be to be planned 1st Will consult General surgery for IVC filter placement in a.m. Plan anemia: hb down to 8 from 11 since admission. no signs of bleeding. will continue to montior . LDH elevated Subjective Date/time seen: 01/10/25 13:44 Interval history: No overnight events. Denies any new complaints. Wants to do a biopsy the retroperitoneal lymphadenopathy Review of Systems Review of Systems: All systems reviewed & are unremarkable except as noted in HPI and below Exam Narrative: General: NAD Eyes: EOMI ENT: neck supple, mild edema of lower lip. No tongue swelling. Maintaining secretions Cardiovascular: Regular rate and rhythm Respiratory: Clear to auscultation, respirations even and unlabored on RA Gastrointestinal: Soft, non tender Genitourinary: no suprapubic tenderness Musculoskeletal: 1-2+ pitting edema RLE Skin: warm, dry Neuro: Alert. Psych: Mood appropriate Objective Data Vital Signs Vital Signs: Vital Signs - 24 hr 01/09/25 14:00 01/09/25 15:47 01/09/25 16:00 Temperature Pulse Rate 88 89 Respiratory Rate Blood Pressure Pulse Oximetry Oxygen Delivery Room Air 01/09/25 16:00 01/09/25 18:00 01/09/25 20:00 Temperature 99.4 F 98.5 F Pulse Rate 91 89 90 Respiratory Rate 20 24 H Blood Pressure 125/56 L 126/51 L Pulse Oximetry 93 93 Oxygen Delivery 01/09/25 20:00 01/09/25 21:00 01/09/25 21:33 Temperature Pulse Rate 94 Respiratory Rate Blood Pressure Pulse Oximetry 93 Oxygen Delivery Room Air Room Air 01/09/25 22:00 01/10/25 00:00 01/10/25 00:00 Temperature 97.3 F L Pulse Rate 83 76 Respiratory Rate 28 H Blood Pressure 119/56 L Pulse Oximetry 92 Oxygen Delivery Room Air 01/10/25 00:00 01/10/25 02:00 01/10/25 03:59 Temperature 97.6 F Pulse Rate 81 75 82 Respiratory Rate 27 H Blood Pressure 120/58 L Pulse Oximetry 96 Oxygen Delivery 01/10/25 04:00 01/10/25 04:00 01/10/25 06:17 Temperature Pulse Rate 85 85 Respiratory Rate Blood Pressure Pulse Oximetry Oxygen Delivery Room Air 01/10/25 08:00 01/10/25 08:00 01/10/25 10:00 Temperature 99.0 F Pulse Rate 91 90 90 Respiratory Rate 24 H Blood Pressure 118/56 L Pulse Oximetry 94 Oxygen Delivery 01/10/25 11:55 01/10/25 12:00 Temperature 98.7 F Pulse Rate 89 85 Respiratory Rate 24 H Blood Pressure 130/63 Pulse Oximetry 94 Oxygen Delivery Intake/Output Intake/Output: Intake & Output 01/07/25 01/08/25 01/09/25 01/10/25 23:59 23:59 23:59 23:59 Intake Total 3430.0 1013.3 1001.3 986.5 Output Total 1950 1540 1405 990 Balance 1480.0 -526.7 -403.7 -3.5 Meds/Results Medications: Active Medications Generic Name Dose Route Start Last Admin Trade Name Freq PRN Reason Stop Dose Admin Acetaminophen 650 mg 01/06/25 12:59 Acetaminophen 325 Mg Tablet PO On Hold: 01/07/25 19:33 Q4H PRN Mild Pain (1-3) or Fever Hydrocodone Bitart/Acetaminophen 1 tab 01/06/25 12:59 01/08/25 03:21 Hydrocodone/Acetaminophen (*Crx) 5-325 Mg Tablet PO 1 tab Q4H PRN Administration Moderate Pain (4-6) Alendronate Sodium 70 mg 01/15/25 09:00 Alendronate Sodium 70 Mg Tablet PO WEEKLY MIGUEL Ascorbic Acid 500 mg 01/07/25 09:00 01/10/25 08:42 Ascorbic Acid 500 Mg Tablet PO 500 mg DAILY MIGUEL Administration Bisacodyl 5 mg 01/06/25 12:59 Bisacodyl 5 Mg Tablet Ec PO DAILY PRN Constipation Calcium Citrate 2 tablet 01/06/25 17:00 01/10/25 08:42 Calcium Citrate 315 Mg/Vitamin D 6.25 Mcg (250 Units) Tab PO 2 tablet BID MIGUEL Administration Diphenhydramine HCl 25 mg 01/06/25 13:46 Diphenhydramine Hcl Inj 50 Mg/Ml Vial IV PUSH On Hold: 01/07/25 19:33 Q4H PRN Allergic Reaction, Angioedema Diphenhydramine HCl 25 mg 01/07/25 09:40 01/07/25 10:43 Diphenhydramine Hcl Cap 25 Mg Capsule PO 25 mg On Hold: 01/07/25 19:33 Q12HR MIGUEL Administration Famotidine 20 mg 01/07/25 09:45 01/10/25 08:43 Famotidine 20 Mg Tablet PO 20 mg Q12HR MIGUEL Administration Heparin Sodium (Porcine) 5,000 units 01/07/25 21:51 Heparin Sodium 5,000 Units/Ml Vial IV PUSH PRN PRN aPTT less than 55 seconds Heparin Sodium (Porcine) 2,500 units 01/07/25 21:51 Heparin Sodium 5,000 Units/Ml Vial IV PUSH PRN PRN aPTT 55 - 70 seconds Heparin Sodium/Dextrose 25,000 units in 250 mls @ 6 mls/hr 01/07/25 21:55 01/10/25 11:40 Heparin Sodium/D5w 100 Units/Ml IV CONT 600 units/hr .Q24H MIGUEL 6 mls/hr Protocol Titration 600 UNITS/HR Multivitamins/Minerals 1 tablet 01/07/25 09:00 01/10/25 08:42 Opti-Gen Tab PO 1 tablet DAILY MIGUEL Administration Naloxone HCl 0.1 mg 01/06/25 12:59 Naloxone Hcl 0.4 Mg/Ml Vial IV PUSH Q2M PRN Opiate Reversal Ondansetron HCl 4 mg 01/06/25 12:59 Ondansetron Inj 4 Mg/2 Ml Vial IV PUSH Q6H PRN Nausea And Vomiting Vitamin B Complex 1 cap 01/07/25 09:00 01/10/25 08:42 Vitamin B Complex Capsule PO 1 cap DAILY MIGUEL Administration Radiology Results: ITS Impressions Chest X-Ray 01/06/25 09:31 IMPRESSION: 1. No acute cardiopulmonary findings. Pulmonary Perfusion Imaging 01/06/25 14:34 IMPRESSION: Intermediate probability scan for presence of pulmonary emboli. Venous Doppler Study 01/06/25 15:03 IMPRESSION: 1. No deep venous thrombosis in the left lower limb. Chest CTA 01/07/25 10:45 IMPRESSION: Positive pulmonary embolus in the right lower lobe as well as the lower most portion of the right interlobar artery. Abdomen/Pelvis CT 01/08/25 15:49 IMPRESSION: 1. There is both pelvic and right lower limb venous thrombosis with redemonstration of pulmonary emboli in the right lower lobar pulmonary arteries. Dr. Peguero discussed these findings with Dr. Anne Lozano at 4:20 PM. 2. 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 3. Couple subtle soft tissue density right renal lesions which differential would include proteinaceous/hemorrhagic cyst, renal cell carcinoma or pyelonephritis. 4. Fibroid uterus. Labs Labs: Laboratory Results - last 24 hr 01/09/25 01/10/25 01/10/25 13:10 04:09 11:06 WBC 6.1 RBC 2.70 L Hgb 8.3 L Hct 27.0 L MCV 100.0 MCH 30.7 MCHC 30.7 L RDW 14.6 H Plt Count 163 MPV 10.5 H Immature Gran % (Auto) 11.7 H Neut % (Auto) 50.6 Lymph % (Auto) 25.6 Emanuel % (Auto) 10.4 H Eos % (Auto) 0.5 Baso % (Auto) 1.2 Lymph # (Auto) 1.55 Emanuel # (Auto) 0.6 Eos # (Auto) 0.0 Baso # (Auto) 0.1 Abs Immat Gran (auto) 0.71 H Absolute Neuts (auto) 3.1 Absolute Nucleated RBC 0.080 H Band Neutrophils % Not Reportable Nucleated RBC % 1.3 H Atypical Lymphocytes Present Smudge Cells Present Platelet Estimate Adequate Polychromasia Occasional Hypochromasia 1+ Anisocytosis 1+ Microcytosis 1+ Schistocytes None seen APTT 71.4 H 64.0 H 73.5 H Sodium 135 L Potassium 3.8 Chloride 101 Carbon Dioxide 25 Anion Gap 9 BUN 19 H Creatinine 0.95 Estim Creat Clear Calc 37 Estimated GFR 56 L Glucose 82 Calcium 9.1 Magnesium 2.0 Total Bilirubin 0.4 AST 72 H ALT 23 Alkaline Phosphatase 85 Total Protein 4.8 L Albumin 2.6 L
--- NOTE | 2025-01-10 16:13 | PM.CNGS ---
Assessment and Plan Assessment and plan (1) Ileofemoral deep vein thrombosis: Qualifiers: Laterality: bilateral Qualified Code(s): I82.423 - Acute embolism and thrombosis of iliac vein, bilateral Code(s): I82.429 - Acute embolism and thrombosis of unspecified iliac vein Status: Acute Assessment and Plan: Leg swelling and edema have markedly increased with anticoagulation. Patient is heparin drip remains therapeutic. Continue heparin drip for now, could likely go home on DOAC. Okay for patient to be out of bed and ambulate from my perspective. (2) Chronic anticoagulation: Code(s): Z79.01 - detention (current) use of anticoagulants Status: Chronic Assessment and Plan: Patient on therapeutic heparin drip at this point and improving nicely. In regards to placing a temporary IVC filter, I spoke with the study manager of the cardiac catheterization lab. He does not feel there are any IVC filters on the market that can be introduced via the internal jugular vein. He does not know of IVC filters being retrieved that were placed in this hospital. I have never placed a retrievable IVC filter and am not comfortable placing at this time. Additionally, accessing the IVC is going to be hazardous. Even if the internal jugular vein approach could be used, the IVC in the area of the renal veins is quite narrowed. Trying to approach the IVC from the left or right femoral vein is also hazardous as there is known clot in both common iliac veins and potential for additional pulmonary emboli make this procedure something I do not feel comfortable providing. I discussed these problems of placement of vena cava filter with Dr. Dye. I also discussed them thoroughly with the patient, her , and her daughter. (3) Retroperitoneal mass: Code(s): R19.00 - Intra-abdominal and pelvic swelling, mass and lump, unspecified site Status: Chronic Assessment and Plan: This and the associated retroperitoneal lymphadenopathy are almost certainly the cause for her extensive iliofemoral and right leg DVT. Compression of the vena cava on CT is noted. I reviewed the CT scan findings with Dr. Peguero, interventional radiologist. He may be able to perform a percutaneous image guided biopsy of this mass but he would have to look at the patient in different positions to see if a clear path would open. He pointed out that endoscopic ultrasound-guided biopsy may be the best way to biopsy this as it is right up against the duodenum. This would be similar to a pancreatic mass biopsy. As far as stopping anticoagulation, Dr. Peguero would prefer 6 hours off heparin and then get a PTT. If normal, he would proceed with the biopsy. He normally prefers 24 hours off heparin following a biopsy although this could be shortened if necessary. I could not find any peripheral lymphadenopathy to have a more easily accessed lymph node to biopsy. We do not have endoscopic ultrasound available here. I discussed these problems of trying to biopsy the retroperitoneal mass with Dr. Dye, hospitalist, as well. He is considering transfer to a facility with vascular surgery and endoscopic ultrasound. (4) Retroperitoneal lymphadenopathy: Code(s): R59.0 - Localized enlarged lymph nodes Status: Acute Assessment and Plan: Contributing to extensive DVT and compromised venous return. (5) Pulmonary emboli: Qualifiers: Acute cor pulmonale presence: without acute cor pulmonale Chronicity: acute Pulmonary embolism type: other Qualified Code(s): I26.99 - Other pulmonary embolism without acute cor pulmonale Code(s): I26.99 - Other pulmonary embolism without acute cor pulmonale Status: Acute Assessment and Plan: RLL and distal interlobar R (6) CKD (chronic kidney disease): Qualifiers: Chronic kidney disease stage: stage 3 (moderate) Chronic kidney disease stage 3 subtype: stage 3a (GFR 45-59) Qualified Code(s): N18.31 - Chronic kidney disease, stage 3a Code(s): N18.9 - Chronic kidney disease, unspecified Status: Chronic Assessment and Plan: Creatinine clearance 37, GFR 56, both improving with IVF despite patient needing 2 contrast studies History of Present Illness Consult details Consult date: 01/11/25 Reason for consult: other (Pulmonary embolism and retroperitoneal Jeanie-aortic mass) Requesting physician: Saleem Dye MD Narrative: Patient is a very nice 79-year-old woman who came to the emergency room 4 days ago. She had been experiencing fatigue, fevers, and weakness for a couple of weeks. She also was noting that her feet were swollen. The right foot was more swollen than the left and she could no longer put her shoes on. Evaluation in the emergency room did show she had a swollen right leg. Bilateral lower extremity venous Dopplers were performed. On the right lower extremity there was extensive DVT from the common femoral vein on down to the calf veins. There was no DVT seen on the left side. Patient has some chronic renal insufficiency and a V/Q scan was done but this was indeterminate. She then had a CTA of the chest on 01/07/2025. This showed a right lower lobe and part of the right interlobar artery pulmonary embolism.. Two days ago, the patient had a CT scan of the abdomen and pelvis with IV contrast. This showed a 6.7 x 4 cm her retroperitoneal mass located between the aorta and the inferior vena cava. This mass has narrowed the IVC to more of a slit, likely compromising flow and venous return. Also noted on the CT scan were additional pelvic venous filling defects or thrombi. On the right side, the common iliac vein and external iliac vein were both noted to have DVT. On the left side the common iliac vein and the internal iliac vein were noted to have venous thromboses. Patient is on a heparin drip and is therapeutic. The retroperitoneal CT findings are concerning for malignancy, specifically lymphoma. Patient may have been having B symptoms of lymphoma (see above.) Oncology saw the patient and requested placement of a temporary vena cava filter. There has been no evidence of bleeding while the patient has been on anticoagulation. 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 This was treated with lumpectomy in October of 2022. Patient was referred for radiation therapy to the right breast but declined. She was instead treated with tamoxifen. There was no invasive cancer in the pathology report of the right breast DCIS. 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 CKD (chronic kidney disease) Hypertension Surgical History Surgical History Status post right breast lumpectomy History of cataract extraction with lens replacement History of tubal ligation Family History Family History Father Bladder cancer Mother Hypertension Sibling Ovarian cancer Hypertension Other Hypertension Social History Social History Smoking status: Never smoker Alcohol intake: never Substance use: never Substance use type: does not use Lack of Transportation: No Lack of Food: Never True Current Housing: I Have Housing Concerned About Future Housing: No Difficulty Paying Gas/Electric Bills: No Difficulty Paying for Meds: No Currently Unemployed: No Education: Don't Know Difficulty w/ Childcare or Family Care: No Living arrangements: with family Additional living arrangements comments: HUSB Gender identity (if verbalized by the patient): Female Sexual Orientation (if Verbalized by the Patient): Straight or Heterosexual Spiritual care concerns: No Meds Home Medications and Allergies Home Medications ?Medication ?Instructions ?Recorded ?Confirmed ?Type ascorbate calcium (vitamin C) 500 500 mg PO DAILY 10/08/22 01/06/25 History mg tablet lisinopril 5 mg tablet 5 mg PO QPM 10/08/22 01/06/25 History ajphsytnrnje-ufnpswqn-bjrcwf tablet 1 tablet PO DAILY 10/08/22 01/06/25 History vitamin B complex (B 1 tablet PO DAILY 10/08/22 01/06/25 History Complex-Vitamin B12 tablet) glucosamine sulf dipot 1 cap PO DAILY 10/24/22 01/06/25 History chlr,msm,chond 550 mg-C 30 mg-ashley 1 mg capsule (Glucosamine Chondroitin) alendronate 70 mg tablet 70 mg PO WEEKLY 12/16/23 01/06/25 History tamoxifen 20 mg tablet 20 mg PO DAILY 12/16/23 01/06/25 History calcium 200 mg (as 4 tablet PO BID 01/11/25 01/11/25 History citrate)-vitamin D3 6.25 mcg (250 unit) tablet (Citracal-D3 Petites) Allergies Allergy/AdvReac Type Severity Reaction Status Date / Time lisinopril Allergy Severe angioedema Verified 01/06/25 13:38 Vital Signs Vital Signs - 24 hr 01/09/25 18:00 01/09/25 20:00 01/09/25 20:00 Temperature 36.9 C Pulse Rate 89 90 94 Respiratory Rate 24 H Blood Pressure 126/51 L Pulse Oximetry 93 Oxygen Delivery 01/09/25 21:00 01/09/25 21:33 01/09/25 22:00 Temperature Pulse Rate 83 Respiratory Rate Blood Pressure Pulse Oximetry 93 Oxygen Delivery Room Air Room Air 01/10/25 00:00 01/10/25 00:00 01/10/25 00:00 Temperature 36.3 C L Pulse Rate 76 81 Respiratory Rate 28 H Blood Pressure 119/56 L Pulse Oximetry 92 Oxygen Delivery Room Air 01/10/25 02:00 01/10/25 03:59 01/10/25 04:00 Temperature 36.4 C Pulse Rate 75 82 Respiratory Rate 27 H Blood Pressure 120/58 L Pulse Oximetry 96 Oxygen Delivery Room Air 01/10/25 04:00 01/10/25 06:17 01/10/25 08:00 Temperature 37.2 C Pulse Rate 85 85 91 Respiratory Rate 24 H Blood Pressure 118/56 L Pulse Oximetry 94 Oxygen Delivery 01/10/25 08:00 01/10/25 10:00 01/10/25 11:55 Temperature 37.1 C Pulse Rate 90 90 89 Respiratory Rate 24 H Blood Pressure 130/63 Pulse Oximetry 94 Oxygen Delivery 01/10/25 12:00 01/10/25 14:00 01/10/25 15:51 Temperature 36.4 C L Pulse Rate 85 81 83 Respiratory Rate 22 H Blood Pressure 123/59 L Pulse Oximetry 94 Oxygen Delivery Exam Const: General: comfortable, no acute distress, alert, awake and anxious Nutritional Appearance: thin Orientation/consciousness: patient oriented x3 and No confusion HENMT: Head: normocephalic and atraumatic Mouth: Yes Normal oral and palatal mucosa present Eyes: Conjunctivae: conjunctivae normal Pupils: Equal, round and reactive pupils present EOM: EOMs intact bilaterally Neck: Neck: normal visual inspection, no lymphadenopathy (No cervical or supraclavicular lymphadenopathy) and nontender Lymphatic: no lymphadenopathy noted Chest: Breast/axilla palpation: normal palpation of the axillae (No axillary lymphadenopathy) and axillary lymphadenopathy not noted Resp: Effort & Inspection: normal respiratory effort Auscultation: clear to auscultation bilaterally Cardio: Rate: regular rate Rhythm: regular rhythm Heart sounds: no gallops, no murmurs and no rubs GI: Inspection: normal to inspection and non-distended GI Palp: Yes Soft to palpation, No Tenderness to palpation present (GI), No Hepatomegaly present, No Splenomegaly present, Yes Palpable mass present (Retroperitoneal mass can be palpated just right of midline in upper abdomen), No Ascites present and Yes Other GI palpation findings present (No inguinal masses or lymphadenopathy) Skin: Lesions: no lesions Rashes: no rashes Neuro: General: no focal motor deficits and CN's II-XI intact bilaterally Cranial nerves: Yes Equal, round and reactive pupils present, Yes Bilaterally intact EOM present, Yes facial symmetry and Yes Midline tongue present Speech: normal speech Motor exam (neuro): 5/5 motor strength present throughout and Motor abnormalities not present Extrem: General: no clubbing, cyanosis or edema and edema Right lower extremity: normal to inspection (Possibly slightly enlarged compared to the left but pretty normal sized), edema Details: pitting and foot Details: edema (Lateral dorsum right foot has 2+ pitting edema) Location: of the dorsal foot Location: laterally (2+ pitting edema); no crepitus Left lower extremity: normal to inspection (No left leg edema at this time. Patient reports it is much better.) Psych: Affect: normal affect Thought process: Normal thought process present Insight: Good insight present (Psych) Results Labs 01/11/25 03:55 01/11/25 03:55 Labs: Abnormal lab results 01/10/25 01/10/25 Range/Units 04:09 11:06 RBC 2.70 L (4.2-5.4) M/mm3 Hgb 8.3 L (12.0-15.0) g/dL Hct 27.0 L (37.0-47.0) % MCHC 30.7 L (32-36) g/dl RDW 14.6 H (11.5-14.5) % MPV 10.5 H (7.4-10.4) fl Immature Gran % (Auto) 11.7 H (0-0.5) % [place] % (Auto) 10.4 H (2.6-8.5) % Abs Immat Gran (auto) 0.71 H (0.00-0.031) K/mm3 Absolute Nucleated RBC 0.080 H (0.0-0.012) K/mm3 Nucleated RBC % 1.3 H (0.0-0.2) % APTT 64.0 H 73.5 H (22.3-36.8) Seconds Sodium 135 L (137-145) mmol/L BUN 19 H (7-17) mg/dL Estimated GFR 56 L (59 - ) AST 72 H (14-36) U/L Total Protein 4.8 L (6.3-8.2) g/dL Albumin 2.6 L (3.5-5.1) g/dL Diabetes panel 01/10/25 Range/Units 04:09 Sodium 135 L (137-145) mmol/L Potassium 3.8 (3.4-5.0) mmol/L Chloride 101 (98-107) mmol/L Carbon Dioxide 25 (22-30) mmol/L BUN 19 H (7-17) mg/dL Creatinine 0.95 (0.7-1.0) mg/dL Glucose 82 (65-110) mg/dL Calcium 9.1 (8.4-10.2) mg/dL AST 72 H (14-36) U/L ALT 23 (6-35) U/L Alkaline Phosphatase 85 (38-126) U/L Total Protein 4.8 L (6.3-8.2) g/dL Albumin 2.6 L (3.5-5.1) g/dL Calcium panel 01/10/25 Range/Units 04:09 Calcium 9.1 (8.4-10.2) mg/dL Albumin 2.6 L (3.5-5.1) g/dL Pituitary panel 01/10/25 Range/Units 04:09 Sodium 135 L (137-145) mmol/L Potassium 3.8 (3.4-5.0) mmol/L Chloride 101 (98-107) mmol/L Carbon Dioxide 25 (22-30) mmol/L BUN 19 H (7-17) mg/dL Creatinine 0.95 (0.7-1.0) mg/dL Glucose 82 (65-110) mg/dL Calcium 9.1 (8.4-10.2) mg/dL Adrenal panel 01/10/25 Range/Units 04:09 Sodium 135 L (137-145) mmol/L Potassium 3.8 (3.4-5.0) mmol/L Chloride 101 (98-107) mmol/L Carbon Dioxide 25 (22-30) mmol/L BUN 19 H (7-17) mg/dL Creatinine 0.95 (0.7-1.0) mg/dL Glucose 82 (65-110) mg/dL Calcium 9.1 (8.4-10.2) mg/dL Total Bilirubin 0.4 (0.2-1.3) mg/dL AST 72 H (14-36) U/L ALT 23 (6-35) U/L Alkaline Phosphatase 85 (38-126) U/L Total Protein 4.8 L (6.3-8.2) g/dL Albumin 2.6 L (3.5-5.1) g/dL All lab testing reviewed Imaging Chest x-ray: report reviewed and image reviewed Abdomen CT scan report/results: report reviewed and image reviewed (Retroperitoneal mass seems to be pushing infrarenal aorta left and somewhat anterior. Only slight displacement of the inferior vena cava) CT scan - chest: report reviewed CT scan - pelvis: report reviewed and image reviewed Additional studies: Venous Doppler reports reviewed
[2025-01-10 18:00] LABS: Partial Thromboplastin Time 97.4 Seconds (22.3-36.8)
[2025-01-11] VITALS (15 sets, daily range): BP systolic 119–130; BP diastolic 54–61; PULSE 73–98; RESP 20–24; TEMP 35.8–37.4; O2SAT 93–96
[2025-01-11] MEDS: HEPARIN SOD/D5W 100 UNITS/ML 25,000 UNITS/250 ML BAG 6 UNITS IV CONT (01:13)
[2025-01-11 04:03] LABS: Hematocrit 27.4 % (37.0-47.0); Hemoglobin 8.7 g/dL (12.0-15.0); Immature Granulocyte Percent A 12.7 % (0-0.5); Lymphocytes Absolute Auto 1.51 K/mm3 (0.9-3.2); Mean Corpuscular HGB Conc 31.8 g/dl (32-36); Mean Corpuscular Hemoglobin 31.2 pg (26-34); Mean Corpuscular Volume 98.2 fl (80-100); Nucleated Red Blood Cells Absolute Auto 0.110 K/mm3 (0.0-0.012); Nucleated Red Blood Cells Perc 1.8 % (0.0-0.2); Platelet Count Result 161 k/mm3 (150-375); Red Blood Count 2.79 M/mm3 (4.2-5.4); White Blood Count 6.1 K/mm3 (4.5-10.0)
[2025-01-11 04:15] LABS: Partial Thromboplastin Time 71.5 Seconds (22.3-36.8)
[2025-01-11 04:26] LABS: Alanine Aminotransferase 47 U/L (6-35); Albumin Level 2.8 g/dL (3.5-5.1); Alkaline Phosphatase 86 U/L (38-126); Anion Gap 13 mmol/L (4-12); Aspartate Amino Transferase 149 U/L (14-36); Bilirubin,Total 0.5 mg/dL (0.2-1.3); Blood Urea Nitrogen 18 mg/dL (7-17); Calcium 9.3 mg/dL (8.4-10.2); Carbon Dioxide 23 mmol/L (22-30); Chloride 99 mmol/L (98-107); Estimated CRCL calculation 40 ml/min; Estimated Glomerular Filt Rate > 60; Glucose 75 mg/dL (65-110); Magnesium 2.0 mg/dL (1.6-2.3); Potassium 4.0 mmol/L (3.4-5.0); Sodium 135 mmol/L (137-145); Total Protein 5.0 g/dL (6.3-8.2)
[2025-01-11 04:58] LABS: Anisocytosis 1+; Polychromasia Occasional
[2025-01-11 04:59] LABS: Burr Cells 1+
[2025-01-11 05:01] LABS: Schistocytes None Seen
[2025-01-11] MEDS: ASCORBIC ACID 500 MG TABLET PO (08:53)
[2025-01-11] MEDS: FAMOTIDINE 20 MG TABLET PO ×2 (08:53→19:56)
[2025-01-11] MEDS: VITAMIN B COMPLEX CAPSULE 1 CAP PO (08:53)
[2025-01-11] MEDS: OPTI-GEN TAB 1 TABLET PO (08:53)
--- NOTE | 2025-01-11 10:40 | PCOTNOTE ---
The patient treatment was not able to be completed MD in the room. Will plan to continue treatment per plan of care.
--- NOTE | 2025-01-11 10:42 | WPDONCPN ---
Subjective Date/time seen: 01/11/25 10:42 Interval history: Shelley Cole is a 79 year old female with history of DCIS, s/p lumpectomy in 10/2022 and who is under the care of Dr. Jordan and currently taking Tamoxifen. She has a history of osteoporosis for which she takes Fosamax. She is admitted to the hospital with 3 days of swelling of the RLE>LLE. Venous doppler RLE (01/06/25): DVT common femoral vein through calf veins. CTA chest (01/07/25): Positive pulmonary embolus in the right lower lobe as well as the lower most portion of the right interlobar artery. Patient reports being more sedentary for the past 3 months. She reports having repeated episodes of ear infections as well as UTIs causing hernot to feel well. She was begun on Eliquis 10 mg bid on 01/06/25. My recommendation to the patient was to stop Tamoxifen and start Anastrazole. She was not interested in that recommendation and wanted to wait to talk to Dr. Jordan in person when he gets back the week of 01/18/25. I was called by the Hospitalist today, 01/09/25, informing me of the CT abd/pelvis results. CT abd/pelvis (01/08/25): 1. There is both pelvic and right lower limb venous thrombosis with redemonstration of pulmonary emboli in the right lower lobar pulmonary arteries. Dr. Peguero discussed these findings with Dr. Anne Lozano at 4:20 PM. There is additional venous filling defects in the right common femoral vein, the right external and common iliac veins and in the left common and internal iliac veins. 2. 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 3. Couple subtle soft tissue density right renal lesions which differential would include proteinaceous/hemorrhagic cyst, renal cell carcinoma or pyelonephritis. 4. Fibroid uterus. 01/11/25- Discussed with hospitalist. Surgeon cannot put in IVC filter due to thrombi in the femoral/iliac veins. Patient to be transferred to a tertiary facility. Hopefully, the retroperitoneal mass can be biopsied there as well. IMPRESSION/PLAN: 1. DCIS of breast - D/C Tamoxifen. Again recommend Anastrazole. Will await Dr. Jordan's opinion prior to ordering per her request. 2. 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 Less likely, given patient's extensive thrombosis, are Castleman disease and retroperitoneal fibrosis. Recommend: Draw LDH, beta-2 microglobulin, flow cytometry for L/L panel, biopsy. 3. Extensive thrombus in the right common femoral vein, the right external and common iliac veins and in the left common and internal iliac veins. Recommend: temporary IVC filter placement. Bed rest for now. Extensive discussion held with patient and family. They understand the above and are in agreement. All questions werew answered to their satisfaction. Exam Const: Other: Well groomed female in no distress. Happy that her legs have decreased in size. Resp: Other: Bilateral air entry Neuro: Other: alert and awake. Grossly nonfocal. Extrem: Other: No c/c/e Psych: Other: Affect normal Objective Data Vital Signs Vital Signs: Vital Signs - 24 hr 01/10/25 11:55 01/10/25 12:00 01/10/25 14:00 Temperature 37.1 C Pulse Rate 89 85 81 Respiratory Rate 24 H Blood Pressure 130/63 Pulse Oximetry 94 Oxygen Delivery 01/10/25 15:51 01/10/25 16:00 01/10/25 18:00 Temperature 36.4 C L Pulse Rate 83 84 82 Respiratory Rate 22 H Blood Pressure 123/59 L Pulse Oximetry 94 Oxygen Delivery 01/10/25 19:39 01/10/25 20:00 01/10/25 20:00 Temperature 36.3 C L Pulse Rate 86 90 Respiratory Rate 25 H Blood Pressure 119/50 L Pulse Oximetry 95 Oxygen Delivery Room Air 01/10/25 21:56 01/11/25 00:00 01/11/25 00:00 Temperature Pulse Rate 78 79 Respiratory Rate Blood Pressure Pulse Oximetry Oxygen Delivery Room Air 01/11/25 00:00 01/11/25 02:00 01/11/25 03:32 Temperature 35.8 C L 36.5 C Pulse Rate 76 78 78 Respiratory Rate 21 H 24 H Blood Pressure 124/59 L 119/57 L Pulse Oximetry 94 93 Oxygen Delivery 01/11/25 04:00 01/11/25 04:00 01/11/25 05:24 Temperature Pulse Rate 77 81 Respiratory Rate Blood Pressure Pulse Oximetry Oxygen Delivery Room Air 01/11/25 08:00 01/11/25 08:00 01/11/25 10:00 Temperature 36.6 C Pulse Rate 94 91 87 Respiratory Rate 20 Blood Pressure 121/54 L Pulse Oximetry 93 Oxygen Delivery Intake/Output Intake/Output: Intake & Output 01/08/25 01/09/25 01/10/25 01/11/25 23:59 23:59 23:59 23:59 Intake Total 1013.3 1001.3 1281.9 545.0 Output Total 1540 2084 893 1859 Balance -526.7 -403.7 291.9 -625.0 Meds/Results Medications: Active Medications Generic Name Dose Route Start Last Admin Trade Name Freq PRN Reason Stop Dose Admin Acetaminophen 650 mg 01/06/25 12:59 Acetaminophen 325 Mg Tablet PO On Hold: 01/07/25 19:33 Q4H PRN Mild Pain (1-3) or Fever Hydrocodone Bitart/Acetaminophen 1 tab 01/06/25 12:59 01/08/25 03:21 Hydrocodone/Acetaminophen (*Crx) 5-325 Mg Tablet PO 1 tab Q4H PRN Administration Moderate Pain (4-6) Alendronate Sodium 70 mg 01/15/25 09:00 Alendronate Sodium 70 Mg Tablet PO WEEKLY MIGUEL Ascorbic Acid 500 mg 01/07/25 09:00 01/11/25 08:53 Ascorbic Acid 500 Mg Tablet PO 500 mg DAILY MIGUEL Administration Bisacodyl 5 mg 01/06/25 12:59 Bisacodyl 5 Mg Tablet Ec PO DAILY PRN Constipation Calcium Citrate 2 tablet 01/06/25 17:00 01/10/25 17:58 Calcium Citrate 315 Mg/Vitamin D 6.25 Mcg (250 Units) Tab PO Not Given BID MIGUEL Diphenhydramine HCl 25 mg 01/06/25 13:46 Diphenhydramine Hcl Inj 50 Mg/Ml Vial IV PUSH On Hold: 01/07/25 19:33 Q4H PRN Allergic Reaction, Angioedema Diphenhydramine HCl 25 mg 01/07/25 09:40 01/07/25 10:43 Diphenhydramine Hcl Cap 25 Mg Capsule PO 25 mg On Hold: 01/07/25 19:33 Q12HR MIGUEL Administration Famotidine 20 mg 01/07/25 09:45 01/11/25 08:53 Famotidine 20 Mg Tablet PO 20 mg Q12HR MIGUEL Administration Heparin Sodium (Porcine) 5,000 units 01/07/25 21:51 Heparin Sodium 5,000 Units/Ml Vial IV PUSH PRN PRN aPTT less than 55 seconds Heparin Sodium (Porcine) 2,500 units 01/07/25 21:51 Heparin Sodium 5,000 Units/Ml Vial IV PUSH PRN PRN aPTT 55 - 70 seconds Heparin Sodium/Dextrose 25,000 units in 250 mls @ 6 mls/hr 01/07/25 21:55 01/11/25 04:24 Heparin Sodium/D5w 100 Units/Ml IV CONT 600 units/hr .Q24H MIGUEL 6 mls/hr Protocol Titration 600 UNITS/HR Multivitamins/Minerals 1 tablet 01/07/25 09:00 01/11/25 08:53 Opti-Gen Tab PO 1 tablet DAILY MIGUEL Administration Naloxone HCl 0.1 mg 01/06/25 12:59 Naloxone Hcl 0.4 Mg/Ml Vial IV PUSH Q2M PRN Opiate Reversal Ondansetron HCl 4 mg 01/06/25 12:59 Ondansetron Inj 4 Mg/2 Ml Vial IV PUSH Q6H PRN Nausea And Vomiting Vitamin B Complex 1 cap 01/07/25 09:00 01/11/25 08:53 Vitamin B Complex Capsule PO 1 cap DAILY MIGUEL Administration Radiology Results: ITS Impressions Chest X-Ray 01/06/25 09:31 IMPRESSION: 1. No acute cardiopulmonary findings. Pulmonary Perfusion Imaging 01/06/25 14:34 IMPRESSION: Intermediate probability scan for presence of pulmonary emboli. Venous Doppler Study 01/06/25 15:03 IMPRESSION: 1. No deep venous thrombosis in the left lower limb. Chest CTA 01/07/25 10:45 IMPRESSION: Positive pulmonary embolus in the right lower lobe as well as the lower most portion of the right interlobar artery. Abdomen/Pelvis CT 01/08/25 15:49 IMPRESSION: 1. There is both pelvic and right lower limb venous thrombosis with redemonstration of pulmonary emboli in the right lower lobar pulmonary arteries. Dr. Peguero discussed these findings with Dr. Anne Lozano at 4:20 PM. 2. 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 3. Couple subtle soft tissue density right renal lesions which differential would include proteinaceous/hemorrhagic cyst, renal cell carcinoma or pyelonephritis. 4. Fibroid uterus. Labs Labs: Laboratory Results - last 24 hr 01/10/25 01/10/25 01/11/25 11:06 17:30 03:55 WBC 6.1 RBC 2.79 L Hgb 8.7 L Hct 27.4 L MCV 98.2 MCH 31.2 MCHC 31.8 L RDW 14.6 H Plt Count 161 MPV 10.0 Immature Gran % (Auto) 12.7 H Neut % (Auto) 50.2 Lymph % (Auto) 24.9 [place] % (Auto) 10.7 H Eos % (Auto) 0.5 Baso % (Auto) 1.0 Lymph # (Auto) 1.51 [place] # (Auto) 0.7 H Eos # (Auto) 0.0 Baso # (Auto) 0.1 Abs Immat Gran (auto) 0.77 H Absolute Neuts (auto) 3.0 Absolute Nucleated RBC 0.110 H Band Neutrophils % Not Reportable Nucleated RBC % 1.8 H Atypical Lymphocytes Present Platelet Estimate Adequate Clumped Platelets Present Large Platelets Present Polychromasia Occasional Anisocytosis 1+ [place] Cells 1+ Schistocytes None seen APTT 73.5 H 97.4 H 71.5 H Sodium 135 L Potassium 4.0 Chloride 99 Carbon Dioxide 23 Anion Gap 13 H BUN 18 H Creatinine 0.88 Estim Creat Clear Calc 40 Estimated GFR > 60 Glucose 75 Calcium 9.3 Magnesium 2.0 Total Bilirubin 0.5 AST 149 H ALT 47 H Alkaline Phosphatase 86 Total Protein 5.0 L Albumin 2.8 L
--- NOTE | 2025-01-11 11:26 | PCOTNOTE ---
The patient treatment was not able to be completed Patient on bedrest orders. Will plan to continue treatment per plan of care.
--- NOTE | 2025-01-11 11:29 | PHAR ---
Home medication in sealed bottle. Paco Rodriguez 400/12.5
--- NOTE | 2025-01-11 15:38 | PCPTNOTE ---
Pt on new bed rest orders per Intensivist order. Holding therapy per JOSE Mcdonald and Juan Pablo request.
--- NOTE | 2025-01-11 18:20 | P.PNIM_ITS ---
Progress Note: A&P Assessment and Plan (1) Pulmonary emboli: Qualifiers: Pulmonary embolism type: other Chronicity: acute Acute cor pulmonale presence: without acute cor pulmonale Qualified Code(s): I26.99 - Other pulmonary embolism without acute cor pulmonale Code(s): I26.99 - Other pulmonary embolism without acute cor pulmonale Status: Acute Assessment and Plan: - CTA chest with +pulmonary emboli in the RLL and lower most portion of the ri ght interlobar artery - continue Eliquis dose has been switched to heparin drip - given elevated trop, BNP and LA, consulted cardio - echo reviewed - patient follows with oncology given history of breast cancer on Tamoxifen - oncology consulted We will continue on heparin drip as we will plan to get biopsy scheduled. IVC filter placement planned however unable to perform at this facility. Transfer initiated to [facility] (2) DVT (deep venous thrombosis): Qualifiers: Affected thrombotic vein of extremity: femoral Chronicity: acute DVT location: lower extremity Laterality: right Qualified Code(s): I82.411 - Acute embolism and thrombosis of right femoral vein Code(s): I82.409 - Acute embolism and thrombosis of unspecified deep veins of unspecified lower extremity Status: Acute Assessment and Plan: Here with 3 days of swelling to BLE, R worse than L. US of the RLE showed a DVT of the common femoral vein through calf veins. DVT likely related to tamoxifen use and new change in activity level, has been more sedentary for the past 2 weeks. Denies any recent surgery, long travel, or active malignancy. No previous history of DVT. Started on Eliquis 10 mg b.i.d. in the ED on 01/06. - Continue Eliquis 10 mg BID which has been switched to IV heparin Remains on IV heparin IVC filter placement recommended however unable to perform at this facility Transfer initiated to [facility]. (3) Angioedema: Qualifiers: Encounter type: initial encounter Qualified Code(s): T78.3XXA - Angioneurotic edema, initial encounter Code(s): T78.3XXA - Angioneurotic edema, initial encounter Status: Acute Assessment and Plan: -Patient has been on lisinopril 5 mg daily for years. Recently developed bilateral lower lip swelling x3 days. She denies any associated shortness of breath, tongue swelling, or throat swelling. No respiratory distress on exam. - received famotidine and Benadryl with improvement - Lisinopril discontinued and listed as allergy. (4) Elevated lactic acid level: Code(s): R79.89 - Other specified abnormal findings of blood chemistry Status: Acute Assessment and Plan: - Very mild leukocytosis, WBC 10.8. Reviewed vital signs from the ED, initial heart rate mildly elevated at 101 and patient has been intermittently to give next since arrival (20-28). Start gentle IV fluids. Low suspicion for infection. -Initial lactic 8.2, repeat 5.9. Continue to trend and remains elevated -No other complaints beyond lower extremity swelling, lower lip swelling, and generalized weakness. - CXR showed no acute cardiopulmonary pathology. - UA negative for infection - blood cultures ordered 01/07 - Lactic acidosis likely due to PE CT abdomen pelvis with contrast was performed which showed 1. There is both pelvic and right lower limb venous thrombosis with redemonstration of pulmonary emboli in the right lower lobar pulmonary arteries. Dr. Peguero discussed these findings with Dr. Anne Lozano at 4:20 PM. 2. 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 3. Couple subtle soft tissue density right renal lesions which differential would include proteinaceous/hemorrhagic cyst, renal cell carcinoma or pyelonephritis. 4. Fibroid uterus. Likely lactic acidosis related to malignancy induced (5) CKD (chronic kidney disease): Qualifiers: Chronic kidney disease stage: stage 3 (moderate) Chronic kidney disease stage 3 subtype: stage 3a (GFR 45-59) Qualified Code(s): N18.31 - Chronic kidney disease, stage 3a Code(s): N18.9 - Chronic kidney disease, unspecified Status: Chronic Assessment and Plan: Patient has history of mild CKD stage III. Creatinine 1.15, BUN 24, GFR 45 upon admission. At baseline. - monitor renal function - monitor electrolytes, correct as needed (6) Hypertension: Qualifiers: Hypertension type: primary hypertension Qualified Code(s): I10 - Essential (primary) hypertension Code(s): I10 - Essential (primary) hypertension Status: Chronic Assessment and Plan: - Stable. - lisinopril discontinued due to concern for angioedema, reporting lower lip swelling x3 days. - Will monitor blood pressure off of lisinopril while inpatient. (7) Elevated troponin: Code(s): R79.89 - Other specified abnormal findings of blood chemistry Status: Acute Assessment and Plan: - trop I 0.072, 0.074, 0.065 - EKG with NSR, no acute ST changes - CTA chest with PE as above - no plans for further ischemic work-up per cardiology (8) Retroperitoneal lymphadenopathy: Code(s): R59.0 - Localized enlarged lymph nodes Status: Acute Assessment and Plan: CT abdomen pelvis 01/08/2025 1. There is both pelvic and right lower limb venous thrombosis with redemonstration of pulmonary emboli in the right lower lobar pulmonary arteries. Dr. Peguero discussed these findings with Dr. Anne Lozano at 4:20 PM. 2. 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 3. Couple subtle soft tissue density right renal lesions which differential would include proteinaceous/hemorrhagic cyst, renal cell carcinoma or pyelonephritis. 4. Fibroid uterus. Biopsy discussed with the patient and the family. Also discussed with the Oncology Lymphoma leukemia panel sent Will await this result before biopsy Will discuss with IR for biopsy LDH is also elevated Oncology recommends IVC filter placement which will likely be to be planned 1st Consult general surgery for IVC filter placement however unable to perform IVC filter placement in this facility [facility] Plan anemia: hb down to 8 from 11 since admission. no signs of bleeding. will continue to [facility] . LDH elevated Subjective Date/time seen: 01/11/25 18:20 Interval history: No overnight events. Discussed with General surgery. Discussed with oncologist. Transfer initiated to [facility] and has been accepted. Review of Systems 2 Review of Systems: All systems reviewed & are unremarkable except as noted in HPI and below Exam Narrative: General: NAD Eyes: EOMI ENT: neck supple, mild edema of lower lip. No tongue swelling. Maintaining secretions Cardiovascular: Regular rate and rhythm Respiratory: Clear to auscultation, respirations even and unlabored on RA Gastrointestinal: Soft, non tender Genitourinary: no suprapubic tenderness Musculoskeletal: 1-2+ pitting edema RLE Skin: warm, dry Neuro: Alert. Psych: Mood appropriate Objective Data Vital Signs Vital Signs: Vital Signs - 24 hr 01/10/25 19:39 01/10/25 20:00 01/10/25 20:00 Temperature 97.4 F L Pulse Rate 86 90 Respiratory Rate 25 H Blood Pressure 119/50 L Pulse Oximetry 95 Oxygen Delivery Room Air 01/10/25 21:56 01/11/25 00:00 01/11/25 00:00 Temperature Pulse Rate 78 79 Respiratory Rate Blood Pressure Pulse Oximetry Oxygen Delivery Room Air 01/11/25 00:00 01/11/25 02:00 01/11/25 03:32 Temperature 96.4 F L 97.7 F Pulse Rate 76 78 78 Respiratory Rate 21 H 24 H Blood Pressure 124/59 L 119/57 L Pulse Oximetry 94 93 Oxygen Delivery 01/11/25 04:00 01/11/25 04:00 01/11/25 05:24 Temperature Pulse Rate 77 81 Respiratory Rate Blood Pressure Pulse Oximetry Oxygen Delivery Room Air 01/11/25 08:00 01/11/25 08:00 01/11/25 10:00 Temperature 98 F Pulse Rate 94 91 87 Respiratory Rate 20 Blood Pressure 121/54 L Pulse Oximetry 93 Oxygen Delivery 01/11/25 12:00 01/11/25 12:00 01/11/25 14:00 Temperature 98.1 F Pulse Rate 93 73 86 Respiratory Rate 20 Blood Pressure 128/61 Pulse Oximetry 95 Oxygen Delivery 01/11/25 16:00 01/11/25 16:00 01/11/25 18:00 Temperature 99.3 F Pulse Rate 90 86 86 Respiratory Rate 20 Blood Pressure 130/56 L Pulse Oximetry 96 Oxygen Delivery Intake/Output Intake/Output: Intake & Output 01/08/25 01/09/25 01/10/25 01/11/25 23:59 23:59 23:59 23:59 Intake Total 1013.3 1001.3 1281.9 665.0 Output Total 1540 3591 574 9824 Balance -526.7 -403.7 291.9 -505.0 Meds/Results Medications: Active Medications Generic Name Dose Route Start Last Admin Trade Name Freq PRN Reason Stop Dose Admin Acetaminophen 650 mg 01/06/25 12:59 Acetaminophen 325 Mg Tablet PO On Hold: 01/07/25 19:33 Q4H PRN Mild Pain (1-3) or Fever Hydrocodone Bitart/Acetaminophen 1 tab 01/06/25 12:59 01/08/25 03:21 Hydrocodone/Acetaminophen (*Crx) 5-325 Mg Tablet PO 1 tab Q4H PRN Administration Moderate Pain (4-6) Alendronate Sodium 70 mg 01/15/25 09:00 Alendronate Sodium 70 Mg Tablet PO WEEKLY MIGUEL Ascorbic Acid 500 mg 01/07/25 09:00 01/11/25 08:53 Ascorbic Acid 500 Mg Tablet PO 500 mg DAILY MIGUEL Administration Bisacodyl 5 mg 01/06/25 12:59 Bisacodyl 5 Mg Tablet Ec PO DAILY PRN Constipation Diphenhydramine HCl 25 mg 01/06/25 13:46 Diphenhydramine Hcl Inj 50 Mg/Ml Vial IV PUSH On Hold: 01/07/25 19:33 Q4H PRN Allergic Reaction, Angioedema Diphenhydramine HCl 25 mg 01/07/25 09:40 01/07/25 10:43 Diphenhydramine Hcl Cap 25 Mg Capsule PO 25 mg On Hold: 01/07/25 19:33 Q12HR MIGUEL Administration Famotidine 20 mg 01/07/25 09:45 01/11/25 08:53 Famotidine 20 Mg Tablet PO 20 mg Q12HR MIGUEL Administration Heparin Sodium (Porcine) 5,000 units 01/07/25 21:51 Heparin Sodium 5,000 Units/Ml Vial IV PUSH PRN PRN aPTT less than 55 seconds Heparin Sodium (Porcine) 2,500 units 01/07/25 21:51 Heparin Sodium 5,000 Units/Ml Vial IV PUSH PRN PRN aPTT 55 - 70 seconds Heparin Sodium/Dextrose 25,000 units in 250 mls @ 6 mls/hr 01/07/25 21:55 01/11/25 04:24 Heparin Sodium/D5w 100 Units/Ml IV CONT 600 units/hr .Q24H MIGUEL 6 mls/hr Protocol Titration 600 UNITS/HR Multivitamins/Minerals 1 tablet 01/07/25 09:00 01/11/25 08:53 Opti-Gen Tab PO 1 tablet DAILY MIGUEL Administration Naloxone HCl 0.1 mg 01/06/25 12:59 Naloxone Hcl 0.4 Mg/Ml Vial IV PUSH Q2M PRN Opiate Reversal Calcium 400mg- 2 each 01/11/25 11:30 01/11/25 17:46 Vitamind3 12.5mcg * BY MOUTH 02/10/25 11:29 2 each Use Home Supply* BID MIGUEL Administration Ondansetron HCl 4 mg 01/06/25 12:59 Ondansetron Inj 4 Mg/2 Ml Vial IV PUSH Q6H PRN Nausea And Vomiting Vitamin B Complex 1 cap 01/07/25 09:00 01/11/25 08:53 Vitamin B Complex Capsule PO 1 cap DAILY MIGUEL Administration Radiology Results: ITS Impressions Chest X-Ray 01/06/25 09:31 IMPRESSION: 1. No acute cardiopulmonary findings. Pulmonary Perfusion Imaging 01/06/25 14:34 IMPRESSION: Intermediate probability scan for presence of pulmonary emboli. Venous Doppler Study 01/06/25 15:03 IMPRESSION: 1. No deep venous thrombosis in the left lower limb. Chest CTA 01/07/25 10:45 IMPRESSION: Positive pulmonary embolus in the right lower lobe as well as the lower most portion of the right interlobar artery. Abdomen/Pelvis CT 01/08/25 15:49 IMPRESSION: 1. There is both pelvic and right lower limb venous thrombosis with redemonstra tion of pulmonary emboli in the right lower lobar pulmonary arteries. Dr. Peguero discussed these findings with Dr. Anne Lozano at 4:20 PM. 2. 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 3. Couple subtle soft tissue density right renal lesions which differential would include proteinaceous/hemorrhagic cyst, renal cell carcinoma or pyelonephritis. 4. Fibroid uterus. Labs Labs: Laboratory Results - last 24 hr 01/11/25 03:55 WBC 6.1 RBC 2.79 L Hgb 8.7 L Hct 27.4 L MCV 98.2 MCH 31.2 MCHC 31.8 L RDW 14.6 H Plt Count 161 MPV 10.0 Immature Gran % (Auto) 12.7 H Neut % (Auto) 50.2 Lymph % (Auto) 24.9 [place] % (Auto) 10.7 H Eos % (Auto) 0.5 Baso % (Auto) 1.0 Lymph # (Auto) 1.51 [place] # (Auto) 0.7 H Eos # (Auto) 0.0 Baso # (Auto) 0.1 Abs Immat Gran (auto) 0.77 H Absolute Neuts (auto) 3.0 Absolute Nucleated RBC 0.110 H Band Neutrophils % Not Reportable Nucleated RBC % 1.8 H Atypical Lymphocytes Present Platelet Estimate Adequate Clumped Platelets Present Large Platelets Present Polychromasia Occasional Anisocytosis 1+ [place] Cells 1+ Schistocytes None seen APTT 71.5 H Sodium 135 L Potassium 4.0 Chloride 99 Carbon Dioxide 23 Anion Gap 13 H BUN 18 H Creatinine 0.88 Estim Creat Clear Calc 40 Estimated GFR > 60 Glucose 75 Calcium 9.3 Magnesium 2.0 Total Bilirubin 0.5 AST 149 H ALT 47 H Alkaline Phosphatase 86 Total Protein 5.0 L Albumin 2.8 L
[2025-01-12] VITALS: BP 118/55; PULSE 84; RESP 25; TEMP 36.6; O2SAT 93
--- NOTE | 2025-01-12 01:31 | PC.NURSE ---
New ETA from [facility] of [id number]
[2025-01-12 02:00] VITALS: PULSE 78
--- NOTE | 2025-01-12 03:13 | PC.NURSE ---
New Updated time per [facility] is 2048
[2025-01-12 03:32] VITALS: BP 125/59; PULSE 81; RESP 29; TEMP 36.6; O2SAT 93
[2025-01-12 04:00] VITALS: PULSE 74; RESP 22; O2SAT 93
[2025-01-12 04:23] LABS: Hematocrit 27.6 % (37.0-47.0); Hemoglobin 8.8 g/dL (12.0-15.0); Immature Granulocyte Percent A 15.4 % (0-0.5); Lymphocytes Absolute Auto 1.60 K/mm3 (0.9-3.2); Mean Corpuscular HGB Conc 31.9 g/dl (32-36); Mean Corpuscular Hemoglobin 31.3 pg (26-34); Mean Corpuscular Volume 98.2 fl (80-100); Nucleated Red Blood Cells Absolute Auto 0.190 K/mm3 (0.0-0.012); Nucleated Red Blood Cells Perc 3.0 % (0.0-0.2); Platelet Count Result 178 k/mm3 (150-375); Red Blood Count 2.81 M/mm3 (4.2-5.4); White Blood Count 6.4 K/mm3 (4.5-10.0)
[2025-01-12 04:36] LABS: Partial Thromboplastin Time 65.8 Seconds (22.3-36.8)
[2025-01-12 04:42] LABS: Alanine Aminotransferase 57 U/L (6-35); Albumin Level 2.8 g/dL (3.5-5.1); Alkaline Phosphatase 95 U/L (38-126); Anion Gap 13 mmol/L (4-12); Aspartate Amino Transferase 137 U/L (14-36); Bilirubin,Total 0.5 mg/dL (0.2-1.3); Blood Urea Nitrogen 19 mg/dL (7-17); Calcium 9.6 mg/dL (8.4-10.2); Carbon Dioxide 23 mmol/L (22-30); Chloride 99 mmol/L (98-107); Estimated CRCL calculation 37 ml/min; Estimated Glomerular Filt Rate 57; Glucose 84 mg/dL (65-110); Magnesium 2.0 mg/dL (1.6-2.3); Potassium 3.8 mmol/L (3.4-5.0); Sodium 135 mmol/L (137-145); Total Protein 5.0 g/dL (6.3-8.2)
[2025-01-12 04:58] LABS: Anisocytosis 1+; Hypochromasia 1+; Microcytosis 1+ (NORMAL); Schistocytes None Seen
[2025-01-12 06:00] VITALS: PULSE 81
[2025-01-12 07:33] VITALS: BP 121/59; PULSE 75; RESP 24; O2SAT 92
--- NOTE | 2025-01-12 07:47 | PC.NURSE ---
0800 [facility] arrived . pt transferred to [facility].. [facility] called and notified of departure from [facility]
--- NOTE | 2025-01-12 08:58 | P.TS_ITS ---
Transfer Discharge Sum: Prov Provider Date of admission: 01/07/25 14:25 Primary care physician: Migel Michele, Admitting clinician: Sunil Jackson DO Consults: 01/07/25 Consult to Physician Routine Comment: Called office and left a voicemail @9:49 01/07/25 Consulting Provider: Charlie Jordan pants presser/MD group to consult: oncology Reason for consultation: DVT, on tamoxifen for hx of breast cancer, follows with Dr. Jordan Has provider been notified: Yes Consult to Physician Routine Comment: Notified Arianne Zabala of consult Consulting Provider: Cirilo Garnett pants presser/MD group to consult: cardiology Reason for consultation: PE with elevated trop/BNP and lactic acidosis Has provider been notified: Yes 01/10/25 13:44 Consult to Physician Routine Comment: left message with exchange Consulting Provider: Rm Ziegler pants presser/MD group to consult: General surgery Reason for consultation: IVC filter placement Has provider been notified: Yes DS: Admitting Diagnosis Discharge Date 01/12/25 Admitting Diagnosis 01/12/2025 DS: Discharge Diagnosis Discharge Diagnosis (1) Pulmonary emboli: Qualifiers: Pulmonary embolism type: other Chronicity: acute Acute cor pulmonale presence: without acute cor pulmonale Qualified Code(s): I26.99 - Other pulmonary embolism without acute cor pulmonale Code(s): I26.99 - Other pulmonary embolism without acute cor pulmonale Status: Acute (2) DVT (deep venous thrombosis): Qualifiers: Affected thrombotic vein of extremity: femoral Chronicity: acute DVT location: lower extremity Laterality: right Qualified Code(s): I82.411 - Acute embolism and thrombosis of right femoral vein Code(s): I82.409 - Acute embolism and thrombosis of unspecified deep veins of unspecified lower extremity Status: Acute (3) Angioedema: Qualifiers: Encounter type: initial encounter Qualified Code(s): T78.3XXA - Angioneurotic edema, initial encounter Code(s): T78.3XXA - Angioneurotic edema, initial encounter Status: Acute (4) Elevated lactic acid level: Code(s): R79.89 - Other specified abnormal findings of blood chemistry Status: Acute (5) CKD (chronic kidney disease): Qualifiers: Chronic kidney disease stage: stage 3 (moderate) Chronic kidney disease stage 3 subtype: stage 3a (GFR 45-59) Qualified Code(s): N18.31 - Chronic kidney disease, stage 3a Code(s): N18.9 - Chronic kidney disease, unspecified Status: Chronic (6) Hypertension: Qualifiers: Hypertension type: primary hypertension Qualified Code(s): I10 - Essential (primary) hypertension Code(s): I10 - Essential (primary) hypertension Status: Chronic (7) Elevated troponin: Code(s): R79.89 - Other specified abnormal findings of blood chemistry Status: Acute (8) Retroperitoneal lymphadenopathy: Code(s): R59.0 - Localized enlarged lymph nodes Status: Acute Transfer Discharge Sum: Med Medications Active and Home Medications: Home Medications ascorbate calcium (vitamin C) 500 mg tablet 500 mg PO DAILY 10/08/22 [History Confirmed 01/06/25] lisinopril 5 mg tablet 5 mg PO QPM 10/08/22 [History Confirmed 01/06/25] ocqtopoakcdf-eapktlfs-rilegh tablet 1 tablet PO DAILY 10/08/22 [History Confirmed 01/06/25] vitamin B complex (B Complex-Vitamin B12 tablet) 1 tablet PO DAILY 10/08/22 [History Confirmed 01/06/25] glucosamine sulf dipot chlr,msm,chond 550 mg-C 30 mg-ashley 1 mg capsule (Glucosamine Chondroitin) 1 cap PO DAILY 10/24/22 [History Confirmed 01/06/25] alendronate 70 mg tablet 70 mg PO WEEKLY 12/16/23 [History Confirmed 01/06/25] tamoxifen 20 mg tablet 20 mg PO DAILY 12/16/23 [History Confirmed 01/06/25] calcium 200 mg (as citrate)-vitamin D3 6.25 mcg (250 unit) tablet (Citracal-D3 Petites) 4 tablet PO BID 01/11/25 [History Confirmed 01/11/25] Transfer Discharge Sum: Hosp Hospital Course Hospital course: Shelley Cole is a 79 year old female # Pulmonary emboli: - CTA chest with +pulmonary emboli in the RLL and lower most portion of the right interlobar artery - continue Eliquis dose has been switched to heparin drip - given elevated trop, BNP and LA, consulted cardio - echo reviewed - patient follows with oncology given history of breast cancer on Tamoxifen - oncology consulted We will continue on heparin drip as we will plan to get biopsy scheduled. IVC filter placement planned however unable to perform at this facility. Transfer initiated [facility] # DVT (deep venous thrombosis): Here with 3 days of swelling to BLE, R worse than L. US of the RLE showed a DVT of the common femoral vein through calf veins. DVT likely related to tamoxifen use and new change in activity level, has been more sedentary for the past 2 weeks. Denies any recent surgery, long travel, or active malignancy. No previous history of DVT. Started on Eliquis 10 mg b.i.d. in the ED on 01/06. - Continue Eliquis 10 mg BID which has been switched to IV heparin Remains on IV heparin IVC filter placement recommended however unable to perform at this facility Transfer initiated to [facility]. # Angioedema: -Patient has been on lisinopril 5 mg daily for years. Recently developed bilateral lower lip swelling x3 days. She denies any associated shortness of breath, tongue swelling, or throat swelling. No respiratory distress on exam. - received famotidine and Benadryl with improvement - Lisinopril discontinued and listed as allergy. # Elevated lactic acid level: - Very mild leukocytosis, WBC 10.8. Reviewed vital signs from the ED, initial heart rate mildly elevated at 101 and patient has been intermittently to give next since arrival (20-28). Start gentle IV fluids. Low suspicion for infection. -Initial lactic 8.2, repeat 5.9. Continue to trend and remains elevated -No other complaints beyond lower extremity swelling, lower lip swelling, and generalized weakness. - CXR showed no acute cardiopulmonary pathology. - UA negative for infection - blood cultures ordered 01/07 - Lactic acidosis likely due to PE CT abdomen pelvis with contrast was performed which showed 1. There is both pelvic and right lower limb venous thrombosis with redemonstration of pulmonary emboli in the right lower lobar pulmonary arteries. Dr. Peguero discussed these findings with Dr. Anne Lozano at 4:20 PM. 2. 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 3. Couple subtle soft tissue density right renal lesions which differential would include proteinaceous/hemorrhagic cyst, renal cell carcinoma or pyelonephritis. 4. Fibroid uterus. Likely lactic acidosis related to malignancy induced $ CKD (chronic kidney disease): Patient has history of mild CKD stage III. Creatinine 1.15, BUN 24, GFR 45 upon admission. At baseline. - monitor renal function - monitor electrolytes, correct as needed # Hypertension: - Stable. - lisinopril discontinued due to concern for angioedema, reporting lower lip swelling x3 days. - Will monitor blood pressure off of lisinopril while inpatient. # Elevated troponin: - trop I 0.072, 0.074, 0.065 - EKG with NSR, no acute ST changes - CTA chest with PE as above - no plans for further ischemic work-up per cardiology # Retroperitoneal lymphadenopathy: CT abdomen pelvis 01/08/2025 1. There is both pelvic and right lower limb venous thrombosis with redemonstration of pulmonary emboli in the right lower lobar pulmonary arteries. Dr. Peguero discussed these findings with Dr. Anne Lozano at 4:20 PM. 2. 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 3. Couple subtle soft tissue density right renal lesions which differential would include proteinaceous/hemorrhagic cyst, renal cell carcinoma or pyelonephritis. 4. Fibroid uterus. Biopsy discussed with the patient and the family. Also discussed with the Oncology Lymphoma leukemia panel sent Will await this result before biopsy Will discuss with IR for biopsy LDH is also elevated Oncology recommends IVC filter placement which will likely be to be planned 1st Consult general surgery for IVC filter placement however unable to perform IVC filter placement in this facility Transfer to higher facility initiated # anemia: hb down to 8 from 11 since admission. no signs of bleeding. will continue to montior . LDH elevated Patient Condition: Stable Time Spent with Patient Time attestation: Total time spent providing and/or coordinating transfer services: 50 minutes Exam Narrative: General: NAD Eyes: EOMI ENT: neck supple, mild edema of lower lip. No tongue swelling. Maintaining secretions Cardiovascular: Regular rate and rhythm Respiratory: Clear to auscultation, respirations even and unlabored on RA Gastrointestinal: Soft, non tender Genitourinary: no suprapubic tenderness Musculoskeletal: 1-2+ pitting edema RLE Skin: warm, dry Neuro: Alert. Psych: Mood appropriate DS: Data Data Completed and Pending Completed studies during hospitalization: Exam Type: CA echo doppler color flow Staff Referring Physician: Evonne Brower Attending Provider: Denilson Jackson Summary 1. There is normal biventricular size and systolic function. 2. There are no significant valvular abnormalities. 3. There is mild pulmonary hypertension. Left Ventricle The left ventricle is normal in size and systolic function. The left ventricular ejection fraction is visually estimated to be 60-65%. Right Ventricle The right ventricle is normal in size and systolic function. Left Atria The left atrium is normal size. Right Atria The right atrium is normal size. Atrial Septum The atrial septum is visually intact. Aortic Valve The aortic valve is trileaflet and sclerotic. There is no aortic stenosis. There is no aortic regurgitation. Pulmonic Valve The pulmonic valve is not well visualized. Mitral Valve The mitral valve is normal. There is no mitral regurgitation. Tricuspid Valve The tricuspid valve is normal. There is mild tricuspid regurgitation. Pulmonary Arteries There is mild pulmonary hypertension. Pericardium/Pleural Pericardium is normal in appearance with no evidence for significant pericardial effusion. Inferior Vena Cava Inferior vena cava is not well visualized. Aorta The aortic root at the level of the sinus of Valsalva measures 3.0 cm in diameter. Labs on day of discharge: Labs from last 24 hours 01/12/25 03:46 WBC 6.4 RBC 2.81 L Hgb 8.8 L Hct 27.6 L MCV 98.2 MCH 31.3 MCHC 31.9 L RDW 15.0 H Plt Count 178 MPV 10.5 H Immature Gran % (Auto) 15.4 H Neut % (Auto) 46.9 Lymph % (Auto) 25.2 [place] % (Auto) 11.0 H Eos % (Auto) 0.6 Baso % (Auto) 0.9 Lymph # (Auto) 1.60 [place] # (Auto) 0.7 H Eos # (Auto) 0.0 Baso # (Auto) 0.1 Abs Immat Gran (auto) 0.98 H Absolute Neuts (auto) 3.0 Absolute Nucleated RBC 0.190 H Band Neutrophils % Not Reportable Nucleated RBC % 3.0 H Atypical Lymphocytes Present Platelet Estimate Adequate Hypochromasia 1+ Anisocytosis 1+ Microcytosis 1+ Schistocytes None seen APTT 65.8 H Sodium 135 L Potassium 3.8 Chloride 99 Carbon Dioxide 23 Anion Gap 13 H BUN 19 H Creatinine 0.94 Estim Creat Clear Calc 37 Estimated GFR 57 L Glucose 84 Calcium 9.6 Magnesium 2.0 Total Bilirubin 0.5 AST 137 H ALT 57 H Alkaline Phosphatase 95 Total Protein 5.0 L Albumin 2.8 L Preliminary micro results at discharge 01/07/25 08:45 Blood Culture - Preliminary Blood 01/07/25 08:59 Blood Culture - Preliminary Blood Imaging Radiologist's impression: ITS Impressions Chest X-Ray 01/06/25 09:31 IMPRESSION: 1. No acute cardiopulmonary findings. Pulmonary Perfusion Imaging 01/06/25 14:34 IMPRESSION: Intermediate probability scan for presence of pulmonary emboli. Venous Doppler Study 01/06/25 15:03 IMPRESSION: 1. No deep venous thrombosis in the left lower limb. Chest CTA 01/07/25 10:45 IMPRESSION: Positive pulmonary embolus in the right lower lobe as well as the lower most portion of the right interlobar artery. Abdomen/Pelvis CT 01/08/25 15:49 IMPRESSION: 1. There is both pelvic and right lower limb venous thrombosis with redemonstration of pulmonary emboli in the right lower lobar pulmonary arteries. Dr. Peguero discussed these findings with Dr. Anne Lozano at 4:20 PM. 2. 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 3. Couple subtle soft tissue density right renal lesions which differential would include proteinaceous/hemorrhagic cyst, renal cell carcinoma or pyelonephritis. 4. Fibroid uterus.
== END 2025-01-12 08:00 | disposition short-term general hospital (02) | DRG 176 ==
LOC: ANHED 10:52 → ANHIMU 11:54
PROVIDERS: General Practice; Physician Assistant; Student in an Organized Health Care Education/Training Program; Admitting Provider Student in an Organized Health Care Education/Training Program; Emergency Provider Emergency Medicine; PCP Internal Medicine; Visit Provider Internal Medicine
DX: I26.99 Other pulmonary embolism without acute cor pulmonale (principal); I82.411 Acute embolism and thrombosis of right femoral vein; I82.423 Acute embolism and thrombosis of iliac vein, bilateral; E87.20 Acidosis, unspecified; E87.1 Hypo-osmolality and hyponatremia; T46.4X5A Adverse effect of angiotensin-converting-enzyme inhibitors, initial encounter; T38.6X5A Adverse effect of antigonadotrophins, antiestrogens, antiandrogens, not elsewhere classified, initial encounter; T78.3XXA Angioneurotic edema, initial encounter; I12.9 Hypertensive chronic kidney disease with stage 1 through stage 4 chronic kidney disease, or unspecified chronic kidney disease; N18.30 Chronic kidney disease, stage 3 unspecified; D64.9 Anemia, unspecified; M81.0 Age-related osteoporosis without current pathological fracture; D05.11 Intraductal carcinoma in situ of right breast; R59.0 Localized enlarged lymph nodes; Z20.822 Contact with and (suspected) exposure to COVID-19; Z86.69 Personal history of other diseases of the nervous system and sense organs; Z87.440 Personal history of urinary (tract) infections; Z90.11 Acquired absence of right breast and nipple
CPT/HCPCS: 36415; 36600; 71046; 71275; 74177; 78582; 80048; 80053; 81003; 82232; 82375; 82607; 82728; 82746; 82805; 83050; 83540; 83550; 83605; 83615; 83735; 83880; 84145; 84484; 85014; 85018; 85025; 85046; 85610; 85730; 87040; 87637; 93005; 93306; 93971; 97110; 97116; 97161; 97166; 99285; A9270; A9540; A9558; G0378; J1200; J1644; J7120; Q9967